=== PATIENT | male | born 1945 | race Caucasian/White ===

== ENCOUNTER 2016-08-16 09:36 | Emergency (ER) | payer MEDICARE ==
--- NOTE | 2016-08-16 10:44 | ER Document Report ---
ED General - General Chief Complaint: Shortness Of Breath Stated Complaint: SHORTNESS OF BREATH Information source: Patient Notes: 71-year-old male with past medical history including 2 heart attacks in 2006 with 3 stents placed at that time who presents today from his primary care physician's for evaluation. Patient supposedly around a week ago developed a one he knows, congestion, and coughing. He was seen by his primary care physician and started on antibiotics and steroids with a breathing treatment for some wheezing. Patient states she followed up today just for a "recheck". He states the coughing and the congestion has improved. He denies any fevers, nausea, vomiting, calf pain or leg swelling. He denies any and all chest pain. The primary doctor performed an EKG today and had concern for some inverted T waves. He sent the patient here for evaluation. TRAVEL OUTSIDE OF THE [place] IN LAST 30 DAYS: No - HPI Onset: Other - See above Quality of pain: Other - See above Severity: Moderate Pain Level: Denies Associated symptoms: Other - See above Exacerbated by: Denies Relieved by: Denies Similar symptoms previously: No Recently seen / treated by doctor: Yes - Related Data Allergies/Adverse Reactions: No Known Allergies Allergy (Verified 08/16/16 09:52) Past Medical History - Social History Smoking Status: Former Smoker Chew tobacco use (# tins/day): No Frequency of alcohol use: None Drug Abuse: None Family History: Reviewed & Not Pertinent Patient has suicidal ideation: No Patient has homicidal ideation: No - Past Medical History Cardiac Medical History: Reports: Hx Coronary Artery Disease, Hx Heart Attack, Hx Hypercholesterolemia, Hx Hypertension Renal/ Medical History: Denies: Hx Peritoneal Dialysis Musculoskeltal Medical History: Reports Hx Musculoskeletal Deformity, Reports Hx Musculoskeletal Trauma Past Surgical History: Reports: Hx Cardiac Catheterization - stents, Hx Coronary Stent - Immunizations Immunizations up to date: Yes Hx Diphtheria, Pertussis, Tetanus Vaccination: Yes Review of Systems - Review of Systems Constitutional: denies: Fever EENT: Nose discharge, Sinus discharge. denies: Eye discharge Cardiovascular: denies: Chest pain Respiratory: Cough. denies: Short of breath Gastrointestinal: denies: Vomiting Genitourinary: denies: Dysuria Musculoskeletal: denies: Leg swelling Skin: Other - no hives. denies: Rash Neurological/Psychological: Other - no slurred speech -: Yes All other systems reviewed and negative Physical Exam - Vital signs Vitals: Temp Pulse Resp BP Pulse Ox 97.5 F 57 L 16 154/72 H 94 08/16/16 09:51 08/16/16 09:51 08/16/16 09:51 08/16/16 09:51 08/16/16 09:51 Notes: Reviewed vital signs and nursing note as charted by RN. CONSTITUTIONAL: Alert and oriented and responds appropriately to questions. Well -appearing; well-nourished HEAD: Normocephalic; atraumatic EYES: PERRL; Conjunctivae clear, sclerae non-icteric ENT: Normal nose; positive rhinorrhea; moist mucous membranes; pharynx without lesions noted CARD: Regular rate and rhythm; no murmurs, no clicks, no rubs, no gallops; symmetric distal pulses RESP: Normal chest excursion without splinting or tachypnea; breath sounds clear and equal bilaterally; no wheezes, no rhonchi, no rales BACK: The back appears normal and is non-tender to palpation, there is no CVA tenderness EXT: Normal ROM in all joints; non-tender to palpation; no cyanosis, no effusions, no edema SKIN: Normal color for age and race; warm; dry; good turgor; capillary refill < 2 seconds; no acute lesions noted NEURO: Moves all extremities equally; Motor and sensory function intact PSYCH: The patient's mood and manner are appropriate. Grooming and personal hygiene are appropriate. Course - Re-evaluation Re-evalutation: 08/16/16 10:40 I have reviewed the EKG at the primary care physician's office. It appears that the patient there has a heart rate of 55, normal sinus rhythm, minimal left axis deviation, poor R wave progression, no obvious ST elevation or depression, inverted T waves in leads 2, 3, aVF, V3 and V4. EKG and pivot shows a heart of 57, normal sinus rhythm, minimal right axis deviation, no obvious ST elevation or depression. Inverted T waves in leads V3 through V5. Flattened T waves in 1, 2, 3. Repeat EKG shows a heart of 62, normal sinus rhythm, left anterior fascicular block, poor wave progression, no obvious ST elevation or depression, inverted T waves in V3 through V5. Poor R wave progression. Given the history and physical examination with no complaints of chest pain, calf pain, leg swelling, with a recent examination with signs and symptoms of an upper respiratory tract infection, I believe the risk of ACS, PE, and aortic dissection to be unlikely. We will obtain one set of cardiac enzymes and an x- ray of the chest with a BNP given the patient's past medical history. 08/16/16 11:59 Labs as recorded. Still no chest pain. Normal troponin. BNP is 399. X-ray of the chest. Pt has completed antibiotics. I called and spoke to the primary care physician agrees with discharge and that he will follow-up with the patient. Patient and family are very pleased with this disposition. Patient will be discharged home. - Vital Signs Vital signs: Temp Pulse Resp BP Pulse Ox 97.5 F 57 L 18 154/72 H 94 08/16/16 09:51 08/16/16 09:51 08/16/16 09:55 08/16/16 09:51 08/16/16 09:51 - Laboratory Result Diagrams: 08/16/16 10:45 08/16/16 10:45 Laboratory results interpreted by me: 08/16/16 10:45 RDW 14.7 H Lymphocytes % 12.6 L Discharge - Discharge Clinical Impression: Nasal congestion, Cough, Abnormal EKG Condition: Good Disposition: HOME, SELF-CARE Additional Instructions: Come back immediately with any chest pain, shortness of breath, calf pain, leg swelling, fevers or vomiting, or any other acute problems. Please follow-up with your primary doctor as we have discussed.
[2016-08-16 11:10] LABS: ABSOLUTE BASOPHILS # (AUTO) 0.1 10^3/uL (0.0-0.2); ABSOLUTE LYMPHOCYTES (AUTO) 1.2 10^3/uL (0.5-4.7); ABSOLUTE MONOCYTES (AUTO) 0.9 10^3/uL (0.1-1.4); ABSOLUTE NEUT (AUTO) 7.1 10^3/uL (1.7-8.2); BASOPHILS % (AUTO) 1.1 % (0-2); EOSINOPHILS % (AUTO) 0.1 % (0-6); HEMATOCRIT 43.5 % (37.9-51.0); HEMOGLOBIN 14.9 g/dL (13.5-17.0); HGB HCT DIFFERENCE 1.2; LYMPHOCYTES % (AUTO) 12.6 % (13-45); MEAN CORPUSCULAR HGB CONC 34.2 g/dL (32.0-36.0); MEAN CORPUSCULAR VOLUME 91 fl (80-97); MONOCYTES % (AUTO) 9.5 % (3-13); RED BLOOD COUNT 4.79 10^6/uL (4.35-5.55); RED CELL DISTRIBUTION WIDTH 14.7 % (11.5-14.0); SEGMENTED NEUTROPHILS % (AUTO) 76.7 % (42-78); WHITE BLOOD COUNT 9.2 10^3/uL (4.0-10.5)
[2016-08-16 11:33] LABS: ANION GAP 10 (5-19); BLOOD UREA NITROGEN 13 mg/dL (7-20); CALCIUM 9.4 mg/dL (8.4-10.2); CARBON DIOXIDE 26 mmol/L (22-30); CHLORIDE 102 mmol/L (98-107); CREATININE RESULT 0.64 mg/dL (0.52-1.25); GLUCOSE 99 mg/dL (75-110)
[2016-08-16 11:41] LABS: TROPONIN I 0.014 ng/mL
[2016-08-16 12:45] VITALS: BP 148/78
--- NOTE | 2016-08-16 13:07 | EKG REPORT ---
SEVERITY:- ABNORMAL ECG - SINUS RHYTHM LEFT ANTERIOR FASCICULAR BLOCK LOW VOLTAGE IN FRONTAL LEADS NONSPECIFIC T ABNORMALITIES, ANT-LAT LEADS : Confirmed by: Reinier Elizabeth MD 16-Aug-2016 13:05:40
--- NOTE | 2016-08-16 13:08 | EKG REPORT ---
SEVERITY:- DEFECTIVE ECG - SINUS RHYTHM RIGHT AXIS DEVIATION LOW VOLTAGE IN FRONTAL LEADS ANTERIOR INFARCT , OLD BORDERLINE T ABNORMALITIES, DIFFUSE LEADS : Confirmed by: Reinier Elizabeth MD 16-Aug-2016 13:07:39
== END 2016-08-16 12:51 | disposition home or self-care (01) ==
LOC: ER 09:36
DX: R09.81 Nasal congestion (principal); R05 Cough; R94.31 Abnormal electrocardiogram [ECG] [EKG]; R06.02 Shortness of breath; I25.10 Atherosclerotic heart disease of native coronary artery without angina pectoris; E78.00 Pure hypercholesterolemia, unspecified; I10 Essential (primary) hypertension; Z87.891 Personal history of nicotine dependence; I25.2 Old myocardial infarction
CPT/HCPCS: 36415; 71020; 80048; 83880; 84484; 85025; 93005; 93010; 99285

== ENCOUNTER → 2016-10-25 | Outpatient (CLI) | payer MEDICARE ==
[2016-10-25 08:40] LABS: HEMATOCRIT 39.1 % (37.9-51.0); HEMOGLOBIN 13.1 g/dL (13.5-17.0); HGB HCT DIFFERENCE 0.2; MEAN CORPUSCULAR HEMOGLOBIN 31.1 pg (27.0-33.4); MEAN CORPUSCULAR HGB CONC 33.5 g/dL (32.0-36.0); MEAN CORPUSCULAR VOLUME 93 fl (80-97); RED BLOOD COUNT 4.22 10^6/uL (4.35-5.55); RED CELL DISTRIBUTION WIDTH 14.3 % (11.5-14.0); WHITE BLOOD COUNT 5.8 10^3/uL (4.0-10.5)
[2016-10-25 09:04] LABS: ALANINE AMINOTRANSFERASE 37 U/L (21-72); ALBUMIN 3.7 g/dL (3.5-5.0); ALKALINE PHOSPHATASE 72 U/L (38-126); ASPARTATE AMINO TRANSFERASE 25 U/L (17-59); BILIRUBIN,DIRECT 0.2 mg/dL (0.0-0.4); BILIRUBIN,TOTAL 0.6 mg/dL (0.2-1.3); TOTAL PROTEIN 6.2 g/dL (6.3-8.2)
[2016-10-25 09:05] LABS: ANION GAP 9 (5-19); BLOOD UREA NITROGEN 15 mg/dL (7-20); CALCIUM 9.3 mg/dL (8.4-10.2); CARBON DIOXIDE 26 mmol/L (22-30); CHLORIDE 104 mmol/L (98-107); CREATININE RESULT 0.85 mg/dL (0.52-1.25); GLUCOSE 90 mg/dL (75-110); POTASSIUM 4.5 mmol/L (3.6-5.0); SODIUM 138.7 mmol/L (137-145)
[2016-10-25 18:36] LABS: CHOLESTEROL 95.75 mg/dL (0-200); Direct HDL 40 mg/dL (>40); TRIGLYCERIDES 62 mg/dL (<150)
[2016-10-25 18:46] LABS: DIRECT LDL 31 mg/dL (<100)
== END ==
LOC: OD 07:30
PROVIDERS: ATTEND Internal Medicine Cardiovascular Disease
DX: E78.5 Hyperlipidemia, unspecified (principal); R06.02 Shortness of breath; I50.22 Chronic systolic (congestive) heart failure; Z79.899 Other long term (current) drug therapy
CPT/HCPCS: 36415; 80048; 80061; 80076; 83036; 83880; 84443; 85027

== ENCOUNTER → 2016-10-27 | Outpatient (CLI) | payer MEDICARE ==
[2016-10-27 10:46] LABS: CHOLESTEROL 111.25 mg/dL (0-200); Direct HDL 47 mg/dL (>40); TRIGLYCERIDES 63 mg/dL (<150)
[2016-10-27 10:57] LABS: DIRECT LDL 40 mg/dL (<100)
== END ==
LOC: OD 09:19
PROVIDERS: ATTEND Internal Medicine Cardiovascular Disease
DX: E78.5 Hyperlipidemia, unspecified (principal); R00.2 Palpitations
CPT/HCPCS: 36415; 80061

== ENCOUNTER 2016-12-15 07:08 | Day surgery (SDC) | payer MEDICARE ==
[~2016-12-15 07:08] MED LIST: KETOROLAC TROMETHAMINE 0.45% 4 DROP/0.4 ML DROPERETTE OD PRN
[2016-12-15] MEDS ORDERED: EPINEPHRINE INJ/PF 1 MG/1 ML AMPULE ONE (07:13)
[2016-12-15] MEDS ORDERED: CHONDR SU A NA/HYALUR INTRAOC KIT (SURGICARE) ONE (07:13)
[2016-12-15] MEDS ORDERED: LIDOCAINE 1% INJ-PF (10 MG/ML) 30 ML SDV ONE (07:13)
[2016-12-15] MEDS: CYCLOPENTOLATE 0.2%/PHENYLEPHRINE 1% OPH SOLN 2 ML OD PRN ×3 (07:24→07:40)
[2016-12-15] MEDS: TROPICAMIDE 1% OPH SOLN 3 ML OD PRN ×3 (07:24→07:39)
[2016-12-15] MEDS: BESIFLOXACIN HCL 0.6% OPH SUSP 5 ML BOTTLE OD PRN ×4 (07:25→08:21)
[2016-12-15] MEDS: TETRACAINE HCL 0.5% OPH SOLN 2 ML OD PRN ×3 (07:26→07:56)
[2016-12-15] MEDS ORDERED: MIDAZOLAM 2 MG/2 ML INJ ONE (07:39)
[2016-12-15] MEDS ORDERED: FENTANYL CITRATE INJ/PF 100 MCG/2 ML AMPUL ONE (07:39)
--- NOTE | 2016-12-15 21:49 | [facility] DISCHARGE SUMMARY E ---
[facility] Discharge Summary NAME: CLIFF TALBOT AGE: 71Y ADMITTED: 12/15/2016 DISCHARGED: 12/15/2016 HISTORY OF PRESENT ILLNESS AND HOSPITAL COURSE: This is a 71-year-old male who underwent cataract extraction of the right eye. DIAGNOSIS: Cataract, right eye. HOSPITAL COURSE: He underwent surgery because he was having difficulty seeing road signs. DISCHARGE INSTRUCTIONS: 1. He should be on a regular diet. 2. No bending at the waist and no heavy lifting. 3. He should use Besivance, Ilevro, and Durezol at 3 p.m. and 8 p.m. and sleep with a rigid shield. 4. I will see him for his one-day postoperative tomorrow. DICTATING PHYSICIAN: TANGELA ACKERMAN M.D. [id number] PHY#: [id number] ID: [id number] JOB#: [id number] ACCT: [id number] cc:TANGELA ACKERMAN M.D. >
--- NOTE | 2016-12-15 21:50 | [facility] OPERATIVE REPORT E ---
[facility] Operative Report NAME: CLIFF TALBOT AGE: 71Y DATE OF SURGERY: 12/15/2016 ROOM: PREOPERATIVE DIAGNOSIS: Cataract, right eye. POSTOPERATIVE DIAGNOSIS: Cataract, right eye. OPERATION: Cataract extraction with intraocular lens implant of the right eye. SURGEON: TANGELA ACKERMAN M.D. ANESTHESIA: Topical. PROCEDURE: After obtaining appropriate consent, the patient's right eye was prepped and draped in sterile fashion as well as the surgeon in a sterile manner and cataract surgery was started. First a paracentesis blade was used to make a small side-port incision. Viscoelastic was used to inflate the anterior chamber. Next a 2.4 mm incision was made with the paracentesis blade. A continuous capsulorrhexis incision was made using a cystotome and Utrata forceps. Following this hydrodissection was carried out to make the lens fully loose and mobile and it was rotated 90 degrees. Following this, a gyqumg-tks-tbidiwa technique was used to phacoemulsify the lens with a CDE of 24.47. The remaining cortex was removed with irrigation/aspiration. Provisc was instilled into the capsular bag to inflate the bag. A SN60WF, 22.0 diopter lens was placed. The remaining viscoelastic material was removed with irrigation/aspiration. Following this, a 10-0 nylon suture was used to close the incision and it was found to be watertight. Vigamox was instilled in the eye and a protective shield was placed over the eye. The patient returned to the postoperative recovery in stable condition. DICTATING PHYSICIAN: TANGELA ACKERMAN M.D. [id number] PHY#: [id number] ID: [id number] JOB#: [id number] ACCT: [id number] cc:TANGELA ACKERMAN M.D. >
== END 2016-12-15 09:01 | disposition home or self-care (01) ==
LOC: SC 07:08
PROVIDERS: ATTEND Internal Medicine
PROC: 08RJ3JZ Replacement of Right Lens with Synthetic Substitute, Percutaneous Approach (ICD-10-PCS; principal; 2016-12-15 08:00)
DX: H25.813 Combined forms of age-related cataract, bilateral (principal); I10 Essential (primary) hypertension; I48.91 Unspecified atrial fibrillation; Z87.891 Personal history of nicotine dependence; Z79.82 Long term (current) use of aspirin; Z79.899 Other long term (current) drug therapy
CPT/HCPCS: 66984; V2632; J2250; J3490 ×2; A9270; J0171; J3010; 142

== ENCOUNTER → 2016-12-19 | Outpatient (CLI) | payer MEDICARE ==
[2016-12-19 10:04] LABS: ANION GAP 9 (5-19); BLOOD UREA NITROGEN 11 mg/dL (7-20); CARBON DIOXIDE 26 mmol/L (22-30); CHLORIDE 106 mmol/L (98-107); CREATININE RESULT 0.74 mg/dL (0.52-1.25); GLUCOSE 91 mg/dL (75-110); POTASSIUM 4.2 mmol/L (3.6-5.0); SODIUM 141.1 mmol/L (137-145)
== END ==
LOC: OD 08:18
PROVIDERS: ATTEND Internal Medicine Cardiovascular Disease
DX: I50.22 Chronic systolic (congestive) heart failure (principal); R06.02 Shortness of breath
CPT/HCPCS: 36415; 80048; 83880

== ENCOUNTER 2017-01-05 08:46 | Day surgery (SDC) | payer MEDICARE ==
[~2017-01-05 08:46] MED LIST changes: +CHONDR SU A NA/HYALUR INTRAOC KIT (SURGICARE) ONE; +EPINEPHRINE INJ/PF 1 MG/1 ML AMPULE ONE; -KETOROLAC TROMETHAMINE 0.45% 4 DROP/0.4 ML DROPERETTE OD PRN; +KETOROLAC TROMETHAMINE 0.45% 4 DROP/0.4 ML DROPERETTE OS PRN; +LIDOCAINE 1% INJ-PF (10 MG/ML) 30 ML SDV ONE
[2017-01-05] MEDS: TETRACAINE HCL 0.5% OPH SOLN 2 ML OS PRN ×3 (08:58→09:41)
[2017-01-05] MEDS: CYCLOPENTOLATE 0.2%/PHENYLEPHRINE 1% OPH SOLN 2 ML OS PRN ×3 (08:59→09:22)
[2017-01-05] MEDS: TROPICAMIDE 1% OPH SOLN 3 ML OS PRN ×3 (08:59→09:22)
[2017-01-05] MEDS: BESIFLOXACIN HCL 0.6% OPH SUSP 5 ML BOTTLE OS PRN ×3 (08:59→10:00)
[2017-01-05] MEDS ORDERED: MIDAZOLAM 2 MG/2 ML INJ ONE ×2 (09:17)
--- NOTE | 2017-01-06 07:27 | [facility] OPERATIVE REPORT E ---
[facility] Operative Report NAME: CLIFF TALBOT AGE: 71Y DATE OF SURGERY: 01/05/2017 ROOM: PREOPERATIVE DIAGNOSIS: CATARACT, LEFT EYE. POSTOPERATIVE DIAGNOSIS: CATARACT, LEFT EYE. OPERATION: Cataract extraction with intraocular lens implant of the left eye. SURGEON: TANGELA ACKERMAN M.D. ANESTHESIA: Topical. PROCEDURE: After obtaining appropriate consent, the patient's left eye was prepped and draped in sterile fashion as well as the surgeon in a sterile manner and cataract surgery was started. First a paracentesis blade was used to make a small side-port incision. Viscoelastic was used to inflate the anterior chamber. Next a 2.4 mm incision was made with the paracentesis blade. A continuous capsulorrhexis incision was made using a cystotome and Utrata forceps. Following this hydrodissection was carried out to make the lens fully loose and mobile and it was rotated 90 degrees. Following this, a bylqst-ytt-nfhaqmm technique was used to phacoemulsify the lens with a CDE of 14.06. The remaining cortex was removed with irrigation/aspiration. Provisc was instilled into the capsular bag to inflate the bag. A SN60WF, 23.0 diopter lens was placed. The remaining viscoelastic material was removed with irrigation/aspiration. Following this, a 10-0 nylon suture was used to close the incision and it was found to be watertight. Vigamox was instilled in the eye and a protective shield was placed over the eye. The patient returned to the postoperative recovery in stable condition. DICTATING PHYSICIAN: TANGELA ACKERMAN M.D. [id number] PHY#: [id number] ID: [id number] JOB#: [id number] ACCT: [id number] cc:TANGELA ACKERMAN M.D. >
--- NOTE | 2017-01-06 07:28 | [facility] DISCHARGE SUMMARY E ---
[facility] Discharge Summary NAME: CLIFF TALBOT AGE: 71Y ADMITTED: 01/05/2017 DISCHARGED: 01/05/2017 HOSPITAL COURSE: This is a 71-year-old male who underwent cataract extraction of the left eye, diagnosed as cataract left eye. He underwent surgery because he was having difficulty with glare from headlights at night. He should be on a regular diet. No bending at his waist. No heavy lifting. He should use his Besivance, Ilevro, and Durezol at 3 p.m. and 8 p.m. and sleep with a rigid shield, and I will see him for his one day postoperative tomorrow. DICTATING PHYSICIAN: TANGELA ACKERMAN M.D. [id number] PHY#: [id number] ID: [id number] JOB#: [id number] ACCT: [id number] cc:TANGELA ACKERMAN M.D. >
== END 2017-01-05 10:39 | disposition home or self-care (01) ==
LOC: SC 08:46
PROVIDERS: ATTEND Internal Medicine
PROC: 08RK3JZ Replacement of Left Lens with Synthetic Substitute, Percutaneous Approach (ICD-10-PCS; principal; 2017-01-05 10:00)
DX: H25.12 Age-related nuclear cataract, left eye (principal); Z96.1 Presence of intraocular lens
CPT/HCPCS: 66984; V2632; J2250; J3490 ×2; A9270; J0171; 142

== ENCOUNTER → 2017-01-19 | Outpatient (CLI) | payer MEDICARE ==
[2017-01-19 09:01] LABS: ANION GAP 9 (5-19); BLOOD UREA NITROGEN 15 mg/dL (7-20); CALCIUM 9.8 mg/dL (8.4-10.2); CARBON DIOXIDE 27 mmol/L (22-30); CHLORIDE 105 mmol/L (98-107); CREATININE RESULT 0.85 mg/dL (0.52-1.25); GLUCOSE 104 mg/dL (75-110); POTASSIUM 4.3 mmol/L (3.6-5.0); SODIUM 140.8 mmol/L (137-145)
== END ==
LOC: OD 07:53
PROVIDERS: ATTEND Internal Medicine Cardiovascular Disease
DX: I50.22 Chronic systolic (congestive) heart failure (principal); R06.02 Shortness of breath
CPT/HCPCS: 36415; 80048; 83880

== ENCOUNTER → 2017-07-04 | Outpatient (CLI) | payer MEDICARE ==
[2017-07-04 09:38] LABS: ANION GAP 8 (5-19); BLOOD UREA NITROGEN 14 mg/dL (7-20); CALCIUM 9.4 mg/dL (8.4-10.2); CARBON DIOXIDE 28 mmol/L (22-30); CHLORIDE 106 mmol/L (98-107); GLUCOSE 100 mg/dL (75-110); POTASSIUM 4.4 mmol/L (3.6-5.0); SODIUM 142.2 mmol/L (137-145)
== END ==
LOC: OD 08:03
PROVIDERS: ATTEND Internal Medicine Cardiovascular Disease
DX: I50.22 Chronic systolic (congestive) heart failure (principal); R06.02 Shortness of breath; R00.2 Palpitations
CPT/HCPCS: 36415; 80048; 83880

== ENCOUNTER 2017-09-03 16:33 | Inpatient (IN) | payer MEDICARE ==
--- NOTE | 2017-09-03 18:07 | ER Document Report ---
ED Medical Screen (RME) - General Mode of Arrival: Ambulatory Information source: Patient TRAVEL OUTSIDE OF THE [place] IN LAST 30 DAYS: No <GINA BUCHANAN - Last Filed: 09/03/17 18:06> <JOANIE GARDNER - Last Filed: 09/03/17 18:42> - General Chief Complaint: Abdominal Pain Stated Complaint: STOMACH PAIN Time Seen by Provider: 09/03/17 18:33 Notes: 72 y.o male with a PMHx of [place], stents (last in 2006), HLD and HTN for which he takes Entresto. Pt presents to the ED with ABD pain of sudden onset today around 1330, more prominently on his right side. Pt reports dry heaving today and passing gas. He denies any diarrhea. Pt denies any Hx of abd issues, clots or DM. He denies taking any blood thinners. Pt PCP is Sr. Tabor. Cuffing Machine Operator is Dr. Conley. (JOANIE GARDNER) - Related Data Allergies/Adverse Reactions: No Known Allergies Allergy (Verified 09/03/17 16:35) Past Medical History - Past Medical History Cardiac Medical History: Reports: Hx Coronary Artery Disease, Hx Heart Attack - 2006 AND STENTS PLACED, Hx Hypercholesterolemia, Hx Hypertension Pulmonary Medical History: Denies: Hx Asthma Neurological Medical History: Denies: Hx Cerebrovascular Accident, Hx Seizures Renal/ Medical History: Denies: Hx Peritoneal Dialysis GI Medical History: Denies: Hx Hepatitis, Hx Hiatal Hernia, Hx Ulcer - OVER 40 YEARS AGO WHEN DRINKING Musculoskeltal Medical History: Reports Hx Musculoskeletal Deformity, Reports Hx Musculoskeletal Trauma Infectious Medical History: Denies: Hx Hepatitis Past Surgical History: Reports: Hx Cardiac Catheterization - stents, Hx Coronary Stent. Denies: Hx Open Heart Surgery, Hx Pacemaker - Immunizations Immunizations up to date: Yes Hx Diphtheria, Pertussis, Tetanus Vaccination: Yes <GINA BUCHANAN - Last Filed: 09/03/17 18:06> - General Information source: Patient - Social History Cigarette use (# per day): No Chew tobacco use (# tins/day): No Frequency of alcohol use: None Drug Abuse: None <JOANIE GARDNER - Last Filed: 09/03/17 18:42> Review of Systems - Review of Systems Gastrointestinal: See HPI, Abdominal pain, Other - dry heaving, passing gas. denies: Diarrhea <JOANIE GARDNER - Last Filed: 09/03/17 18:42> Physical Exam <GINA BUCHANAN - Last Filed: 09/03/17 18:06> <JOANIE GARDNER - Last Filed: 09/03/17 18:42> - Vital signs Vitals: Temp Pulse Resp BP Pulse Ox 97.4 F 69 16 135/73 H 98 09/03/17 16:42 09/03/17 16:42 09/03/17 16:42 09/03/17 16:42 09/03/17 16:42 - Notes Notes: PHYSICAL EXAM GENERAL: Alert, interacts well. No acute distress. HEAD: Normocephalic, atraumatic. EYES: Pupils equal, round, and reactive to light. Extraocular movements intact. ENT: Oral mucosa moist, tongue midline. Cyanotic tongue. NECK: Full range of motion. Supple. Trachea midline. LUNGS: Tachypnic. Clear to auscultation bilaterally, no wheezes, rales, or rhonchi. HEART: Regular rate and rhythm. No murmurs, gallops, or rubs. ABDOMEN: Firm, distended abd. Non-tender to palpation. Mottled skin. Bowel sounds present in all 4 quadrants. No guarding, rebound, or rigidity. EXTREMITIES: Moves all 4 extremities spontaneously. No edema. RT dorsalis pedis pulse 2+. Lt dorsalis pedis pulse 1+. NEUROLOGICAL: Alert and oriented x3. Normal speech. Biceps and patellar DTRs 2+ bilaterally. PSYCH: Normal affect, normal mood. SKIN: Warm, dry, normal turgor. No rashes or lesions noted. Mottled skin on abd. (JOANIE GARDNER) Course - Laboratory Result Diagrams: 09/03/17 18:18 09/03/17 18:18 <JOANIE GARDNER - Last Filed: 09/03/17 18:42> - Vital Signs Vital signs: Temp Pulse Resp BP Pulse Ox 98.1 F 72 20 118/76 96 09/03/17 17:56 09/03/17 17:56 09/03/17 17:56 09/03/17 17:56 09/03/17 17:56 Doctor's Discharge <GINA BUCHANAN - Last Filed: 09/03/17 18:06> <JOANIE GARDNER - Last Filed: 09/03/17 18:42> - Discharge Referrals: BALWINDER TABOR [Primary Care Provider] - Follow up as needed Scribe Documentation - Scribe Written by Scribe:: Jc Connelly 09/03/2017 1838 acting as scribe for :: Maria Del Carmen <JOANIE GARDNER - Last Filed: 09/03/17 18:42>
[2017-09-03 18:42] LABS: ABSOLUTE LYMPHOCYTES (AUTO) 1.4 10^3/uL (0.5-4.7); ABSOLUTE MONOCYTES (AUTO) 0.4 10^3/uL (0.1-1.4); ABSOLUTE NEUT (AUTO) 10.7 10^3/uL (1.7-8.2); BASOPHILS % (AUTO) 0.4 % (0-2); EOSINOPHILS % (AUTO) 0.3 % (0-6); HEMATOCRIT 45.2 % (37.9-51.0); HEMOGLOBIN 15.1 g/dL (13.5-17.0); LYMPHOCYTES % (AUTO) 11.2 % (13-45); MEAN CORPUSCULAR HEMOGLOBIN 31.2 pg (27.0-33.4); MEAN CORPUSCULAR HGB CONC 33.4 g/dL (32.0-36.0); MEAN CORPUSCULAR VOLUME 94 fl (80-97); MONOCYTES % (AUTO) 3.5 % (3-13); PLATELET COUNT 259 10^3/uL (150-450); RED BLOOD COUNT 4.83 10^6/uL (4.35-5.55); RED CELL DISTRIBUTION WIDTH 13.7 % (11.5-14.0); SEGMENTED NEUTROPHILS % (AUTO) 84.6 % (42-78); TOTAL CELLS COUNTED % (AUTO) 100 %; VENOUS BLOOD BASE EXCESS -0.7 mmol/L; VENOUS BLOOD HCO3 26.7 mmol/L (20-32); VENOUS BLOOD PCO2 54.4 mmHg (35-63); VENOUS BLOOD PH 7.31 (7.30-7.42); WHITE BLOOD COUNT 12.6 10^3/uL (4.0-10.5)
[2017-09-03] MEDS ORDERED: FENTANYL CITRATE INJ/PF 100 MCG/2 ML AMPUL IV ONE ×2 (18:43→18:46)
[2017-09-03] MEDS ORDERED: ONDANSETRON HCL INJ/PF 4 MG/2 ML SDV IV ONE (18:43)
[2017-09-03] MEDS ORDERED: NORMAL SALINE 1000 ML 1,000 ML IV ONE ×2 (18:44→19:25)
[2017-09-03 18:47] LABS: INTERNATIONAL RATION (INR) 0.96; PROTHROMBIN TIME 13.3 SEC (11.4-15.4)
[2017-09-03 18:48] LABS: PARTIAL THROMBOPLASTIN TIME 26.5 SEC (23.5-35.8)
--- NOTE | 2017-09-03 18:59 | RADIOLOGY REPORT (SQ) ---
EXAM DESCRIPTION: CTA CHEST COMPLETED DATE/TIME: 09/03/2017 6:41 pm REASON FOR STUDY: pain, eval for dissection /discussed risks, getting scan without labs COMPARISON: None. TECHNIQUE: CT scan of the chest performed using helical scanning technique with dynamic intravenous contrast injection. Images reviewed with lung, soft tissue and bone windows. Reconstructed coronal and sagittal MPR images reviewed. Additional 3 dimensional post-processing performed to develop Maximal Intensity Projection images (MS P). All images stored on PACS. All CT scanners at this facility use dose modulation, iterative reconstruction, and/or weight based d osing when appropriate to reduce radiation dose to as low as reasonably achievable (ALARA). [facility]: Dose Right [facility]: CareDose [facility]: Dose Right [facility]: Teradose 4D [facility]: KlickThru CONTRAST TYPE AND DOSE: contrast/concentration: Isovue 370.00 mg/ml; Total Contrast Delivered: 80.0 ml; Total Saline Delivered: 65.0 ml Contrast bolus adequate for pulmonary arteries and aorta. RENAL FUNCTION: Not available. RADIATION DOSE: . LIMITATIONS: None. FINDINGS: LUNGS AND PLEURA: No masses, infiltrates, pneumothorax. No pleural effusions, calcificati ons. AORTA AND GREAT VESSELS: No aneurysm. No dissection. HEART: No pericardial effusion. No significant coronary artery calcifications. PULMONARY ARTERIES: No emboli visualized in the main pulmonary arteries or the segmental branches. HILAR AND MEDIASTINAL STRUCTURES: No identified masses or abnormal nodes. HARDWARE: None in the chest. UPPER ABDOMEN: No significant findings. Limited exam. THYROID AND OTHER SOFT TISSUES: No masses. No adenopathy. BONES: No acute or significant finding. 3D MIPS: Confirm above findings. OTHER: No other significant finding. IMPRESSION: NORMAL CTA OF THE CHEST. NO AORTIC ANEURYSM OR DISSECTION. NO PULMONARY EMBOLI. COMMENT: Quality ID # [id number]: Final reports with documentation of one or more dose reduction techniques (e.g., Automated exposure control, adjustment of the mA and/or kV according to patient size, use of iterative reconstruction technique) TECHNICAL DOCUMENTATION: JOB ID: [id number] [employer]- All Rights Reserved Reading location - IP/workstation name: [email or web address]
[2017-09-03 19:01] LABS: ALANINE AMINOTRANSFERASE 41 U/L (21-72); ALBUMIN 4.5 g/dL (3.5-5.0); ALKALINE PHOSPHATASE 61 U/L (38-126); ANION GAP 12 (5-19); ASPARTATE AMINO TRANSFERASE 26 U/L (17-59); BILIRUBIN,DIRECT 0.2 mg/dL (0.0-0.4); BILIRUBIN,TOTAL 0.9 mg/dL (0.2-1.3); BLOOD UREA NITROGEN 12 mg/dL (7-20); CALCIUM 9.8 mg/dL (8.4-10.2); CARBON DIOXIDE 27 mmol/L (22-30); CHLORIDE 97 mmol/L (98-107); GLUCOSE 153 mg/dL (75-110); POTASSIUM 4.1 mmol/L (3.6-5.0); SODIUM 135.5 mmol/L (137-145)
[2017-09-03] MEDS ORDERED: PIPERACILLIN/TAZOBACTAM 4.5 GM VIAL IV ONE (19:07)
--- NOTE | 2017-09-03 19:08 | RADIOLOGY REPORT (SQ) ---
EXAM DESCRIPTION: CTA ABDOMEN/PELVIS W WO COMPLETED DATE/TIME: 09/03/2017 6:41 pm REASON FOR STUDY: Abd pain,discussed risks, getting scan without labs COMPARISON: None. TECHNIQUE: CT scan of the abdomen and pelvis performed with and without intravenous contrast using h elical scanning technique with dynamic intravenous contrast injection. Images reviewed with lung, sof t tissue, and bone windows. Reconstructed coronal and sagittal MPR images reviewed. All images stored on PACS. Advanced 3D imaging as volume rendering, MIPS, SSD performed? yes All CT scanners at this facility use dose modulation, iterative reconstruction, and/or weight based d osing when appropriate to reduce radiation dose to as low as reasonably achievable (ALARA). [facility]: Dose Right [facility]: CareDose [facility]: Dose Right [facility]: Teradose 4D [facility]: Sutus CONTRAST TYPE AND DOSE: 80 mL Isovue 370- low osmolar. RENAL FUNCTION: Not available. LIMITATIONS: None. FINDINGS: NON-CONTRASTED IMAGING: No significant renal or bladder calcifications. No other significa nt organ calcifications. POST-CONTRAST IMAGING: AORTA AND VESSELS: Extensive atherosclerosis with calcifications. No aneurysm. No dissection. The celiac axis, superior mesenteric artery, renal arteries, and inferior mesenteric artery are all paten t with no high-grade stenosis. The right common iliac, internal iliac, and external iliac arteries a re patent. The left common iliac and external iliac artery are occluded. There is filling of the di stal left common external iliac artery and common femoral artery via collaterals. The left internal iliac artery appears patent. LUNG BASES: No significant findings. No nodules or infiltrates. LIVER: Normal size. No masses or dilated ducts. SPLEEN: Normal size. No focal lesions. PANCREAS: No masses. No significant calcifications. No adjacent inflammation or peripancreatic fluid collections. Pancreatic duct not dilated. GALLBLADDER: No identified stones by CT criteria. No inflammatory changes to suggest cholecystitis. ADRENAL GLANDS: No significant masses or asymmetry. RIGHT KIDNEY AND URETER: Cortical cysts. No solid mass, calculi or urinary tract obstruction. LEFT KIDNEY AND URETER: No mass, calculi or urinary tract obstruction. RETROPERITONEUM: No retroperitoneal adenopathy, hemorrhage or masses. BOWEL AND PERITONEAL CAVITY: Scattered diverticuli primarily in the descending and sigmoid colon. No masses or inflammatory changes. Trace free fluid in the right upper quadrant between the liver and diaphragm No peritoneal masses. APPENDIX: The appendix is mildly dilated, measuring 10 mm in diameter (series 2, image 130). There i s stranding in the periappendiceal soft tissues. ABDOMINAL WALL: No masses. No hernias. BONY STRUCTURES: No significant or acute findings. 3-D IMAGING: Confirms the above findings. OTHER: No other significant finding. IMPRESSION: 1. FINDINGS IN THE APPENDIX SUSPICIOUS FOR EARLY ACUTE APPENDICITIS. NO EVIDENCE OF ABSCESS OR PERFO RATION. THERE IS A SMALL AMOUNT OF FREE FLUID IN THE RIGHT UPPER QUADRANT WHICH MAY BE RELATED TO AP PENDICITIS. 2. NO EVIDENCE OF AORTIC ANEURYSM OR DISSECTION. THE MAJOR MESENTERIC VESSELS ARE PATENT. THE LEFT COMMON ILIAC AND LEFT EXTERNAL ILIAC ARTERIES ARE OCCLUDED WITH FILLING DISTALLY VIA COLLATERALS, SUG GESTING THAT THIS IS PROBABLY A CHRONIC FINDING. 3. COLONIC DIVERTICULOSIS. NO CT FINDINGS OF ACUTE DIVERTICULITIS. 4. CORTICAL CYSTS IN THE RIGHT KIDNEY. 5. NO OTHER SIGNIFICANT FINDINGS. TECHNICAL DOCUMENTATION: JOB ID: [id number] Quality ID # [id number]: Final reports with documentation of one or more dose reduction techniques (e.g., Au tomated exposure control, adjustment of the mA and/or kV according to patient size, use of iterative reconstruction technique) 2010 [employer] All Rights Reserved Reading location - IP/workstation name: [email or web address]
[2017-09-03] MEDS ORDERED: AMPICILLIN SOD/SULBACTAM 3 GM VIAL IV ONE ×2 (19:14→19:23)
--- NOTE | 2017-09-03 19:40 | ER Document Report ---
ED General - General Mode of Arrival: Ambulatory Information source: Patient <JOANIE GARDNER - Last Filed: 09/03/17 23:46> - General TRAVEL OUTSIDE OF THE [place] IN LAST 30 DAYS: No <LGEARLADAM - Last Filed: 09/03/17 23:52> - General Chief Complaint: Abdominal Pain Stated Complaint: STOMACH PAIN Time Seen by Provider: 09/03/17 18:33 Notes: 72 y.o male with a PMHx of CO, stents (last being in 2006), HLD and HTN presents to the ED with sudden onset of ABD pain around 1330 today. Pt reports dry heaving but denies any vomiting. Pt also denies any diarrhea but admits passing gas. Pt denies taking any blood thinners. He denies any hx of aortic aneurism. PCP is Dr. Keita. [place] is Dr. Elizabeth. (JOANIE GARDNER) - Related Data Allergies/Adverse Reactions: No Known Allergies Allergy (Verified 09/03/17 16:35) Past Medical History - General Information source: Patient <JOANIE GARDNER - Last Filed: 09/03/17 23:46> - Social History Smoking Status: Former Smoker Chew tobacco use (# tins/day): No Frequency of alcohol use: None Drug Abuse: None Family History: Reviewed & Not Pertinent Patient has suicidal ideation: No Patient has homicidal ideation: No - Past Medical History Cardiac Medical History: Reports: Hx Coronary Artery Disease, Hx Heart Attack - 2006 AND STENTS PLACED, Hx Hypercholesterolemia, Hx Hypertension Pulmonary Medical History: Denies: Hx Asthma Neurological Medical History: Denies: Hx Cerebrovascular Accident, Hx Seizures Renal/ Medical History: Denies: Hx Peritoneal Dialysis GI Medical History: Denies: Hx Hepatitis, Hx Hiatal Hernia, Hx Ulcer - OVER 40 YEARS AGO WHEN DRINKING Musculoskeltal Medical History: Reports Hx Musculoskeletal Deformity, Reports Hx Musculoskeletal Trauma Infectious Medical History: Denies: Hx Hepatitis Past Surgical History: Reports: Hx Cardiac Catheterization - stents, Hx Coronary Stent. Denies: Hx Open Heart Surgery, Hx Pacemaker - Immunizations Immunizations up to date: Yes Hx Diphtheria, Pertussis, Tetanus Vaccination: Yes <ADAM DIEZ - Last Filed: 09/03/17 23:52> Review of Systems - Review of Systems Constitutional: No symptoms reported EENT: No symptoms reported Cardiovascular: No symptoms reported Respiratory: No symptoms reported Gastrointestinal: See HPI, Abdominal pain, Other - Dry heaving. denies: Diarrhea, Vomiting Genitourinary: No symptoms reported Male Genitourinary: No symptoms reported Musculoskeletal: No symptoms reported Skin: No symptoms reported Hematologic/Lymphatic: No symptoms reported Neurological/Psychological: No symptoms reported -: Yes All other systems reviewed and negative <JOANIE GARDNER - Last Filed: 09/03/17 23:46> Physical Exam <JOANIE GARDNER - Last Filed: 09/03/17 23:46> <ADAM DIEZ - Last Filed: 09/03/17 23:52> - Vital signs Vitals: Temp Pulse Resp BP Pulse Ox 97.4 F 69 16 135/73 H 98 09/03/17 16:42 09/03/17 16:42 09/03/17 16:42 09/03/17 16:42 09/03/17 16:42 - Notes Notes: PHYSICAL EXAM GENERAL: Alert, answers questions well. Appears very uncomfortable. HEAD: Normocephalic, atraumatic. EYES: Pupils equal, round, and reactive to light. Extraocular movements intact. ENT: Oral mucosa moist, tongue midline. NECK: Full range of motion. Supple. Trachea midline. LUNGS: Tachypneic. Clear to auscultation bilaterally, no wheezes, rales, or rhonchi. HEART: Regular rate and rhythm. No murmurs, gallops, or rubs. ABDOMEN: Firm, distended. Nontender to palpation, pain out of proportion to exam. Skin Mottled over abdomen. Bowel sounds present in all 4 quadrants. No guarding, rebound, or rigidity. EXTREMITIES: Moves all 4 extremities spontaneously. No edema. Right dorsalis pedis pulse 2+. Left dorsalis pedis pulse 1+. NEUROLOGICAL: Alert and oriented x3. Normal speech. Biceps and patellar DTRs 2+ bilaterally. PSYCH: Normal affect, normal mood. SKIN: Warm, dry, normal turgor. Mottled skin. No rashes or lesions noted. RECTAL: Soft brown stool, no blood, no melena no hemorrhoids. (JOANIE GARDNER) Course - Laboratory Result Diagrams: 09/03/17 18:18 09/03/17 18:18 <JOANIE GARDNER - Last Filed: 09/03/17 23:46> - Laboratory Result Diagrams: 09/03/17 18:18 09/03/17 18:18 <ADAM DIEZ - Last Filed: 09/03/17 23:52> - Re-evaluation Re-evalutation: 09/03/17 19:49 CTA of the chest abdomen and pelvis was ordered to rule out dissection, aneurysmal rupture and mesenteric ischemia. It did not show any signs of mesenteric ischemia or dissection, no evidence of aneurysm. There was early acute appendicitis. Patient was then immediately referred to the surgeon for consult, Dr. Enriquez accepted the patient to his service, we will treat the patient with Unasyn, resuscitate with fluids, fentanyl did not relieve his pain so he will be given Dilaudid at this point. Patient has been made n.p.o. Initial CT scan was performed without awaiting renal function due to the life- threatening nature of the suspected etiology. Risks of renal failure were discussed with patient and family members, they were agreeable to CT scan with IV contrast without awaiting renal function. 09/03/17 23:50 09/03/17 23:51 Shortly after seeing the patient bedside ultrasound was performed by me to look for possible aortic dissection or ruptured aortic aneurysm. Patient had a large amount of gas in the abdomen and I was unable to visualize the aorta. Patient was immediately sent for CAT scan as described above. (ADAM DIEZ) - Vital Signs Vital signs: Temp Pulse Resp BP Pulse Ox 98.1 F 72 29 H 125/83 93 09/03/17 18:51 09/03/17 17:56 09/03/17 19:16 09/03/17 19:16 09/03/17 19:16 - Laboratory Laboratory results interpreted by me: 09/03/17 09/03/17 09/03/17 18:18 18:18 18:18 WBC 12.6 H Seg Neutrophils % 84.6 H Lymphocytes % 11.2 L Absolute Neutrophils 10.7 H Sodium 135.5 L Chloride 97 L Glucose 153 H Lactic Acid 2.7 H Critical Care Note - Critical Care Note Total time excluding time spent on procedures (mins): 35 <ADAM DIEZ - Last Filed: 09/03/17 23:52> Discharge <JOANIE GARDNER - Last Filed: 09/03/17 23:46> - Discharge Admitting Provider: Surgicalist - [facility] Admitted: OR <ADAM DIEZ - Last Filed: 09/03/17 23:52> - Discharge Clinical Impression: Acute appendicitis Qualifiers: Acute appendicitis type: with localized peritonitis Qualified Code(s): K35.3 - Acute appendicitis with localized peritonitis Condition: Fair Disposition: ADMITTED INPATIENT Scribe Attestation: 09/03/17 23:50 I personally performed the services described in the documentation, reviewed and edited the documentation which was dictated to the scribe in my presence, and it accurately records my words and actions. (ADAM DIEZ) Scribe Documentation - Scribe Written by Jc:: Jc Connelly 09/03/171999 acting as scribe for :: Maria Del Carmen <JOANIE GARDNER - Last Filed: 09/03/17 23:46>
[2017-09-03] MEDS ORDERED: HYDROMORPHONE HCL INJ/PF 2 MG/ML AMPULE IV ONE (19:44)
[2017-09-03] MEDS ORDERED: FENTANYL CITRATE INJ/PF 250 MCG/5 ML AMPULE ONE (20:31)
[2017-09-03] MEDS ORDERED: PROPOFOL INJ 200 MG/20 ML VIAL IV ONE (20:32)
[2017-09-03] MEDS ORDERED: MIDAZOLAM 2 MG/2 ML INJ ONE (20:32)
[2017-09-03] MEDS ORDERED: BUPIVACAINE HCL 0.25 % INJ/PF (2.5 MG/1 ML) 30 ML VIAL ONE (20:38)
[2017-09-03] MEDS ORDERED: DIPHENHYDRAMINE HCL 50 MG/ML VIAL IV PRN (21:50)
[2017-09-03] MEDS ORDERED: FENTANYL CITRATE INJ/PF 100 MCG/2 ML AMPUL IV PRN ×3 (21:50)
[2017-09-03] MEDS ORDERED: PROMETHAZINE HCL INJ 25 MG/1 ML VIAL IV PRN (21:50)
[2017-09-03] MEDS ORDERED: MEPERIDINE HCL/PF INJ 25 MG/1 ML DISP.SYRIN IV PRN (21:50)
--- NOTE | 2017-09-03 22:54 | EKG REPORT ---
SEVERITY:- ABNORMAL ECG - SINUS TACHYCARDIA LEFT ANTERIOR FASCICULAR BLOCK LOW VOLTAGE IN FRONTAL LEADS BORDERLINE T ABNORMALITIES, LATERAL LEADS : Confirmed by: Marysol Cooley 03-Sep-2017 22:53:32
[2017-09-03] MEDS ORDERED: PHARMACY COMMUNICATION ORDER MC NR (23:45)
[2017-09-03] MEDS ORDERED: PROPOFOL 100 ML IV ONE (23:45)
[2017-09-03] MEDS ORDERED: DEXTROSE 40% GEL 15 GM TUBE PO PRN ×2 (23:59)
[2017-09-03] MEDS ORDERED: DEXTROSE 50%-WATER 25 GM/50 ML DISP.SYRIN IV PRN ×2 (23:59)
[2017-09-03] MEDS ORDERED: GLUCAGON,HUMAN RECOMB 1 MG INJ SUBCUT PRN (23:59)
--- NOTE | 2017-09-04 00:19 | PDOC H&P ---
History of Present Illness Admission Date/PCP: 09/03/17 19:44 BALWINDER TABOR Patient complains of: Right sided abdominal pains with nausea History of Present Illness: CLIFF TALBOT is a 72 year old male who has been c/o off and on right flank pains for a few weeks. This morning pains really got worse and went to ED. He had a CT scan of Abd/Pelvis which showed acute appendicitis. Pt was tachycardic given IV fluids and IV zosyn Past Medical History Cardiac Medical History: Reports: Coronary Artery Disease, Myocardial Infarction - 2007 AND STENTS PLACED, Hyperlipidema, Hypertension Pulmonary Medical History: Denies: Asthma Neurological Medical History: Denies: Seizures GI Medical History: Denies: Hepatitis, Hiatal Hernia Hematology: Denies: Anemia, Sickle Cell Disease Past Surgical History Past Surgical History: Reports: Cardiac Catheterization - stents, Coronary Stent Denies: Pacemaker Social History Smoking Status: Former Smoker - Advance Directive Resuscitation Status: Full Code Family History Family History: Reviewed & Not Pertinent Parental Family History Reviewed: Yes Children Family History Reviewed: No Sibling(s) Family History Reviewed.: No Medication/Allergy Home Medications: Aspirin [Aspirin EC] 81 mg PO DAILY 12/09/16 Atorvastatin Calcium 40 mg PO DAILY 12/09/16 Carvedilol [Coreg] 1 tab PO Q12 12/09/16 Cyanocobalamin (Vitamin B-12) [Vitamin B-12 1000 Mcg Tablet] 1 tab PO DAILY Multivit-Min/Folic/Vit K/Lycop [One-A-Day Men's 50+ Tablet] 1 each PO DAILY Sacubitril/Valsartan [Entresto 24 mg/26 mg Tablet] 1 tab PO DAILY 12/09/16 Spironolactone 25 mg PO .QOD 12/09/16 Besifloxacin HCl [Besivance 0.6% Oph Susp 5 ml] 1 drop OP ASDIR PRN 12/15/16 Difluprednate [Durezol] 5 ml OP DAILY 12/15/16 Nepafenac [Ilevro] 1.7 ml OP ASDIR PRN 12/15/16 Allergies/Adverse Reactions: No Known Allergies Allergy (Verified 09/03/17 16:35) Review of Systems Constitutional: PRESENT: other - denies fever/chills Eyes: PRESENT: other - had cataract surgery Cardiovascular: PRESENT: other - no chest pains Respiratory: PRESENT: other - no cough Gastrointestinal: PRESENT: abdominal pain, nausea Genitourinary: PRESENT: other - no dysuria Musculoskeletal: PRESENT: back pain Integumentary: PRESENT: other - no rash Neurological: PRESENT: other - no seizures Endocrine: PRESENT: other - no polyuria Hematologic/Lymphatic: PRESENT: other - no easy bruising Physical Exam Vital Signs: Temp Pulse Resp BP Pulse Ox 98.1 F 72 29 H 125/83 93 09/03/17 18:51 09/03/17 17:56 09/03/17 19:16 09/03/17 19:16 09/03/17 19:16 General appearance: PRESENT: mild distress Eye exam: PRESENT: conjunctiva pink Mouth exam: PRESENT: dry mucosa Neck exam: PRESENT: full ROM Respiratory exam: PRESENT: clear to auscultation matthew Cardiovascular exam: PRESENT: tachycardia Pulses: PRESENT: normal radial pulses Vascular exam: PRESENT: normal capillary refill GI/Abdominal exam: PRESENT: tenderness - right lateral side just above umbilicus Rectal exam: PRESENT: deferred Extremities exam: PRESENT: full ROM Musculoskeletal exam: PRESENT: ambulatory Neurological exam: PRESENT: alert, oriented to person, oriented to place, oriented to time, oriented to situation Psychiatric exam: PRESENT: appropriate affect Skin exam: PRESENT: normal color, warm Results Impressions: Abdomen/Pelvis CTA 09/03/17 18:19 IMPRESSION: 1. FINDINGS IN THE APPENDIX SUSPICIOUS FOR EARLY ACUTE APPENDICITIS. NO EVIDENCE OF ABSCESS OR PERFORATION. THERE IS A SMALL AMOUNT OF FREE FLUID IN THE RIGHT UPPER QUADRANT WHICH MAY BE RELATED TO APPENDICITIS. 2. NO EVIDENCE OF AORTIC ANEURYSM OR DISSECTION. THE MAJOR MESENTERIC VESSELS ARE PATENT. THE LEFT COMMON ILIAC AND LEFT EXTERNAL ILIAC ARTERIES ARE OCCLUDED WITH FILLING DISTALLY VIA COLLATERALS, SUGGESTING THAT THIS IS PROBABLY A CHRONIC FINDING. 3. COLONIC DIVERTICULOSIS. NO CT FINDINGS OF ACUTE DIVERTICULITIS. 4. CORTICAL CYSTS IN THE RIGHT KIDNEY. 5. NO OTHER SIGNIFICANT FINDINGS. Chest/Abdomen CTA 09/03/17 18:19 IMPRESSION: NORMAL CTA OF THE CHEST. NO AORTIC ANEURYSM OR DISSECTION. NO PULMONARY EMBOLI. Assessment & Plan - Diagnosis (1) Ruptured acute appendicitis with periton Is this a current diagnosis for this admission?: Yes - Time Time Spent: 30 to 50 Minutes - Inpatient Certification Medical Necessity: Need Close Monitoring Due to Risk of Patient Decompensation, Need For IV Fluids, Need For Continuous Telemetry Monitoring, Need for Pain Control, Need for IV Antibiotics, Need for Surgery, Risk of Complication if Not Cared For in Hospital - Plan Summary Plan Summary: Hydrate IV antibiotics For laparoscopic appendectomy possible open
[2017-09-04] MEDS ORDERED: DEXTROSE 40% GEL 15 GM TUBE NG PRN ×2 (00:30)
[2017-09-04] MEDS ORDERED: NORMAL SALINE 1000 ML 1,000 ML IV ONE (00:30)
[2017-09-04] MEDS ORDERED: PIPERACILLIN/TAZOBACTAM 3.375 GM VIAL IV PRN (00:32)
[2017-09-04] MEDS ORDERED: PIPERACILLIN SODIUM/TAZOBACTAM 3.375 GM in NORMAL SALINE 100 ML IV ONE (00:45)
--- NOTE | 2017-09-04 00:46 | RADIOLOGY REPORT (SQ) ---
EXAM DESCRIPTION: CHEST SINGLE VIEW CLINICAL HISTORY: line placement COMPARISON: 08/16/2016 FINDINGS: Single frontal view of the chest. Endotracheal tube with tip 3 cm above the landen. Left IJ central venous catheter. NG tube with tip below the diaphragm. Leads overlie the chest. Atherosclerotic calcification aortic arch. Low lung volumes. Left midlung linear opacities relatively stable. No lobar consolidation, pneumothorax, or pleural effusion. No displaced rib fractures identified. Upper abdominal soft tissues are unremarkable. IMPRESSION: 1. Visualized tubes and lines in appropriate radiographic position. No acute pneumonic process.
[2017-09-04 03:27] LABS: APPEARANCE,URINE CLEAR; BILIRUBIN,URINE NEGATIVE (NEGATIVE); COLOR,URINE YELLOW; GLUCOSE, URINE 50 mg/dL (NEGATIVE); KETONES,URINE 20 mg/dL (NEGATIVE); LEUKOCYTE ESTERASE,URINE NEGATIVE (NEGATIVE); NITRITE,URINE NEGATIVE (NEGATIVE); PROTEIN,URINE NEGATIVE (NEGATIVE); URINE SPECIFIC GRAVITY 1.034; UROBILINOGEN,URINE NEGATIVE mg/dL (<2.0)
[2017-09-04] MEDS ORDERED: PROPOFOL 100 ML IV PRN (04:26)
[2017-09-04] MEDS ORDERED: PIPERACILLIN/TAZOBACTAM 3.375 GM VIAL IV ONE (04:35)
[2017-09-04] MEDS: METRONIDAZOLE 500 MG/NS RTU 100 ML IV SCH ×3 (05:18→21:21)
[2017-09-04] MEDS ORDERED: PIPERACILLIN SODIUM/TAZOBACTAM 3.375 GM in NORMAL SALINE 100 ML IV SCH (06:00)
--- NOTE | 2017-09-04 06:11 | PDOC CONSULTATION ---
Consultation Consult Date: 09/04/17 Attending physician:: Consult reason:: Medical management History of Present Illness Admission Date/PCP: 09/03/17 19:44 BALWINDER TABOR History of Present Illness: Mr. Fraire is a 72 years old male patient admitted for abdominal pain. Since patient is intubated and on mechanical ventilator is not social history so brief history is obtained from chart review. Patient presented with sudden onset of abdominal pain around [address] scan of the abdomen reported as suspicious for early acute appendicitis. It was taken to or for laparoscopic appendectomy but the patient found to have peritonitis so the procedure upgraded to laparotomy. The hospitalist service is consulted for medical management. Detailed history and review of systems is unobtainable. Past Medical History Cardiac Medical History: Reports: Coronary Artery Disease, Myocardial Infarction - 2007 AND STENTS PLACED, Hyperlipidema, Hypertension Pulmonary Medical History: Denies: Asthma Neurological Medical History: Denies: Seizures GI Medical History: Denies: Hepatitis, Hiatal Hernia Hematology: Denies: Anemia, Sickle Cell Disease Past Surgical History Past Surgical History: Reports: Cardiac Catheterization - stents, Coronary Stent Denies: Pacemaker Social History Smoking Status: Former Smoker Frequency of Alcohol Use: None Hx Recreational Drug Use: No Drugs: None Hx Prescription Drug Abuse: No - Advance Directive Resuscitation Status: Full Code Family History Family History: Reviewed & Not Pertinent Parental Family History Reviewed: No Children Family History Reviewed: No Sibling(s) Family History Reviewed.: No - Patient intubated Medication/Allergy Home Medications: Aspirin [Aspirin EC] 81 mg PO DAILY 12/09/16 Atorvastatin Calcium 40 mg PO DAILY 12/09/16 Carvedilol [Coreg] 1 tab PO Q12 12/09/16 Cyanocobalamin (Vitamin B-12) [Vitamin B-12 1000 Mcg Tablet] 1 tab PO DAILY Multivit-Min/Folic/Vit K/Lycop [One-A-Day Men's 50+ Tablet] 1 each PO DAILY Sacubitril/Valsartan [Entresto 24 mg/26 mg Tablet] 1 tab PO DAILY 12/09/16 Spironolactone 25 mg PO .QOD 12/09/16 Besifloxacin HCl [Besivance 0.6% Oph Susp 5 ml] 1 drop OP ASDIR PRN 12/15/16 Difluprednate [Durezol] 5 ml OP DAILY 12/15/16 Nepafenac [Ilevro] 1.7 ml OP ASDIR PRN 12/15/16 Allergies/Adverse Reactions: No Known Allergies Allergy (Verified 09/03/17 16:35) Review of Systems ROS unobtainable: Due to endotracheal tube Physical Exam Vital Signs: Temp Pulse Resp BP Pulse Ox 98.6 F 129 H 16 109/59 L 96 09/04/17 05:53 09/04/17 00:15 09/04/17 03:15 09/04/17 03:11 09/04/17 04:20 Intake & Output 09/02/17 09/03/17 09/04/17 06:59 06:59 06:59 Output Total 325 Balance -325 Weight 75.4 kg General appearance: PRESENT: no acute distress Respiratory exam: PRESENT: clear to auscultation matthew. ABSENT: rales, rhonchi, wheezes Cardiovascular exam: PRESENT: RRR. ABSENT: diastolic murmur, rubs, systolic murmur Results Laboratory Results: 09/04/17 09/04/17 01:07 02:45 Lactic Acid 0.9 Urine Color YELLOW Urine Appearance CLEAR Urine pH 6.0 Ur Specific Lenore 1.034 Urine Protein NEGATIVE Urine Glucose (UA) 50 H Urine Ketones 20 H Urine Blood NEGATIVE Urine Nitrite NEGATIVE Ur Leukocyte Esterase NEGATIVE Urine WBC (Auto) 2 Urine RBC (Auto) 2 Impressions: Abdomen/Pelvis CTA 09/03/17 18:19 IMPRESSION: 1. FINDINGS IN THE APPENDIX SUSPICIOUS FOR EARLY ACUTE APPENDICITIS. NO EVIDENCE OF ABSCESS OR PERFORATION. THERE IS A SMALL AMOUNT OF FREE FLUID IN THE RIGHT UPPER QUADRANT WHICH MAY BE RELATED TO APPENDICITIS. 2. NO EVIDENCE OF AORTIC ANEURYSM OR DISSECTION. THE MAJOR MESENTERIC VESSELS ARE PATENT. THE LEFT COMMON ILIAC AND LEFT EXTERNAL ILIAC ARTERIES ARE OCCLUDED WITH FILLING DISTALLY VIA COLLATERALS, SUGGESTING THAT THIS IS PROBABLY A CHRONIC FINDING. 3. COLONIC DIVERTICULOSIS. NO CT FINDINGS OF ACUTE DIVERTICULITIS. 4. CORTICAL CYSTS IN THE RIGHT KIDNEY. 5. NO OTHER SIGNIFICANT FINDINGS. Chest/Abdomen CTA 09/03/17 18:19 IMPRESSION: NORMAL CTA OF THE CHEST. NO AORTIC ANEURYSM OR DISSECTION. NO PULMONARY EMBOLI. Chest X-Ray 09/04/17 00:17 IMPRESSION: 1. Visualized tubes and lines in appropriate radiographic position. No acute pneumonic process. Assessment & Plan - Diagnosis (1) Hypertension Qualifiers: Hypertension type: essential hypertension Qualified Code(s): I10 - Essential (primary) hypertension Is this a current diagnosis for this admission?: Yes Plan: Blood pressure well controlled. We will continue his p.o. medication as well as patient extubated tolerates p.o. (2) Hyperlipidemia Qualifiers: Hyperlipidemia type: unspecified Qualified Code(s): E78.5 - Hyperlipidemia , unspecified Is this a current diagnosis for this admission?: Yes Plan: Continue his home medication soreness patient extubated. (3) Ruptured acute appendicitis with periton Is this a current diagnosis for this admission?: Yes Plan: Continue current regimen. - Time Time Spent: 30 to 50 Minutes - Inpatient Certification Medical Necessity: Need Close Monitoring Due to Risk of Patient Decompensation
[2017-09-04 06:23] LABS: ARTERIAL BLOOD BASE EXCESS -3.7 mmol/L; ARTERIAL BLOOD FIO2 40%; ARTERIAL BLOOD H2CO3 1.22 mmol/L (1.05-1.35); ARTERIAL BLOOD HCO3 21.7 mmol/L (20-26); ARTERIAL BLOOD O2 SATURATION 95.9 % (94-98); ARTERIAL BLOOD PCO2 40.4 mmHg (35-45); ARTERIAL BLOOD PH 7.35 (7.35-7.45); ARTERIAL BLOOD PO2 84.8 mmHg (80-100); ARTERIAL BLOOD TOTAL CO2 22.9 mmol/L (23-27)
[2017-09-04 06:28] LABS: HEMATOCRIT 37.5 % (37.9-51.0); MEAN CORPUSCULAR HEMOGLOBIN 31.5 pg (27.0-33.4); MEAN CORPUSCULAR HGB CONC 33.7 g/dL (32.0-36.0); MEAN CORPUSCULAR VOLUME 94 fl (80-97); PLATELET COUNT 171 10^3/uL (150-450); RED BLOOD COUNT 4.01 10^6/uL (4.35-5.55); RED CELL DISTRIBUTION WIDTH 13.9 % (11.5-14.0); WHITE BLOOD COUNT 12.1 10^3/uL (4.0-10.5)
[2017-09-04 06:41] LABS: HEMOGLOBIN 12.6 g/dL (13.5-17.0)
[2017-09-04 06:49] LABS: ALANINE AMINOTRANSFERASE 41 U/L (21-72); ALBUMIN 2.7 g/dL (3.5-5.0); ALKALINE PHOSPHATASE 33 U/L (38-126); ANION GAP 5 (5-19); ASPARTATE AMINO TRANSFERASE 23 U/L (17-59); BILIRUBIN,DIRECT 0.1 mg/dL (0.0-0.4); BILIRUBIN,TOTAL 0.5 mg/dL (0.2-1.3); BLOOD UREA NITROGEN 9 mg/dL (7-20); CALCIUM 7.8 mg/dL (8.4-10.2); CARBON DIOXIDE 25 mmol/L (22-30); CHLORIDE 106 mmol/L (98-107); GLUCOSE 149 mg/dL (75-110); SODIUM 135.6 mmol/L (137-145); TOTAL PROTEIN 4.7 g/dL (6.3-8.2)
[2017-09-04 06:58] LABS: ABSOLUTE LYMPHOCYTES# (MANUAL) 0.5 10^3/uL (0.5-4.7); ABSOLUTE MONOCYTES # (MANUAL) 0.1 10^3/uL (0.1-1.4); ABSOLUTE NEUTROPHILS# (MANUAL) 11.5 10^3/uL (1.7-8.2); BAND NEUTROPHILS % (MANUAL) 10 % (3-5); BASOPHILS % (MANUAL) 0 % (0-2); EOSINOPHILS % (MANUAL) 0 % (0-6); LYMPHOCYTES % (MANUAL) 4 % (13-45); METAMYELOCYTES % (MANUAL) 2 % (0); MONOCYTES % (MANUAL) 1 % (3-13); SEGMENTED NEUTROPHILS % (MAN) 83 % (42-78); TOTAL CELLS COUNTED 100
[2017-09-04 06:59] LABS: PLATELET COMMENT ADEQUATE; RBC MORPHOLOGY COMMENT NORMO-CYTIC/CHROMIC
--- NOTE | 2017-09-04 07:14 | OPERATIVE REPORT E ---
Operative Report NAME: CLIFF TALBOT : 1945 AGE: 72Y DATE OF SURGERY: 09/03/2017 ROOM: 609 PREOPERATIVE DIAGNOSIS: ACUTE APPENDICITIS POSTOPERATIVE DIAGNOSIS: PERFORATED ACUTE APPENDICITIS WITH PERITONITIS. OPERATION: 1. Exploratory laparotomy. 2. Appendectomy. 3. Centrl line placement left IJ Vein SURGEON: ADRIANNE WALSH M.D. ANESTHESIA: General. INDICATION FOR PROCEDURE: This is a 72-year-old male who has been complaining of some back pains for the past few days. Today, complained of severe pains along the right lower quadrant with nausea. He was seen in the Emergency Room where a CT scan of the abdomen was done which showed acute appendicitis. Patient started on IV antibiotics and hydration. DESCRIPTION OF PROCEDURE: After adequate general anesthesia, patient was placed in supine position and the abdomen prepped and draped in the usual sterile fashion. Appropriate timeout was called. Next, an infraumbilical incision was made and a Ephraim trocar inserted through the fascia into the abdominal cavity and CO2 insufflated to 15 mmHg pressure. Next, 2 other trocars were placed, a 5 mm in suprapubic and a 10 mm in the left lower quadrant under direct vision. Next, the area of the appendix was then identified and it appears that the cecum was right at just below the liver. On looking at the area of the liver, there was some area of purulent fluid with some necrotic tissue on the abdominal wall, likely opposite the appendix. The appendix was not visualized. Because of this, the procedure was then converted to an open exploratory laparotomy. A midline incision is made just below the area of the epigastrium going below the umbilicus. The midline fascia was opened and the abdominal cavity entered. Still we had quite some difficulty identifying the gallbladder. The fluid was initially aspirated for C and S. With the use of the Bookwalter retractor, the appendix was then visualized which is noted to be plastered towards the retrocecal area. The base of the appendix appears to be normal. A window was developed between the neck of the appendix and this was then stapled with the JUAN FRANCISCO. The rest of the appendix was then dissected bluntly and with the use of harmonic yovany. It appears that the appendix may have ruptured right at the distal third. The tip of the appendix was then identified and dissected and appears to be disconnected from the area where it was ruptured. The rest of the appendix was then dissected and removed. Dissection was done with a right angle clamp and with the harmonic yovany. It appears the appendix ruptured with a lot of purulent material noted on initial exploration. The appendix appeared to be quite close to the gallbladder which appeared to be normal. The abdominal cavity was then copiously irrigated with at least 6 L of saline solution. The small bowel was run from the terminal ileum to the ligament of Treitz and noted to be normal. The liver noted to be quite smooth. The stomach and the rest of the abdominal cavity appears to be unremarkable though the stomach is somewhat distended. An NG tube was placed to decompress and to keep the NG tube while patient is intubated in the intensive care unit. Following this, a drain was placed in the right lateral mid abdomen and brought up to the area of the liver and at the site where appendix perforated. Following this, the midline fascia was then reapproximated with double strand 0 PDS and about 4 retentions sutures using #2 nylon were used. The subcu was then irrigated prior to closing the skin and mart were used to close the skin incision. The retention sutures were then tied. The drain was anchored to the skin with 3-0 silk. Patient tolerated procedure well. Needle, instrument, sponge count were all correct and estimated blood loss was about 150 mL. After placement of the sterile dressing, patient was placed in slight Trendelenburg position and the left Neck prepped and draped in the usual sterile fashion. The left internal jugular vein was then punctured with the help of the ultrasound. Guidewire passed through the needle towards the area of the superior vena cava and the needle pulled out. The insertion site was then dilated and a triple lumen catheter inserted through the guidewire to a distance of 17 cm. The guidewire was then anchored to the skin with 3-0 silk and all the 3 ports aspirated blood easily and instilled saline easily. Biopatch placed at the insertion site and a transparent sterile dressing was placed over the operative site. Patient tolerated procedure well. Patient then brought to the recovery room in guarded condition. DICTATING PHYSICIAN: ADRIANNE WALSH M.D. [id number] PHY#: [id number] ID: [id number] JOB#: [id number] ACCT: [id number] cc:ADRIANNE WALSH M.D. > RENE
--- NOTE | 2017-09-04 09:23 | RADIOLOGY REPORT (SQ) ---
EXAM DESCRIPTION: CHEST SINGLE VIEW COMPLETED DATE/TIME: 09/04/2017 8:09 am REASON FOR STUDY: mechanical vent COMPARISON: AP chest 09/04/2017, 08/16/2016 CT chest 09/03/2017 EXAM PARAMETERS: NUMBER OF VIEWS: One view. TECHNIQUE: Single frontal radiographic view of the chest acquired. RADIATION DOSE: NA LIMITATIONS: None. FINDINGS: LUNGS AND PLEURA: Stable bandlike scarring or atelectasis at the left lung base. No fluffy alveolar infiltrates worrisome for edema or pneumonia. No pleural effusion. No pneumothorax. MEDIASTINUM AND HILAR STRUCTURES: No masses. Contour normal. HEART AND VASCULAR STRUCTURES: No cardiomegaly BONES: No acute findings. HARDWARE: Endotracheal tube tip 3 cm above the landen. Left jugular central line tip superior vena c ti. Nasogastric tube tip and side port in the stomach. OTHER: No other significant finding. IMPRESSION: Tubes and lines in good positioning. No acute infiltrates. Stable bandlike scarring left lung base TECHNICAL DOCUMENTATION: JOB ID: [id number] [employer]- All Rights Reserved Reading location - IP/workstation name: [facility], [facility]
[2017-09-04] MEDS ORDERED: LEVALBUTEROL HCL NEB 0.63 MG/3 ML AMPUL NEB ONE (09:30)
--- NOTE | 2017-09-04 09:53 | PDOC PROGRESS REPORT ---
Subjective Progress Note for:: 09/04/17 Reason For Visit: RUPTURED ACUTE APPENDICITIS WITH PERITONITIS Patient is 12 hours out from operation, exploratory laparotomy, open appendectomy with drain placement; came to the unit intubated and remains hemodynamically stable on mild amount of ventilatory support, no hemodynamic events thus far. Physical Exam Vital Signs: Temp Pulse Resp BP Pulse Ox 98.6 F 69 18 115/68 97 09/04/17 08:00 09/04/17 09:19 09/04/17 08:00 09/04/17 08:00 09/04/17 08:00 Intake & Output 09/03/17 09/04/17 09/05/17 06:59 06:59 06:59 Output Total 325 150 Balance -325 -150 Weight 75.4 kg General appearance: PRESENT: other - On ventilator, sedated on propofol GI/Abdominal exam: PRESENT: other - Abdomen , Mildly distended. Dressing dry and intact Results Laboratory Results: 09/04/17 06:00 09/04/17 06:00 09/04/17 09/04/17 09/04/17 01:07 02:45 06:00 WBC 12.1 H RBC 4.01 L Hgb 12.6 L D Hct 37.5 L MCV 94 MCH 31.5 MCHC 33.7 RDW 13.9 Plt Count 171 Seg Neutrophils % Not Reportable Lymphocytes % Not Reportable Monocytes % Not Reportable Eosinophils % Not Reportable Basophils % Not Reportable Absolute Neutrophils Not Reportable Absolute Lymphocytes Not Reportable Absolute Monocytes Not Reportable Absolute Eosinophils Not Reportable Absolute Basophils Not Reportable Carbonic Acid HCO3/H2CO3 Ratio ABG pH ABG pCO2 ABG pO2 ABG HCO3 ABG O2 Saturation ABG Base Excess FiO2 Sodium Potassium Chloride Carbon Dioxide Anion Gap BUN Creatinine Est GFR ( Amer) Est GFR (Non-Af Amer) Glucose Lactic Acid 0.9 Calcium Total Bilirubin AST ALT Alkaline Phosphatase Total Protein Albumin Urine Color YELLOW Urine Appearance CLEAR Urine pH 6.0 Ur Specific [place] 1.034 Urine Protein NEGATIVE Urine Glucose (UA) 50 H Urine Ketones 20 H Urine Blood NEGATIVE Urine Nitrite NEGATIVE Ur Leukocyte Esterase NEGATIVE Urine WBC (Auto) 2 Urine RBC (Auto) 2 09/04/17 09/04/17 06:00 06:00 WBC RBC Hgb Hct MCV MCH MCHC RDW Plt Count Seg Neutrophils % Lymphocytes % Monocytes % Eosinophils % Basophils % Absolute Neutrophils Absolute Lymphocytes Absolute Monocytes Absolute Eosinophils Absolute Basophils Carbonic Acid 1.22 HCO3/H2CO3 Ratio 17:1 ABG pH 7.35 ABG pCO2 40.4 ABG pO2 84.8 ABG HCO3 21.7 ABG O2 Saturation 95.9 ABG Base Excess -3.7 FiO2 40% Sodium 135.6 L Potassium 4.0 Chloride 106 Carbon Dioxide 25 Anion Gap 5 BUN 9 Creatinine 0.69 Est GFR ( Amer) > 60 Est GFR (Non-Af Amer) > 60 Glucose 149 H Lactic Acid Calcium 7.8 L Total Bilirubin 0.5 AST 23 ALT 41 Alkaline Phosphatase 33 L Total Protein 4.7 L Albumin 2.7 L Urine Color Urine Appearance Urine pH Ur Specific [place] Urine Protein Urine Glucose (UA) Urine Ketones Urine Blood Urine Nitrite Ur Leukocyte Esterase Urine WBC (Auto) Urine RBC (Auto) 09/04/17 08:55 Troponin I 0.049 Impressions: Abdomen/Pelvis CTA 09/03/17 18:19 IMPRESSION: 1. FINDINGS IN THE APPENDIX SUSPICIOUS FOR EARLY ACUTE APPENDICITIS. NO EVIDENCE OF ABSCESS OR PERFORATION. THERE IS A SMALL AMOUNT OF FREE FLUID IN THE RIGHT UPPER QUADRANT WHICH MAY BE RELATED TO APPENDICITIS. 2. NO EVIDENCE OF AORTIC ANEURYSM OR DISSECTION. THE MAJOR MESENTERIC VESSELS ARE PATENT. THE LEFT COMMON ILIAC AND LEFT EXTERNAL ILIAC ARTERIES ARE OCCLUDED WITH FILLING DISTALLY VIA COLLATERALS, SUGGESTING THAT THIS IS PROBABLY A CHRONIC FINDING. 3. COLONIC DIVERTICULOSIS. NO CT FINDINGS OF ACUTE DIVERTICULITIS. 4. CORTICAL CYSTS IN THE RIGHT KIDNEY. 5. NO OTHER SIGNIFICANT FINDINGS. Chest/Abdomen CTA 09/03/17 18:19 IMPRESSION: NORMAL CTA OF THE CHEST. NO AORTIC ANEURYSM OR DISSECTION. NO PULMONARY EMBOLI. Chest X-Ray 09/04/17 07:00 IMPRESSION: Tubes and lines in good positioning. No acute infiltrates. Stable bandlike scarring left lung base Assessment & Plan - Diagnosis (1) Acute appendicitis Qualifiers: Acute appendicitis type: with localized peritonitis Qualified Code(s): K35.3 - Acute appendicitis with localized peritonitis Is this a current diagnosis for this admission?: Yes Plan: he is one half day status post left conversion to open exploratory laparotomy, appendectomy, drain placement, Dr. Enriquez, doing appropriately well postoperatively in the ICU on ventilator; Recommendations and plan: 1. I reviewed patient's status with the hospitalist; we noted some ST segment changes in lead II and V 1; therefore we will obtain EKG and cardiac enzymes with iso-enzymes. 2. Patient's chest x-ray this morning shows no obvious infiltrates; due to patient's age, date of surgery, and uncertain cardiac status, we will keep patient on ventilator this morning. 3. If patient becomes ventilatory dependent, may use nasogastric tube for enteral feeds.
[2017-09-04] MEDS: PIPERACILLIN SODIUM/TAZOBACTAM 3.375 GM in NORMAL SALINE 100 ML IV SCH ×3 (11:35→23:56)
[2017-09-04 12:56] LABS: ARTERIAL BLOOD BASE EXCESS -0.8 mmol/L; ARTERIAL BLOOD H2CO3 1.21 mmol/L (1.05-1.35); ARTERIAL BLOOD PCO2 40.2 mmHg (35-45); ARTERIAL BLOOD PH 7.39 (7.35-7.45); ARTERIAL BLOOD PO2 60.1 mmHg (80-100); ARTERIAL BLOOD TOTAL CO2 25.2 mmol/L (23-27)
[2017-09-04 12:59] LABS: ARTERIAL BLOOD FIO2 40%
--- NOTE | 2017-09-04 13:28 | EKG REPORT ---
SEVERITY:- ABNORMAL ECG - SINUS RHYTHM LOW VOLTAGE IN FRONTAL LEADS ABNORMAL T, CONSIDER ISCHEMIA, ANT-LAT LEADS : Confirmed by: Reinier Elizabeth MD 04-Sep-2017 13:28:02
[2017-09-04] MEDS: LEVALBUTEROL HCL NEB 0.63 MG/3 ML AMPUL NEB SCH ×2 (13:48→20:23)
--- NOTE | 2017-09-04 14:08 | PDOC CONSULTATION ---
Consultation Consult Date: 09/04/17 Attending physician:: LYLE MICHELLE Consult reason:: resp failure History of Present Illness Admission Date/PCP: 09/03/17 19:44 [facility] TABOR History of Present Illness: Mr. Fraire is a 72 years old male patient admitted for abdominal pain. She was given an exploratory laparotomy which found a ruptured viscus with diffuse peritonitis her abdomen was subsequently opened and cleaned thoroughly per surgery. Since patient is intubated and on mechanical ventilator. review of systems is unobtainable. Past Medical History Cardiac Medical History: Reports: Coronary Artery Disease, Myocardial Infarction - 2006 AND STENTS PLACED, Hyperlipidema, Hypertension Pulmonary Medical History: Denies: Asthma Neurological Medical History: Denies: Seizures GI Medical History: Denies: Hepatitis, Hiatal Hernia Hematology: Denies: Anemia, Sickle Cell Disease Past Surgical History Past Surgical History: Reports: Cardiac Catheterization - stents, Coronary Stent Denies: Pacemaker Social History Smoking Status: Former Smoker Frequency of Alcohol Use: None Hx Recreational Drug Use: No Drugs: None Hx Prescription Drug Abuse: No - Advance Directive Resuscitation Status: Full Code Family History Parental Family History Reviewed: No Children Family History Reviewed: No Sibling(s) Family History Reviewed.: No Medication/Allergy Home Medications: Atorvastatin Calcium [Lipitor 40 mg Tablet] 40 mg PO DAILY 09/04/17 Carvedilol [Coreg 12.5 mg Tablet] 18.75 mg PO Q12 09/04/17 Sacubitril/Valsartan [Entresto 97 mg-103 mg Tablet] 1 tab PO BID 09/04/17 Spironolactone [Aldactone 25 mg Tablet] 25 mg PO DAILY 09/04/17 Allergies/Adverse Reactions: No Known Allergies Allergy (Verified 09/03/17 16:35) Review of Systems ROS unobtainable: Due to endotracheal tube Physical Exam Vital Signs: Temp Pulse Resp BP Pulse Ox 98.6 F 76 18 115/68 97 09/04/17 08:00 09/04/17 08:00 09/04/17 08:00 09/04/17 08:00 09/04/17 08:00 Intake & Output 09/03/17 09/04/17 09/05/17 06:59 06:59 06:59 Output Total 325 150 Balance -325 -150 Weight 75.4 kg General appearance: PRESENT: no acute distress, disheveled, well-developed, well -nourished. ABSENT: cooperative Head exam: PRESENT: atraumatic, normocephalic Eye exam: PRESENT: conjunctiva pale, EOMI. ABSENT: nystagmus, periorbital swelling, scleral icterus Mouth exam: PRESENT: dry mucosa, neck supple, tongue midline, other - ET tube in place Neck exam: ABSENT: carotid bruit, JVD, lymphadenopathy, thyromegaly, tracheal deviation, tracheostomy Respiratory exam: PRESENT: decreased breath sounds, prolonged expiratory phas, rhonchi, symmetrical, unlabored. ABSENT: rales, retraction, stridor, tachypnea Cardiovascular exam: PRESENT: RRR, +S1, +S2, systolic murmur Pulses: PRESENT: normal radial pulses GI/Abdominal exam: PRESENT: other - Status post surgery ingesting extends from xiphoid process to the symphysis pubis Extremities exam: ABSENT: clubbing, joint swelling Musculoskeletal exam: ABSENT: ambulatory, deformity, dislocation Neurological exam: ABSENT: awake, oriented to person Skin exam: PRESENT: dry, warm Results Laboratory Results: 09/04/17 06:00 09/04/17 06:00 09/04/17 09/04/17 09/04/17 01:07 02:45 06:00 WBC 12.1 H RBC 4.01 L Hgb 12.6 L D Hct 37.5 L MCV 94 MCH 31.5 MCHC 33.7 RDW 13.9 Plt Count 171 Seg Neutrophils % Not Reportable Lymphocytes % Not Reportable Monocytes % Not Reportable Eosinophils % Not Reportable Basophils % Not Reportable Absolute Neutrophils Not Reportable Absolute Lymphocytes Not Reportable Absolute Monocytes Not Reportable Absolute Eosinophils Not Reportable Absolute Basophils Not Reportable Carbonic Acid HCO3/H2CO3 Ratio ABG pH ABG pCO2 ABG pO2 ABG HCO3 ABG O2 Saturation ABG Base Excess FiO2 Sodium Potassium Chloride Carbon Dioxide Anion Gap BUN Creatinine Est GFR ( Amer) Est GFR (Non-Af Amer) Glucose Lactic Acid 0.9 Calcium Total Bilirubin AST ALT Alkaline Phosphatase Total Protein Albumin Urine Color YELLOW Urine Appearance CLEAR Urine pH 6.0 Ur Specific [place] 1.034 Urine Protein NEGATIVE Urine Glucose (UA) 50 H Urine Ketones 20 H Urine Blood NEGATIVE Urine Nitrite NEGATIVE Ur Leukocyte Esterase NEGATIVE Urine WBC (Auto) 2 Urine RBC (Auto) 2 09/04/17 09/04/17 06:00 06:00 WBC RBC Hgb Hct MCV MCH MCHC RDW Plt Count Seg Neutrophils % Lymphocytes % Monocytes % Eosinophils % Basophils % Absolute Neutrophils Absolute Lymphocytes Absolute Monocytes Absolute Eosinophils Absolute Basophils Carbonic Acid 1.22 HCO3/H2CO3 Ratio 17:1 ABG pH 7.35 ABG pCO2 40.4 ABG pO2 84.8 ABG HCO3 21.7 ABG O2 Saturation 95.9 ABG Base Excess -3.7 FiO2 40% Sodium 135.6 L Potassium 4.0 Chloride 106 Carbon Dioxide 25 Anion Gap 5 BUN 9 Creatinine 0.69 Est GFR ( Amer) > 60 Est GFR (Non-Af Amer) > 60 Glucose 149 H Lactic Acid Calcium 7.8 L Total Bilirubin 0.5 AST 23 ALT 41 Alkaline Phosphatase 33 L Total Protein 4.7 L Albumin 2.7 L Urine Color Urine Appearance Urine pH Ur Specific [place] Urine Protein Urine Glucose (UA) Urine Ketones Urine Blood Urine Nitrite Ur Leukocyte Esterase Urine WBC (Auto) Urine RBC (Auto) Impressions: Abdomen/Pelvis CTA 09/03/17 18:19 IMPRESSION: 1. FINDINGS IN THE APPENDIX SUSPICIOUS FOR EARLY ACUTE APPENDICITIS. NO EVIDENCE OF ABSCESS OR PERFORATION. THERE IS A SMALL AMOUNT OF FREE FLUID IN THE RIGHT UPPER QUADRANT WHICH MAY BE RELATED TO APPENDICITIS. 2. NO EVIDENCE OF AORTIC ANEURYSM OR DISSECTION. THE MAJOR MESENTERIC VESSELS ARE PATENT. THE LEFT COMMON ILIAC AND LEFT EXTERNAL ILIAC ARTERIES ARE OCCLUDED WITH FILLING DISTALLY VIA COLLATERALS, SUGGESTING THAT THIS IS PROBABLY A CHRONIC FINDING. 3. COLONIC DIVERTICULOSIS. NO CT FINDINGS OF ACUTE DIVERTICULITIS. 4. CORTICAL CYSTS IN THE RIGHT KIDNEY. 5. NO OTHER SIGNIFICANT FINDINGS. Chest/Abdomen CTA 09/03/17 18:19 IMPRESSION: NORMAL CTA OF THE CHEST. NO AORTIC ANEURYSM OR DISSECTION. NO PULMONARY EMBOLI. Assessment & Plan - Diagnosis (1) Respiratory failure Qualifiers: Respiratory failure complication: hypoxia Is this a current diagnosis for this admission?: Yes Plan: Minimal FiO2 to maintain saturation between 90% minimal ventilation to keep pH between 7.35 and 7.45 (2) Hypertension Qualifiers: Hypertension type: essential hypertension Qualified Code(s): I10 - Essential (primary) hypertension Is this a current diagnosis for this admission?: Yes (3) Ruptured acute appendicitis with periton Is this a current diagnosis for this admission?: Yes Plan: As per surgery - Time Total Critical Time (Minutes): 50
[2017-09-04] MEDS: MORPHINE SULFATE 10 MG/ML INJ INJ PRN ×2 (16:00→18:37)
[2017-09-04] MEDS: PANTOPRAZOLE SODIUM 40 MG VIAL IV SCH (18:33)
--- NOTE | 2017-09-04 18:34 | PDOC PROGRESS REPORT ---
Subjective Progress Note for:: 09/04/17 Subjective:: Patient underwent surgery without complications He is still intubated in the ICU He remains hemodynamically stable Reason For Visit: RUPTURED ACUTE APPENDICITIS WITH PERITONITIS Physical Exam Vital Signs: Temp Pulse Resp BP Pulse Ox 99.7 F 80 31 H 160/75 H 99 09/04/17 16:00 09/04/17 16:00 09/04/17 16:00 09/04/17 16:00 09/04/17 16:00 Intake & Output 09/03/17 09/04/17 09/05/17 00:59 00:59 00:59 Output Total 1625 Balance -1625 Weight 75.4 kg 75.4 kg General appearance: PRESENT: no acute distress, other - Intubated and sedated in no acute distress Head exam: PRESENT: atraumatic, normocephalic Eye exam: PRESENT: conjunctiva pink, EOMI, PERRLA. ABSENT: scleral icterus Respiratory exam: PRESENT: clear to auscultation matthew. ABSENT: rales, rhonchi, wheezes Pulses: PRESENT: normal dorsalis pedis pul GI/Abdominal exam: PRESENT: normal bowel sounds, soft. ABSENT: distended, guarding, mass, organolmegaly, rebound, tenderness Extremities exam: PRESENT: full ROM. ABSENT: calf tenderness, clubbing, pedal edema Results Laboratory Results: 09/04/17 06:00 09/04/17 06:00 09/04/17 09/04/17 09/04/17 01:07 02:45 06:00 WBC 12.1 H RBC 4.01 L Hgb 12.6 L D Hct 37.5 L MCV 94 MCH 31.5 MCHC 33.7 RDW 13.9 Plt Count 171 Seg Neutrophils % Not Reportable Lymphocytes % Not Reportable Monocytes % Not Reportable Eosinophils % Not Reportable Basophils % Not Reportable Absolute Neutrophils Not Reportable Absolute Lymphocytes Not Reportable Absolute Monocytes Not Reportable Absolute Eosinophils Not Reportable Absolute Basophils Not Reportable Carbonic Acid HCO3/H2CO3 Ratio ABG pH ABG pCO2 ABG pO2 ABG HCO3 ABG O2 Saturation ABG Base Excess FiO2 Sodium Potassium Chloride Carbon Dioxide Anion Gap BUN Creatinine Est GFR ( Amer) Est GFR (Non-Af Amer) Glucose Lactic Acid 0.9 Calcium Total Bilirubin AST ALT Alkaline Phosphatase Total Protein Albumin Urine Color YELLOW Urine Appearance CLEAR Urine pH 6.0 Ur Specific [place] 1.034 Urine Protein NEGATIVE Urine Glucose (UA) 50 H Urine Ketones 20 H Urine Blood NEGATIVE Urine Nitrite NEGATIVE Ur Leukocyte Esterase NEGATIVE Urine WBC (Auto) 2 Urine RBC (Auto) 2 09/04/17 09/04/17 09/04/17 06:00 06:00 12:09 WBC RBC Hgb Hct MCV MCH MCHC RDW Plt Count Seg Neutrophils % Lymphocytes % Monocytes % Eosinophils % Basophils % Absolute Neutrophils Absolute Lymphocytes Absolute Monocytes Absolute Eosinophils Absolute Basophils Carbonic Acid 1.22 Cancelled HCO3/H2CO3 Ratio 17:1 Cancelled ABG pH 7.35 Cancelled ABG pCO2 40.4 Cancelled ABG pO2 84.8 Cancelled ABG HCO3 21.7 Cancelled ABG O2 Saturation 95.9 Cancelled ABG Base Excess -3.7 Cancelled FiO2 40% Cancelled Sodium 135.6 L Potassium 4.0 Chloride 106 Carbon Dioxide 25 Anion Gap 5 BUN 9 Creatinine 0.69 Est GFR ( Amer) > 60 Est GFR (Non-Af Amer) > 60 Glucose 149 H Lactic Acid Calcium 7.8 L Total Bilirubin 0.5 AST 23 ALT 41 Alkaline Phosphatase 33 L Total Protein 4.7 L Albumin 2.7 L Urine Color Urine Appearance Urine pH Ur Specific [place] Urine Protein Urine Glucose (UA) Urine Ketones Urine Blood Urine Nitrite Ur Leukocyte Esterase Urine WBC (Auto) Urine RBC (Auto) 09/04/17 12:47 WBC RBC Hgb Hct MCV MCH MCHC RDW Plt Count Seg Neutrophils % Lymphocytes % Monocytes % Eosinophils % Basophils % Absolute Neutrophils Absolute Lymphocytes Absolute Monocytes Absolute Eosinophils Absolute Basophils Carbonic Acid 1.21 HCO3/H2CO3 Ratio 19:1 ABG pH 7.39 ABG pCO2 40.2 ABG pO2 60.1 L ABG HCO3 24.0 ABG O2 Saturation 91.0 L ABG Base Excess -0.8 FiO2 40% Sodium Potassium Chloride Carbon Dioxide Anion Gap BUN Creatinine Est GFR ( Amer) Est GFR (Non-Af Amer) Glucose Lactic Acid Calcium Total Bilirubin AST ALT Alkaline Phosphatase Total Protein Albumin Urine Color Urine Appearance Urine pH Ur Specific [place] Urine Protein Urine Glucose (UA) Urine Ketones Urine Blood Urine Nitrite Ur Leukocyte Esterase Urine WBC (Auto) Urine RBC (Auto) 09/04/17 09/04/17 08:55 16:40 Troponin I 0.049 0.029 Impressions: Abdomen/Pelvis CTA 09/03/17 18:19 IMPRESSION: 1. FINDINGS IN THE APPENDIX SUSPICIOUS FOR EARLY ACUTE APPENDICITIS. NO EVIDENCE OF ABSCESS OR PERFORATION. THERE IS A SMALL AMOUNT OF FREE FLUID IN THE RIGHT UPPER QUADRANT WHICH MAY BE RELATED TO APPENDICITIS. 2. NO EVIDENCE OF AORTIC ANEURYSM OR DISSECTION. THE MAJOR MESENTERIC VESSELS ARE PATENT. THE LEFT COMMON ILIAC AND LEFT EXTERNAL ILIAC ARTERIES ARE OCCLUDED WITH FILLING DISTALLY VIA COLLATERALS, SUGGESTING THAT THIS IS PROBABLY A CHRONIC FINDING. 3. COLONIC DIVERTICULOSIS. NO CT FINDINGS OF ACUTE DIVERTICULITIS. 4. CORTICAL CYSTS IN THE RIGHT KIDNEY. 5. NO OTHER SIGNIFICANT FINDINGS. Chest/Abdomen CTA 09/03/17 18:19 IMPRESSION: NORMAL CTA OF THE CHEST. NO AORTIC ANEURYSM OR DISSECTION. NO PULMONARY EMBOLI. Chest X-Ray 09/04/17 07:00 IMPRESSION: Tubes and lines in good positioning. No acute infiltrates. Stable bandlike scarring left lung base Assessment & Plan - Diagnosis (1) Hypertension Qualifiers: Hypertension type: essential hypertension Qualified Code(s): I10 - Essential (primary) hypertension Is this a current diagnosis for this admission?: Yes (2) Respiratory failure Qualifiers: Respiratory failure complication: hypoxia Is this a current diagnosis for this admission?: Yes (3) Ruptured acute appendicitis with periton Is this a current diagnosis for this admission?: Yes - Time Time Spent with patient: Dr. Lundberg will manage ventilator Patient may be extubated as per pulmonary Obtained cardiac enzymes as there was slight ST depression in precordial leads on the monitor The troponins are in intermediate range and in a downward trend There is no evidence of an acute coronary syndrome Continue the present management Time Spent with patient: 25-34 minutes
[2017-09-04] MEDS: NORMAL SALINE 1000 ML 1,000 ML IV PRN (18:36)
[2017-09-05] MEDS: LEVALBUTEROL HCL NEB 0.63 MG/3 ML AMPUL NEB SCH ×4 (01:36→20:35)
[2017-09-05] MEDS: NORMAL SALINE 1000 ML 1,000 ML IV PRN ×2 (03:12→19:53)
[2017-09-05] MEDS: PIPERACILLIN SODIUM/TAZOBACTAM 3.375 GM in NORMAL SALINE 100 ML IV SCH ×4 (05:27→23:11)
[2017-09-05] MEDS: METRONIDAZOLE 500 MG/NS RTU 100 ML IV SCH ×3 (05:28→21:03)
[2017-09-05 05:50] LABS: ABSOLUTE BASOPHILS # (AUTO) 0.1 10^3/uL (0.0-0.2); ABSOLUTE LYMPHOCYTES (AUTO) 0.8 10^3/uL (0.5-4.7); ABSOLUTE NEUT (AUTO) 11.1 10^3/uL (1.7-8.2); BASOPHILS % (AUTO) 0.4 % (0-2); HEMATOCRIT 36.3 % (37.9-51.0); HEMOGLOBIN 12.2 g/dL (13.5-17.0); LYMPHOCYTES % (AUTO) 5.9 % (13-45); MEAN CORPUSCULAR HEMOGLOBIN 31.1 pg (27.0-33.4); MEAN CORPUSCULAR HGB CONC 33.6 g/dL (32.0-36.0); MEAN CORPUSCULAR VOLUME 93 fl (80-97); MONOCYTES % (AUTO) 7.8 % (3-13); PLATELET COUNT 165 10^3/uL (150-450); RED BLOOD COUNT 3.92 10^6/uL (4.35-5.55); RED CELL DISTRIBUTION WIDTH 14.3 % (11.5-14.0); SEGMENTED NEUTROPHILS % (AUTO) 85.9 % (42-78); TOTAL CELLS COUNTED % (AUTO) 100 %; WHITE BLOOD COUNT 12.9 10^3/uL (4.0-10.5)
[2017-09-05 06:13] LABS: ARTERIAL BLOOD BASE EXCESS -0.4 mmol/L; ARTERIAL BLOOD H2CO3 1.23 mmol/L (1.05-1.35); ARTERIAL BLOOD HCO3 24.4 mmol/L (20-26); ARTERIAL BLOOD O2 SATURATION 97.5 % (94-98); ARTERIAL BLOOD PCO2 40.8 mmHg (35-45); ARTERIAL BLOOD PO2 99.8 mmHg (80-100); ARTERIAL BLOOD TOTAL CO2 25.7 mmol/L (23-27)
[2017-09-05 06:15] LABS: ARTERIAL BLOOD FIO2 5L
[2017-09-05] MEDS: MORPHINE SULFATE 10 MG/ML INJ INJ PRN ×5 (06:15→18:19)
[2017-09-05 06:17] LABS: ALANINE AMINOTRANSFERASE 39 U/L (21-72); ALBUMIN 2.6 g/dL (3.5-5.0); ALKALINE PHOSPHATASE 35 U/L (38-126); ASPARTATE AMINO TRANSFERASE 27 U/L (17-59); BILIRUBIN,DIRECT 0.1 mg/dL (0.0-0.4); BILIRUBIN,TOTAL 0.3 mg/dL (0.2-1.3); BLOOD UREA NITROGEN 14 mg/dL (7-20); CALCIUM 7.6 mg/dL (8.4-10.2); GLUCOSE 109 mg/dL (75-110); POTASSIUM 3.9 mmol/L (3.6-5.0); TOTAL PROTEIN 4.6 g/dL (6.3-8.2)
[2017-09-05 06:22] LABS: CARBON DIOXIDE 28 mmol/L (22-30); CHLORIDE 108 mmol/L (98-107); SODIUM 138.7 mmol/L (137-145)
[2017-09-05 06:23] LABS: ANION GAP 3 (5-19)
--- NOTE | 2017-09-05 06:23 | RADIOLOGY REPORT (SQ) ---
EXAM DESCRIPTION: CHEST SINGLE VIEW CLINICAL HISTORY: 72 years Male, s/p surg resp fail COMPARISON: 4.9.18 NUMBER OF VIEWS/TECHNIQUE: 1/AP LIMITATIONS: None. FINDINGS: Small patchiness of the left lower lobe, prominent interstitium, normal cardiac silhouette, left jugular central line tip at the cavoatrial junction, and likely adequate enteric tube obscured at its tip. Interval extubation. No pneumothorax. No acute bone defect. IMPRESSION: Interval extubation. Else, no significant change.
--- NOTE | 2017-09-05 09:29 | PDOC CONSULTATION ---
Consultation Consult Date: 09/04/17 Attending physician:: SILVANA CAMEJO Consult reason:: Coronary artery disease. Patient with known CAD and history of stent placement. History of Present Illness Admission Date/PCP: 09/03/17 19:44 BALWINDER TABOR Patient complains of: Shortness of breath History of Present Illness: Mr. Fraire is a 72 years old male patient admitted for abdominal pain. Patient was given an exploratory laparotomy which found a ruptured viscus with diffuse peritonitis, abdomen was subsequently opened and cleaned thoroughly per surgery. Since patient is intubated and on mechanical ventilator. review of systems is unobtainable. This history obtained by the surgeon was reviewed. When I saw the patient, he was already extubated. He was needing high flow oxygen. He had a NG tube in. On questioning he denied any chest pain. She was noted to be just mildly short of breath. I was asked to see patient because of his known history of coronary artery disease. Past Medical History Cardiac Medical History: Reports: Coronary Artery Disease, Myocardial Infarction - 2006 AND STENTS PLACED, Hyperlipidema, Hypertension Pulmonary Medical History: Denies: Asthma Neurological Medical History: Denies: Seizures GI Medical History: Denies: Hepatitis, Hiatal Hernia Hematology: Denies: Anemia, Sickle Cell Disease Past Surgical History Past Surgical History: Reports: Cardiac Catheterization - stents, Coronary Stent Denies: Pacemaker Social History Information Source: Patient Smoking Status: Former Smoker Frequency of Alcohol Use: None Hx Recreational Drug Use: No Drugs: None Hx Prescription Drug Abuse: No - Advance Directive Resuscitation Status: Full Code Surrogate healthcare decision maker:: Patient spouse is the surrogate decision-maker Family History Family History: CAD, Hypertension Parental Family History Reviewed: Yes Children Family History Reviewed: Yes Sibling(s) Family History Reviewed.: Yes Medication/Allergy Home Medications: Atorvastatin Calcium [Lipitor 40 mg Tablet] 40 mg PO DAILY 09/04/17 Carvedilol [Coreg 12.5 mg Tablet] 18.75 mg PO Q12 09/04/17 Sacubitril/Valsartan [Entresto 97 mg-103 mg Tablet] 1 tab PO BID 09/04/17 Spironolactone [Aldactone 25 mg Tablet] 25 mg PO DAILY 09/04/17 Allergies/Adverse Reactions: No Known Allergies Allergy (Verified 09/03/17 16:35) Review of Systems Review of Systems: Please see history of present illness and past medical history as wall. Constitutional: No fever or chills reported. Head : No recent chronic headaches, recent head injury. Eyes: No recent eye pain, diplopia, redness, discharge, acute visual changes. Ears: No recent chronic ear pain, acute hearing loss, ear discharge. Oral cavity: No recent ulcerations, bleeding, oral cavity discomfort. Neck: No recent acute neck pain reported. Hematologic: No recent easy bruising or bleeding or hematologic malignancy reported. Lymphatic: No recent lymphatic malignancy, chronic lymphadenopathy reported yet Cardiovascular system review: See history of present illness. No recent chest pains. No sustained palpitations, syncope, near syncope. Respiratory system review: No recent chronic cough, hemoptysis, blood clots in the lungs reported. Mild Shortness of breath on exertion Gastrointestinal system review: Abdominal pain along with some nausea and vomiting but denies hematemesis, melena, recent change in bowel habits. Genitourinary system review: No recent acute or chronic hematuria, flank pain, UTI etc. reported. Skin system review: Negative for any recent abnormal bruising, no rash, no pruritus reported. Neurologic: No prior history of strokes, mini strokes, seizure disorder. Psychologic: No history of major psychosis or major depression reported. Musculoskeletal: Minor aches and pains reported. No acute joint swelling reported. Endocrine: No recent polyuria, polydipsia, recent heat or cold intolerance. Physical Exam Vital Signs: Temp Pulse Resp BP Pulse Ox 98.6 F 82 15 122/68 99 09/05/17 08:00 09/05/17 08:10 09/05/17 08:10 09/05/17 08:00 09/05/17 08:10 Intake & Output 09/04/17 09/05/17 09/06/17 06:59 06:59 06:59 Intake Total 3121 Output Total 325 2230 200 Balance -325 891 -200 Weight 75.4 kg 78.1 kg Exam: GENERAL: well-nourished and in no acute distress. Alert and oriented x3 HEAD: Atraumatic, normocephalic. EYES: Pupils equal round and reactive to light, extraocular movements intact, sclera anicteric, conjunctiva are normal. ENT: TMs normal, nares patent, oropharynx clear without exudates. Moist mucous membranes. No oral ulcerations or bleeding gums noted NECK: supple without lymphadenopathy. Trachea is central. No cervical or axillary lymphadenopathy noted. Carotids are 2+, JVD WNL LUNGS: Respiration seems nonlabored, no significant accessory muscle action noted. Bibasilar fine crackles are noted. No wheezes rales or rhonchi noted. No significant dullness noted on percussion. CHEST: Palpation of the chest wall shows no significant chest wall tenderness. No other significant abnormalities noted. 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 ABDOMEN: Mild postsurgical tenderness appreciated, normoactive bowel sounds. No guarding, no rebound. No rigidity noted . No masses appreciated. EXTREMITIES: Pedal pulses are 1-2+, no calf tenderness noted. No clubbing or cyanosis. 1+ pedal edema noted NEUROLOGICAL: Focused neurological exam showed no significant neurologic deficit. Normal speech, no focal weakness appreciated. PSYCH: Normal mood, normal affect. Judgment and insight within normal limits. SKIN: No significant ecchymosis, skin is noted to be warm. MUSCULOSKELETAL EXAM: No significant acute joint swelling noted. Results Laboratory Results: 09/05/17 05:40 09/05/17 05:40 09/04/17 09/04/17 09/05/17 12:09 12:47 05:40 WBC 12.9 H RBC 3.92 L Hgb 12.2 L Hct 36.3 L MCV 93 MCH 31.1 MCHC 33.6 RDW 14.3 H Plt Count 165 Seg Neutrophils % 85.9 H Lymphocytes % 5.9 L Monocytes % 7.8 Eosinophils % 0.0 Basophils % 0.4 Absolute Neutrophils 11.1 H Absolute Lymphocytes 0.8 Absolute Monocytes 1.0 Absolute Eosinophils 0.0 Absolute Basophils 0.1 Carbonic Acid Cancelled 1.21 HCO3/H2CO3 Ratio Cancelled 19:1 ABG pH Cancelled 7.39 ABG pCO2 Cancelled 40.2 ABG pO2 Cancelled 60.1 L ABG HCO3 Cancelled 24.0 ABG O2 Saturation Cancelled 91.0 L ABG Base Excess Cancelled -0.8 FiO2 Cancelled 40% Sodium Potassium Chloride Carbon Dioxide Anion Gap BUN Creatinine Est GFR ( Amer) Est GFR (Non-Af Amer) Glucose Calcium Magnesium Total Bilirubin AST ALT Alkaline Phosphatase Total Protein Albumin 09/05/17 09/05/17 05:40 05:50 WBC RBC Hgb Hct MCV MCH MCHC RDW Plt Count Seg Neutrophils % Lymphocytes % Monocytes % Eosinophils % Basophils % Absolute Neutrophils Absolute Lymphocytes Absolute Monocytes Absolute Eosinophils Absolute Basophils Carbonic Acid 1.23 HCO3/H2CO3 Ratio 19:1 ABG pH 7.40 ABG pCO2 40.8 ABG pO2 99.8 ABG HCO3 24.4 ABG O2 Saturation 97.5 ABG Base Excess -0.4 FiO2 5L Sodium 138.7 Potassium 3.9 Chloride 108 H Carbon Dioxide 28 Anion Gap 3 L BUN 14 Creatinine 0.66 Est GFR ( Amer) > 60 Est GFR (Non-Af Amer) > 60 Glucose 109 Calcium 7.6 L Magnesium 1.9 Total Bilirubin 0.3 AST 27 ALT 39 Alkaline Phosphatase 35 L Total Protein 4.6 L Albumin 2.6 L 09/04/17 09/04/17 09/04/17 08:55 16:40 21:00 Troponin I 0.049 0.029 0.028 EKG Comments: Sinus rhythm, symmetrical T-wave inversion noted anterior chest leads Impressions: Abdomen/Pelvis CTA 09/03/17 18:19 IMPRESSION: 1. FINDINGS IN THE APPENDIX SUSPICIOUS FOR EARLY ACUTE APPENDICITIS. NO EVIDENCE OF ABSCESS OR PERFORATION. THERE IS A SMALL AMOUNT OF FREE FLUID IN THE RIGHT UPPER QUADRANT WHICH MAY BE RELATED TO APPENDICITIS. 2. NO EVIDENCE OF AORTIC ANEURYSM OR DISSECTION. THE MAJOR MESENTERIC VESSELS ARE PATENT. THE LEFT COMMON ILIAC AND LEFT EXTERNAL ILIAC ARTERIES ARE OCCLUDED WITH FILLING DISTALLY VIA COLLATERALS, SUGGESTING THAT THIS IS PROBABLY A CHRONIC FINDING. 3. COLONIC DIVERTICULOSIS. NO CT FINDINGS OF ACUTE DIVERTICULITIS. 4. CORTICAL CYSTS IN THE RIGHT KIDNEY. 5. NO OTHER SIGNIFICANT FINDINGS. Chest/Abdomen CTA 09/03/17 18:19 IMPRESSION: NORMAL CTA OF THE CHEST. NO AORTIC ANEURYSM OR DISSECTION. NO PULMONARY EMBOLI. Chest X-Ray 09/05/17 06:00 IMPRESSION: Interval extubation. Else, no significant change. Assessment & Plan - Diagnosis (1) Coronary artery disease Qualifiers: Coronary Disease-Associated Artery/Lesion type: [place] artery [place] vs. transplanted heart: [place] heart Associated angina: angina presence unspecified Qualified Code(s): I25.10 - Atherosclerotic heart disease of [place] coronary artery without angina pectoris Is this a current diagnosis for this admission?: Yes (2) Acute appendicitis Qualifiers: Acute appendicitis type: with localized peritonitis Qualified Code(s): K35.3 - Acute appendicitis with localized peritonitis Is this a current diagnosis for this admission?: Yes (3) Hyperlipidemia Qualifiers: Hyperlipidemia type: unspecified Qualified Code(s): E78.5 - Hyperlipidemia , unspecified Is this a current diagnosis for this admission?: Yes (4) Hypertension Qualifiers: Hypertension type: essential hypertension Qualified Code(s): I10 - Essential (primary) hypertension Is this a current diagnosis for this admission?: Yes (5) Respiratory failure Qualifiers: Respiratory failure complication: hypoxia Is this a current diagnosis for this admission?: Yes - Notes Notes: Coronary artery disease: Currently symptomatically stable. Patient does have some T-wave inversion. Will order a 2D echo. At this point recommend to resume antiplatelet therapy, statin therapy, beta-dolly therapy, entresto/GOLDY inhibitor/ARB therapy etc. Currently however patient still on NG drainage. We may need to wait until patient is allowed p.o. Acute appendicitis with peritonitis: Patient is status post surgery and seems significantly improved. Continue antibiotic and surgery department recommendations. Dyslipidemia: Restart statin therapy. Respiratory failure: Patient just got extubated. Currently on oxygen supplementation. Follow pulmonary recommendations. - Time Time Spent: 30 to 50 Minutes - CODE STATUS was discussed, patient remains full code. Surrogate decision-maker unchanged. Multiple medical problems were addressed. More than 50% of the time spent coordinating care, discussing management plans with involved caregivers. Management plans discussed with involved personnels. Medical decision making was of moderate to high complexity , patient's has multiple comorbidities. Medications reviewed and adjusted accordingly: Yes
--- NOTE | 2017-09-05 09:33 | PDOC PROGRESS REPORT ---
Subjective Progress Note for:: 09/04/17 Subjective:: Patient was actually seen in consultation however a progress note was started. A full consultation note will be dictated later. Patient currently extubated just now. Having to need high flow oxygen. Patient has known history of CAD with prior stent placement. Patient also has a prior history of myocardial infarction. Reason For Visit: RUPTURED ACUTE APPENDICITIS WITH PERITONITIS Physical Exam Vital Signs: Temp Pulse Resp BP Pulse Ox 99.1 F 79 29 H 131/68 H 98 09/04/17 19:51 09/04/17 18:00 09/04/17 18:45 09/04/17 18:40 09/04/17 18:45 Intake & Output 09/03/17 09/04/17 09/05/17 06:59 06:59 06:59 Intake Total 1226 Output Total 325 1525 Balance -325 -299 Weight 75.4 kg Exam: GENERAL: well-nourished and in no acute distress. Alert and oriented x3 HEAD: Atraumatic, normocephalic. EYES: Pupils equal round and reactive to light, extraocular movements intact, sclera anicteric, conjunctiva are normal. ENT: TMs normal, nares patent, oropharynx clear without exudates. Moist mucous membranes. No oral ulcerations or bleeding gums noted NECK: supple without lymphadenopathy. Trachea is central. No cervical or axillary lymphadenopathy noted. Carotids are 2+, JVD WNL LUNGS: Respiration seems nonlabored, no significant accessory muscle action noted. Few bibasilar crackles are noted. No wheezes rales or rhonchi noted. No significant dullness noted on percussion. CHEST: Palpation of the chest wall shows no significant chest wall tenderness. No other significant abnormalities noted. 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 ABDOMEN: Postsurgical changes noted with mild tenderness, normoactive bowel sounds. No guarding, no rebound. No rigidity noted . No masses appreciated. EXTREMITIES: Pedal pulses are 1-2+, no calf tenderness noted. No clubbing or cyanosis. 1+ pedal edema noted NEUROLOGICAL: Focused neurological exam showed no significant neurologic deficit. Normal speech, no focal weakness appreciated. PSYCH: Normal mood, normal affect. Judgment and insight within normal limits. SKIN: No significant ecchymosis, skin is noted to be warm. MUSCULOSKELETAL EXAM: No significant acute joint swelling noted. Results Laboratory Results: 09/04/17 06:00 09/04/17 06:00 09/04/17 09/04/17 09/04/17 01:07 02:45 06:00 WBC 12.1 H RBC 4.01 L Hgb 12.6 L D Hct 37.5 L MCV 94 MCH 31.5 MCHC 33.7 RDW 13.9 Plt Count 171 Seg Neutrophils % Not Reportable Lymphocytes % Not Reportable Monocytes % Not Reportable Eosinophils % Not Reportable Basophils % Not Reportable Absolute Neutrophils Not Reportable Absolute Lymphocytes Not Reportable Absolute Monocytes Not Reportable Absolute Eosinophils Not Reportable Absolute Basophils Not Reportable Carbonic Acid HCO3/H2CO3 Ratio ABG pH ABG pCO2 ABG pO2 ABG HCO3 ABG O2 Saturation ABG Base Excess FiO2 Sodium Potassium Chloride Carbon Dioxide Anion Gap BUN Creatinine Est GFR ( Amer) Est GFR (Non-Af Amer) Glucose Lactic Acid 0.9 Calcium Total Bilirubin AST ALT Alkaline Phosphatase Total Protein Albumin Urine Color YELLOW Urine Appearance CLEAR Urine pH 6.0 Ur Specific [place] 1.034 Urine Protein NEGATIVE Urine Glucose (UA) 50 H Urine Ketones 20 H Urine Blood NEGATIVE Urine Nitrite NEGATIVE Ur Leukocyte Esterase NEGATIVE Urine WBC (Auto) 2 Urine RBC (Auto) 2 09/04/17 09/04/17 09/04/17 06:00 06:00 12:09 WBC RBC Hgb Hct MCV MCH MCHC RDW Plt Count Seg Neutrophils % Lymphocytes % Monocytes % Eosinophils % Basophils % Absolute Neutrophils Absolute Lymphocytes Absolute Monocytes Absolute Eosinophils Absolute Basophils Carbonic Acid 1.22 Cancelled HCO3/H2CO3 Ratio 17:1 Cancelled ABG pH 7.35 Cancelled ABG pCO2 40.4 Cancelled ABG pO2 84.8 Cancelled ABG HCO3 21.7 Cancelled ABG O2 Saturation 95.9 Cancelled ABG Base Excess -3.7 Cancelled FiO2 40% Cancelled Sodium 135.6 L Potassium 4.0 Chloride 106 Carbon Dioxide 25 Anion Gap 5 BUN 9 Creatinine 0.69 Est GFR ( Amer) > 60 Est GFR (Non-Af Amer) > 60 Glucose 149 H Lactic Acid Calcium 7.8 L Total Bilirubin 0.5 AST 23 ALT 41 Alkaline Phosphatase 33 L Total Protein 4.7 L Albumin 2.7 L Urine Color Urine Appearance Urine pH Ur Specific Chancellor Urine Protein Urine Glucose (UA) Urine Ketones Urine Blood Urine Nitrite Ur Leukocyte Esterase Urine WBC (Auto) Urine RBC (Auto) 09/04/17 12:47 WBC RBC Hgb Hct MCV MCH MCHC RDW Plt Count Seg Neutrophils % Lymphocytes % Monocytes % Eosinophils % Basophils % Absolute Neutrophils Absolute Lymphocytes Absolute Monocytes Absolute Eosinophils Absolute Basophils Carbonic Acid 1.21 HCO3/H2CO3 Ratio 19:1 ABG pH 7.39 ABG pCO2 40.2 ABG pO2 60.1 L ABG HCO3 24.0 ABG O2 Saturation 91.0 L ABG Base Excess -0.8 FiO2 40% Sodium Potassium Chloride Carbon Dioxide Anion Gap BUN Creatinine Est GFR ( Amer) Est GFR (Non-Af Amer) Glucose Lactic Acid Calcium Total Bilirubin AST ALT Alkaline Phosphatase Total Protein Albumin Urine Color Urine Appearance Urine pH Ur Specific Chancellor Urine Protein Urine Glucose (UA) Urine Ketones Urine Blood Urine Nitrite Ur Leukocyte Esterase Urine WBC (Auto) Urine RBC (Auto) 09/04/17 09/04/17 08:55 16:40 Troponin I 0.049 0.029 EKG Comments: Telemetry shows sinus rhythm with occasional APCs and VPCs. Impressions: Abdomen/Pelvis CTA 09/03/17 18:19 IMPRESSION: 1. FINDINGS IN THE APPENDIX SUSPICIOUS FOR EARLY ACUTE APPENDICITIS. NO EVIDENCE OF ABSCESS OR PERFORATION. THERE IS A SMALL AMOUNT OF FREE FLUID IN THE RIGHT UPPER QUADRANT WHICH MAY BE RELATED TO APPENDICITIS. 2. NO EVIDENCE OF AORTIC ANEURYSM OR DISSECTION. THE MAJOR MESENTERIC VESSELS ARE PATENT. THE LEFT COMMON ILIAC AND LEFT EXTERNAL ILIAC ARTERIES ARE OCCLUDED WITH FILLING DISTALLY VIA COLLATERALS, SUGGESTING THAT THIS IS PROBABLY A CHRONIC FINDING. 3. COLONIC DIVERTICULOSIS. NO CT FINDINGS OF ACUTE DIVERTICULITIS. 4. CORTICAL CYSTS IN THE RIGHT KIDNEY. 5. NO OTHER SIGNIFICANT FINDINGS. Chest/Abdomen CTA 09/03/17 18:19 IMPRESSION: NORMAL CTA OF THE CHEST. NO AORTIC ANEURYSM OR DISSECTION. NO PULMONARY EMBOLI. Chest X-Ray 09/04/17 07:00 IMPRESSION: Tubes and lines in good positioning. No acute infiltrates. Stable bandlike scarring left lung base Assessment & Plan - Diagnosis (1) Coronary artery disease Qualifiers: Coronary Disease-Associated Artery/Lesion type: [place] artery [place] vs. transplanted heart: [place] heart Associated angina: angina presence unspecified Qualified Code(s): I25.10 - Atherosclerotic heart disease of [place] coronary artery without angina pectoris Is this a current diagnosis for this admission?: Yes (2) Hyperlipidemia Qualifiers: Hyperlipidemia type: unspecified Qualified Code(s): E78.5 - Hyperlipidemia , unspecified Is this a current diagnosis for this admission?: Yes (3) Hypertension Qualifiers: Hypertension type: essential hypertension Qualified Code(s): I10 - Essential (primary) hypertension Is this a current diagnosis for this admission?: Yes (4) Respiratory failure Qualifiers: Respiratory failure complication: hypoxia Is this a current diagnosis for this admission?: Yes (5) Acute appendicitis Qualifiers: Acute appendicitis type: with localized peritonitis Qualified Code(s): K35.3 - Acute appendicitis with localized peritonitis Is this a current diagnosis for this admission?: Yes - Notes Notes: Patient noted to have on EKG T-wave inversion anterior precordial leads. Will consider a 2D echocardiogram. Patient otherwise without any chest pain. Chest x-ray reviewed shows normal heart size with mild pulmonary venous congestion. No acute CHF noted. We will continue to follow patient. A full consult report will be dictated. - Time Time with patient: Greater than 35 minutes - CODE STATUS was discussed, patient remains full code. Multiple medical problems were addressed. More than 50% of the time spent coordinating care, discussing management plans with involved caregivers. Management plans discussed with involved personnels. Medical decision making was of moderate to high complexity, patient's has multiple comorbidities. Medications reviewed and adjusted accordingly: Yes
--- NOTE | 2017-09-05 09:36 | PDOC PROGRESS REPORT ---
Subjective Progress Note for:: 09/05/17 Subjective:: Patient doing better without any specific complaints. Patient still has the NG tube and. He is now on nasal cannula. Patient has known history of CAD with prior stent placement. Patient also has a prior history of myocardial infarction. Patient is denying any shortness of breath. Patient also being followed by [facility] and surgeon. Reason For Visit: RUPTURED ACUTE APPENDICITIS WITH PERITONITIS Physical Exam Vital Signs: Temp Pulse Resp BP Pulse Ox 98.6 F 82 15 122/68 99 09/05/17 08:00 09/05/17 08:10 09/05/17 08:10 09/05/17 08:00 09/05/17 08:10 Intake & Output 09/04/17 09/05/17 09/06/17 06:59 06:59 06:59 Intake Total 3121 Output Total 325 2230 200 Balance -325 891 -200 Weight 75.4 kg 78.1 kg Exam: GENERAL: well-nourished and in no acute distress. Alert and oriented x3 HEAD: Atraumatic, normocephalic. EYES: Pupils equal round and reactive to light, extraocular movements intact, sclera anicteric, conjunctiva are normal. ENT: TMs normal, nares patent, oropharynx clear without exudates. Moist mucous membranes. No oral ulcerations or bleeding gums noted NECK: supple without lymphadenopathy. Trachea is central. No cervical or axillary lymphadenopathy noted. Carotids are 2+, JVD WNL LUNGS: Respiration seems nonlabored, no significant accessory muscle action noted. Bibasilar fine crackles are noted. No wheezes rales or rhonchi noted. No significant dullness noted on percussion. CHEST: Palpation of the chest wall shows no significant chest wall tenderness. No other significant abnormalities noted. HEART: [place] METALSMITH, No PSH, 1/6 TANIA aortic area, 1/6 dominguez systolic murmur mitral area, no rubs, no gallops. ABDOMEN: Postsurgical tenderness appreciated, normoactive bowel sounds. No guarding, no rebound. No rigidity noted . No masses appreciated. EXTREMITIES: Pedal pulses are 1-2+, no calf tenderness noted. No clubbing or cyanosis. 1+ pedal edema noted NEUROLOGICAL: Focused neurological exam showed no significant neurologic deficit. Normal speech, no focal weakness appreciated. PSYCH: Normal mood, normal affect. Judgment and insight within normal limits. SKIN: No significant ecchymosis, skin is noted to be warm. MUSCULOSKELETAL EXAM: No significant acute joint swelling noted. Results Laboratory Results: 09/05/17 05:40 09/05/17 05:40 09/04/17 09/04/17 09/05/17 12:09 12:47 05:40 WBC 12.9 H RBC 3.92 L Hgb 12.2 L Hct 36.3 L MCV 93 MCH 31.1 MCHC 33.6 RDW 14.3 H Plt Count 165 Seg Neutrophils % 85.9 H Lymphocytes % 5.9 L Monocytes % 7.8 Eosinophils % 0.0 Basophils % 0.4 Absolute Neutrophils 11.1 H Absolute Lymphocytes 0.8 Absolute Monocytes 1.0 Absolute Eosinophils 0.0 Absolute Basophils 0.1 Carbonic Acid Cancelled 1.21 HCO3/H2CO3 Ratio Cancelled 19:1 ABG pH Cancelled 7.39 ABG pCO2 Cancelled 40.2 ABG pO2 Cancelled 60.1 L ABG HCO3 Cancelled 24.0 ABG O2 Saturation Cancelled 91.0 L ABG Base Excess Cancelled -0.8 FiO2 Cancelled 40% Sodium Potassium Chloride Carbon Dioxide Anion Gap BUN Creatinine Est GFR ( Amer) Est GFR (Non-Af Amer) Glucose Calcium Magnesium Total Bilirubin AST ALT Alkaline Phosphatase Total Protein Albumin 09/05/17 09/05/17 05:40 05:50 WBC RBC Hgb Hct MCV MCH MCHC RDW Plt Count Seg Neutrophils % Lymphocytes % Monocytes % Eosinophils % Basophils % Absolute Neutrophils Absolute Lymphocytes Absolute Monocytes Absolute Eosinophils Absolute Basophils Carbonic Acid 1.23 HCO3/H2CO3 Ratio 19:1 ABG pH 7.40 ABG pCO2 40.8 ABG pO2 99.8 ABG HCO3 24.4 ABG O2 Saturation 97.5 ABG Base Excess -0.4 FiO2 5L Sodium 138.7 Potassium 3.9 Chloride 108 H Carbon Dioxide 28 Anion Gap 3 L BUN 14 Creatinine 0.66 Est GFR ( Amer) > 60 Est GFR (Non-Af Amer) > 60 Glucose 109 Calcium 7.6 L Magnesium 1.9 Total Bilirubin 0.3 AST 27 ALT 39 Alkaline Phosphatase 35 L Total Protein 4.6 L Albumin 2.6 L 09/04/17 09/04/17 09/04/17 08:55 16:40 21:00 Troponin I 0.049 0.029 0.028 EKG Comments: Telemetry shows sinus rhythm without any sustained tachycardia or bradycardia. Impressions: Abdomen/Pelvis CTA 09/03/17 18:19 IMPRESSION: 1. FINDINGS IN THE APPENDIX SUSPICIOUS FOR EARLY ACUTE APPENDICITIS. NO EVIDENCE OF ABSCESS OR PERFORATION. THERE IS A SMALL AMOUNT OF FREE FLUID IN THE RIGHT UPPER QUADRANT WHICH MAY BE RELATED TO APPENDICITIS. 2. NO EVIDENCE OF AORTIC ANEURYSM OR DISSECTION. THE MAJOR MESENTERIC VESSELS ARE PATENT. THE LEFT COMMON ILIAC AND LEFT EXTERNAL ILIAC ARTERIES ARE OCCLUDED WITH FILLING DISTALLY VIA COLLATERALS, SUGGESTING THAT THIS IS PROBABLY A CHRONIC FINDING. 3. COLONIC DIVERTICULOSIS. NO CT FINDINGS OF ACUTE DIVERTICULITIS. 4. CORTICAL CYSTS IN THE RIGHT KIDNEY. 5. NO OTHER SIGNIFICANT FINDINGS. Chest/Abdomen CTA 09/03/17 18:19 IMPRESSION: NORMAL CTA OF THE CHEST. NO AORTIC ANEURYSM OR DISSECTION. NO PULMONARY EMBOLI. Chest X-Ray 09/05/17 06:00 IMPRESSION: Interval extubation. Else, no significant change. Assessment & Plan - Diagnosis (1) Coronary artery disease Qualifiers: Coronary Disease-Associated Artery/Lesion type: [place] artery [place] vs. transplanted heart: [place] heart Associated angina: angina presence unspecified Qualified Code(s): I25.10 - Atherosclerotic heart disease of [place] coronary artery without angina pectoris Is this a current diagnosis for this admission?: Yes (2) Hyperlipidemia Qualifiers: Hyperlipidemia type: unspecified Qualified Code(s): E78.5 - Hyperlipidemia , unspecified Is this a current diagnosis for this admission?: Yes (3) Hypertension Qualifiers: Hypertension type: essential hypertension Qualified Code(s): I10 - Essential (primary) hypertension Is this a current diagnosis for this admission?: Yes (4) Respiratory failure Qualifiers: Respiratory failure complication: hypoxia Is this a current diagnosis for this admission?: Yes (5) Acute appendicitis Qualifiers: Acute appendicitis type: with localized peritonitis Qualified Code(s): K35.3 - Acute appendicitis with localized peritonitis Is this a current diagnosis for this admission?: Yes - Notes Notes: Patient is status post appendectomy, laparotomy with lavage of the peritoneum. Currently getting antibiotic therapy. Patient is progressing well. At this point will order a 2D echo. Patient would need to be restarted on his chronic home medication once allowed p.o. Recommend DVT prophylaxis, pulmonary toilet etc. Also recommend good pain control. Coronary artery disease: Currently symptomatically stable. Patient does have some T-wave inversion. Will order a 2D echo. At this point recommend to resume antiplatelet therapy, statin therapy, beta-dolly therapy, entresto/GOLDY inhibitor/ARB therapy etc. Currently however patient still on NG drainage. We may need to wait until patient is allowed p.o. Acute appendicitis with peritonitis: Patient is status post surgery and seems significantly improved. Continue antibiotic and surgery department recommendations. Dyslipidemia: Restart statin therapy. Respiratory failure: Patient just got extubated. Currently on oxygen supplementation. Follow pulmonary recommendations. - Time Time with patient: Greater than 35 minutes - More than 50% of the time spent coordinating care, discussing management plans with involved caregivers. Management plans discussed with involved personnels. Medical decision making was of moderate to high complexity, patient's has multiple comorbidities. Medications reviewed and adjusted accordingly: Yes
[2017-09-05] MEDS ORDERED: TOBRAMYCIN SULFATE INJ 80 MG/2 ML VIAL NEB SCH (10:15)
[2017-09-05] MEDS ORDERED: TOBRAMYCIN SULFATE NEB 40 MG/ML 30 ML NEB ONE (11:00)
--- NOTE | 2017-09-05 17:04 | PDOC PROGRESS REPORT ---
Subjective Progress Note for:: 09/05/17 Subjective:: mild incisional pains Reason For Visit: RUPTURED ACUTE APPENDICITIS WITH PERITONITIS Physical Exam Vital Signs: Temp Pulse Resp BP Pulse Ox 98.8 F 90 27 H 127/75 H 97 09/05/17 14:00 09/05/17 14:00 09/05/17 14:45 09/05/17 14:42 09/05/17 14:45 Intake & Output 09/04/17 09/05/17 09/06/17 06:59 06:59 06:59 Intake Total 3121 960 Output Total 325 2230 690 Balance -325 891 270 Weight 75.4 kg 78.1 kg Exam: NGT 300 ccs from last night.Extubated Claims had flatus last night and this am Abdomen is soft ,slightly distended Results Laboratory Results: 09/05/17 05:40 09/05/17 05:40 09/05/17 09/05/17 09/05/17 05:40 05:40 05:50 WBC 12.9 H RBC 3.92 L Hgb 12.2 L Hct 36.3 L MCV 93 MCH 31.1 MCHC 33.6 RDW 14.3 H Plt Count 165 Seg Neutrophils % 85.9 H Lymphocytes % 5.9 L Monocytes % 7.8 Eosinophils % 0.0 Basophils % 0.4 Absolute Neutrophils 11.1 H Absolute Lymphocytes 0.8 Absolute Monocytes 1.0 Absolute Eosinophils 0.0 Absolute Basophils 0.1 Carbonic Acid 1.23 HCO3/H2CO3 Ratio 19:1 ABG pH 7.40 ABG pCO2 40.8 ABG pO2 99.8 ABG HCO3 24.4 ABG O2 Saturation 97.5 ABG Base Excess -0.4 FiO2 5L Sodium 138.7 Potassium 3.9 Chloride 108 H Carbon Dioxide 28 Anion Gap 3 L BUN 14 Creatinine 0.66 Est GFR ( Amer) > 60 Est GFR (Non-Af Amer) > 60 Glucose 109 Calcium 7.6 L Magnesium 1.9 Total Bilirubin 0.3 AST 27 ALT 39 Alkaline Phosphatase 35 L Total Protein 4.6 L Albumin 2.6 L 09/04/17 09/04/17 09/04/17 08:55 16:40 21:00 Troponin I 0.049 0.029 0.028 Impressions: Abdomen/Pelvis CTA 09/03/17 18:19 IMPRESSION: 1. FINDINGS IN THE APPENDIX SUSPICIOUS FOR EARLY ACUTE APPENDICITIS. NO EVIDENCE OF ABSCESS OR PERFORATION. THERE IS A SMALL AMOUNT OF FREE FLUID IN THE RIGHT UPPER QUADRANT WHICH MAY BE RELATED TO APPENDICITIS. 2. NO EVIDENCE OF AORTIC ANEURYSM OR DISSECTION. THE MAJOR MESENTERIC VESSELS ARE PATENT. THE LEFT COMMON ILIAC AND LEFT EXTERNAL ILIAC ARTERIES ARE OCCLUDED WITH FILLING DISTALLY VIA COLLATERALS, SUGGESTING THAT THIS IS PROBABLY A CHRONIC FINDING. 3. COLONIC DIVERTICULOSIS. NO CT FINDINGS OF ACUTE DIVERTICULITIS. 4. CORTICAL CYSTS IN THE RIGHT KIDNEY. 5. NO OTHER SIGNIFICANT FINDINGS. Chest/Abdomen CTA 09/03/17 18:19 IMPRESSION: NORMAL CTA OF THE CHEST. NO AORTIC ANEURYSM OR DISSECTION. NO PULMONARY EMBOLI. Chest X-Ray 09/05/17 06:00 IMPRESSION: Interval extubation. Else, no significant change. Assessment & Plan - Diagnosis (1) Ruptured acute appendicitis with periton Is this a current diagnosis for this admission?: Yes - Time Time Spent with patient: 15-24 minutes - Inpatient Certification Medical Necessity: Need Close Monitoring Due to Risk of Patient Decompensation, Need For IV Fluids, Need for IV Antibiotics, Risk of Complication if Not Cared For in Hospital - Plan Summary Plan Summary: D/C NGT Start clears slowly Continue IV antibiotics Called by lab that he has + anaerobe on one bottle of blood culture
[2017-09-05] MEDS: PANTOPRAZOLE SODIUM 40 MG VIAL IV SCH (18:18)
[2017-09-05] MEDS: SACUBITRIL/VALSARTAN 97 MG/103 MG TABLET PO SCH (18:20)
--- NOTE | 2017-09-05 19:55 | XCELERA REPORT ---
[address] [address] Transthoracic Echocardiogram Report Name: CLIFF TALBOT Age: 72 yrs Gender: Male : 1945 Patient Status: Inpatient Patient Location: ICU^609^A Study Date: 09/05/2017 01:23 PM Height: 67 in Weight: 172 lb BSA: 1.9 m2 Procedure: A complete two-dimensional transthoracic echocardiogram was performed (2D, M-mode, spectral and color flow Doppler). The study was technically difficult with many images being suboptimal in quality. Reason For Study: Abnormal EKG Ordering Physician: MARYSOL CAMACHO Performed By: Nadine Claros Interpretation Summary The study was technically difficult with many images being suboptimal in quality. clinical correllation requested. The Ejection Fraction estimate is 35-40% Left ventricular systolic function is moderately reduced. Consider additional methods to assess LVEF such as MUGA scan, CTA heart, cardiac MRI, NINA, etc. if clinically indicated. Doppler measurements suggest reversible restrictive left ventricular relaxation, which is associated with grade III/IV or moderate diastolic dysfunction There is mild to moderate global hypokinesis of the left ventricle. There is apical wall akinesis There is basal inferior wall severe hypokinesis Borderline right ventricular enlargement. The right ventricular systolic function is normal. The right atrium is normal in size The left atrium is mildly dilated. There is a trace amount of mitral regurgitation There is no mitral valve stenosis. No aortic regurgitation is present. There is no aortic valve stenosis There is a trace amount of tricuspid regurgitation Tricuspid regurgitation jet envelope not well defined to measure RV systolic pressure accurately. The aortic root is not well visualized. The inferior vena cava appeared normal and decreased > 50% with respiration (RAP 5-10 mmHg) There is no pericardial effusion. MMode/2D Measurements & Calculations RVDd: 2.5 cm LVIDd: 5.7 cm FS: 14.0 % Ao root diam: 2.8 cm IVSd: 0.87 cm LVIDs: 4.9 cm EDV(Teich): 159.4 ml LVPWd: 0.87 cm ESV(Teich): 112.5 ml Ao root area: 6.1 cm2 EF(Teich): 29.5 % Doppler Measurements & Calculations MV E max elvia: MV dec slope: Ao V2 max: LV V1 max P.6 cm/sec 139.1 cm/sec 3.8 mmHg MV A max elvia: 676.2 cm/sec2 Ao max PG: LV V1 max: 105.3 cm/sec MV dec time: 7.7 mmHg 97.4 cm/sec MV E/A: 0.93 0.14 sec PA V2 max: 74.3 cm/sec PA max P.2 mmHg Left Ventricle The left ventricle is mildly dilated. There is borderline concentric left ventricular hypertrophy. Left ventricular systolic function is moderately reduced. The Ejection Fraction estimate is 35-40%. Consider additional methods to assess LVEF such as MUGA scan, CTA heart, cardiac MRI, NINA, etc. if clinically indicated. Doppler measurements suggest reversible restrictive left ventricular relaxation, which is associated with grade III/IV or moderate diastolic dysfunction. There is mild to moderate global hypokinesis of the left ventricle. There is apical wall akinesis. There is basal inferior wall severe hypokinesis. Right Ventricle Borderline right ventricular enlargement. There is normal right ventricular wall thickness. The right ventricular systolic function is normal. Atria The right atrium is normal in size. The left atrium is mildly dilated. Interarterial septum not well visualized and not well dopplered. Cannot comment on ASD/PFO presence. Mitral Valve The mitral valve is grossly normal. There is no mitral valve stenosis. There is a trace amount of mitral regurgitation. Aortic Valve The aortic valve opens well. The aortic valve is trileaflet. There is no aortic valve stenosis. No aortic regurgitation is present. Tricuspid Valve The tricuspid valve is not well visualized secondary to technical limitations. There is no tricuspid stenosis. There is a trace amount of tricuspid regurgitation. Tricuspid regurgitation jet envelope not well defined to measure RV systolic pressure accurately. Pulmonic Valve The pulmonic valve is not well visualized. Great Vessels The aortic root is not well visualized. The inferior vena cava appeared normal and decreased > 50% with respiration (RAP 5-10 mmHg). Effusions There is no pericardial effusion. : MARYSOL CAMACHO > Marysol Camacho
[2017-09-05] MEDS: TOBRAMYCIN SULFATE NEB 40 MG/ML 30 ML NEB SCH (20:30)
[2017-09-05] MEDS: CARVEDILOL 12.5 MG TABLET PO SCH (21:02)
[2017-09-06] MEDS: LEVALBUTEROL HCL NEB 0.63 MG/3 ML AMPUL NEB SCH ×4 (01:25→19:53)
[2017-09-06] MEDS: MORPHINE SULFATE 10 MG/ML INJ INJ PRN ×4 (01:34→19:16)
[2017-09-06] MEDS: NORMAL SALINE 1000 ML 1,000 ML IV PRN ×2 (02:51→12:01)
[2017-09-06] MEDS: PIPERACILLIN SODIUM/TAZOBACTAM 3.375 GM in NORMAL SALINE 100 ML IV SCH ×4 (05:05→23:16)
[2017-09-06] MEDS: METRONIDAZOLE 500 MG/NS RTU 100 ML IV SCH ×2 (05:44→14:15)
[2017-09-06 05:48] LABS: ABSOLUTE BASOPHILS # (AUTO) 0.1 10^3/uL (0.0-0.2); ABSOLUTE EOSINOPHILS # (AUTO) 0.1 10^3/uL (0.0-0.6); ABSOLUTE LYMPHOCYTES (AUTO) 0.9 10^3/uL (0.5-4.7); ABSOLUTE MONOCYTES (AUTO) 0.7 10^3/uL (0.1-1.4); ABSOLUTE NEUT (AUTO) 9.2 10^3/uL (1.7-8.2); BASOPHILS % (AUTO) 0.6 % (0-2); EOSINOPHILS % (AUTO) 0.9 % (0-6); HEMATOCRIT 33.5 % (37.9-51.0); HEMOGLOBIN 11.2 g/dL (13.5-17.0); LYMPHOCYTES % (AUTO) 8.1 % (13-45); MEAN CORPUSCULAR HEMOGLOBIN 31.4 pg (27.0-33.4); MEAN CORPUSCULAR HGB CONC 33.4 g/dL (32.0-36.0); MEAN CORPUSCULAR VOLUME 94 fl (80-97); MONOCYTES % (AUTO) 6.2 % (3-13); PLATELET COUNT 155 10^3/uL (150-450); RED BLOOD COUNT 3.58 10^6/uL (4.35-5.55); RED CELL DISTRIBUTION WIDTH 14.5 % (11.5-14.0); SEGMENTED NEUTROPHILS % (AUTO) 84.2 % (42-78); TOTAL CELLS COUNTED % (AUTO) 100 %; WHITE BLOOD COUNT 10.9 10^3/uL (4.0-10.5)
[2017-09-06 06:23] LABS: ANION GAP 6 (5-19); BLOOD UREA NITROGEN 10 mg/dL (7-20); CALCIUM 7.4 mg/dL (8.4-10.2); CARBON DIOXIDE 26 mmol/L (22-30); CHLORIDE 109 mmol/L (98-107); GLUCOSE 100 mg/dL (75-110); POTASSIUM 3.3 mmol/L (3.6-5.0); SODIUM 140.6 mmol/L (137-145)
[2017-09-06] MEDS: TOBRAMYCIN SULFATE NEB 40 MG/ML 30 ML NEB SCH ×2 (08:02→19:53)
[2017-09-06] MEDS: CARVEDILOL 12.5 MG TABLET PO SCH ×2 (09:48→23:15)
[2017-09-06] MEDS: ATORVASTATIN CALCIUM 40 MG TABLET PO SCH (09:49)
[2017-09-06] MEDS: SACUBITRIL/VALSARTAN 97 MG/103 MG TABLET PO SCH ×2 (09:49→17:20)
[2017-09-06] MEDS: SPIRONOLACTONE 25 MG TABLET PO SCH (09:49)
--- NOTE | 2017-09-06 13:55 | PDOC PROGRESS REPORT ---
Subjective Progress Note for:: 09/06/17 Subjective:: Hospitalist service was consulted for elevated blood pressure. Patient doing well at this time, blood pressure has been controlled. He is tolerating p.o. intake. Denies fever or chills, no chest pain or shortness of breath or palpitations. Reason For Visit: RUPTURED ACUTE APPENDICITIS WITH PERITONITIS Physical Exam Vital Signs: Temp Pulse Resp BP Pulse Ox 99.7 F 79 23 H 107/55 L 94 09/06/17 12:00 09/06/17 12:00 09/06/17 12:00 09/06/17 12:00 09/06/17 12:00 Intake & Output 09/05/17 09/06/17 09/07/17 06:59 06:59 06:59 Intake Total 3121 5611 300 Output Total 2230 1630 1050 Balance 891 3981 -750 Weight 78.1 kg 80.5 kg GEN: NAD, well-developed, well-nourished CV: RRR, NL S1S2 LUNGS: CTA bilaterally ABDOMEN Soft, surgical dressing clean dry and intact EXTERMITIES: No e/c/c NEURO: Alert, oriented 3, nonfocal Results Laboratory Results: 09/06/17 05:31 09/06/17 05:31 09/06/17 09/06/17 05:31 05:31 WBC 10.9 H RBC 3.58 L Hgb 11.2 L Hct 33.5 L MCV 94 MCH 31.4 MCHC 33.4 RDW 14.5 H Plt Count 155 Seg Neutrophils % 84.2 H Lymphocytes % 8.1 L Monocytes % 6.2 Eosinophils % 0.9 Basophils % 0.6 Absolute Neutrophils 9.2 H Absolute Lymphocytes 0.9 Absolute Monocytes 0.7 Absolute Eosinophils 0.1 Absolute Basophils 0.1 Sodium 140.6 Potassium 3.3 L Chloride 109 H Carbon Dioxide 26 Anion Gap 6 BUN 10 Creatinine 0.64 Est GFR ( Amer) > 60 Est GFR (Non-Af Amer) > 60 Glucose 100 Calcium 7.4 L Magnesium 2.2 09/04/17 09/04/17 09/04/17 08:55 16:40 21:00 Troponin I 0.049 0.029 0.028 Impressions: Abdomen/Pelvis CTA 09/03/17 18:19 IMPRESSION: 1. FINDINGS IN THE APPENDIX SUSPICIOUS FOR EARLY ACUTE APPENDICITIS. NO EVIDENCE OF ABSCESS OR PERFORATION. THERE IS A SMALL AMOUNT OF FREE FLUID IN THE RIGHT UPPER QUADRANT WHICH MAY BE RELATED TO APPENDICITIS. 2. NO EVIDENCE OF AORTIC ANEURYSM OR DISSECTION. THE MAJOR MESENTERIC VESSELS ARE PATENT. THE LEFT COMMON ILIAC AND LEFT EXTERNAL ILIAC ARTERIES ARE OCCLUDED WITH FILLING DISTALLY VIA COLLATERALS, SUGGESTING THAT THIS IS PROBABLY A CHRONIC FINDING. 3. COLONIC DIVERTICULOSIS. NO CT FINDINGS OF ACUTE DIVERTICULITIS. 4. CORTICAL CYSTS IN THE RIGHT KIDNEY. 5. NO OTHER SIGNIFICANT FINDINGS. Chest/Abdomen CTA 09/03/17 18:19 IMPRESSION: NORMAL CTA OF THE CHEST. NO AORTIC ANEURYSM OR DISSECTION. NO PULMONARY EMBOLI. Chest X-Ray 09/05/17 06:00 IMPRESSION: Interval extubation. Else, no significant change. Assessment & Plan - Plan Summary Plan Summary: (1) Hypertension Qualifiers: Hypertension type: essential hypertension Qualified Code(s): I10 - Essential (primary) hypertension Is this a current diagnosis for this admission?: Yes Blood pressures control. Patient hemodynamically stable. Hospitalist will sign off. Reconsult please if needed. (2) Respiratory failure -resolved, extubated Qualifiers: Respiratory failure complication: hypoxia Is this a current diagnosis for this admission?: Yes (3) Ruptured acute appendicitis with periton Is this a current diagnosis for this admission?: Yes -Management per surgery. (4) hypokalemia Is this a current diagnosis for this admission?: Yes -KCl 40 M EQ p.o. 1; -Follow-up Chem-7 in a.m. and please follow-up result and replete as needed Hospitalist will sign off at this time. Blood pressures control. Patient hemodynamically stable. Please reconsult if needed.
[2017-09-06] MEDS ORDERED: POTASSIUM CHLORIDE 10 MEQ TABLET.SA PO ONE (14:30)
[2017-09-06] MEDS: PANTOPRAZOLE SODIUM 40 MG VIAL IV SCH (17:21)
--- NOTE | 2017-09-06 20:36 | PDOC PROGRESS REPORT ---
Subjective Progress Note for:: 09/06/17 Subjective:: Feels comfortable Reason For Visit: RUPTURED ACUTE APPENDICITIS WITH PERITONITIS Physical Exam Vital Signs: Temp Pulse Resp BP Pulse Ox 99.7 F 86 10 L 95/56 L 100 09/06/17 19:55 09/06/17 19:55 09/06/17 19:55 09/06/17 16:00 09/06/17 19:55 Intake & Output 09/05/17 09/06/17 09/07/17 06:59 06:59 06:59 Intake Total 3121 5611 1739 Output Total 2230 1630 1650 Balance 891 3981 89 Weight 78.1 kg 80.5 kg Exam: Abd minimal distention. Incision site small serosanguinous stain on the dressing at umbilical site. Results Laboratory Results: 09/06/17 05:31 09/06/17 05:31 09/06/17 09/06/17 05:31 05:31 WBC 10.9 H RBC 3.58 L Hgb 11.2 L Hct 33.5 L MCV 94 MCH 31.4 MCHC 33.4 RDW 14.5 H Plt Count 155 Seg Neutrophils % 84.2 H Lymphocytes % 8.1 L Monocytes % 6.2 Eosinophils % 0.9 Basophils % 0.6 Absolute Neutrophils 9.2 H Absolute Lymphocytes 0.9 Absolute Monocytes 0.7 Absolute Eosinophils 0.1 Absolute Basophils 0.1 Sodium 140.6 Potassium 3.3 L Chloride 109 H Carbon Dioxide 26 Anion Gap 6 BUN 10 Creatinine 0.64 Est GFR ( Amer) > 60 Est GFR (Non-Af Amer) > 60 Glucose 100 Calcium 7.4 L Magnesium 2.2 09/04/17 09/04/17 09/04/17 08:55 16:40 21:00 Troponin I 0.049 0.029 0.028 Impressions: Abdomen/Pelvis CTA 09/03/17 18:19 IMPRESSION: 1. FINDINGS IN THE APPENDIX SUSPICIOUS FOR EARLY ACUTE APPENDICITIS. NO EVIDENCE OF ABSCESS OR PERFORATION. THERE IS A SMALL AMOUNT OF FREE FLUID IN THE RIGHT UPPER QUADRANT WHICH MAY BE RELATED TO APPENDICITIS. 2. NO EVIDENCE OF AORTIC ANEURYSM OR DISSECTION. THE MAJOR MESENTERIC VESSELS ARE PATENT. THE LEFT COMMON ILIAC AND LEFT EXTERNAL ILIAC ARTERIES ARE OCCLUDED WITH FILLING DISTALLY VIA COLLATERALS, SUGGESTING THAT THIS IS PROBABLY A CHRONIC FINDING. 3. COLONIC DIVERTICULOSIS. NO CT FINDINGS OF ACUTE DIVERTICULITIS. 4. CORTICAL CYSTS IN THE RIGHT KIDNEY. 5. NO OTHER SIGNIFICANT FINDINGS. Chest/Abdomen CTA 09/03/17 18:19 IMPRESSION: NORMAL CTA OF THE CHEST. NO AORTIC ANEURYSM OR DISSECTION. NO PULMONARY EMBOLI. Chest X-Ray 09/05/17 06:00 IMPRESSION: Interval extubation. Else, no significant change. Assessment & Plan - Diagnosis (1) Ruptured acute appendicitis with periton Is this a current diagnosis for this admission?: Yes - Time Time Spent with patient: 15-24 minutes - Plan Summary Plan Summary: Continue IV antibiotics Will change dressings again tomorrow to check for further drainage. May need to open part of skin incision if there is infection Continue to gradually increase diet. D/C flood tomorrow.
[2017-09-06] MEDS: METRONIDAZOLE 500 MG TABLET PO SCH (23:16)
[2017-09-07] MEDS: LEVALBUTEROL HCL NEB 0.63 MG/3 ML AMPUL NEB SCH ×4 (01:28→20:27)
[2017-09-07] MEDS: MORPHINE SULFATE 10 MG/ML INJ INJ PRN (04:15)
[2017-09-07] MEDS ORDERED: LORAZEPAM INJ 2 MG/1 ML VIAL IV ONE ×2 (05:00→06:15)
[2017-09-07] MEDS: PIPERACILLIN SODIUM/TAZOBACTAM 3.375 GM in NORMAL SALINE 100 ML IV SCH ×3 (05:12→18:39)
[2017-09-07] MEDS: METRONIDAZOLE 500 MG TABLET PO SCH ×3 (05:13→23:07)
[2017-09-07] MEDS ORDERED: LORAZEPAM INJ 2 MG/1 ML VIAL ONE (06:07)
[2017-09-07 06:46] LABS: ABSOLUTE BASOPHILS # (AUTO) 0.1 10^3/uL (0.0-0.2); ABSOLUTE EOSINOPHILS # (AUTO) 0.2 10^3/uL (0.0-0.6); ABSOLUTE LYMPHOCYTES (AUTO) 0.8 10^3/uL (0.5-4.7); ABSOLUTE MONOCYTES (AUTO) 0.8 10^3/uL (0.1-1.4); ABSOLUTE NEUT (AUTO) 11.7 10^3/uL (1.7-8.2); BASOPHILS % (AUTO) 0.4 % (0-2); EOSINOPHILS % (AUTO) 1.2 % (0-6); HEMATOCRIT 37.5 % (37.9-51.0); HEMOGLOBIN 12.5 g/dL (13.5-17.0); MEAN CORPUSCULAR HEMOGLOBIN 31.2 pg (27.0-33.4); MEAN CORPUSCULAR HGB CONC 33.3 g/dL (32.0-36.0); MEAN CORPUSCULAR VOLUME 94 fl (80-97); MONOCYTES % (AUTO) 6.2 % (3-13); PLATELET COUNT 214 10^3/uL (150-450); RED CELL DISTRIBUTION WIDTH 14.1 % (11.5-14.0); SEGMENTED NEUTROPHILS % (AUTO) 86.2 % (42-78); TOTAL CELLS COUNTED % (AUTO) 100 %; WHITE BLOOD COUNT 13.6 10^3/uL (4.0-10.5)
[2017-09-07 07:09] LABS: ANION GAP 10 (5-19); BLOOD UREA NITROGEN 14 mg/dL (7-20); CALCIUM 8.1 mg/dL (8.4-10.2); CARBON DIOXIDE 27 mmol/L (22-30); CHLORIDE 106 mmol/L (98-107); GLUCOSE 127 mg/dL (75-110); POTASSIUM 3.8 mmol/L (3.6-5.0); SODIUM 142.7 mmol/L (137-145)
[2017-09-07] MEDS: TOBRAMYCIN SULFATE NEB 40 MG/ML 30 ML NEB SCH ×2 (08:31→20:27)
[2017-09-07 09:31] LABS: ARTERIAL BLOOD BASE EXCESS -1.9 mmol/L; ARTERIAL BLOOD FIO2 3.5L; ARTERIAL BLOOD H2CO3 1.51 mmol/L (1.05-1.35); ARTERIAL BLOOD HCO3 24.7 mmol/L (20-26); ARTERIAL BLOOD O2 SATURATION 93.7 % (94-98); ARTERIAL BLOOD PH 7.31 (7.35-7.45); ARTERIAL BLOOD PO2 74.8 mmHg (80-100); ARTERIAL BLOOD TOTAL CO2 26.3 mmol/L (23-27)
--- NOTE | 2017-09-07 10:04 | RADIOLOGY REPORT (SQ) ---
EXAM DESCRIPTION: CHEST SINGLE VIEW COMPLETED DATE/TIME: 09/07/2017 9:46 am REASON FOR STUDY: difficulty breathing COMPARISON: CT chest 09/03/2017 Chest films 09/04/2017, 09/05/2017 EXAM PARAMETERS: NUMBER OF VIEWS: One view. TECHNIQUE: Single frontal radiographic view of the chest acquired. RADIATION DOSE: NA LIMITATIONS: None. FINDINGS: LUNGS AND PLEURA: New airspace disease is present just above the right hemidiaphragm, asym metric edema versus pneumonia. Lingular atelectasis seen on previous studies has improved. No pleural effusion or pneumothorax. MEDIASTINUM AND HILAR STRUCTURES: No masses. Contour normal. HEART AND VASCULAR STRUCTURES: Heart normal in size. Normal vasculature. BONES: No acute findings. HARDWARE: Left jugular central line tip superior vena cava OTHER: No other significant finding. IMPRESSION: New right basilar airspace disease asymmetric edema versus pneumonia. Bandlike density in the left lung base has resolved TECHNICAL DOCUMENTATION: JOB ID: [id number] [employer]- All Rights Reserved Reading location - IP/workstation name: [facility]
[2017-09-07] MEDS: CARVEDILOL 12.5 MG TABLET PO SCH ×2 (11:15→23:07)
[2017-09-07] MEDS: ATORVASTATIN CALCIUM 40 MG TABLET PO SCH (11:15)
[2017-09-07] MEDS: SPIRONOLACTONE 25 MG TABLET PO SCH (11:16)
--- NOTE | 2017-09-07 11:54 | PDOC PROGRESS REPORT ---
Subjective Progress Note for:: 09/07/17 Subjective:: Called by the nurse that patient had worsening confusion today. Patient is lethargic and restless, but able to continue his name and knows his by prompting. Denies chest pain, breathing through pursed lips. Has past history of smoking, but has never been diagnosed with COPD. ABG reveals increased PCO2 at 50 and PO2 70 home 3-1/2 L of O2, and patient will be treated with BiPAP. He is able to follow commands and no focal neuro deficits otherwise. Repeat chest x-ray has been ordered and concerning for developing pneumonia. Also noted is that patient's white blood cells count is up today. Reason For Visit: RUPTURED ACUTE APPENDICITIS WITH PERITONITIS Physical Exam Vital Signs: Temp Pulse Resp BP Pulse Ox 98.8 F 110 H 20 93/46 L 95 09/07/17 07:24 09/07/17 08:32 09/07/17 08:32 09/07/17 07:24 09/07/17 08:32 Intake & Output 09/06/17 09/07/17 09/08/17 06:59 06:59 06:59 Intake Total 5611 3459 Output Total 1680 2300 Balance 3931 1159 Weight 80.5 kg 82.1 kg GEN: well-developed, well-nourished CV: Tachycardic, NL S1S2 LUNGS: Few basilar crackles bilaterally ABDOMEN Soft, surgical dressing clean dry and intact EXTERMITIES: No e/c/c NEURO: Lethergic and restless, oriented 3, no focal weakness Results Laboratory Results: 09/07/17 05:40 09/07/17 05:40 09/07/17 09/07/17 09/07/17 05:40 05:40 09:20 WBC 13.6 H RBC 4.00 L Hgb 12.5 L Hct 37.5 L MCV 94 MCH 31.2 MCHC 33.3 RDW 14.1 H Plt Count 214 Seg Neutrophils % 86.2 H Lymphocytes % 6.0 L Monocytes % 6.2 Eosinophils % 1.2 Basophils % 0.4 Absolute Neutrophils 11.7 H Absolute Lymphocytes 0.8 Absolute Monocytes 0.8 Absolute Eosinophils 0.2 Absolute Basophils 0.1 Carbonic Acid 1.51 H HCO3/H2CO3 Ratio 16:1 ABG pH 7.31 L ABG pCO2 50.0 H ABG pO2 74.8 L ABG HCO3 24.7 ABG O2 Saturation 93.7 L ABG Base Excess -1.9 FiO2 3.5L Sodium 142.7 Potassium 3.8 Chloride 106 Carbon Dioxide 27 Anion Gap 10 BUN 14 Creatinine 0.70 Est GFR ( Amer) > 60 Est GFR (Non-Af Amer) > 60 Glucose 127 H Calcium 8.1 L 09/04/17 09/04/17 09/04/17 08:55 16:40 21:00 Troponin I 0.049 0.029 0.028 Impressions: Abdomen/Pelvis CTA 09/03/17 18:19 IMPRESSION: 1. FINDINGS IN THE APPENDIX SUSPICIOUS FOR EARLY ACUTE APPENDICITIS. NO EVIDENCE OF ABSCESS OR PERFORATION. THERE IS A SMALL AMOUNT OF FREE FLUID IN THE RIGHT UPPER QUADRANT WHICH MAY BE RELATED TO APPENDICITIS. 2. NO EVIDENCE OF AORTIC ANEURYSM OR DISSECTION. THE MAJOR MESENTERIC VESSELS ARE PATENT. THE LEFT COMMON ILIAC AND LEFT EXTERNAL ILIAC ARTERIES ARE OCCLUDED WITH FILLING DISTALLY VIA COLLATERALS, SUGGESTING THAT THIS IS PROBABLY A CHRONIC FINDING. 3. COLONIC DIVERTICULOSIS. NO CT FINDINGS OF ACUTE DIVERTICULITIS. 4. CORTICAL CYSTS IN THE RIGHT KIDNEY. 5. NO OTHER SIGNIFICANT FINDINGS. Chest/Abdomen CTA 09/03/17 18:19 IMPRESSION: NORMAL CTA OF THE CHEST. NO AORTIC ANEURYSM OR DISSECTION. NO PULMONARY EMBOLI. Chest X-Ray 09/07/17 00:00 IMPRESSION: New right basilar airspace disease asymmetric edema versus pneumonia. Bandlike density in the left lung base has resolved Assessment & Plan - Diagnosis (1) Altered mental status Qualifiers: Altered mental status type: unspecified Qualified Code(s): R41.82 - Altered mental status, unspecified Is this a current diagnosis for this admission?: Yes Plan: Patient may have underlying undiagnosed COPD. Suspect altered mental status secondary to hypercapnia. Also suspect pneumonia, possible hospital-acquired. Will manage possible underlying causes. (2) Pneumonia Is this a current diagnosis for this admission?: Yes Plan: Suspected. Possible hospital-acquired versus aspiration. Will treat with Zosyn. Will repeat blood cultures prior to starting antibiotics. We will be gentle with fluid, given history of cardiomyopathy and possible CHF. -We will treat with BiPAP. (3) Cardiomyopathy Is this a current diagnosis for this admission?: Yes Plan: Possible acute on chronic systolic CHF. Echo from reveals EF 35-40%. -We will hold Entresto, Coreg, and spironolactone for now due to relative hypotension. Consider Lasix if concern for fluid overload. (4) Coronary artery disease Qualifiers: Coronary Disease-Associated Artery/Lesion type: [place] artery [place] vs. transplanted heart: [place] heart Associated angina: angina presence unspecified Qualified Code(s): I25.10 - Atherosclerotic heart disease of [place] coronary artery without angina pectoris Is this a current diagnosis for this admission?: Yes Plan: Will rule out NH with serial troponin. (5) Hypertension Qualifiers: Hypertension type: essential hypertension Qualified Code(s): I10 - Essential (primary) hypertension Is this a current diagnosis for this admission?: Yes Plan: This had improved. Patient currently slightly hypotensive. We will continue to monitor. (6) Respiratory failure Qualifiers: Respiratory failure complication: hypoxia Is this a current diagnosis for this admission?: Yes Plan: Suspect secondary to possible pneumonia and/or undiagnosed COPD in the setting of history of cigarette smoking. We will treat underlying causes as a pneumonia. (7) Ruptured acute appendicitis with periton Is this a current diagnosis for this admission?: Yes Plan: Management per surgery. - Time Time Spent with patient: 35 or more minutes
[2017-09-07] MEDS ORDERED: VANCOMYCIN HCL 0 MG in DEXTROSE 5%-WATER 250 ML IV NR (12:15)
[2017-09-07] MEDS ORDERED: VANCOMYCIN HCL 1,250 MG in DEXTROSE 5%-WATER 250 ML IV ONE (13:00)
[2017-09-07] MEDS: SACUBITRIL/VALSARTAN 97 MG/103 MG TABLET PO SCH (13:41)
[2017-09-07] MEDS ORDERED: DEXTROSE 40% GEL 15 GM TUBE PO PRN ×2 (14:29)
[2017-09-07] MEDS ORDERED: MORPHINE SULFATE 10 MG/ML INJ IV PRN (15:33)
--- NOTE | 2017-09-07 20:01 | PDOC PROGRESS REPORT ---
Subjective Progress Note for:: 09/06/17 Subjective:: Patient doing better without any specific complaints. Patient's cardiac medications were restarted. He seems to be tolerating it well. He is now on nasal cannula. Patient has known history of CAD with prior stent placement. Patient also has a prior history of myocardial infarction. Patient is denying any shortness of breath. 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 Reason For Visit: RUPTURED ACUTE APPENDICITIS WITH PERITONITIS Physical Exam Vital Signs: Temp Pulse Resp BP Pulse Ox 99.7 F 86 10 L 95/56 L 100 09/06/17 19:55 09/06/17 19:55 09/06/17 19:55 09/06/17 16:00 09/06/17 19:55 Intake & Output 09/05/17 09/06/17 09/07/17 06:59 06:59 06:59 Intake Total 3121 5611 1739 Output Total 2230 1630 1650 Balance 891 3981 89 Weight 78.1 kg 80.5 kg Exam: GENERAL: well-nourished and in no acute distress. Alert and oriented x3 HEAD: Atraumatic, normocephalic. EYES: Pupils equal round and reactive to light, extraocular movements intact, sclera anicteric, conjunctiva are normal. ENT: TMs normal, nares patent, oropharynx clear without exudates. Moist mucous membranes. No oral ulcerations or bleeding gums noted NECK: supple without lymphadenopathy. Trachea is central. No cervical or axillary lymphadenopathy noted. Carotids are 2+, JVD WNL LUNGS: Respiration seems nonlabored, no significant accessory muscle action noted. Breath sounds clear to auscultation bilaterally and equal noted. No wheezes rales or rhonchi noted. No significant dullness noted on percussion. CHEST: Palpation of the chest wall shows no significant chest wall tenderness. No other significant abnormalities noted. 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 ABDOMEN: Postsurgical changes with mild postsurgical tenderness appreciated, normoactive bowel sounds. No guarding, no rebound. No rigidity noted . No masses appreciated. EXTREMITIES: Pedal pulses are 1-2+, no calf tenderness noted. No clubbing or cyanosis. 1+ pedal edema noted NEUROLOGICAL: Focused neurological exam showed no significant neurologic deficit. Normal speech, no focal weakness appreciated. PSYCH: Normal mood, normal affect. Judgment and insight within normal limits. SKIN: No significant ecchymosis, skin is noted to be warm. MUSCULOSKELETAL EXAM: No significant acute joint swelling noted. Results Laboratory Results: 09/06/17 05:31 09/06/17 05:31 09/06/17 09/06/17 05:31 05:31 WBC 10.9 H RBC 3.58 L Hgb 11.2 L Hct 33.5 L MCV 94 MCH 31.4 MCHC 33.4 RDW 14.5 H Plt Count 155 Seg Neutrophils % 84.2 H Lymphocytes % 8.1 L Monocytes % 6.2 Eosinophils % 0.9 Basophils % 0.6 Absolute Neutrophils 9.2 H Absolute Lymphocytes 0.9 Absolute Monocytes 0.7 Absolute Eosinophils 0.1 Absolute Basophils 0.1 Sodium 140.6 Potassium 3.3 L Chloride 109 H Carbon Dioxide 26 Anion Gap 6 BUN 10 Creatinine 0.64 Est GFR ( Amer) > 60 Est GFR (Non-Af Amer) > 60 Glucose 100 Calcium 7.4 L Magnesium 2.2 09/04/17 09/04/17 09/04/17 08:55 16:40 21:00 Troponin I 0.049 0.029 0.028 Impressions: Abdomen/Pelvis CTA 09/03/17 18:19 IMPRESSION: 1. FINDINGS IN THE APPENDIX SUSPICIOUS FOR EARLY ACUTE APPENDICITIS. NO EVIDENCE OF ABSCESS OR PERFORATION. THERE IS A SMALL AMOUNT OF FREE FLUID IN THE RIGHT UPPER QUADRANT WHICH MAY BE RELATED TO APPENDICITIS. 2. NO EVIDENCE OF AORTIC ANEURYSM OR DISSECTION. THE MAJOR MESENTERIC VESSELS ARE PATENT. THE LEFT COMMON ILIAC AND LEFT EXTERNAL ILIAC ARTERIES ARE OCCLUDED WITH FILLING DISTALLY VIA COLLATERALS, SUGGESTING THAT THIS IS PROBABLY A CHRONIC FINDING. 3. COLONIC DIVERTICULOSIS. NO CT FINDINGS OF ACUTE DIVERTICULITIS. 4. CORTICAL CYSTS IN THE RIGHT KIDNEY. 5. NO OTHER SIGNIFICANT FINDINGS. Chest/Abdomen CTA 09/03/17 18:19 IMPRESSION: NORMAL CTA OF THE CHEST. NO AORTIC ANEURYSM OR DISSECTION. NO PULMONARY EMBOLI. Chest X-Ray 09/05/17 06:00 IMPRESSION: Interval extubation. Else, no significant change. Assessment & Plan - Diagnosis (1) Coronary artery disease Qualifiers: Coronary Disease-Associated Artery/Lesion type: [place] artery [place] vs. transplanted heart: [place] heart Associated angina: angina presence unspecified Qualified Code(s): I25.10 - Atherosclerotic heart disease of [place] coronary artery without angina pectoris Is this a current diagnosis for this admission?: Yes (2) Hyperlipidemia Qualifiers: Hyperlipidemia type: unspecified Qualified Code(s): E78.5 - Hyperlipidemia , unspecified Is this a current diagnosis for this admission?: Yes (3) Hypertension Qualifiers: Hypertension type: essential hypertension Qualified Code(s): I10 - Essential (primary) hypertension Is this a current diagnosis for this admission?: Yes (4) Respiratory failure Qualifiers: Respiratory failure complication: hypoxia Is this a current diagnosis for this admission?: Yes (5) Acute appendicitis Qualifiers: Acute appendicitis type: with localized peritonitis Qualified Code(s): K35.3 - Acute appendicitis with localized peritonitis Is this a current diagnosis for this admission?: Yes (6) Cardiomyopathy Qualifiers: Cardiomyopathy type: unspecified Qualified Code(s): I42.9 - Cardiomyopathy , unspecified Is this a current diagnosis for this admission?: Yes - Notes Notes: Patient is status post appendectomy, laparotomy with lavage of the peritoneum. Currently getting antibiotic therapy. Patient is progressing well. At this point 2D echo results reviewed. It shows moderately depressed LVEF. Patient medical regimen reviewed and home medication restarted. Medical regimen was noted to be very satisfactory. Recommend DVT prophylaxis, pulmonary toilet etc. Also recommend good pain control. Coronary artery disease: Currently symptomatically stable. Home medications already is started. Nurses advised to stagger this medication. Acute appendicitis with peritonitis: Patient is status post surgery and seems significantly improved. Continue antibiotic and surgery department recommendations. Dyslipidemia: Restart statin therapy. Respiratory failure: Significantly improved. Currently on oxygen supplementation. Follow pulmonary recommendations. - Time Time with patient: Greater than 35 minutes - CODE STATUS was discussed, patient remains full code. Surrogate decision-maker patient's . Multiple medical problems were addressed. More than 50% of the time spent coordinating care, discussing management plans with involved caregivers. Management plans discussed with involved personnels. Medical decision making was of moderate to high complexity, patient's has multiple comorbidities. Medications reviewed and adjusted accordingly: Yes
--- NOTE | 2017-09-07 22:42 | PDOC PROGRESS REPORT ---
Subjective Progress Note for:: 09/07/17 Subjective:: Denies abdominal pains. Was confused last night with decreased in Pulse oxygenation. Reason For Visit: RUPTURED ACUTE APPENDICITIS WITH PERITONITIS Physical Exam Vital Signs: Temp Pulse Resp BP Pulse Ox 97.9 F 94 18 138/70 H 100 09/07/17 19:58 09/07/17 20:27 09/07/17 20:27 09/07/17 19:58 09/07/17 20:27 Pulse Oximeter Continuous Start: 09/07/17 11: 27 Freq: RTQ4 Status: Active Document 09/07/17 20:27 [facility] (Rec: 09/07/17 21:41 [facility] [email or web address]) Pulse Oximetry Assessment Oxygen Saturation (92-100) 100 Oxygen Flow Rate (L/min) 2 Oxygen Delivery Method Nasal Cannula Fraction of Inspired Oxygen (FIO2) 28 Equipment Usage Equipment in Use Continuous SpO2 Machine # [id number] Intake & Output 09/06/17 09/07/17 09/08/17 06:59 06:59 06:59 Intake Total 5611 3459 1150 Output Total 1680 2300 280 Balance 3931 1159 870 Weight 80.5 kg 82.1 kg Exam: SHAREE about 40 ccs of serosanguinous fluid Abdomen is distended but patient denies pains or any discomfort. Incision Dressing stained with bloody drainage at umbilical site. Mild erythema along incision site Results Laboratory Results: 09/07/17 05:40 09/07/17 05:40 09/07/17 09/07/17 09/07/17 05:40 05:40 09:20 WBC 13.6 H RBC 4.00 L Hgb 12.5 L Hct 37.5 L MCV 94 MCH 31.2 MCHC 33.3 RDW 14.1 H Plt Count 214 Seg Neutrophils % 86.2 H Lymphocytes % 6.0 L Monocytes % 6.2 Eosinophils % 1.2 Basophils % 0.4 Absolute Neutrophils 11.7 H Absolute Lymphocytes 0.8 Absolute Monocytes 0.8 Absolute Eosinophils 0.2 Absolute Basophils 0.1 Carbonic Acid 1.51 H HCO3/H2CO3 Ratio 16:1 ABG pH 7.31 L ABG pCO2 50.0 H ABG pO2 74.8 L ABG HCO3 24.7 ABG O2 Saturation 93.7 L ABG Base Excess -1.9 FiO2 3.5L Sodium 142.7 Potassium 3.8 Chloride 106 Carbon Dioxide 27 Anion Gap 10 BUN 14 Creatinine 0.70 Est GFR ( Amer) > 60 Est GFR (Non-Af Amer) > 60 Glucose 127 H Calcium 8.1 L 09/04/17 09/04/17 09/04/17 08:55 16:40 21:00 Troponin I 0.049 0.029 0.028 09/07/17 09/07/17 09/07/17 13:28 16:55 21:25 Troponin I 0.128 0.095 0.079 Impressions: Abdomen/Pelvis CTA 09/03/17 18:19 IMPRESSION: 1. FINDINGS IN THE APPENDIX SUSPICIOUS FOR EARLY ACUTE APPENDICITIS. NO EVIDENCE OF ABSCESS OR PERFORATION. THERE IS A SMALL AMOUNT OF FREE FLUID IN THE RIGHT UPPER QUADRANT WHICH MAY BE RELATED TO APPENDICITIS. 2. NO EVIDENCE OF AORTIC ANEURYSM OR DISSECTION. THE MAJOR MESENTERIC VESSELS ARE PATENT. THE LEFT COMMON ILIAC AND LEFT EXTERNAL ILIAC ARTERIES ARE OCCLUDED WITH FILLING DISTALLY VIA COLLATERALS, SUGGESTING THAT THIS IS PROBABLY A CHRONIC FINDING. 3. COLONIC DIVERTICULOSIS. NO CT FINDINGS OF ACUTE DIVERTICULITIS. 4. CORTICAL CYSTS IN THE RIGHT KIDNEY. 5. NO OTHER SIGNIFICANT FINDINGS. Chest/Abdomen CTA 09/03/17 18:19 IMPRESSION: NORMAL CTA OF THE CHEST. NO AORTIC ANEURYSM OR DISSECTION. NO PULMONARY EMBOLI. Chest X-Ray 09/07/17 00:00 IMPRESSION: New right basilar airspace disease asymmetric edema versus pneumonia. Bandlike density in the left lung base has resolved Assessment & Plan - Diagnosis (1) Ruptured acute appendicitis with periton Is this a current diagnosis for this admission?: Yes - Time Time Spent with patient: 15-24 minutes - Plan Summary Plan Summary: Appreciate hospitalist consult. Concerned about elevated wbc. On IV antibiotics Drain left in place and told nurse to culture drainage
[2017-09-07] MEDS ORDERED: VANCOMYCIN HCL INJ 500 MG VIAL ONE (23:11)
[2017-09-07] MEDS ORDERED: VANCOMYCIN HCL INJ 1000 MG VIAL ONE (23:11)
[2017-09-07] MEDS: VANCOMYCIN HCL 1,250 MG in DEXTROSE 5%-WATER 250 ML IV SCH (23:42)
[2017-09-08] MEDS ORDERED: PIPERACILLIN/TAZOBACTAM 3.375 GM VIAL IV ONE ×2 (00:07→05:43)
[2017-09-08] MEDS ORDERED: VANCOMYCIN HCL INJ 500 MG VIAL ONE (00:09)
[2017-09-08] MEDS ORDERED: VANCOMYCIN HCL INJ 1000 MG VIAL ONE (00:09)
[2017-09-08] MEDS: PIPERACILLIN SODIUM/TAZOBACTAM 3.375 GM in NORMAL SALINE 100 ML IV SCH ×5 (00:54→23:33)
[2017-09-08] MEDS: LEVALBUTEROL HCL NEB 0.63 MG/3 ML AMPUL NEB SCH ×4 (02:19→20:15)
[2017-09-08] MEDS: METRONIDAZOLE 500 MG TABLET PO SCH ×3 (05:40→21:17)
[2017-09-08 06:14] LABS: ARTERIAL BLOOD BASE EXCESS 0 mmol/L; ARTERIAL BLOOD H2CO3 1.27 mmol/L (1.05-1.35); ARTERIAL BLOOD O2 SATURATION 97.9 % (94-98); ARTERIAL BLOOD PCO2 42.2 mmHg (35-45); ARTERIAL BLOOD PH 7.39 (7.35-7.45); ARTERIAL BLOOD TOTAL CO2 26.3 mmol/L (23-27)
[2017-09-08 06:15] LABS: ARTERIAL BLOOD FIO2 30%
[2017-09-08 06:20] LABS: ABSOLUTE BASOPHILS # (AUTO) 0.1 10^3/uL (0.0-0.2); ABSOLUTE EOSINOPHILS # (AUTO) 0.3 10^3/uL (0.0-0.6); ABSOLUTE LYMPHOCYTES (AUTO) 0.9 10^3/uL (0.5-4.7); ABSOLUTE MONOCYTES (AUTO) 1.1 10^3/uL (0.1-1.4); ABSOLUTE NEUT (AUTO) 8.8 10^3/uL (1.7-8.2); BASOPHILS % (AUTO) 0.7 % (0-2); EOSINOPHILS % (AUTO) 3.1 % (0-6); HEMATOCRIT 34.9 % (37.9-51.0); HEMOGLOBIN 11.8 g/dL (13.5-17.0); LYMPHOCYTES % (AUTO) 7.9 % (13-45); MEAN CORPUSCULAR HEMOGLOBIN 31.5 pg (27.0-33.4); MEAN CORPUSCULAR HGB CONC 33.8 g/dL (32.0-36.0); MEAN CORPUSCULAR VOLUME 93 fl (80-97); MONOCYTES % (AUTO) 9.8 % (3-13); PLATELET COUNT 188 10^3/uL (150-450); RED BLOOD COUNT 3.74 10^6/uL (4.35-5.55); RED CELL DISTRIBUTION WIDTH 14.1 % (11.5-14.0); SEGMENTED NEUTROPHILS % (AUTO) 78.5 % (42-78); TOTAL CELLS COUNTED % (AUTO) 100 %; WHITE BLOOD COUNT 11.2 10^3/uL (4.0-10.5)
[2017-09-08 06:35] LABS: ANION GAP 8 (5-19); BLOOD UREA NITROGEN 17 mg/dL (7-20); CALCIUM 8.1 mg/dL (8.4-10.2); CARBON DIOXIDE 28 mmol/L (22-30); CHLORIDE 105 mmol/L (98-107); GLUCOSE 122 mg/dL (75-110); POTASSIUM 3.3 mmol/L (3.6-5.0); SODIUM 141.3 mmol/L (137-145)
[2017-09-08] MEDS: TOBRAMYCIN SULFATE NEB 40 MG/ML 30 ML NEB SCH ×2 (08:25→20:13)
--- NOTE | 2017-09-08 09:13 | RADIOLOGY REPORT (SQ) ---
EXAM DESCRIPTION: CHEST 2 VIEWS COMPLETED DATE/TIME: 09/08/2017 7:54 am REASON FOR STUDY: CHF, possible pneumonia COMPARISON: CT chest 09/03/2017 Chest films 08/16/2016, 09/05/2017, 09/07/2017 EXAM PARAMETERS: NUMBER OF VIEWS: two views TECHNIQUE: Digital Frontal and Lateral radiographic views of the chest acquired. RADIATION DOSE: NA LIMITATIONS: none FINDINGS: LUNGS AND PLEURA: Blunting in the bilateral posterior costophrenic sulci from trace pleura l fluid. There is minimal right basilar airspace disease atelectasis versus pneumonia. Upper lobes are free of focal infiltrates. No fluffy alveolar infiltrates worrisome for acute pulmon enzo edema. No pneumothorax MEDIASTINUM AND HILAR STRUCTURES: No masses or contour abnormalities. HEART AND VASCULAR STRUCTURES: No cardiomegaly in BONES: No acute findings. HARDWARE: Left jugular central line tip superior vena cava OTHER: No other significant finding. IMPRESSION: Trace bilateral pleural fluid. Right basilar airspace disease likely atelectasis TECHNICAL DOCUMENTATION: JOB ID: [id number] [email or web address] All Rights Reserved Reading location - IP/workstation name: [facility], [facility]
--- NOTE | 2017-09-08 10:46 | PDOC PROGRESS REPORT ---
Subjective Progress Note for:: 09/08/17 Subjective:: comfortable, hungry, has had 2 bowel movements today, flatus present Reason For Visit: RUPTURED ACUTE APPENDICITIS WITH PERITONITIS Physical Exam Vital Signs: Temp Pulse Resp BP Pulse Ox 98.6 F 100 22 H 173/78 H 93 09/08/17 07:06 09/08/17 07:06 09/08/17 07:06 09/08/17 07:06 09/08/17 07:06 Pulse Oximeter Continuous Start: 09/07/17 11: 27 Freq: RTQ4 Status: Active Document 09/08/17 04:00 [facility] (Rec: 09/08/17 04:22 [facility] [email or web address]) Pulse Oximetry Assessment Oxygen Saturation (92-100) 97 Oxygen Delivery Method Bi-pap Fraction of Inspired Oxygen (FIO2) 50 Equipment Usage Equipment in Use Continuous SpO2 Machine # 6 Intake & Output 09/07/17 09/08/17 09/09/17 06:59 06:59 06:59 Intake Total 3459 2800 Output Total 2300 665 Balance 1159 2135 Weight 82.1 kg 81.6 kg General appearance: PRESENT: no acute distress Respiratory exam: PRESENT: clear to auscultation matthew Cardiovascular exam: PRESENT: RRR GI/Abdominal exam: PRESENT: distended, hypoactive bowel sounds, soft, other - incision midline C/D/I Results Laboratory Results: 09/08/17 05:30 09/08/17 05:30 09/08/17 09/08/17 09/08/17 05:30 05:30 06:00 WBC 11.2 H RBC 3.74 L Hgb 11.8 L Hct 34.9 L MCV 93 MCH 31.5 MCHC 33.8 RDW 14.1 H Plt Count 188 Seg Neutrophils % 78.5 H Lymphocytes % 7.9 L Monocytes % 9.8 Eosinophils % 3.1 Basophils % 0.7 Absolute Neutrophils 8.8 H Absolute Lymphocytes 0.9 Absolute Monocytes 1.1 Absolute Eosinophils 0.3 Absolute Basophils 0.1 Carbonic Acid 1.27 HCO3/H2CO3 Ratio 19:1 ABG pH 7.39 ABG pCO2 42.2 ABG pO2 107.0 H ABG HCO3 25.0 ABG O2 Saturation 97.9 ABG Base Excess 0 FiO2 30% Sodium 141.3 Potassium 3.3 L Chloride 105 Carbon Dioxide 28 Anion Gap 8 BUN 17 Creatinine 0.99 Est GFR ( Amer) > 60 Est GFR (Non-Af Amer) > 60 Glucose 122 H Calcium 8.1 L 09/04/17 09/04/17 09/04/17 08:55 16:40 21:00 Troponin I 0.049 0.029 0.028 09/07/17 09/07/17 09/07/17 13:28 16:55 21:25 Troponin I 0.128 0.095 0.079 Impressions: Abdomen/Pelvis CTA 09/03/17 18:19 IMPRESSION: 1. FINDINGS IN THE APPENDIX SUSPICIOUS FOR EARLY ACUTE APPENDICITIS. NO EVIDENCE OF ABSCESS OR PERFORATION. THERE IS A SMALL AMOUNT OF FREE FLUID IN THE RIGHT UPPER QUADRANT WHICH MAY BE RELATED TO APPENDICITIS. 2. NO EVIDENCE OF AORTIC ANEURYSM OR DISSECTION. THE MAJOR MESENTERIC VESSELS ARE PATENT. THE LEFT COMMON ILIAC AND LEFT EXTERNAL ILIAC ARTERIES ARE OCCLUDED WITH FILLING DISTALLY VIA COLLATERALS, SUGGESTING THAT THIS IS PROBABLY A CHRONIC FINDING. 3. COLONIC DIVERTICULOSIS. NO CT FINDINGS OF ACUTE DIVERTICULITIS. 4. CORTICAL CYSTS IN THE RIGHT KIDNEY. 5. NO OTHER SIGNIFICANT FINDINGS. Chest/Abdomen CTA 09/03/17 18:19 IMPRESSION: NORMAL CTA OF THE CHEST. NO AORTIC ANEURYSM OR DISSECTION. NO PULMONARY EMBOLI. Chest X-Ray 09/08/17 06:45 IMPRESSION: Trace bilateral pleural fluid. Right basilar airspace disease likely atelectasis Assessment & Plan - Diagnosis (1) Ruptured acute appendicitis with periton Is this a current diagnosis for this admission?: Yes Plan: A/ POD #5 after expl. lap. for ruptured appendicitis VSS, AF patient comfortable Abdomen soft Incsion C/D/I Low K (3.3) Plan: regular diet Replace K with 40 mEq IVPB stop morphine Start Tylenol po for pain Remove [place] tonight at midnight Physical Therapy for ambulation Continue IVF for now
[2017-09-08] MEDS: SPIRONOLACTONE 25 MG TABLET PO SCH (11:50)
[2017-09-08] MEDS: ATORVASTATIN CALCIUM 40 MG TABLET PO SCH (11:50)
[2017-09-08] MEDS: CARVEDILOL 12.5 MG TABLET PO SCH ×2 (11:51→21:18)
[2017-09-08] MEDS: VANCOMYCIN HCL 1,250 MG in DEXTROSE 5%-WATER 250 ML IV SCH ×2 (11:51→21:17)
[2017-09-08] MEDS ORDERED: ENOXAPARIN SODIUM INJ 30 MG/0.3 ML DISP.SYRIN SUBCUT ONE ×2 (12:00→13:30)
[2017-09-08] MEDS ORDERED: POTASSIUM CHLORIDE 20 MEQ/50 ML RTU IV ONE ×3 (12:00→20:00)
--- NOTE | 2017-09-08 12:07 | PDOC PROGRESS REPORT ---
Subjective Progress Note for:: 09/08/17 Subjective:: Improving Reason For Visit: RUPTURED ACUTE APPENDICITIS WITH PERITONITIS Physical Exam Vital Signs: Temp Pulse Resp BP Pulse Ox 98.6 F 100 22 H 173/78 H 93 09/08/17 07:06 09/08/17 07:06 09/08/17 07:06 09/08/17 07:06 09/08/17 07:06 Pulse Oximeter Continuous Start: 09/07/17 11: 27 Freq: RTQ4 Status: Active Document 09/08/17 04:00 EAL (Rec: 09/08/17 04:22 EAL [email or web address]) Pulse Oximetry Assessment Oxygen Saturation (92-100) 97 Oxygen Delivery Method Bi-pap Fraction of Inspired Oxygen (FIO2) 50 Equipment Usage Equipment in Use Continuous SpO2 Machine # 6 Intake & Output 09/07/17 09/08/17 09/09/17 06:59 06:59 06:59 Intake Total 3459 2800 Output Total 2300 665 Balance 1159 2135 Weight 82.1 kg 81.6 kg General appearance: PRESENT: no acute distress, cooperative, disheveled Head exam: PRESENT: atraumatic, normocephalic Eye exam: PRESENT: conjunctiva pale, EOMI. ABSENT: nystagmus, periorbital swelling, scleral icterus Mouth exam: PRESENT: moist, neck supple, tongue midline Neck exam: ABSENT: carotid bruit, JVD, lymphadenopathy, thyromegaly, tracheal deviation, tracheostomy Respiratory exam: PRESENT: decreased breath sounds, prolonged expiratory phas, rhonchi, symmetrical, unlabored. ABSENT: rales, retraction, stridor, tachypnea , wheezes Cardiovascular exam: PRESENT: RRR, +S1, +S2 Pulses: PRESENT: normal radial pulses Extremities exam: ABSENT: clubbing, joint swelling Neurological exam: PRESENT: awake Skin exam: PRESENT: dry, warm Results Laboratory Results: 09/08/17 05:30 09/08/17 05:30 09/08/17 09/08/17 09/08/17 05:30 05:30 06:00 WBC 11.2 H RBC 3.74 L Hgb 11.8 L Hct 34.9 L MCV 93 MCH 31.5 MCHC 33.8 RDW 14.1 H Plt Count 188 Seg Neutrophils % 78.5 H Lymphocytes % 7.9 L Monocytes % 9.8 Eosinophils % 3.1 Basophils % 0.7 Absolute Neutrophils 8.8 H Absolute Lymphocytes 0.9 Absolute Monocytes 1.1 Absolute Eosinophils 0.3 Absolute Basophils 0.1 Carbonic Acid 1.27 HCO3/H2CO3 Ratio 19:1 ABG pH 7.39 ABG pCO2 42.2 ABG pO2 107.0 H ABG HCO3 25.0 ABG O2 Saturation 97.9 ABG Base Excess 0 FiO2 30% Sodium 141.3 Potassium 3.3 L Chloride 105 Carbon Dioxide 28 Anion Gap 8 BUN 17 Creatinine 0.99 Est GFR ( Amer) > 60 Est GFR (Non-Af Amer) > 60 Glucose 122 H Calcium 8.1 L 09/03/17 21:40 Abdominal Fluid Gram Stain - Final 09/03/17 21:40 Abdominal Fluid Body Fluid Culture - Final Escherichia Coli Klebsiella Pneumoniae Enterococcus Gallinarum Bacteroides Fragilis Group Fusobacterium Species 09/04/17 09/04/17 09/04/17 08:55 16:40 21:00 Troponin I 0.049 0.029 0.028 09/07/17 09/07/17 09/07/17 13:28 16:55 21:25 Troponin I 0.128 0.095 0.079 Impressions: Abdomen/Pelvis CTA 09/03/17 18:19 IMPRESSION: 1. FINDINGS IN THE APPENDIX SUSPICIOUS FOR EARLY ACUTE APPENDICITIS. NO EVIDENCE OF ABSCESS OR PERFORATION. THERE IS A SMALL AMOUNT OF FREE FLUID IN THE RIGHT UPPER QUADRANT WHICH MAY BE RELATED TO APPENDICITIS. 2. NO EVIDENCE OF AORTIC ANEURYSM OR DISSECTION. THE MAJOR MESENTERIC VESSELS ARE PATENT. THE LEFT COMMON ILIAC AND LEFT EXTERNAL ILIAC ARTERIES ARE OCCLUDED WITH FILLING DISTALLY VIA COLLATERALS, SUGGESTING THAT THIS IS PROBABLY A CHRONIC FINDING. 3. COLONIC DIVERTICULOSIS. NO CT FINDINGS OF ACUTE DIVERTICULITIS. 4. CORTICAL CYSTS IN THE RIGHT KIDNEY. 5. NO OTHER SIGNIFICANT FINDINGS. Chest/Abdomen CTA 09/03/17 18:19 IMPRESSION: NORMAL CTA OF THE CHEST. NO AORTIC ANEURYSM OR DISSECTION. NO PULMONARY EMBOLI. Chest X-Ray 09/08/17 06:45 IMPRESSION: Trace bilateral pleural fluid. Right basilar airspace disease likely atelectasis Assessment & Plan - Diagnosis (1) Respiratory failure Qualifiers: Respiratory failure complication: hypoxia Is this a current diagnosis for this admission?: Yes Plan: Continues to improve (2) Hypertension Qualifiers: Hypertension type: essential hypertension Qualified Code(s): I10 - Essential (primary) hypertension Is this a current diagnosis for this admission?: Yes (3) Ruptured acute appendicitis with periton Is this a current diagnosis for this admission?: Yes Plan: As per surgery
--- NOTE | 2017-09-08 12:09 | PDOC PROGRESS REPORT ---
Subjective Progress Note for:: 09/05/17 Subjective:: Improving; little soreness otherwise okay Reason For Visit: RUPTURED ACUTE APPENDICITIS WITH PERITONITIS Physical Exam Vital Signs: Temp Pulse Resp BP Pulse Ox 98.6 F 82 15 122/68 99 09/05/17 08:00 09/05/17 08:10 09/05/17 08:10 09/05/17 08:00 09/05/17 08:10 Intake & Output 09/04/17 09/05/17 09/06/17 06:59 06:59 06:59 Intake Total 3121 Output Total 325 2230 200 Balance -325 891 -200 Weight 75.4 kg 78.1 kg General appearance: PRESENT: no acute distress, cooperative, disheveled, well- developed Head exam: PRESENT: atraumatic, normocephalic Eye exam: PRESENT: conjunctiva pale, EOMI. ABSENT: nystagmus, periorbital swelling, scleral icterus Mouth exam: PRESENT: dry mucosa, neck supple, tongue midline Neck exam: ABSENT: carotid bruit, JVD, lymphadenopathy, thyromegaly, tracheal deviation, tracheostomy Respiratory exam: PRESENT: decreased breath sounds, prolonged expiratory phas, rhonchi, symmetrical, unlabored. ABSENT: rales, retraction, stridor, tachypnea Cardiovascular exam: PRESENT: RRR, +S1, +S2 Pulses: PRESENT: normal radial pulses GI/Abdominal exam: PRESENT: tenderness Extremities exam: ABSENT: calf tenderness, clubbing, joint swelling Musculoskeletal exam: ABSENT: deformity, dislocation Neurological exam: PRESENT: alert, awake Psychiatric exam: PRESENT: flat affect Skin exam: PRESENT: dry, warm Results Laboratory Results: 09/05/17 05:40 09/05/17 05:40 09/04/17 09/04/17 09/05/17 12:09 12:47 05:40 WBC 12.9 H RBC 3.92 L Hgb 12.2 L Hct 36.3 L MCV 93 MCH 31.1 MCHC 33.6 RDW 14.3 H Plt Count 165 Seg Neutrophils % 85.9 H Lymphocytes % 5.9 L Monocytes % 7.8 Eosinophils % 0.0 Basophils % 0.4 Absolute Neutrophils 11.1 H Absolute Lymphocytes 0.8 Absolute Monocytes 1.0 Absolute Eosinophils 0.0 Absolute Basophils 0.1 Carbonic Acid Cancelled 1.21 HCO3/H2CO3 Ratio Cancelled 19:1 ABG pH Cancelled 7.39 ABG pCO2 Cancelled 40.2 ABG pO2 Cancelled 60.1 L ABG HCO3 Cancelled 24.0 ABG O2 Saturation Cancelled 91.0 L ABG Base Excess Cancelled -0.8 FiO2 Cancelled 40% Sodium Potassium Chloride Carbon Dioxide Anion Gap BUN Creatinine Est GFR ( Amer) Est GFR (Non-Af Amer) Glucose Calcium Magnesium Total Bilirubin AST ALT Alkaline Phosphatase Total Protein Albumin 09/05/17 09/05/17 05:40 05:50 WBC RBC Hgb Hct MCV MCH MCHC RDW Plt Count Seg Neutrophils % Lymphocytes % Monocytes % Eosinophils % Basophils % Absolute Neutrophils Absolute Lymphocytes Absolute Monocytes Absolute Eosinophils Absolute Basophils Carbonic Acid 1.23 HCO3/H2CO3 Ratio 19:1 ABG pH 7.40 ABG pCO2 40.8 ABG pO2 99.8 ABG HCO3 24.4 ABG O2 Saturation 97.5 ABG Base Excess -0.4 FiO2 5L Sodium 138.7 Potassium 3.9 Chloride 108 H Carbon Dioxide 28 Anion Gap 3 L BUN 14 Creatinine 0.66 Est GFR ( Amer) > 60 Est GFR (Non-Af Amer) > 60 Glucose 109 Calcium 7.6 L Magnesium 1.9 Total Bilirubin 0.3 AST 27 ALT 39 Alkaline Phosphatase 35 L Total Protein 4.6 L Albumin 2.6 L 09/04/17 09/04/17 09/04/17 08:55 16:40 21:00 Troponin I 0.049 0.029 0.028 Impressions: Abdomen/Pelvis CTA 09/03/17 18:19 IMPRESSION: 1. FINDINGS IN THE APPENDIX SUSPICIOUS FOR EARLY ACUTE APPENDICITIS. NO EVIDENCE OF ABSCESS OR PERFORATION. THERE IS A SMALL AMOUNT OF FREE FLUID IN THE RIGHT UPPER QUADRANT WHICH MAY BE RELATED TO APPENDICITIS. 2. NO EVIDENCE OF AORTIC ANEURYSM OR DISSECTION. THE MAJOR MESENTERIC VESSELS ARE PATENT. THE LEFT COMMON ILIAC AND LEFT EXTERNAL ILIAC ARTERIES ARE OCCLUDED WITH FILLING DISTALLY VIA COLLATERALS, SUGGESTING THAT THIS IS PROBABLY A CHRONIC FINDING. 3. COLONIC DIVERTICULOSIS. NO CT FINDINGS OF ACUTE DIVERTICULITIS. 4. CORTICAL CYSTS IN THE RIGHT KIDNEY. 5. NO OTHER SIGNIFICANT FINDINGS. Chest/Abdomen CTA 09/03/17 18:19 IMPRESSION: NORMAL CTA OF THE CHEST. NO AORTIC ANEURYSM OR DISSECTION. NO PULMONARY EMBOLI. Chest X-Ray 09/05/17 06:00 IMPRESSION: Interval extubation. Else, no significant change. Assessment & Plan - Diagnosis (1) Respiratory failure Qualifiers: Respiratory failure complication: hypoxia Is this a current diagnosis for this admission?: Yes Plan: Continues to improve (2) Hypertension Qualifiers: Hypertension type: essential hypertension Qualified Code(s): I10 - Essential (primary) hypertension Is this a current diagnosis for this admission?: Yes (3) Ruptured acute appendicitis with periton Is this a current diagnosis for this admission?: Yes Plan: As per surgery
--- NOTE | 2017-09-08 12:11 | PDOC PROGRESS REPORT ---
Subjective Progress Note for:: 09/06/17 Subjective:: Improving; little soreness otherwise okay Reason For Visit: RUPTURED ACUTE APPENDICITIS WITH PERITONITIS Physical Exam Vital Signs: Temp Pulse Resp BP Pulse Ox 99.5 F 77 25 H 103/61 97 09/06/17 08:00 09/06/17 08:00 09/06/17 08:00 09/06/17 08:00 09/06/17 08:00 Intake & Output 09/05/17 09/06/17 09/07/17 06:59 06:59 06:59 Intake Total 3121 5611 Output Total 2230 1630 75 Balance 891 3981 -75 Weight 78.1 kg 80.5 kg General appearance: PRESENT: no acute distress, cooperative, disheveled Head exam: PRESENT: atraumatic, normocephalic Eye exam: PRESENT: conjunctiva pale, EOMI. ABSENT: nystagmus, periorbital swelling, scleral icterus Mouth exam: PRESENT: dry mucosa, neck supple, tongue midline Neck exam: ABSENT: carotid bruit, JVD, lymphadenopathy, thyromegaly, tracheal deviation, tracheostomy Respiratory exam: PRESENT: decreased breath sounds, prolonged expiratory phas, rhonchi, symmetrical, unlabored. ABSENT: rales, retraction, stridor, tachypnea Cardiovascular exam: PRESENT: RRR, +S1, +S2 Pulses: PRESENT: normal radial pulses GI/Abdominal exam: PRESENT: tenderness Extremities exam: ABSENT: calf tenderness, clubbing, joint swelling Musculoskeletal exam: ABSENT: deformity, dislocation Neurological exam: PRESENT: alert, awake Psychiatric exam: PRESENT: flat affect Skin exam: PRESENT: dry, warm Results Laboratory Results: 09/06/17 05:31 09/06/17 05:31 09/06/17 09/06/17 05:31 05:31 WBC 10.9 H RBC 3.58 L Hgb 11.2 L Hct 33.5 L MCV 94 MCH 31.4 MCHC 33.4 RDW 14.5 H Plt Count 155 Seg Neutrophils % 84.2 H Lymphocytes % 8.1 L Monocytes % 6.2 Eosinophils % 0.9 Basophils % 0.6 Absolute Neutrophils 9.2 H Absolute Lymphocytes 0.9 Absolute Monocytes 0.7 Absolute Eosinophils 0.1 Absolute Basophils 0.1 Sodium 140.6 Potassium 3.3 L Chloride 109 H Carbon Dioxide 26 Anion Gap 6 BUN 10 Creatinine 0.64 Est GFR ( Amer) > 60 Est GFR (Non-Af Amer) > 60 Glucose 100 Calcium 7.4 L Magnesium 2.2 09/04/17 09/04/17 09/04/17 08:55 16:40 21:00 Troponin I 0.049 0.029 0.028 Impressions: Abdomen/Pelvis CTA 09/03/17 18:19 IMPRESSION: 1. FINDINGS IN THE APPENDIX SUSPICIOUS FOR EARLY ACUTE APPENDICITIS. NO EVIDENCE OF ABSCESS OR PERFORATION. THERE IS A SMALL AMOUNT OF FREE FLUID IN THE RIGHT UPPER QUADRANT WHICH MAY BE RELATED TO APPENDICITIS. 2. NO EVIDENCE OF AORTIC ANEURYSM OR DISSECTION. THE MAJOR MESENTERIC VESSELS ARE PATENT. THE LEFT COMMON ILIAC AND LEFT EXTERNAL ILIAC ARTERIES ARE OCCLUDED WITH FILLING DISTALLY VIA COLLATERALS, SUGGESTING THAT THIS IS PROBABLY A CHRONIC FINDING. 3. COLONIC DIVERTICULOSIS. NO CT FINDINGS OF ACUTE DIVERTICULITIS. 4. CORTICAL CYSTS IN THE RIGHT KIDNEY. 5. NO OTHER SIGNIFICANT FINDINGS. Chest/Abdomen CTA 09/03/17 18:19 IMPRESSION: NORMAL CTA OF THE CHEST. NO AORTIC ANEURYSM OR DISSECTION. NO PULMONARY EMBOLI. Chest X-Ray 09/05/17 06:00 IMPRESSION: Interval extubation. Else, no significant change. Assessment & Plan - Diagnosis (1) Respiratory failure Qualifiers: Respiratory failure complication: hypoxia Is this a current diagnosis for this admission?: Yes Plan: No change in the last 24 hours (2) Hypertension Qualifiers: Hypertension type: essential hypertension Qualified Code(s): I10 - Essential (primary) hypertension Is this a current diagnosis for this admission?: Yes (3) Ruptured acute appendicitis with periton Is this a current diagnosis for this admission?: Yes Plan: As per surgery
--- NOTE | 2017-09-08 12:12 | PDOC PROGRESS REPORT ---
Subjective Progress Note for:: 09/07/17 Subjective:: Improving Reason For Visit: RUPTURED ACUTE APPENDICITIS WITH PERITONITIS Physical Exam Vital Signs: Temp Pulse Resp BP Pulse Ox 99.4 F 97 19 125/75 100 09/07/17 11:52 09/07/17 11:52 09/07/17 12:10 09/07/17 11:52 09/07/17 12:10 Pulse Oximeter Continuous Start: 09/07/17 11: 27 Freq: RTQ4 Status: Active Document 09/07/17 12:10 HCR (Rec: 09/07/17 12:26 HCR [email or web address]) Pulse Oximetry Assessment Oxygen Saturation (92-100) 100 Oxygen Delivery Method Bi-pap Fraction of Inspired Oxygen (FIO2) 40 Equipment Usage Initial Set Up Continuous Pulse Oximeter 24 Hour Charge Charge Now Continuous SpO2 Machine # 6 Intake & Output 09/06/17 09/07/17 09/08/17 06:59 06:59 06:59 Intake Total 5611 3459 0 Output Total 1680 2300 150 Balance 3931 1159 -150 Weight 80.5 kg 82.1 kg General appearance: PRESENT: no acute distress, cooperative, disheveled Head exam: PRESENT: atraumatic, normocephalic Eye exam: PRESENT: conjunctiva pale, EOMI. ABSENT: nystagmus, periorbital swelling, scleral icterus Mouth exam: PRESENT: dry mucosa, neck supple, tongue midline Neck exam: ABSENT: carotid bruit, JVD, lymphadenopathy, thyromegaly, tracheal deviation, tracheostomy Respiratory exam: PRESENT: decreased breath sounds, prolonged expiratory phas, rhonchi, symmetrical, unlabored. ABSENT: rales, retraction, stridor, tachypnea Cardiovascular exam: PRESENT: RRR, +S1, +S2 Pulses: PRESENT: normal radial pulses GI/Abdominal exam: PRESENT: soft, tenderness Extremities exam: ABSENT: calf tenderness, clubbing, joint swelling Musculoskeletal exam: ABSENT: deformity, dislocation Neurological exam: PRESENT: alert, awake Psychiatric exam: PRESENT: normal mood Skin exam: PRESENT: dry, warm Results Laboratory Results: 09/07/17 05:40 09/07/17 05:40 09/07/17 09/07/17 09/07/17 05:40 05:40 09:20 WBC 13.6 H RBC 4.00 L Hgb 12.5 L Hct 37.5 L MCV 94 MCH 31.2 MCHC 33.3 RDW 14.1 H Plt Count 214 Seg Neutrophils % 86.2 H Lymphocytes % 6.0 L Monocytes % 6.2 Eosinophils % 1.2 Basophils % 0.4 Absolute Neutrophils 11.7 H Absolute Lymphocytes 0.8 Absolute Monocytes 0.8 Absolute Eosinophils 0.2 Absolute Basophils 0.1 Carbonic Acid 1.51 H HCO3/H2CO3 Ratio 16:1 ABG pH 7.31 L ABG pCO2 50.0 H ABG pO2 74.8 L ABG HCO3 24.7 ABG O2 Saturation 93.7 L ABG Base Excess -1.9 FiO2 3.5L Sodium 142.7 Potassium 3.8 Chloride 106 Carbon Dioxide 27 Anion Gap 10 BUN 14 Creatinine 0.70 Est GFR ( Amer) > 60 Est GFR (Non-Af Amer) > 60 Glucose 127 H Calcium 8.1 L 09/04/17 09/04/17 09/04/17 08:55 16:40 21:00 Troponin I 0.049 0.029 0.028 Impressions: Abdomen/Pelvis CTA 09/03/17 18:19 IMPRESSION: 1. FINDINGS IN THE APPENDIX SUSPICIOUS FOR EARLY ACUTE APPENDICITIS. NO EVIDENCE OF ABSCESS OR PERFORATION. THERE IS A SMALL AMOUNT OF FREE FLUID IN THE RIGHT UPPER QUADRANT WHICH MAY BE RELATED TO APPENDICITIS. 2. NO EVIDENCE OF AORTIC ANEURYSM OR DISSECTION. THE MAJOR MESENTERIC VESSELS ARE PATENT. THE LEFT COMMON ILIAC AND LEFT EXTERNAL ILIAC ARTERIES ARE OCCLUDED WITH FILLING DISTALLY VIA COLLATERALS, SUGGESTING THAT THIS IS PROBABLY A CHRONIC FINDING. 3. COLONIC DIVERTICULOSIS. NO CT FINDINGS OF ACUTE DIVERTICULITIS. 4. CORTICAL CYSTS IN THE RIGHT KIDNEY. 5. NO OTHER SIGNIFICANT FINDINGS. Chest/Abdomen CTA 09/03/17 18:19 IMPRESSION: NORMAL CTA OF THE CHEST. NO AORTIC ANEURYSM OR DISSECTION. NO PULMONARY EMBOLI. Chest X-Ray 09/07/17 00:00 IMPRESSION: New right basilar airspace disease asymmetric edema versus pneumonia. Bandlike density in the left lung base has resolved Assessment & Plan - Diagnosis (1) Respiratory failure Qualifiers: Respiratory failure complication: hypoxia Is this a current diagnosis for this admission?: Yes Plan: No change in the last 24 hours (2) Hypertension Qualifiers: Hypertension type: essential hypertension Qualified Code(s): I10 - Essential (primary) hypertension Is this a current diagnosis for this admission?: Yes (3) Ruptured acute appendicitis with periton Is this a current diagnosis for this admission?: Yes Plan: As per surgery
[2017-09-08] MEDS: ACETAMINOPHEN 325 MG TABLET PO PRN (12:29)
--- NOTE | 2017-09-08 17:30 | PDOC PROGRESS REPORT ---
Subjective Progress Note for:: 09/08/17 Subjective:: Doing better today, breathing better. Mental status markedly improved. at bedside. Denies chest pain or palpitations. No fever or chills. No abdominal pain continues to improve status post surgery. Dressing was changed today by surgeon. Reason For Visit: RUPTURED ACUTE APPENDICITIS WITH PERITONITIS Physical Exam Vital Signs: Temp Pulse Resp BP Pulse Ox 97.4 F 79 18 139/95 H 96 09/08/17 12:39 09/08/17 14:09 09/08/17 14:09 09/08/17 12:39 09/08/17 14:09 Pulse Oximeter Continuous Start: 09/07/17 11: 27 Freq: RTQ4 Status: Active Document 09/08/17 12:22 HCR (Rec: 09/08/17 13:15 HCR [email or web address]) Pulse Oximetry Assessment Oxygen Saturation (92-100) 96 Oxygen Flow Rate (L/min) 1 Oxygen Delivery Method Nasal Cannula Equipment Usage Equipment in Use Continuous SpO2 Machine # 6 Intake & Output 09/07/17 09/08/17 09/09/17 06:59 06:59 06:59 Intake Total 3459 2800 0 Output Total 2300 665 100 Balance 1159 2135 -100 Weight 82.1 kg 81.6 kg GEN: well-developed, well-nourished CV: RRR, NL S1S2 LUNGS: Decreased breath sounds bases ABDOMEN Soft, surgical dressing clean dry and intact EXTERMITIES: No e/c/c NEURO: Alert, oriented 3, no focal weakness Results Laboratory Results: 09/08/17 05:30 09/08/17 05:30 09/08/17 09/08/17 09/08/17 05:30 05:30 06:00 WBC 11.2 H RBC 3.74 L Hgb 11.8 L Hct 34.9 L MCV 93 MCH 31.5 MCHC 33.8 RDW 14.1 H Plt Count 188 Seg Neutrophils % 78.5 H Lymphocytes % 7.9 L Monocytes % 9.8 Eosinophils % 3.1 Basophils % 0.7 Absolute Neutrophils 8.8 H Absolute Lymphocytes 0.9 Absolute Monocytes 1.1 Absolute Eosinophils 0.3 Absolute Basophils 0.1 Carbonic Acid 1.27 HCO3/H2CO3 Ratio 19:1 ABG pH 7.39 ABG pCO2 42.2 ABG pO2 107.0 H ABG HCO3 25.0 ABG O2 Saturation 97.9 ABG Base Excess 0 FiO2 30% Sodium 141.3 Potassium 3.3 L Chloride 105 Carbon Dioxide 28 Anion Gap 8 BUN 17 Creatinine 0.99 Est GFR ( Amer) > 60 Est GFR (Non-Af Amer) > 60 Glucose 122 H Calcium 8.1 L 09/03/17 21:40 Abdominal Fluid Gram Stain - Final 09/03/17 21:40 Abdominal Fluid Body Fluid Culture - Final Escherichia Coli Klebsiella Pneumoniae Enterococcus Gallinarum Bacteroides Fragilis Group Fusobacterium Species 09/04/17 09/04/17 09/04/17 08:55 16:40 21:00 Troponin I 0.049 0.029 0.028 09/07/17 09/07/17 09/07/17 13:28 16:55 21:25 Troponin I 0.128 0.095 0.079 Impressions: Abdomen/Pelvis CTA 09/03/17 18:19 IMPRESSION: 1. FINDINGS IN THE APPENDIX SUSPICIOUS FOR EARLY ACUTE APPENDICITIS. NO EVIDENCE OF ABSCESS OR PERFORATION. THERE IS A SMALL AMOUNT OF FREE FLUID IN THE RIGHT UPPER QUADRANT WHICH MAY BE RELATED TO APPENDICITIS. 2. NO EVIDENCE OF AORTIC ANEURYSM OR DISSECTION. THE MAJOR MESENTERIC VESSELS ARE PATENT. THE LEFT COMMON ILIAC AND LEFT EXTERNAL ILIAC ARTERIES ARE OCCLUDED WITH FILLING DISTALLY VIA COLLATERALS, SUGGESTING THAT THIS IS PROBABLY A CHRONIC FINDING. 3. COLONIC DIVERTICULOSIS. NO CT FINDINGS OF ACUTE DIVERTICULITIS. 4. CORTICAL CYSTS IN THE RIGHT KIDNEY. 5. NO OTHER SIGNIFICANT FINDINGS. Chest/Abdomen CTA 09/03/17 18:19 IMPRESSION: NORMAL CTA OF THE CHEST. NO AORTIC ANEURYSM OR DISSECTION. NO PULMONARY EMBOLI. Chest X-Ray 09/08/17 06:45 IMPRESSION: Trace bilateral pleural fluid. Right basilar airspace disease likely atelectasis Assessment & Plan - Diagnosis (1) Altered mental status Qualifiers: Altered mental status type: unspecified Qualified Code(s): R41.82 - Altered mental status, unspecified Is this a current diagnosis for this admission?: Yes Plan: Improve with BiPAP treatment -- patient may have underlying undiagnosed COPD. Suspect altered mental status secondary to hypercapnia. Also suspect pneumonia , possible hospital-acquired, although chest x-ray from today much better. (2) Pneumonia Is this a current diagnosis for this admission?: Yes Plan: Suspected, but probability much less at this time with improvement in chest x- ray today. If pneumonia, possible hospital-acquired versus aspiration. Will complete Zosyn course which patient was on status post surgery for his ruptured appendicitis. We will also continue Vanco for now pending blood culture result. Repeat blood cultures negative to 24 hours, will continue to follow. -Will d/c IV fluid, given history of cardiomyopathy and possible CHF. -We will continue with BiPAP as needed. (3) Cardiomyopathy Qualifiers: Cardiomyopathy type: unspecified Qualified Code(s): I42.9 - Cardiomyopathy , unspecified Is this a current diagnosis for this admission?: Yes Plan: Possible acute on chronic systolic CHF. Echo from reveals EF 35-40%. -We will resume Entresto, Coreg, and spironolactone as patient blood pressure now elevated. Consider Lasix if concern for fluid overload. (4) Coronary artery disease Qualifiers: Coronary Disease-Associated Artery/Lesion type: [place] artery [place] vs. transplanted heart: [place] heart Associated angina: angina presence unspecified Qualified Code(s): I25.10 - Atherosclerotic heart disease of [place] coronary artery without angina pectoris Is this a current diagnosis for this admission?: Yes Plan: [place] ruled out with serial troponin. (5) Hypertension Qualifiers: Hypertension type: essential hypertension Qualified Code(s): I10 - Essential (primary) hypertension Is this a current diagnosis for this admission?: Yes Plan: Restart meds. (6) Respiratory failure Qualifiers: Respiratory failure complication: hypoxia Is this a current diagnosis for this admission?: Yes Plan: Improved. (7) Ruptured acute appendicitis with periton Is this a current diagnosis for this admission?: Yes Plan: Management per surgery.
[2017-09-08] MEDS: SACUBITRIL/VALSARTAN 97 MG/103 MG TABLET PO SCH (17:45)
[2017-09-08 18:40] LABS: ANION GAP 7 (5-19); BLOOD UREA NITROGEN 25 mg/dL (7-20); CALCIUM 8.1 mg/dL (8.4-10.2); CARBON DIOXIDE 27 mmol/L (22-30); CHLORIDE 102 mmol/L (98-107); GLUCOSE 163 mg/dL (75-110); POTASSIUM 3.2 mmol/L (3.6-5.0)
[2017-09-09] MEDS: LEVALBUTEROL HCL NEB 0.63 MG/3 ML AMPUL NEB SCH ×5 (01:46→19:50)
[2017-09-09] MEDS ORDERED: LEVALBUTEROL HCL NEB 0.63 MG/3 ML AMPUL NEB ONE (04:07)
[2017-09-09 04:20] LABS: HEMOGLOBIN 12.1 g/dL (13.5-17.0); MEAN CORPUSCULAR HEMOGLOBIN 30.8 pg (27.0-33.4); MEAN CORPUSCULAR HGB CONC 33.5 g/dL (32.0-36.0); MEAN CORPUSCULAR VOLUME 92 fl (80-97); PLATELET COUNT 215 10^3/uL (150-450); RED BLOOD COUNT 3.92 10^6/uL (4.35-5.55); RED CELL DISTRIBUTION WIDTH 13.9 % (11.5-14.0); WHITE BLOOD COUNT 15.1 10^3/uL (4.0-10.5)
[2017-09-09 04:35] LABS: ANION GAP 9 (5-19); BLOOD UREA NITROGEN 28 mg/dL (7-20); CARBON DIOXIDE 25 mmol/L (22-30); CHLORIDE 102 mmol/L (98-107); GLUCOSE 149 mg/dL (75-110); POTASSIUM 3.8 mmol/L (3.6-5.0); SODIUM 135.8 mmol/L (137-145)
[2017-09-09 04:39] LABS: ABSOLUTE LYMPHOCYTES# (MANUAL) 0.3 10^3/uL (0.5-4.7); ABSOLUTE MONOCYTES # (MANUAL) 0.5 10^3/uL (0.1-1.4); ABSOLUTE NEUTROPHILS# (MANUAL) 14.3 10^3/uL (1.7-8.2); BAND NEUTROPHILS % (MANUAL) 1 % (3-5); BASOPHILS % (MANUAL) 0 % (0-2); EOSINOPHILS % (MANUAL) 0 % (0-6); LYMPHOCYTES % (MANUAL) 2 % (13-45); MONOCYTES % (MANUAL) 3 % (3-13); SEGMENTED NEUTROPHILS % (MAN) 94 % (42-78); TOTAL CELLS COUNTED 100
[2017-09-09 04:40] LABS: BURR CELLS SLIGHT; OVALOCYTES 1+; PLATELET COMMENT ADEQUATE; POIKILOCYTOSIS 1+; TEAR DROP CELLS SLIGHT
[2017-09-09] MEDS: PIPERACILLIN SODIUM/TAZOBACTAM 3.375 GM in NORMAL SALINE 100 ML IV SCH ×3 (05:09→17:46)
[2017-09-09] MEDS: ACETAMINOPHEN 325 MG TABLET PO PRN (05:10)
[2017-09-09] MEDS: METRONIDAZOLE 500 MG TABLET PO SCH ×3 (05:10→22:33)
[2017-09-09 06:37] LABS: ARTERIAL BLOOD BASE EXCESS -5.2 mmol/L; ARTERIAL BLOOD H2CO3 1.21 mmol/L (1.05-1.35); ARTERIAL BLOOD HCO3 20.4 mmol/L (20-26); ARTERIAL BLOOD O2 SATURATION 97.8 % (94-98); ARTERIAL BLOOD PCO2 40.1 mmHg (35-45); ARTERIAL BLOOD PH 7.32 (7.35-7.45); ARTERIAL BLOOD PO2 112.8 mmHg (80-100); ARTERIAL BLOOD TOTAL CO2 21.6 mmol/L (23-27)
[2017-09-09 06:38] LABS: ARTERIAL BLOOD FIO2 28%
[2017-09-09] MEDS ORDERED: ENOXAPARIN SODIUM INJ 30 MG/0.3 ML DISP.SYRIN SUBCUT SCH (08:00)
[2017-09-09] MEDS: TOBRAMYCIN SULFATE NEB 40 MG/ML 30 ML NEB SCH (09:22)
[2017-09-09] MEDS: ATORVASTATIN CALCIUM 40 MG TABLET PO SCH (09:55)
[2017-09-09] MEDS: CARVEDILOL 12.5 MG TABLET PO SCH ×2 (09:56→22:33)
[2017-09-09] MEDS: SACUBITRIL/VALSARTAN 97 MG/103 MG TABLET PO SCH ×2 (09:57→17:46)
[2017-09-09] MEDS: ENOXAPARIN SODIUM INJ 30 MG/0.3 ML DISP.SYRIN SUBCUT SCH (09:57)
[2017-09-09] MEDS: SPIRONOLACTONE 25 MG TABLET PO SCH (09:57)
[2017-09-09 10:42] LABS: VANCOMYCIN,TROUGH 30.4 ug/mL (5.0-20.0)
[2017-09-09] MEDS ORDERED: 1/2 NORMAL SALINE 500 ML IV PRN ×2 (11:35→12:41)
--- NOTE | 2017-09-09 11:49 | PDOC PROGRESS REPORT ---
Subjective Progress Note for:: 09/07/17 Subjective:: Patient was noted to be confused. He had elevated white cell count. Hospitalist aware of it. A chest x-ray ordered showed right basilar pneumonia. Cardiac parekh patient vital signs are noted to be stable. Heart rhythm noted to be stable. Reason For Visit: RUPTURED ACUTE APPENDICITIS WITH PERITONITIS Physical Exam Vital Signs: Temp Pulse Resp BP Pulse Ox 99.1 F 86 22 H 132/69 H 100 09/07/17 15:56 09/07/17 15:56 09/07/17 16:16 09/07/17 15:56 09/07/17 16:16 Pulse Oximeter Continuous Start: 09/07/17 11: 27 Freq: RTQ4 Status: Active Document 09/07/17 16:16 [facility] (Rec: 09/07/17 17:30 [facility] [email or web address]) Pulse Oximetry Assessment Oxygen Saturation (92-100) 100 Oxygen Delivery Method Bi-pap Fraction of Inspired Oxygen (FIO2) 30 Equipment Usage Equipment in Use Continuous SpO2 Machine # [id number] Intake & Output 09/06/17 09/07/17 09/08/17 06:59 06:59 06:59 Intake Total 5611 3459 100 Output Total 1680 2300 250 Balance 3931 1159 -150 Weight 80.5 kg 82.1 kg Results Laboratory Results: 09/07/17 05:40 09/07/17 05:40 09/07/17 09/07/17 09/07/17 05:40 05:40 09:20 WBC 13.6 H RBC 4.00 L Hgb 12.5 L Hct 37.5 L MCV 94 MCH 31.2 MCHC 33.3 RDW 14.1 H Plt Count 214 Seg Neutrophils % 86.2 H Lymphocytes % 6.0 L Monocytes % 6.2 Eosinophils % 1.2 Basophils % 0.4 Absolute Neutrophils 11.7 H Absolute Lymphocytes 0.8 Absolute Monocytes 0.8 Absolute Eosinophils 0.2 Absolute Basophils 0.1 Carbonic Acid 1.51 H HCO3/H2CO3 Ratio 16:1 ABG pH 7.31 L ABG pCO2 50.0 H ABG pO2 74.8 L ABG HCO3 24.7 ABG O2 Saturation 93.7 L ABG Base Excess -1.9 FiO2 3.5L Sodium 142.7 Potassium 3.8 Chloride 106 Carbon Dioxide 27 Anion Gap 10 BUN 14 Creatinine 0.70 Est GFR ( Amer) > 60 Est GFR (Non-Af Amer) > 60 Glucose 127 H Calcium 8.1 L 09/04/17 09/04/17 09/04/17 08:55 16:40 21:00 Troponin I 0.049 0.029 0.028 09/07/17 09/07/17 13:28 16:55 Troponin I 0.128 0.095 Impressions: Abdomen/Pelvis CTA 09/03/17 18:19 IMPRESSION: 1. FINDINGS IN THE APPENDIX SUSPICIOUS FOR EARLY ACUTE APPENDICITIS. NO EVIDENCE OF ABSCESS OR PERFORATION. THERE IS A SMALL AMOUNT OF FREE FLUID IN THE RIGHT UPPER QUADRANT WHICH MAY BE RELATED TO APPENDICITIS. 2. NO EVIDENCE OF AORTIC ANEURYSM OR DISSECTION. THE MAJOR MESENTERIC VESSELS ARE PATENT. THE LEFT COMMON ILIAC AND LEFT EXTERNAL ILIAC ARTERIES ARE OCCLUDED WITH FILLING DISTALLY VIA COLLATERALS, SUGGESTING THAT THIS IS PROBABLY A CHRONIC FINDING. 3. COLONIC DIVERTICULOSIS. NO CT FINDINGS OF ACUTE DIVERTICULITIS. 4. CORTICAL CYSTS IN THE RIGHT KIDNEY. 5. NO OTHER SIGNIFICANT FINDINGS. Chest/Abdomen CTA 09/03/17 18:19 IMPRESSION: NORMAL CTA OF THE CHEST. NO AORTIC ANEURYSM OR DISSECTION. NO PULMONARY EMBOLI. Chest X-Ray 09/07/17 00:00 IMPRESSION: New right basilar airspace disease asymmetric edema versus pneumonia. Bandlike density in the left lung base has resolved Assessment & Plan - Diagnosis (1) Coronary artery disease Qualifiers: Coronary Disease-Associated Artery/Lesion type: [place] artery [place] vs. transplanted heart: [place] heart Associated angina: angina presence unspecified Qualified Code(s): I25.10 - Atherosclerotic heart disease of [place] coronary artery without angina pectoris Is this a current diagnosis for this admission?: Yes (2) Hyperlipidemia Qualifiers: Hyperlipidemia type: unspecified Qualified Code(s): E78.5 - Hyperlipidemia , unspecified Is this a current diagnosis for this admission?: Yes (3) Hypertension Qualifiers: Hypertension type: essential hypertension Qualified Code(s): I10 - Essential (primary) hypertension Is this a current diagnosis for this admission?: Yes (4) Respiratory failure Qualifiers: Respiratory failure complication: hypoxia Is this a current diagnosis for this admission?: Yes (5) Acute appendicitis Qualifiers: Acute appendicitis type: with localized peritonitis Qualified Code(s): K35.3 - Acute appendicitis with localized peritonitis Is this a current diagnosis for this admission?: Yes (6) Cardiomyopathy Qualifiers: Cardiomyopathy type: unspecified Qualified Code(s): I42.9 - Cardiomyopathy , unspecified Is this a current diagnosis for this admission?: Yes - Notes Notes: Patient is status post appendectomy, laparotomy with lavage of the peritoneum. Currently getting antibiotic therapy. Patient however noted to be confused. Exact etiology not clear. Patient at bedside. At this point 2D echo results reviewed with patient's . It shows moderately depressed LVEF. Patient medical regimen reviewed and home medication restarted. Medical regimen was noted to be very satisfactory. Recommend DVT prophylaxis, pulmonary toilet etc. Also recommend good pain control. Coronary artery disease: Currently symptomatically stable. Home medications already is started. Nurses advised to stagger this medication. Acute appendicitis with peritonitis: Patient is status post surgery and seems significantly improved. Continue antibiotic and surgery department recommendations. Dyslipidemia: Restarted statin therapy. Respiratory failure: Significantly improved. Currently on oxygen supplementation. Follow pulmonary recommendations. Agree with obtaining arterial blood gases to rule out CO2 narcosis. Patient at risk for CO2 narcosis and repeat respiratory failure. - Time Time with patient: 15-25 minutes - CODE STATUS was discussed, patient remains full code. Surrogate decision-maker patient's . Multiple medical problems were addressed. More than 50% of the time spent coordinating care, discussing management plans with involved caregivers. Management plans discussed with involved personnels. Medical decision making was of moderate to high complexity , patient's has multiple comorbidities. Medications reviewed and adjusted accordingly: Yes
--- NOTE | 2017-09-09 12:13 | PDOC PROGRESS REPORT ---
Subjective Progress Note for:: 09/08/17 Subjective:: Patient seems to be doing better. This morning noted to be alert and oriented. Pt is denying any chest arm or neck discomfort. Patient denying any PND, orthopnea. Patient denied any sustained palpitations, dizziness, syncope, near syncope. Patient denying any fever chills. Patient denying any other significant discomfort. Patient is maintaining sinus rhythm. Review of systems: Rest review of systems negative. Medications: Medications have been reviewed. Reason For Visit: RUPTURED ACUTE APPENDICITIS WITH PERITONITIS Physical Exam Vital Signs: Temp Pulse Resp BP Pulse Ox 97.5 F 88 16 163/84 H 98 09/08/17 19:42 09/08/17 19:42 09/08/17 19:42 09/08/17 19:42 09/08/17 19:42 Pulse Oximeter Continuous Start: 09/07/17 11: 27 Freq: RTQ4 Status: Active Document 09/08/17 16:53 [facility] (Rec: 09/08/17 18:13 H[facility] [email or web address]) Pulse Oximetry Assessment Oxygen Saturation (92-100) 93 Oxygen Flow Rate (L/min) 1 Oxygen Delivery Method Nasal Cannula Equipment Usage Equipment in Use Continuous SpO2 Machine # 6 Intake & Output 09/07/17 09/08/17 09/09/17 06:59 06:59 06:59 Intake Total 3459 2800 874 Output Total 2300 665 180 Balance 1159 2135 694 Weight 82.1 kg 81.6 kg Exam: GENERAL: well-nourished and in no acute distress. Alert and oriented x3 HEAD: Atraumatic, normocephalic. EYES: Pupils equal round and reactive to light, extraocular movements intact, sclera anicteric, conjunctiva are normal. ENT: TMs normal, nares patent, oropharynx clear without exudates. Moist mucous membranes. No oral ulcerations or bleeding gums noted NECK: supple without lymphadenopathy. Trachea is central. No cervical or axillary lymphadenopathy noted. Carotids are 2+, JVD WNL LUNGS: Respiration seems nonlabored, no significant accessory muscle action noted. Bibasilar fine crackles noted right more than left. No wheezes rales or rhonchi noted. No significant dullness noted on percussion. CHEST: Palpation of the chest wall shows no significant chest wall tenderness. No other significant abnormalities noted. HEART: [place] [employer], No PSH, 1/6 TANIA aortic area, 1/6 dom[place] systolic murmur mitral area, no rubs, no gallops. ABDOMEN: Soft, mild postsurgical tenderness appreciated, normoactive bowel sounds. No guarding, no rebound. No rigidity noted . No masses appreciated. EXTREMITIES: Pedal pulses are 1-2+, no calf tenderness noted. No clubbing or cyanosis. 1+ pedal edema noted NEUROLOGICAL: Focused neurological exam showed no significant neurologic deficit. Normal speech, no focal weakness appreciated. PSYCH: Normal mood, normal affect. Judgment and insight within normal limits. SKIN: No significant ecchymosis, skin is noted to be warm. MUSCULOSKELETAL EXAM: No significant acute joint swelling noted. Results Laboratory Results: 09/08/17 05:30 09/08/17 17:50 09/08/17 09/08/17 09/08/17 05:30 05:30 06:00 WBC 11.2 H RBC 3.74 L Hgb 11.8 L Hct 34.9 L MCV 93 MCH 31.5 MCHC 33.8 RDW 14.1 H Plt Count 188 Seg Neutrophils % 78.5 H Lymphocytes % 7.9 L Monocytes % 9.8 Eosinophils % 3.1 Basophils % 0.7 Absolute Neutrophils 8.8 H Absolute Lymphocytes 0.9 Absolute Monocytes 1.1 Absolute Eosinophils 0.3 Absolute Basophils 0.1 Carbonic Acid 1.27 HCO3/H2CO3 Ratio 19:1 ABG pH 7.39 ABG pCO2 42.2 ABG pO2 107.0 H ABG HCO3 25.0 ABG O2 Saturation 97.9 ABG Base Excess 0 FiO2 30% Sodium 141.3 Potassium 3.3 L Chloride 105 Carbon Dioxide 28 Anion Gap 8 BUN 17 Creatinine 0.99 Est GFR ( Amer) > 60 Est GFR (Non-Af Amer) > 60 Glucose 122 H Calcium 8.1 L 09/08/17 17:50 WBC RBC Hgb Hct MCV MCH MCHC RDW Plt Count Seg Neutrophils % Lymphocytes % Monocytes % Eosinophils % Basophils % Absolute Neutrophils Absolute Lymphocytes Absolute Monocytes Absolute Eosinophils Absolute Basophils Carbonic Acid HCO3/H2CO3 Ratio ABG pH ABG pCO2 ABG pO2 ABG HCO3 ABG O2 Saturation ABG Base Excess FiO2 Sodium 136.0 L Potassium 3.2 L Chloride 102 Carbon Dioxide 27 Anion Gap 7 BUN 25 H Creatinine 2.19 H Est GFR ( Amer) 36 L Est GFR (Non-Af Amer) 30 L Glucose 163 H Calcium 8.1 L 09/03/17 21:40 Abdominal Fluid Gram Stain - Final 09/03/17 21:40 Abdominal Fluid Body Fluid Culture - Final Escherichia Coli Klebsiella Pneumoniae Enterococcus Gallinarum Bacteroides Fragilis Group Fusobacterium Species 09/04/17 09/04/17 09/04/17 08:55 16:40 21:00 Troponin I 0.049 0.029 0.028 09/07/17 09/07/17 09/07/17 13:28 16:55 21:25 Troponin I 0.128 0.095 0.079 EKG Comments: Telemetry shows sinus rhythm without any sustained tachycardia or bradycardia. Impressions: Abdomen/Pelvis CTA 09/03/17 18:19 IMPRESSION: 1. FINDINGS IN THE APPENDIX SUSPICIOUS FOR EARLY ACUTE APPENDICITIS. NO EVIDENCE OF ABSCESS OR PERFORATION. THERE IS A SMALL AMOUNT OF FREE FLUID IN THE RIGHT UPPER QUADRANT WHICH MAY BE RELATED TO APPENDICITIS. 2. NO EVIDENCE OF AORTIC ANEURYSM OR DISSECTION. THE MAJOR MESENTERIC VESSELS ARE PATENT. THE LEFT COMMON ILIAC AND LEFT EXTERNAL ILIAC ARTERIES ARE OCCLUDED WITH FILLING DISTALLY VIA COLLATERALS, SUGGESTING THAT THIS IS PROBABLY A CHRONIC FINDING. 3. COLONIC DIVERTICULOSIS. NO CT FINDINGS OF ACUTE DIVERTICULITIS. 4. CORTICAL CYSTS IN THE RIGHT KIDNEY. 5. NO OTHER SIGNIFICANT FINDINGS. Chest/Abdomen CTA 09/03/17 18:19 IMPRESSION: NORMAL CTA OF THE CHEST. NO AORTIC ANEURYSM OR DISSECTION. NO PULMONARY EMBOLI. Chest X-Ray 09/08/17 06:45 IMPRESSION: Trace bilateral pleural fluid. Right basilar airspace disease likely atelectasis Assessment & Plan - Diagnosis (1) Coronary artery disease Qualifiers: Coronary Disease-Associated Artery/Lesion type: [place] artery [place] vs. transplanted heart: [place] heart Associated angina: angina presence unspecified Qualified Code(s): I25.10 - Atherosclerotic heart disease of [place] coronary artery without angina pectoris Is this a current diagnosis for this admission?: Yes (2) Hyperlipidemia Qualifiers: Hyperlipidemia type: unspecified Qualified Code(s): E78.5 - Hyperlipidemia , unspecified Is this a current diagnosis for this admission?: Yes (3) Hypertension Qualifiers: Hypertension type: essential hypertension Qualified Code(s): I10 - Essential (primary) hypertension Is this a current diagnosis for this admission?: Yes (4) Respiratory failure Qualifiers: Respiratory failure complication: hypoxia Is this a current diagnosis for this admission?: Yes (5) Acute appendicitis Qualifiers: Acute appendicitis type: with localized peritonitis Qualified Code(s): K35.3 - Acute appendicitis with localized peritonitis Is this a current diagnosis for this admission?: Yes (6) Cardiomyopathy Qualifiers: Cardiomyopathy type: unspecified Qualified Code(s): I42.9 - Cardiomyopathy , unspecified Is this a current diagnosis for this admission?: Yes - Notes Notes: Coronary artery disease: Symptomatically stable. Patient did have some T-wave inversion but currently asymptomatic. Dyslipidemia: LDL goal is less than 70. Patient currently on statin therapy. Hypertension: Blood pressure is reasonably well controlled. Will try optimize medical management. Respiratory failure: Currently needing some oxygen supplementation but overall significantly improved. History of acute appendicitis: Patient is status post appendectomy and also laparotomy with lavage. Patient had peritonitis and is on antibiotics. Cardiomyopathy: Patient home medications were reviewed. These were noted to be satisfactory. These were all restarted. Right basilar airspace disease versus atelectasis. This was reported on chest x -ray and was reviewed. Currently patient being well managed by hospitalist. At this point will follow patient on a as needed basis. Please inform me if patient would need to be seen from cardiac standpoint. - Time Time with patient: 15-25 minutes - CODE STATUS was discussed, patient remains full code. Surrogate decision-maker unchanged. Multiple medical problems were addressed. More than 50% of the time spent coordinating care, discussing management plans with involved caregivers. Management plans discussed with involved personnels. Medical decision making was of moderate to high complexity , patient's has multiple comorbidities. Medications reviewed and adjusted accordingly: Yes
--- NOTE | 2017-09-09 12:30 | PDOC PROGRESS REPORT ---
Subjective Progress Note for:: 09/09/17 Subjective:: Doing better today, breathing remains better. Mental status remains improved. at bedside. Denies chest pain or palpitations. No fever or chills. No abdominal pain continues to improve status post surgery. Dressing was changed yesterday by surgeon. Reason For Visit: RUPTURED ACUTE APPENDICITIS WITH PERITONITIS Physical Exam Vital Signs: Temp Pulse Resp BP Pulse Ox 97.6 F 84 18 138/72 H 97 09/09/17 07:29 09/09/17 09:22 09/09/17 09:22 09/09/17 07:29 09/09/17 09:22 Pulse Oximeter Continuous Start: 09/07/17 11: 27 Freq: RTQ4 Status: Active Document 09/09/17 09:01 [facility] (Rec: 09/09/17 09:01 [facility] [email or web address]) Pulse Oximetry Assessment Oxygen Saturation (92-100) 97 Oxygen Flow Rate (L/min) 2 Oxygen Delivery Method Nasal Cannula Equipment Usage Equipment in Use Continuous SpO2 Machine # 6 Intake & Output 09/08/17 09/09/17 09/10/17 06:59 06:59 06:59 Intake Total 2800 2786 Output Total 665 372 Balance 2135 2414 Weight 81.6 kg 86.6 kg GEN: well-developed, well-nourished CV: RRR, NL S1S2 LUNGS: Decreased breath sounds bases, no crackles or rales ABDOMEN Soft, surgical dressing clean dry and intact EXTERMITIES: 1-2+ edema, no c/c NEURO: Alert, oriented 3, no focal weakness Results Laboratory Results: 09/09/17 04:00 09/08/17 09/09/17 09/09/17 17:50 04:00 04:00 WBC 15.1 H RBC 3.92 L Hgb 12.1 L Hct 36.0 L MCV 92 MCH 30.8 MCHC 33.5 RDW 13.9 Plt Count 215 Seg Neutrophils % Not Reportable Lymphocytes % Not Reportable Monocytes % Not Reportable Eosinophils % Not Reportable Basophils % Not Reportable Absolute Neutrophils Not Reportable Absolute Lymphocytes Not Reportable Absolute Monocytes Not Reportable Absolute Eosinophils Not Reportable Absolute Basophils Not Reportable Carbonic Acid HCO3/H2CO3 Ratio ABG pH ABG pCO2 ABG pO2 ABG HCO3 ABG O2 Saturation ABG Base Excess FiO2 Sodium 136.0 L 135.8 L Potassium 3.2 L 3.8 Chloride 102 102 Carbon Dioxide 27 25 Anion Gap 7 9 BUN 25 H 28 H Creatinine 2.19 H 3.12 H Est GFR ( Amer) 36 L 24 L Est GFR (Non-Af Amer) 30 L 20 L Glucose 163 H 149 H Calcium 8.1 L 8.0 L 09/09/17 05:54 WBC RBC Hgb Hct MCV MCH MCHC RDW Plt Count Seg Neutrophils % Lymphocytes % Monocytes % Eosinophils % Basophils % Absolute Neutrophils Absolute Lymphocytes Absolute Monocytes Absolute Eosinophils Absolute Basophils Carbonic Acid 1.21 HCO3/H2CO3 Ratio 16:1 ABG pH 7.32 L ABG pCO2 40.1 ABG pO2 112.8 H ABG HCO3 20.4 ABG O2 Saturation 97.8 ABG Base Excess -5.2 FiO2 28% Sodium Potassium Chloride Carbon Dioxide Anion Gap BUN Creatinine Est GFR ( Amer) Est GFR (Non-Af Amer) Glucose Calcium 09/03/17 21:40 Abdominal Fluid Gram Stain - Final 09/03/17 21:40 Abdominal Fluid Body Fluid Culture - Final Escherichia Coli Klebsiella Pneumoniae Enterococcus Gallinarum Bacteroides Fragilis Group Fusobacterium Species 09/04/17 09/04/17 09/04/17 08:55 16:40 21:00 Troponin I 0.049 0.029 0.028 09/07/17 09/07/17 09/07/17 13:28 16:55 21:25 Troponin I 0.128 0.095 0.079 Impressions: Abdomen/Pelvis CTA 09/03/17 18:19 IMPRESSION: 1. FINDINGS IN THE APPENDIX SUSPICIOUS FOR EARLY ACUTE APPENDICITIS. NO EVIDENCE OF ABSCESS OR PERFORATION. THERE IS A SMALL AMOUNT OF FREE FLUID IN THE RIGHT UPPER QUADRANT WHICH MAY BE RELATED TO APPENDICITIS. 2. NO EVIDENCE OF AORTIC ANEURYSM OR DISSECTION. THE MAJOR MESENTERIC VESSELS ARE PATENT. THE LEFT COMMON ILIAC AND LEFT EXTERNAL ILIAC ARTERIES ARE OCCLUDED WITH FILLING DISTALLY VIA COLLATERALS, SUGGESTING THAT THIS IS PROBABLY A CHRONIC FINDING. 3. COLONIC DIVERTICULOSIS. NO CT FINDINGS OF ACUTE DIVERTICULITIS. 4. CORTICAL CYSTS IN THE RIGHT KIDNEY. 5. NO OTHER SIGNIFICANT FINDINGS. Chest/Abdomen CTA 09/03/17 18:19 IMPRESSION: NORMAL CTA OF THE CHEST. NO AORTIC ANEURYSM OR DISSECTION. NO PULMONARY EMBOLI. Chest X-Ray 09/08/17 06:45 IMPRESSION: Trace bilateral pleural fluid. Right basilar airspace disease likely atelectasis Assessment & Plan - Plan Summary Plan Summary: (1) Altered mental status Qualifiers: Altered mental status type: unspecified Qualified Code(s): R41.82 - Altered mental status, unspecified Is this a current diagnosis for this admission?: Yes Plan: Improved with BiPAP treatment -- patient may have underlying undiagnosed COPD. Suspect altered mental status was secondary to hypercapnia. Also possible pneumonia, possible hospital-acquired, although chest x-ray from today much better. (2) Pneumonia Is this a current diagnosis for this admission?: Yes Plan: Suspected, but probability much less so at this time with quick improvement in chest x-ray -- atelectasis possibly. If pneumonia, possible hospital-acquired versus aspiration. Will complete Zosyn course which patient was on status post surgery for his ruptured appendicitis. Will d/c Vanco due to worsening renal function and repeat blood cultures negative so far. -We will continue with BiPAP as needed. (3) Cardiomyopathy Qualifiers: Cardiomyopathy type: unspecified Qualified Code(s): I42.9 - Cardiomyopathy , unspecified Is this a current diagnosis for this admission?: Yes Plan: Possible acute on chronic systolic CHF. Echo from reveals EF 35-40%. -We will continue Entresto, Coreg, and spironolactone. Consider Lasix if concern for fluid overload. -Renal function appears worsening today. Possibly secondary to Vanco, possibly prerenal given elevated BUN as well. Will give 500 mL fluid challenge and follow-up Chem-7. Conversely, may need diuresis if fluid overload. Consider nephrology consult if worsening kidney function. (4) CLARISSA Qualifiers: Is this a current diagnosis for this admission?: Yes Plan: -Renal function appears worsening today. Possibly secondary to Vanco, possibly prerenal given elevated BUN as well. Will give 500 mL fluid challenge and follow-up Chem-7. On the other hand, may need diuresis if fluid overload. Consider nephrology consult if worsening kidney function. (5) Coronary artery disease Qualifiers: Coronary Disease-Associated Artery/Lesion type: [place] artery [place] vs. transplanted heart: [place] heart Associated angina: angina presence unspecified Qualified Code(s): I25.10 - Atherosclerotic heart disease of [place] coronary artery without angina pectoris Is this a current diagnosis for this admission?: Yes Plan: [place] was ruled out with serial troponin. (6) Hypertension Qualifiers: Hypertension type: essential hypertension Qualified Code(s): I10 - Essential (primary) hypertension Is this a current diagnosis for this admission?: Yes Plan: Stable. (7) Respiratory failure Qualifiers: Respiratory failure complication: hypoxia Is this a current diagnosis for this admission?: Yes Plan: Improved. (8) Ruptured acute appendicitis with periton Is this a current diagnosis for this admission?: Yes Plan: Management per surgery.
--- NOTE | 2017-09-09 14:30 | PDOC PROGRESS REPORT ---
Subjective Progress Note for:: 09/09/17 Subjective:: comfortable, n c/o, tolerating po well Reason For Visit: RUPTURED ACUTE APPENDICITIS WITH PERITONITIS Physical Exam Vital Signs: Temp Pulse Resp BP Pulse Ox 97.9 F 84 18 114/60 96 09/09/17 12:00 09/09/17 13:21 09/09/17 13:21 09/09/17 12:00 09/09/17 13:21 Pulse Oximeter Continuous Start: 09/07/17 11: 27 Freq: RTQ4 Status: Active Document 09/09/17 11:02 [facility] (Rec: 09/09/17 11:02 [facility] [email or web address]) Pulse Oximetry Assessment Oxygen Saturation (92-100) 97 Oxygen Flow Rate (L/min) 3 Oxygen Delivery Method Nasal Cannula Equipment Usage Equipment in Use Continuous SpO2 Machine # 6 Intake & Output 09/08/17 09/09/17 09/10/17 06:59 06:59 06:59 Intake Total 2800 2786 Output Total 665 372 150 Balance 2135 2414 -150 Weight 81.6 kg 86.6 kg General appearance: PRESENT: no acute distress Respiratory exam: PRESENT: clear to auscultation matthew Cardiovascular exam: PRESENT: RRR GI/Abdominal exam: PRESENT: normal bowel sounds, soft - obese, other - midline incision C/D/I Results Laboratory Results: 09/09/17 04:00 09/09/17 10:02 09/08/17 09/09/17 09/09/17 17:50 04:00 04:00 WBC 15.1 H RBC 3.92 L Hgb 12.1 L Hct 36.0 L MCV 92 MCH 30.8 MCHC 33.5 RDW 13.9 Plt Count 215 Seg Neutrophils % Not Reportable Lymphocytes % Not Reportable Monocytes % Not Reportable Eosinophils % Not Reportable Basophils % Not Reportable Absolute Neutrophils Not Reportable Absolute Lymphocytes Not Reportable Absolute Monocytes Not Reportable Absolute Eosinophils Not Reportable Absolute Basophils Not Reportable Carbonic Acid HCO3/H2CO3 Ratio ABG pH ABG pCO2 ABG pO2 ABG HCO3 ABG O2 Saturation ABG Base Excess FiO2 Sodium 136.0 L 135.8 L Potassium 3.2 L 3.8 Chloride 102 102 Carbon Dioxide 27 25 Anion Gap 7 9 BUN 25 H 28 H Creatinine 2.19 H 3.12 H Est GFR ( Amer) 36 L 24 L Est GFR (Non-Af Amer) 30 L 20 L Glucose 163 H 149 H Calcium 8.1 L 8.0 L 09/09/17 09/09/17 05:54 10:02 WBC RBC Hgb Hct MCV MCH MCHC RDW Plt Count Seg Neutrophils % Lymphocytes % Monocytes % Eosinophils % Basophils % Absolute Neutrophils Absolute Lymphocytes Absolute Monocytes Absolute Eosinophils Absolute Basophils Carbonic Acid 1.21 HCO3/H2CO3 Ratio 16:1 ABG pH 7.32 L ABG pCO2 40.1 ABG pO2 112.8 H ABG HCO3 20.4 ABG O2 Saturation 97.8 ABG Base Excess -5.2 FiO2 28% Sodium Potassium Chloride Carbon Dioxide Anion Gap BUN Creatinine 3.34 H Est GFR ( Amer) 22 L Est GFR (Non-Af Amer) 18 L Glucose Calcium 09/07/17 17:05 Abdominal Fluid Gram Stain - Final 09/03/17 21:40 Abdominal Fluid Gram Stain - Final 09/03/17 21:40 Abdominal Fluid Body Fluid Culture - Final Escherichia Coli Klebsiella Pneumoniae Enterococcus Gallinarum Bacteroides Fragilis Group Fusobacterium Species 09/04/17 09/04/17 09/04/17 08:55 16:40 21:00 Troponin I 0.049 0.029 0.028 09/07/17 09/07/17 09/07/17 13:28 16:55 21:25 Troponin I 0.128 0.095 0.079 Impressions: Abdomen/Pelvis CTA 09/03/17 18:19 IMPRESSION: 1. FINDINGS IN THE APPENDIX SUSPICIOUS FOR EARLY ACUTE APPENDICITIS. NO EVIDENCE OF ABSCESS OR PERFORATION. THERE IS A SMALL AMOUNT OF FREE FLUID IN THE RIGHT UPPER QUADRANT WHICH MAY BE RELATED TO APPENDICITIS. 2. NO EVIDENCE OF AORTIC ANEURYSM OR DISSECTION. THE MAJOR MESENTERIC VESSELS ARE PATENT. THE LEFT COMMON ILIAC AND LEFT EXTERNAL ILIAC ARTERIES ARE OCCLUDED WITH FILLING DISTALLY VIA COLLATERALS, SUGGESTING THAT THIS IS PROBABLY A CHRONIC FINDING. 3. COLONIC DIVERTICULOSIS. NO CT FINDINGS OF ACUTE DIVERTICULITIS. 4. CORTICAL CYSTS IN THE RIGHT KIDNEY. 5. NO OTHER SIGNIFICANT FINDINGS. Chest/Abdomen CTA 09/03/17 18:19 IMPRESSION: NORMAL CTA OF THE CHEST. NO AORTIC ANEURYSM OR DISSECTION. NO PULMONARY EMBOLI. Chest X-Ray 09/08/17 06:45 IMPRESSION: Trace bilateral pleural fluid. Right basilar airspace disease likely atelectasis Assessment & Plan - Diagnosis (1) Ruptured acute appendicitis with periton Is this a current diagnosis for this admission?: Yes - Plan Summary Plan Summary: A/P POD #6 after open appendectomy VSS, AF WBC increased to 15.1K ]creatinine increased to 3.3 Bowel function returned with flatus and stools On regular diet, well tolerated P/ No acute General Surgery issues identified Will watch WBC and creatinine trend
[2017-09-09] MEDS ORDERED: LORAZEPAM INJ 2 MG/1 ML VIAL IV ONE (20:30)
[2017-09-09] MEDS ORDERED: LORAZEPAM INJ 2 MG/1 ML VIAL ONE (20:35)
[2017-09-09 23:40] LABS: ARTERIAL BLOOD BASE EXCESS -5.8 mmol/L; ARTERIAL BLOOD H2CO3 1.33 mmol/L (1.05-1.35); ARTERIAL BLOOD HCO3 20.6 mmol/L (20-26); ARTERIAL BLOOD O2 SATURATION 96.9 % (94-98); ARTERIAL BLOOD PCO2 44.2 mmHg (35-45); ARTERIAL BLOOD PH 7.29 (7.35-7.45)
[2017-09-09 23:42] LABS: ARTERIAL BLOOD FIO2 30%
[2017-09-10] MEDS ORDERED: HYDRALAZINE HCL INJ/PF 20 MG/1 ML SDV IV PRN (01:51)
[2017-09-10] MEDS ORDERED: LORAZEPAM INJ 2 MG/1 ML VIAL ONE (01:56)
[2017-09-10] MEDS ORDERED: PIPERACILLIN SODIUM/TAZOBACTAM 2.25 GM in NORMAL SALINE 100 ML IV SCH (02:00)
[2017-09-10] MEDS ORDERED: PIPERACILLIN/TAZOBACTAM 2.25 GM VIAL IV ONE (02:26)
[2017-09-10] MEDS: LEVALBUTEROL HCL NEB 0.63 MG/3 ML AMPUL NEB SCH ×2 (02:44→08:40)
[2017-09-10] MEDS: NORMAL SALINE 1000 ML 1,000 ML IV SCH ×2 (02:44→05:23)
[2017-09-10 03:27] LABS: APPEARANCE,URINE CLEAR; BILIRUBIN,URINE NEGATIVE (NEGATIVE); COLOR,URINE YELLOW; GLUCOSE, URINE NEGATIVE (NEGATIVE); KETONES,URINE TRACE mg/dL (NEGATIVE); LEUKOCYTE ESTERASE,URINE SMALL (NEGATIVE); NITRITE,URINE NEGATIVE (NEGATIVE); PROTEIN,URINE 30 mg/dL (NEGATIVE); URINE SPECIFIC GRAVITY 1.012; UROBILINOGEN,URINE NEGATIVE mg/dL (<2.0)
[2017-09-10] MEDS: METRONIDAZOLE 500 MG TABLET PO SCH ×3 (05:23→21:20)
[2017-09-10 05:42] LABS: ABSOLUTE BASOPHILS # (AUTO) 0.1 10^3/uL (0.0-0.2); ABSOLUTE EOSINOPHILS # (AUTO) 0.1 10^3/uL (0.0-0.6); ABSOLUTE LYMPHOCYTES (AUTO) 0.7 10^3/uL (0.5-4.7); ABSOLUTE MONOCYTES (AUTO) 0.9 10^3/uL (0.1-1.4); ABSOLUTE NEUT (AUTO) 7.4 10^3/uL (1.7-8.2); BASOPHILS % (AUTO) 1.3 % (0-2); HEMATOCRIT 29.5 % (37.9-51.0); HEMOGLOBIN 10.1 g/dL (13.5-17.0); LYMPHOCYTES % (AUTO) 7.7 % (13-45); MEAN CORPUSCULAR HEMOGLOBIN 31.8 pg (27.0-33.4); MEAN CORPUSCULAR HGB CONC 34.3 g/dL (32.0-36.0); MEAN CORPUSCULAR VOLUME 93 fl (80-97); MONOCYTES % (AUTO) 9.6 % (3-13); PLATELET COUNT 188 10^3/uL (150-450); RED BLOOD COUNT 3.18 10^6/uL (4.35-5.55); RED CELL DISTRIBUTION WIDTH 13.8 % (11.5-14.0); SEGMENTED NEUTROPHILS % (AUTO) 80.4 % (42-78); TOTAL CELLS COUNTED % (AUTO) 100 %; WHITE BLOOD COUNT 9.2 10^3/uL (4.0-10.5)
[2017-09-10 06:33] LABS: ANION GAP 12 (5-19); BLOOD UREA NITROGEN 40 mg/dL (7-20); CALCIUM 7.2 mg/dL (8.4-10.2); CARBON DIOXIDE 19 mmol/L (22-30); CHLORIDE 102 mmol/L (98-107); GLUCOSE 103 mg/dL (75-110); POTASSIUM 3.3 mmol/L (3.6-5.0); SODIUM 133.2 mmol/L (137-145)
--- NOTE | 2017-09-10 08:08 | EKG REPORT ---
SEVERITY:- ABNORMAL ECG - SINUS TACHYCARDIA BORDERLINE PROLONGED QT INTERVAL TECHNICAL ERROR, ARM LEADS REVERSAL SUSPECTED. AGE UNDETERMINED ANTERIOR [place] : Confirmed by: Reinier Elizabeth MD 10-Sep-2017 08:08:28
[2017-09-10] MEDS ORDERED: AMLODIPINE BESYLATE 5 MG TABLET PO SCH (10:00)
[2017-09-10] MEDS ORDERED: NORMAL SALINE 250 ML with FUROSEMIDE 250 MG IV PRN ×2 (10:05)
[2017-09-10] MEDS: CARVEDILOL 12.5 MG TABLET PO SCH ×2 (10:13→21:20)
[2017-09-10] MEDS: ATORVASTATIN CALCIUM 40 MG TABLET PO SCH (10:13)
[2017-09-10] MEDS: ENOXAPARIN SODIUM INJ 30 MG/0.3 ML DISP.SYRIN SUBCUT SCH (10:13)
[2017-09-10] MEDS ORDERED: FUROSEMIDE INJ/PF 40 MG/4 ML SDV IV ONE (10:30)
--- NOTE | 2017-09-10 10:38 | PDOC PROGRESS REPORT ---
Subjective Progress Note for:: 09/10/17 Subjective:: Patient is in mild respiratory distress this morning no chest pain no fever no chills No abdominal pain Renal function seems to have worsened with now a creatinine over 4 Patient did receive more IV fluids during the night ; patient was extremely confused last night Reason For Visit: RUPTURED ACUTE APPENDICITIS WITH PERITONITIS Physical Exam Vital Signs: Temp Pulse Resp BP Pulse Ox 99.1 F 106 H 22 H 117/64 93 09/10/17 07:05 09/10/17 08:40 09/10/17 08:40 09/10/17 07:05 09/10/17 08:40 Pulse Oximeter Continuous Start: 09/07/17 11: 27 Freq: RTQ4 Status: Active Document 09/10/17 08:40 [facility] (Rec: 09/10/17 08:45 [facility] [email or web address]) Pulse Oximetry Assessment Oxygen Saturation (92-100) 93 Oxygen Flow Rate (L/min) 3 Oxygen Delivery Method Nasal Cannula Equipment Usage Equipment in Use Continuous SpO2 Machine # 6 Intake & Output 09/09/17 09/10/17 09/11/17 00:59 00:59 00:59 Intake Total 2516 2688 869 Output Total 432 350 25 Balance 2084 2338 844 Weight 81.6 kg 86.6 kg 92.6 kg General appearance: PRESENT: mild distress, obese Head exam: PRESENT: atraumatic, normocephalic Eye exam: PRESENT: conjunctiva pink, EOMI, PERRLA. ABSENT: scleral icterus Neck exam: ABSENT: carotid bruit, JVD, lymphadenopathy, thyromegaly Respiratory exam: PRESENT: decreased breath sounds, wheezes - Bilaterally. ABSENT: accessory muscle use, rhonchi Cardiovascular exam: PRESENT: RRR. ABSENT: diastolic murmur, rubs, systolic murmur GI/Abdominal exam: PRESENT: normal bowel sounds, soft. ABSENT: distended, guarding, mass, organolmegaly, rebound, tenderness Extremities exam: PRESENT: +2 edema - Bilaterally Neurological exam: PRESENT: alert, awake, CN II-XII grossly intact. ABSENT: motor sensory deficit Results Laboratory Results: 09/10/17 05:35 09/10/17 05:35 09/09/17 09/09/17 09/10/17 10:02 23:30 03:02 WBC RBC Hgb Hct MCV MCH MCHC RDW Plt Count Seg Neutrophils % Lymphocytes % Monocytes % Eosinophils % Basophils % Absolute Neutrophils Absolute Lymphocytes Absolute Monocytes Absolute Eosinophils Absolute Basophils Carbonic Acid 1.33 HCO3/H2CO3 Ratio 15:1 ABG pH 7.29 L ABG pCO2 44.2 ABG pO2 101.0 H ABG HCO3 20.6 ABG O2 Saturation 96.9 ABG Base Excess -5.8 FiO2 30% Sodium Potassium Chloride Carbon Dioxide Anion Gap BUN Creatinine 3.34 H Est GFR ( Amer) 22 L Est GFR (Non-Af Amer) 18 L Glucose Calcium Urine Color YELLOW Urine Appearance CLEAR Urine pH 5.0 Ur Specific [place] 1.012 Urine Protein 30 H Urine Glucose (UA) NEGATIVE Urine Ketones TRACE H Urine Blood MODERATE H Urine Nitrite NEGATIVE Ur Leukocyte Esterase SMALL H Urine WBC (Auto) 3 Urine RBC (Auto) 9 09/10/17 09/10/17 05:35 05:35 WBC 9.2 RBC 3.18 L Hgb 10.1 L Hct 29.5 L MCV 93 MCH 31.8 MCHC 34.3 RDW 13.8 Plt Count 188 Seg Neutrophils % 80.4 H Lymphocytes % 7.7 L Monocytes % 9.6 Eosinophils % 1.0 Basophils % 1.3 Absolute Neutrophils 7.4 Absolute Lymphocytes 0.7 Absolute Monocytes 0.9 Absolute Eosinophils 0.1 Absolute Basophils 0.1 Carbonic Acid HCO3/H2CO3 Ratio ABG pH ABG pCO2 ABG pO2 ABG HCO3 ABG O2 Saturation ABG Base Excess FiO2 Sodium 133.2 L Potassium 3.3 L Chloride 102 Carbon Dioxide 19 L Anion Gap 12 BUN 40 H Creatinine 4.28 H Est GFR ( Amer) 17 L Est GFR (Non-Af Amer) 14 L Glucose 103 Calcium 7.2 L Urine Color Urine Appearance Urine pH Ur Specific [place] Urine Protein Urine Glucose (UA) Urine Ketones Urine Blood Urine Nitrite Ur Leukocyte Esterase Urine WBC (Auto) Urine RBC (Auto) 09/07/17 17:05 Abdominal Fluid Gram Stain - Final 09/04/17 09/04/17 09/04/17 08:55 16:40 21:00 Troponin I 0.049 0.029 0.028 09/07/17 09/07/17 09/07/17 13:28 16:55 21:25 Troponin I 0.128 0.095 0.079 Impressions: Abdomen/Pelvis CTA 09/03/17 18:19 IMPRESSION: 1. FINDINGS IN THE APPENDIX SUSPICIOUS FOR EARLY ACUTE APPENDICITIS. NO EVIDENCE OF ABSCESS OR PERFORATION. THERE IS A SMALL AMOUNT OF FREE FLUID IN THE RIGHT UPPER QUADRANT WHICH MAY BE RELATED TO APPENDICITIS. 2. NO EVIDENCE OF AORTIC ANEURYSM OR DISSECTION. THE MAJOR MESENTERIC VESSELS ARE PATENT. THE LEFT COMMON ILIAC AND LEFT EXTERNAL ILIAC ARTERIES ARE OCCLUDED WITH FILLING DISTALLY VIA COLLATERALS, SUGGESTING THAT THIS IS PROBABLY A CHRONIC FINDING. 3. COLONIC DIVERTICULOSIS. NO CT FINDINGS OF ACUTE DIVERTICULITIS. 4. CORTICAL CYSTS IN THE RIGHT KIDNEY. 5. NO OTHER SIGNIFICANT FINDINGS. Chest/Abdomen CTA 09/03/17 18:19 IMPRESSION: NORMAL CTA OF THE CHEST. NO AORTIC ANEURYSM OR DISSECTION. NO PULMONARY EMBOLI. Chest X-Ray 09/08/17 06:45 IMPRESSION: Trace bilateral pleural fluid. Right basilar airspace disease likely atelectasis Assessment & Plan - Diagnosis (1) Hypertension Qualifiers: Hypertension type: essential hypertension Qualified Code(s): I10 - Essential (primary) hypertension Is this a current diagnosis for this admission?: Yes (2) Respiratory failure Qualifiers: Respiratory failure complication: hypoxia Is this a current diagnosis for this admission?: Yes (3) Ruptured acute appendicitis with periton Is this a current diagnosis for this admission?: Yes (4) Acute renal failure Qualifiers: Acute renal failure type: unspecified Qualified Code(s): N17.9 - Acute kidney failure, unspecified Is this a current diagnosis for this admission?: Yes Plan: Renal function is worsening and patient is clinically fluid overloaded We will initiate albumin infusion twice a day and Lasix drip Continue nebs Reevaluate the patient this afternoon If patient's condition continues to deteriorate he may need to be transferred to [facility] as no per diem clerk is available this weekend (5) Fluid overload Is this a current diagnosis for this admission?: Yes (6) Metabolic encephalopathy Is this a current diagnosis for this admission?: Yes Plan: Likely secondary to renal failure sepsis Sepsis secondary to peritonitis and pneumonia is resolving - Time Time Spent with patient: Repeat labs at 4 PM Reevaluate patient's condition
--- NOTE | 2017-09-10 10:53 | RADIOLOGY REPORT (SQ) ---
EXAM DESCRIPTION: CHEST SINGLE VIEW COMPLETED DATE/TIME: 09/10/2017 10:43 am REASON FOR STUDY: SOB COMPARISON: 09/08/2017 EXAM PARAMETERS: NUMBER OF VIEWS: One view. TECHNIQUE: Single frontal radiographic view of the chest acquired. RADIATION DOSE: NA LIMITATIONS: None. FINDINGS: LUNGS AND PLEURA: Stable chronic lung change with small bilateral pleural effusions, right greater than left. MEDIASTINUM AND HILAR STRUCTURES: No masses. Contour normal. HEART AND VASCULAR STRUCTURES: Heart normal in size. Normal vasculature. BONES: No acute findings. HARDWARE: Stable left IJ venous catheter. OTHER: No other significant finding. IMPRESSION: STABLE APPEARANCE OF THE CHEST WITH SMALL BILATERAL PLEURAL EFFUSIONS, RIGHT GREATER TAMEKA N LEFT. TECHNICAL DOCUMENTATION: JOB ID: [id number] [email or web address] All Rights Reserved Reading location - IP/workstation name: [email or web address]
[2017-09-10] MEDS ORDERED: LEVALBUTEROL HCL NEB 0.63 MG/3 ML AMPUL NEB SCH (11:00)
--- NOTE | 2017-09-10 11:07 | PDOC PROGRESS REPORT ---
Subjective Progress Note for:: 09/10/17 Subjective:: patient appears uncomfortable and short of breath, reports flatus, and able to eat some of his meal Reason For Visit: RUPTURED ACUTE APPENDICITIS WITH PERITONITIS Physical Exam Vital Signs: Temp Pulse Resp BP Pulse Ox 99.1 F 106 H 22 H 117/64 93 09/10/17 07:05 09/10/17 08:40 09/10/17 08:40 09/10/17 07:05 09/10/17 08:40 Pulse Oximeter Continuous Start: 09/07/17 11: 27 Freq: RTQ4 Status: Active Document 09/10/17 08:40 [facility] (Rec: 09/10/17 08:45 [facility] [email or web address]) Pulse Oximetry Assessment Oxygen Saturation (92-100) 93 Oxygen Flow Rate (L/min) 3 Oxygen Delivery Method Nasal Cannula Equipment Usage Equipment in Use Continuous SpO2 Machine # 6 Intake & Output 09/09/17 09/10/17 09/11/17 06:59 06:59 06:59 Intake Total 2786 2237 Output Total 372 375 Balance 2414 1862 Weight 86.6 kg 92.6 kg General appearance: PRESENT: mild distress Respiratory exam: PRESENT: accessory muscle use, crackles, rhonchi, tachypnea Cardiovascular exam: PRESENT: RRR GI/Abdominal exam: PRESENT: distended, firm, normal bowel sounds, other - midline wound: edges edematous with miniaml serous drainage, some erythema, no odor, retention sutures are causing impression on skin Results Laboratory Results: 09/10/17 05:35 09/10/17 05:35 09/09/17 09/10/17 09/10/17 23:30 03:02 05:35 WBC 9.2 RBC 3.18 L Hgb 10.1 L Hct 29.5 L MCV 93 MCH 31.8 MCHC 34.3 RDW 13.8 Plt Count 188 Seg Neutrophils % 80.4 H Lymphocytes % 7.7 L Monocytes % 9.6 Eosinophils % 1.0 Basophils % 1.3 Absolute Neutrophils 7.4 Absolute Lymphocytes 0.7 Absolute Monocytes 0.9 Absolute Eosinophils 0.1 Absolute Basophils 0.1 Carbonic Acid 1.33 HCO3/H2CO3 Ratio 15:1 ABG pH 7.29 L ABG pCO2 44.2 ABG pO2 101.0 H ABG HCO3 20.6 ABG O2 Saturation 96.9 ABG Base Excess -5.8 FiO2 30% Sodium Potassium Chloride Carbon Dioxide Anion Gap BUN Creatinine Est GFR ( Amer) Est GFR (Non-Af Amer) Glucose Calcium Urine Color YELLOW Urine Appearance CLEAR Urine pH 5.0 Ur Specific [place] 1.012 Urine Protein 30 H Urine Glucose (UA) NEGATIVE Urine Ketones TRACE H Urine Blood MODERATE H Urine Nitrite NEGATIVE Ur Leukocyte Esterase SMALL H Urine WBC (Auto) 3 Urine RBC (Auto) 9 09/10/17 05:35 WBC RBC Hgb Hct MCV MCH MCHC RDW Plt Count Seg Neutrophils % Lymphocytes % Monocytes % Eosinophils % Basophils % Absolute Neutrophils Absolute Lymphocytes Absolute Monocytes Absolute Eosinophils Absolute Basophils Carbonic Acid HCO3/H2CO3 Ratio ABG pH ABG pCO2 ABG pO2 ABG HCO3 ABG O2 Saturation ABG Base Excess FiO2 Sodium 133.2 L Potassium 3.3 L Chloride 102 Carbon Dioxide 19 L Anion Gap 12 BUN 40 H Creatinine 4.28 H Est GFR ( Amer) 17 L Est GFR (Non-Af Amer) 14 L Glucose 103 Calcium 7.2 L Urine Color Urine Appearance Urine pH Ur Specific [place] Urine Protein Urine Glucose (UA) Urine Ketones Urine Blood Urine Nitrite Ur Leukocyte Esterase Urine WBC (Auto) Urine RBC (Auto) 09/07/17 17:05 Abdominal Fluid Gram Stain - Final 09/04/17 09/04/17 09/04/17 08:55 16:40 21:00 Troponin I 0.049 0.029 0.028 09/07/17 09/07/17 09/07/17 13:28 16:55 21:25 Troponin I 0.128 0.095 0.079 Impressions: Abdomen/Pelvis CTA 09/03/17 18:19 IMPRESSION: 1. FINDINGS IN THE APPENDIX SUSPICIOUS FOR EARLY ACUTE APPENDICITIS. NO EVIDENCE OF ABSCESS OR PERFORATION. THERE IS A SMALL AMOUNT OF FREE FLUID IN THE RIGHT UPPER QUADRANT WHICH MAY BE RELATED TO APPENDICITIS. 2. NO EVIDENCE OF AORTIC ANEURYSM OR DISSECTION. THE MAJOR MESENTERIC VESSELS ARE PATENT. THE LEFT COMMON ILIAC AND LEFT EXTERNAL ILIAC ARTERIES ARE OCCLUDED WITH FILLING DISTALLY VIA COLLATERALS, SUGGESTING THAT THIS IS PROBABLY A CHRONIC FINDING. 3. COLONIC DIVERTICULOSIS. NO CT FINDINGS OF ACUTE DIVERTICULITIS. 4. CORTICAL CYSTS IN THE RIGHT KIDNEY. 5. NO OTHER SIGNIFICANT FINDINGS. Chest/Abdomen CTA 09/03/17 18:19 IMPRESSION: NORMAL CTA OF THE CHEST. NO AORTIC ANEURYSM OR DISSECTION. NO PULMONARY EMBOLI. Chest X-Ray 09/10/17 10:04 IMPRESSION: STABLE APPEARANCE OF THE CHEST WITH SMALL BILATERAL PLEURAL EFFUSIONS, RIGHT GREATER THAN LEFT. Assessment & Plan - Diagnosis (1) Ruptured acute appendicitis with periton Is this a current diagnosis for this admission?: Yes - Plan Summary Plan Summary: A/ POD#7 after open appendectomy for ruptured appendicitis with peritonitis VSS, moderately severe shortness of breath secondary to fluid retention Worsening of kidney function: creatinine increased to > 4 today compared to 3.3 yesterday Decreased urine output Patient on a Lasix drip in the attempt to unload the fluid retention, with suboptimal results at this point Bowel function present, even though the patient has poor appetite due to his respiratory status Pneumonia P/ No acute General Surgery issues identified Patient should be continued on an antibiotic regimen which covers gram negatives and anaerobics (Levaquin or Cipro and Flagyl) I will transfer patient to Hospitalist service (Dr. Alcantara) Further disposition (transfer to other institution vs. in-house dialysis) to be determined by Hospitalist Service
[2017-09-10] MEDS: LEVALBUTEROL HCL NEB 1.25 MG/3 ML AMPUL NEB SCH ×4 (11:19→22:55)
[2017-09-10] MEDS: PIPERACILLIN SODIUM/TAZOBACTAM 2.25 GM in NORMAL SALINE 50 ML IV SCH ×2 (11:38→17:42)
[2017-09-10] MEDS: ALBUMIN HUMAN 50 ML IV SCH ×2 (12:19→23:06)
--- NOTE | 2017-09-10 14:12 | RADIOLOGY REPORT (SQ) ---
EXAM DESCRIPTION: U/S RETROPERITON (RENAL/AORTA) COMPLETED DATE/TIME: 09/10/2017 2:04 pm REASON FOR STUDY: renal ARF COMPARISON: CT from 09/03/2017 TECHNIQUE: Dynamic and static grayscale images acquired of the kidneys and bladder and recorded on P ACS. Additional selected color Doppler and spectral images recorded. LIMITATIONS: None. FINDINGS: RIGHT KIDNEY: Normal size. Normal echogenicity. No solid or suspicious masses. No hydronep hrosis. No calcifications. LEFT KIDNEY: Normal size. Normal echogenicity. No solid or suspicious masses. No hydronephrosis. No calcifications. BLADDER: Decompressed with [place] catheter. OTHER FINDINGS: No other significant finding. IMPRESSION: UNREMARKABLE RENAL AND BLADDER ULTRASOUND. TECHNICAL DOCUMENTATION: JOB ID: [id number] [employer]- All Rights Reserved Reading location - IP/workstation name: [email or web address]
--- NOTE | 2017-09-10 16:24 | Progress Note ---
Provider Note Provider Note: 4.20 pm central line site left IJ red swollen will d/c line and culture tip patient clinically improved with less dyspnea
[2017-09-10 16:29] LABS: ANION GAP 11 (5-19); BLOOD UREA NITROGEN 47 mg/dL (7-20); CALCIUM 7.7 mg/dL (8.4-10.2); CARBON DIOXIDE 21 mmol/L (22-30); CHLORIDE 102 mmol/L (98-107); GLUCOSE 114 mg/dL (75-110); POTASSIUM 3.4 mmol/L (3.6-5.0); SODIUM 133.7 mmol/L (137-145)
[2017-09-10] MEDS: HEPARIN SOD (PORCINE) 5,000 UNIT/ML 1 ML SYRINGE SUBCUT SCH (21:20)
[2017-09-10] MEDS: ACETAMINOPHEN 325 MG TABLET PO PRN (21:20)
[2017-09-11] MEDS: PIPERACILLIN SODIUM/TAZOBACTAM 2.25 GM in NORMAL SALINE 50 ML IV SCH ×2 (02:21→10:05)
[2017-09-11] MEDS: LEVALBUTEROL HCL NEB 1.25 MG/3 ML AMPUL NEB SCH ×5 (03:07→20:30)
[2017-09-11] MEDS: GUAIFENESIN SYRP 200 MG/10 ML UDC PO PRN (06:25)
[2017-09-11 08:03] LABS: ANION GAP 14 (5-19); BLOOD UREA NITROGEN 51 mg/dL (7-20); CALCIUM 7.9 mg/dL (8.4-10.2); CARBON DIOXIDE 19 mmol/L (22-30); CHLORIDE 102 mmol/L (98-107); GLUCOSE 94 mg/dL (75-110); POTASSIUM 3.3 mmol/L (3.6-5.0); SODIUM 135.4 mmol/L (137-145)
[2017-09-11] MEDS: CARVEDILOL 12.5 MG TABLET PO SCH ×2 (10:05→22:44)
[2017-09-11] MEDS: ATORVASTATIN CALCIUM 40 MG TABLET PO SCH (10:05)
[2017-09-11] MEDS: HEPARIN SOD (PORCINE) 5,000 UNIT/ML 1 ML SYRINGE SUBCUT SCH ×2 (10:06→22:44)
--- NOTE | 2017-09-11 10:27 | PDOC PROGRESS REPORT ---
Subjective Progress Note for:: 09/11/17 Subjective:: Patient has no chest pain and no significant shortness of breath this morning no fever no chills He has increasing peripheral edema The creatinine is worse over 6 Reason For Visit: RUPTURED ACUTE APPENDICITIS WITH PERITONITIS Physical Exam Vital Signs: Temp Pulse Resp BP Pulse Ox 97.7 F 83 22 H 135/66 H 99 09/11/17 07:40 09/11/17 07:40 09/11/17 07:40 09/11/17 07:40 09/11/17 07:40 Pulse Oximeter Continuous Start: 09/07/17 11: 27 Freq: RTQ4 Status: Active Document 09/11/17 03:28 [facility] (Rec: 09/11/17 03:29 STI [email or web address]) Pulse Oximetry Assessment Oxygen Saturation (92-100) 98 Oxygen Flow Rate (L/min) 2.5 Oxygen Delivery Method Nasal Cannula Fraction of Inspired Oxygen (FIO2) 30 Equipment Usage Equipment in Use Continuous SpO2 Machine # 6 Intake & Output 09/10/17 09/11/17 09/12/17 00:59 00:59 00:59 Intake Total 2688 1553 350 Output Total 350 575 350 Balance 2338 978 0 Weight 86.6 kg 92.6 kg 94.1 kg General appearance: PRESENT: no acute distress, obese Head exam: PRESENT: atraumatic, normocephalic Eye exam: PRESENT: conjunctiva pink, EOMI, PERRLA. ABSENT: scleral icterus Neck exam: ABSENT: carotid bruit, JVD, lymphadenopathy, thyromegaly Respiratory exam: PRESENT: decreased breath sounds. ABSENT: accessory muscle use, rhonchi, wheezes Cardiovascular exam: PRESENT: RRR. ABSENT: diastolic murmur, rubs, systolic murmur Pulses: PRESENT: normal dorsalis pedis pul GI/Abdominal exam: PRESENT: distended, firm. ABSENT: guarding, rebound, tenderness Extremities exam: PRESENT: +2 edema Neurological exam: PRESENT: alert, awake, CN II-XII grossly intact Results Laboratory Results: 09/10/17 05:35 09/11/17 06:51 09/10/17 09/11/17 16:00 06:51 Sodium 133.7 L 135.4 L Potassium 3.4 L 3.3 L Chloride 102 102 Carbon Dioxide 21 L 19 L Anion Gap 11 14 BUN 47 H 51 H Creatinine 5.29 H 6.40 H Est GFR ( Amer) 13 L 10 L Est GFR (Non-Af Amer) 11 L 9 L Glucose 114 H 94 Calcium 7.7 L 7.9 L 09/07/17 17:05 Abdominal Fluid Gram Stain - Final 09/07/17 17:05 Abdominal Fluid Body Fluid Culture - Final NO AEROBIC OR ANAEROBIC ORGANISMS RECOVERED 09/04/17 09/04/17 09/04/17 08:55 16:40 21:00 Troponin I 0.049 0.029 0.028 09/07/17 09/07/17 09/07/17 13:28 16:55 21:25 Troponin I 0.128 0.095 0.079 Impressions: Abdomen/Pelvis CTA 09/03/17 18:19 IMPRESSION: 1. FINDINGS IN THE APPENDIX SUSPICIOUS FOR EARLY ACUTE APPENDICITIS. NO EVIDENCE OF ABSCESS OR PERFORATION. THERE IS A SMALL AMOUNT OF FREE FLUID IN THE RIGHT UPPER QUADRANT WHICH MAY BE RELATED TO APPENDICITIS. 2. NO EVIDENCE OF AORTIC ANEURYSM OR DISSECTION. THE MAJOR MESENTERIC VESSELS ARE PATENT. THE LEFT COMMON ILIAC AND LEFT EXTERNAL ILIAC ARTERIES ARE OCCLUDED WITH FILLING DISTALLY VIA COLLATERALS, SUGGESTING THAT THIS IS PROBABLY A CHRONIC FINDING. 3. COLONIC DIVERTICULOSIS. NO CT FINDINGS OF ACUTE DIVERTICULITIS. 4. CORTICAL CYSTS IN THE RIGHT KIDNEY. 5. NO OTHER SIGNIFICANT FINDINGS. Chest/Abdomen CTA 09/03/17 18:19 IMPRESSION: NORMAL CTA OF THE CHEST. NO AORTIC ANEURYSM OR DISSECTION. NO PULMONARY EMBOLI. Renal Ultrasound 09/10/17 09:34 IMPRESSION: UNREMARKABLE RENAL AND BLADDER ULTRASOUND. Chest X-Ray 09/10/17 10:04 IMPRESSION: STABLE APPEARANCE OF THE CHEST WITH SMALL BILATERAL PLEURAL EFFUSIONS, RIGHT GREATER THAN LEFT. Assessment & Plan - Diagnosis (1) Hypertension Qualifiers: Hypertension type: essential hypertension Qualified Code(s): I10 - Essential (primary) hypertension Is this a current diagnosis for this admission?: Yes Plan: Controlled continue present meds (2) Respiratory failure Qualifiers: Respiratory failure complication: hypoxia Is this a current diagnosis for this admission?: Yes (3) Ruptured acute appendicitis with periton Is this a current diagnosis for this admission?: Yes Plan: Patient's leukocytosis has resolved Discussed antibiotic management We will switch the patient to Levaquin and Flagyl (4) Acute renal failure Qualifiers: Acute renal failure type: unspecified Qualified Code(s): N17.9 - Acute kidney failure, unspecified Is this a current diagnosis for this admission?: Yes Plan: Worsening of the renal function Fluid overload Patient was evaluated by Dr. Lemus He is a candidate for hemodialysis (5) Fluid overload Is this a current diagnosis for this admission?: Yes (6) Metabolic encephalopathy Is this a current diagnosis for this admission?: Yes Plan: Secondary to acute renal failure Patient's mentation was adequate last night - Time Time Spent with patient: 25-34 minutes
[2017-09-11] MEDS ORDERED: LIDOCAINE 1% INJ-PF (10 MG/ML) 30 ML SDV ONE (10:51)
[2017-09-11] MEDS ORDERED: LEVOFLOXACIN 250 MG/D5W RTU 250 MG/50 ML RTUPB IV SCH ×2 (11:00→20:00)
--- NOTE | 2017-09-11 11:30 | Operative Report ---
Nonrecallable Operative Report DATE OF SURGERY: 09/11/17 PREOPERATIVE DIAGNOSIS: 1. Acute kidney failure. 2. Status post exploratory laparotomy, appendectomy POSTOPERATIVE DIAGNOSIS: Same OPERATION: 1. Focused ultrasound of the right neck. 2. Ultrasound directed insertion of triple lumen dialysis catheter SURGEON: SILVANA CAMEJO ANESTHESIA: Local TISSUE REMOVED OR ALTERED: None COMPLICATIONS: None ESTIMATED BLOOD LOSS: Scant INTRAOPERATIVE FINDINGS: See below PROCEDURE: Informed consent was obtained. The patient was placed in Trendelenburg the right neck and chest wall were exposed, and prepped and draped in a sterile fashion. Surgical plan and surgical timeout discussed. The right neck was anesthetized with 1% lidocaine without epinephrine. Using the variable frequency linear transducer, real time, a micro needle and wire were threaded into the right internal jugular vein under real-time ultrasound guidance. The micro catheter was threaded over the wire and then a conventional guidewire threaded through the micro introducer. Successive dilators small and large threaded over the guidewire and then the trials his catheter threaded over the guidewire to the hub. There was excellent aspiration and flush through all 3 lm. Catheter was flushed with saline, and then loaded with dilute heparin, 50 U/cc. The catheter was affixed to the skin with a Biopatch and 2-0 silk suture; sterile dressing applied. The patient tolerated the procedure well. There were no complications. Portable upright chest x-ray pending at time of dictation.
--- NOTE | 2017-09-11 11:35 | PDOC PROGRESS REPORT ---
Subjective Progress Note for:: 09/11/17 Reason For Visit: RUPTURED ACUTE APPENDICITIS WITH PERITONITIS Patient is postoperative day 8 status post exploratory laparotomy, appendectomy for retrocecal appendicitis with perforation. Signs of sepsis have resolved. Patient now in acute renal failure in need of dialysis. Dialysis access provided by Dr. Goss this morning via right IJ paralysis catheter. 1 week old 3 lumen central venous access catheter left IJ position removed from patient's neck last evening. he reports he does not have much appetite but did take his food down without nausea or vomiting. He has lost sense of taste. Physical Exam Vital Signs: Temp Pulse Resp BP Pulse Ox 97.7 F 85 18 135/66 H 98 09/11/17 07:40 09/11/17 07:59 09/11/17 07:59 09/11/17 07:40 09/11/17 07:59 Pulse Oximeter Continuous Start: 09/07/17 11: 27 Freq: RTQ4 Status: Active Document 09/11/17 07:59 HCR (Rec: 09/11/17 11:00 HCR [email or web address]) Pulse Oximetry Assessment Oxygen Saturation (92-100) 98 Oxygen Flow Rate (L/min) 2 Oxygen Delivery Method Nasal Cannula Equipment Usage Equipment in Use Continuous SpO2 Machine # 6 Intake & Output 09/10/17 09/11/17 09/12/17 06:59 06:59 06:59 Intake Total 2237 1034 Output Total 375 900 Balance 1862 134 Weight 92.6 kg 94.1 kg General appearance: PRESENT: mild distress GI/Abdominal exam: PRESENT: other - Moderately edematous secondary to anasarca; retention stitches and mart in place. Drain out No pus or seroma expressed. Results Laboratory Results: 09/10/17 05:35 09/11/17 06:51 09/10/17 09/11/17 16:00 06:51 Sodium 133.7 L 135.4 L Potassium 3.4 L 3.3 L Chloride 102 102 Carbon Dioxide 21 L 19 L Anion Gap 11 14 BUN 47 H 51 H Creatinine 5.29 H 6.40 H Est GFR ( Amer) 13 L 10 L Est GFR (Non-Af Amer) 11 L 9 L Glucose 114 H 94 Calcium 7.7 L 7.9 L 09/07/17 17:05 Abdominal Fluid Gram Stain - Final 09/07/17 17:05 Abdominal Fluid Body Fluid Culture - Final NO AEROBIC OR ANAEROBIC ORGANISMS RECOVERED 09/04/17 09/04/17 09/04/17 08:55 16:40 21:00 Troponin I 0.049 0.029 0.028 09/07/17 09/07/17 09/07/17 13:28 16:55 21:25 Troponin I 0.128 0.095 0.079 Impressions: Abdomen/Pelvis CTA 09/03/17 18:19 IMPRESSION: 1. FINDINGS IN THE APPENDIX SUSPICIOUS FOR EARLY ACUTE APPENDICITIS. NO EVIDENCE OF ABSCESS OR PERFORATION. THERE IS A SMALL AMOUNT OF FREE FLUID IN THE RIGHT UPPER QUADRANT WHICH MAY BE RELATED TO APPENDICITIS. 2. NO EVIDENCE OF AORTIC ANEURYSM OR DISSECTION. THE MAJOR MESENTERIC VESSELS ARE PATENT. THE LEFT COMMON ILIAC AND LEFT EXTERNAL ILIAC ARTERIES ARE OCCLUDED WITH FILLING DISTALLY VIA COLLATERALS, SUGGESTING THAT THIS IS PROBABLY A CHRONIC FINDING. 3. COLONIC DIVERTICULOSIS. NO CT FINDINGS OF ACUTE DIVERTICULITIS. 4. CORTICAL CYSTS IN THE RIGHT KIDNEY. 5. NO OTHER SIGNIFICANT FINDINGS. Chest/Abdomen CTA 09/03/17 18:19 IMPRESSION: NORMAL CTA OF THE CHEST. NO AORTIC ANEURYSM OR DISSECTION. NO PULMONARY EMBOLI. Renal Ultrasound 09/10/17 09:34 IMPRESSION: UNREMARKABLE RENAL AND BLADDER ULTRASOUND. Chest X-Ray 09/10/17 10:04 IMPRESSION: STABLE APPEARANCE OF THE CHEST WITH SMALL BILATERAL PLEURAL EFFUSIONS, RIGHT GREATER THAN LEFT. Assessment & Plan - Diagnosis (1) Acute appendicitis Qualifiers: Acute appendicitis type: with localized peritonitis Qualified Code(s): K35.3 - Acute appendicitis with localized peritonitis Is this a current diagnosis for this admission?: Yes Plan: Patient is now postoperative day 8 laparotomy, open appendectomy for perforated acute appendicitis. Path report showed acute appendicitis with periappendicitis and separation. Patient's intra- abdominal septic focus appears to be resolving. No indication for wound opening at this time. Recommendations: 1. Continue diet as tolerated 2. Proceed with hemodialysis per Dr. Miguel Lemus's recommendation 3. I believe intra-abdominal septic focus has resolved intravenous antibiotics can be tapered accordingly.
--- NOTE | 2017-09-11 11:57 | RADIOLOGY REPORT (SQ) ---
EXAM DESCRIPTION: CHEST SINGLE VIEW COMPLETED DATE/TIME: 09/11/2017 11:35 am REASON FOR STUDY: Confirm Trialysis catheter placement COMPARISON: [id number]. EXAM PARAMETERS: NUMBER OF VIEWS: One view. TECHNIQUE: Single frontal radiographic view of the chest acquired. RADIATION DOSE: NA LIMITATIONS: None. FINDINGS: LUNGS AND PLEURA: Right basilar density unchanged. No pneumothorax. MEDIASTINUM AND HILAR STRUCTURES: No masses. Contour normal. HEART AND VASCULAR STRUCTURES: Heart normal in size. Normal vasculature. BONES: No acute findings. HARDWARE: The left-sided central line has been removed. Multi lumen catheter on the right side with the tip at the level of the superior vena cava. OTHER: No other significant finding. IMPRESSION: NO PNEUMOTHORAX FOLLOWING CATHETER PLACEMENT. NO CHANGE IN APPEARANCE OF THE CHEST. TECHNICAL DOCUMENTATION: JOB ID: [id number] [employer]- All Rights Reserved Reading location - IP/workstation name: [email or web address]
[2017-09-11] MEDS ORDERED: METRONIDAZOLE 500 MG/NS RTU 100 ML IV SCH (12:00)
--- NOTE | 2017-09-11 12:00 | PDOC PROGRESS REPORT ---
Subjective Progress Note for:: 09/11/17 Subjective:: Nausea,w/o vomiting Reason For Visit: RUPTURED ACUTE APPENDICITIS WITH PERITONITIS Physical Exam Vital Signs: Temp Pulse Resp BP Pulse Ox 97.7 F 85 18 135/66 H 98 09/11/17 07:40 09/11/17 07:59 09/11/17 07:59 09/11/17 07:40 09/11/17 07:59 Pulse Oximeter Continuous Start: 09/07/17 11: 27 Freq: RTQ4 Status: Active Document 09/11/17 07:59 HCR (Rec: 09/11/17 11:00 HCR [email or web address]) Pulse Oximetry Assessment Oxygen Saturation (92-100) 98 Oxygen Flow Rate (L/min) 2 Oxygen Delivery Method Nasal Cannula Equipment Usage Equipment in Use Continuous SpO2 Machine # 6 Intake & Output 09/10/17 09/11/17 09/12/17 06:59 06:59 06:59 Intake Total 2237 1034 Output Total 375 900 Balance 1862 134 Weight 92.6 kg 94.1 kg General appearance: PRESENT: no acute distress, cooperative, disheveled, obese Head exam: PRESENT: atraumatic, normocephalic Eye exam: PRESENT: conjunctiva pale, EOMI. ABSENT: nystagmus, periorbital swelling, scleral icterus Mouth exam: PRESENT: moist, neck supple, tongue midline Neck exam: ABSENT: carotid bruit, JVD, lymphadenopathy, thyromegaly, tracheal deviation, tracheostomy Respiratory exam: PRESENT: decreased breath sounds, prolonged expiratory phas, rhonchi, symmetrical, unlabored. ABSENT: stridor, tachypnea Cardiovascular exam: PRESENT: RRR, +S1, +S2 Pulses: PRESENT: normal radial pulses GI/Abdominal exam: PRESENT: diminished bowel sounds, soft Extremities exam: ABSENT: calf tenderness, clubbing, joint swelling Musculoskeletal exam: ABSENT: deformity, dislocation Neurological exam: PRESENT: alert, awake Psychiatric exam: PRESENT: normal mood Skin exam: PRESENT: dry, warm Results Laboratory Results: 09/10/17 05:35 09/11/17 06:51 09/10/17 09/11/17 16:00 06:51 Sodium 133.7 L 135.4 L Potassium 3.4 L 3.3 L Chloride 102 102 Carbon Dioxide 21 L 19 L Anion Gap 11 14 BUN 47 H 51 H Creatinine 5.29 H 6.40 H Est GFR ( Amer) 13 L 10 L Est GFR (Non-Af Amer) 11 L 9 L Glucose 114 H 94 Calcium 7.7 L 7.9 L 09/07/17 17:05 Abdominal Fluid Gram Stain - Final 09/07/17 17:05 Abdominal Fluid Body Fluid Culture - Final NO AEROBIC OR ANAEROBIC ORGANISMS RECOVERED 09/04/17 09/04/17 09/04/17 08:55 16:40 21:00 Troponin I 0.049 0.029 0.028 09/07/17 09/07/17 09/07/17 13:28 16:55 21:25 Troponin I 0.128 0.095 0.079 Impressions: Abdomen/Pelvis CTA 09/03/17 18:19 IMPRESSION: 1. FINDINGS IN THE APPENDIX SUSPICIOUS FOR EARLY ACUTE APPENDICITIS. NO EVIDENCE OF ABSCESS OR PERFORATION. THERE IS A SMALL AMOUNT OF FREE FLUID IN THE RIGHT UPPER QUADRANT WHICH MAY BE RELATED TO APPENDICITIS. 2. NO EVIDENCE OF AORTIC ANEURYSM OR DISSECTION. THE MAJOR MESENTERIC VESSELS ARE PATENT. THE LEFT COMMON ILIAC AND LEFT EXTERNAL ILIAC ARTERIES ARE OCCLUDED WITH FILLING DISTALLY VIA COLLATERALS, SUGGESTING THAT THIS IS PROBABLY A CHRONIC FINDING. 3. COLONIC DIVERTICULOSIS. NO CT FINDINGS OF ACUTE DIVERTICULITIS. 4. CORTICAL CYSTS IN THE RIGHT KIDNEY. 5. NO OTHER SIGNIFICANT FINDINGS. Chest/Abdomen CTA 09/03/17 18:19 IMPRESSION: NORMAL CTA OF THE CHEST. NO AORTIC ANEURYSM OR DISSECTION. NO PULMONARY EMBOLI. Renal Ultrasound 09/10/17 09:34 IMPRESSION: UNREMARKABLE RENAL AND BLADDER ULTRASOUND. Chest X-Ray 09/11/17 00:00 IMPRESSION: NO PNEUMOTHORAX FOLLOWING CATHETER PLACEMENT. NO CHANGE IN APPEARANCE OF THE CHEST. Assessment & Plan - Diagnosis (1) Respiratory failure Qualifiers: Respiratory failure complication: hypoxia Is this a current diagnosis for this admission?: Yes Plan: Nearing baseline (2) Hypertension Qualifiers: Hypertension type: essential hypertension Qualified Code(s): I10 - Essential (primary) hypertension Is this a current diagnosis for this admission?: Yes (3) Ruptured acute appendicitis with periton Is this a current diagnosis for this admission?: Yes Plan: As per surgery 09/03/17 21:40 Gram Stain - Final Abdominal Fluid Body Fluid Culture - Final Escherichia Coli Klebsiella Pneumoniae Enterococcus Gallinarum Bacteroides Fragilis Group Fusobacterium Species 09/03/17 18:18 Blood Culture - Final Blood Prevotella Species
[2017-09-11] MEDS ORDERED: HEPARIN SOD (PORCINE) 1,000 UNIT/ML 10 ML VIAL IV PRN (14:19)
--- NOTE | 2017-09-11 17:48 | PDOC CONSULTATION ---
Consultation Consult Date: 09/11/17 Consult reason:: CLARISSA with oliguria and early CHF. History of Present Illness Admission Date/PCP: 09/03/17 19:44 [employer] [employer]OR History of Present Illness: CLIFF TALBOT is a 72 year old male with a background h/o Hypertension, CAD was admitted with acute abdomen on 09/03/17. He was found to have a ruptured appendicitis with peritonitis on Ex Lap on 09/03/17. Abdominal fluid grew polymicrobes - gram negative and anerobes. He was begun on Vancomycin, Pip - Tazo and nebulised tobramycin.I have been asked to see him for worsening renal nos along with dropping urine output and fluid overload. he had normal renal nos on admission. On the it began to rise to 2.1 and today was 6.4. His vanc levels done on the came back toxic at 30. He had his tobramycin stopped on the and vanc stopped on . He was also on Pip Tazo during the interim period and still continues to do so. Patient denies any chest pains, fever or chills.No diarrhea. Labs and meds were reviewed. Discussions done with Dr Alcantara. Past Medical History Cardiac Medical History: Reports: Coronary Artery Disease, Hyperlipidemia, Hypertension-primary, Myocardial Infarction - 2007 AND STENTS PLACED Pulmonary Medical History: Denies: Asthma Neurological Medical History: Denies: Seizures GI Medical History: Denies: Hepatitis, Hiatal Hernia Past Surgical History Past Surgical History: Reports: Cardiac Catheterization - stents, Coronary Stent Denies: Pacemaker Social History Smoking Status: Former Smoker Frequency of Alcohol Use: None Hx Recreational Drug Use: No Drugs: None Hx Prescription Drug Abuse: No - Advance Directive Resuscitation Status: Full Code Family History Parental Family History Reviewed: Yes - Negative for CKD. Children Family History Reviewed: No Sibling(s) Family History Reviewed.: No Medication/Allergy Home Medications: Atorvastatin Calcium [Lipitor 40 mg Tablet] 40 mg PO DAILY 09/04/17 Carvedilol [Coreg 12.5 mg Tablet] 18.75 mg PO Q12 09/04/17 Sacubitril/Valsartan [Entresto 97 mg-103 mg Tablet] 1 tab PO BID 09/04/17 Spironolactone [Aldactone 25 mg Tablet] 25 mg PO DAILY 09/04/17 Allergies/Adverse Reactions: No Known Allergies Allergy (Verified 09/03/17 16:35) Review of Systems Constitutional: PRESENT: fatigue, weakness. ABSENT: fever(s), headache(s) Nose, Mouth, and Throat: ABSENT: mouth pain, sore throat Cardiovascular: PRESENT: dyspnea on exertion. ABSENT: chest pain, edema, orthropnea Respiratory: ABSENT: dyspnea, hemoptysis Gastrointestinal: PRESENT: abdominal pain. ABSENT: diarrhea, hematemesis, nausea, vomiting Neurological: ABSENT: abnormal speech, confusion, convulsions, focal weakness Hematologic/Lymphatic: ABSENT: easy bruising, lymphadenopathy Physical Exam Vital Signs: Temp Pulse Resp BP Pulse Ox 97.7 F 81 18 135/66 H 97 09/11/17 07:40 09/11/17 14:00 09/11/17 13:07 09/11/17 07:40 09/11/17 13:07 Pulse Oximeter Continuous Start: 09/07/17 11: 27 Freq: RTQ4 Status: Active Document 09/11/17 13:07 HCR (Rec: 09/11/17 13:36 HCR [email or web address]) Pulse Oximetry Assessment Oxygen Saturation (92-100) 97 Oxygen Flow Rate (L/min) 2 Oxygen Delivery Method Nasal Cannula Equipment Usage Equipment in Use Continuous SpO2 Machine # 6 Intake & Output 09/10/17 09/11/17 09/12/17 06:59 06:59 06:59 Intake Total 2237 1034 Output Total 375 900 Balance 1862 134 Weight 92.6 kg 94.1 kg General appearance: PRESENT: no acute distress Eye exam: PRESENT: EOMI, PERRLA Ear exam: PRESENT: normal external ear exam Mouth exam: PRESENT: moist, neck supple Neck exam: ABSENT: lymphadenopathy, meningismus, tenderness, thyromegaly, tracheal deviation Respiratory exam: PRESENT: clear to auscultation matthew, crackles. ABSENT: rhonchi Cardiovascular exam: PRESENT: +S1, +S2, systolic murmur GI/Abdominal exam: PRESENT: distended, soft, tenderness. ABSENT: firm, guarding Extremities exam: ABSENT: pedal edema Neurological exam: PRESENT: awake, oriented to person, oriented to place, oriented to time Psychiatric exam: PRESENT: anxious Skin exam: ABSENT: cyanosis, erythema, mottled Results Laboratory Results: 09/10/17 05:35 04/16/18 06:51 09/11/17 06:51 Sodium 135.4 L Potassium 3.3 L Chloride 102 Carbon Dioxide 19 L Anion Gap 14 BUN 51 H Creatinine 6.40 H Est GFR ( Amer) 10 L Est GFR (Non-Af Amer) 9 L Glucose 94 Calcium 7.9 L 09/07/17 17:05 Abdominal Fluid Gram Stain - Final 09/07/17 17:05 Abdominal Fluid Body Fluid Culture - Final NO AEROBIC OR ANAEROBIC ORGANISMS RECOVERED 09/04/17 09/04/17 09/04/17 08:55 16:40 21:00 Troponin I 0.049 0.029 0.028 09/07/17 09/07/17 09/07/17 13:28 16:55 21:25 Troponin I 0.128 0.095 0.079 Impressions: Abdomen/Pelvis CTA 09/03/17 18:19 IMPRESSION: 1. FINDINGS IN THE APPENDIX SUSPICIOUS FOR EARLY ACUTE APPENDICITIS. NO EVIDENCE OF ABSCESS OR PERFORATION. THERE IS A SMALL AMOUNT OF FREE FLUID IN THE RIGHT UPPER QUADRANT WHICH MAY BE RELATED TO APPENDICITIS. 2. NO EVIDENCE OF AORTIC ANEURYSM OR DISSECTION. THE MAJOR MESENTERIC VESSELS ARE PATENT. THE LEFT COMMON ILIAC AND LEFT EXTERNAL ILIAC ARTERIES ARE OCCLUDED WITH FILLING DISTALLY VIA COLLATERALS, SUGGESTING THAT THIS IS PROBABLY A CHRONIC FINDING. 3. COLONIC DIVERTICULOSIS. NO CT FINDINGS OF ACUTE DIVERTICULITIS. 4. CORTICAL CYSTS IN THE RIGHT KIDNEY. 5. NO OTHER SIGNIFICANT FINDINGS. Chest/Abdomen CTA 09/03/17 18:19 IMPRESSION: NORMAL CTA OF THE CHEST. NO AORTIC ANEURYSM OR DISSECTION. NO PULMONARY EMBOLI. Renal Ultrasound 09/10/17 09:34 IMPRESSION: UNREMARKABLE RENAL AND BLADDER ULTRASOUND. Chest X-Ray 09/11/17 00:00 IMPRESSION: NO PNEUMOTHORAX FOLLOWING CATHETER PLACEMENT. NO CHANGE IN APPEARANCE OF THE CHEST. Assessment & Plan - Diagnosis (1) Acute renal failure Qualifiers: Acute renal failure type: unspecified Qualified Code(s): N17.9 - Acute kidney failure, unspecified Is this a current diagnosis for this admission?: Yes Plan: with dropping urine output and early CHF. Etiology is mutli fatorial and includes ATN/ Vanc toxicity/ potential Tobra toxicity in the setting of AIN from Pip Tazo. Note Vanc levels on 09-09 was 30. Tobra was stopped on 09-05 and and vanc was stopped on 09-08. 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 Recommend initiation of Acute HD .Discussed with patient and who is a [employer] and willing to proceed. Discussed the procedure of HD and its inherent complications of bleeding , hypotension and rare cases of cardiac arrest. Also discussed with Jessica Alcantara and Wolfgang. Patient was later seen on HD after he had a IJ catheter inserted by Dr Goss. He is undergoing HD without any issues. VS are stable.Plan to remove 2 l of fluid as tolerated.Orders were discussed with treating HD RN Rhea. (2) Cardiomyopathy Qualifiers: Cardiomyopathy type: unspecified Qualified Code(s): I42.9 - Cardiomyopathy , unspecified Is this a current diagnosis for this admission?: Yes Plan: Underlying Ischemic CMP with recent ECHO which I reviewed which shows LVEF of 35 - 40 % with diastolic dysfunction, and segmental dyskinesia. Given the above situation with progressive CLARISSA and decreasing renal OP , plan to proceed with Acute HD. (3) Coronary artery disease Qualifiers: Coronary Disease-Associated Artery/Lesion type: [place] artery [place] vs. transplanted heart: [place] heart Associated angina: angina presence unspecified Qualified Code(s): I25.10 - Atherosclerotic heart disease of [place] coronary artery without angina pectoris Is this a current diagnosis for this admission?: Yes Plan: Stable. (4) Fluid overload Is this a current diagnosis for this admission?: Yes Plan: Developing Oliguria..plan to initiate HD.Should respond to this modality of treatment (5) Ruptured acute appendicitis with periton Is this a current diagnosis for this admission?: Yes Plan: S/P Laparotomy and appropriate surgery in association with multiple antibiotics to cover poly microbes mainly - Gram negative and anaerobes.
[2017-09-11] MEDS: ACETAMINOPHEN 325 MG TABLET PO PRN (17:52)
[2017-09-11] MEDS: METRONIDAZOLE 500 MG/NS RTU 100 ML IV SCH (18:10)
[2017-09-11] MEDS: NORMAL SALINE INJ/PF 0.9% 10 ML SDV IV PRN (22:44)
[2017-09-12] MEDS: LEVALBUTEROL HCL NEB 1.25 MG/3 ML AMPUL NEB SCH ×7 (00:08→23:47)
[2017-09-12] MEDS: METRONIDAZOLE 500 MG/NS RTU 100 ML IV SCH ×3 (01:12→11:21)
[2017-09-12] MEDS: NORMAL SALINE INJ/PF 0.9% 10 ML SDV IV PRN (06:09)
[2017-09-12 07:15] LABS: HEPATITS B SURFACE ANTIGEN Negative (Negative)
--- NOTE | 2017-09-12 08:30 | PDOC PROGRESS REPORT ---
Subjective Progress Note for:: 09/12/17 Subjective:: much better breathing pattern, improved appetite, several liquid stools yesterday Reason For Visit: RUPTURED ACUTE APPENDICITIS WITH PERITONITIS Physical Exam Vital Signs: Temp Pulse Resp BP Pulse Ox 98.4 F 98 22 H 149/75 H 100 09/12/17 07:20 09/12/17 07:20 09/12/17 07:20 09/12/17 07:20 09/12/17 07:20 Pulse Oximeter Continuous Start: 09/07/17 11: 27 Freq: RTQ4 Status: Active Document 09/12/17 04:20 SFL (Rec: 09/12/17 05:08 SFL [email or web address]) Pulse Oximetry Assessment Oxygen Saturation (92-100) 95 Oxygen Flow Rate (L/min) 2 Oxygen Delivery Method Nasal Cannula Equipment Usage Equipment in Use Continuous SpO2 Machine # 6 Intake & Output 09/11/17 09/12/17 09/13/17 06:59 06:59 06:59 Intake Total 1034 2360 Output Total 900 2750 Balance 134 -390 Weight 94.1 kg 90.8 kg General appearance: PRESENT: no acute distress Respiratory exam: PRESENT: clear to auscultation matthew Cardiovascular exam: PRESENT: RRR GI/Abdominal exam: PRESENT: normal bowel sounds, soft, other - midline incision , dry, no drainage, retention sutures in place, mart in place Results Laboratory Results: 09/10/17 05:35 09/11/17 06:51 09/07/17 17:05 Abdominal Fluid Gram Stain - Final 09/07/17 17:05 Abdominal Fluid Body Fluid Culture - Final NO AEROBIC OR ANAEROBIC ORGANISMS RECOVERED 09/04/17 09/04/17 09/04/17 08:55 16:40 21:00 Troponin I 0.049 0.029 0.028 09/07/17 09/07/17 09/07/17 13:28 16:55 21:25 Troponin I 0.128 0.095 0.079 Impressions: Abdomen/Pelvis CTA 09/03/17 18:19 IMPRESSION: 1. FINDINGS IN THE APPENDIX SUSPICIOUS FOR EARLY ACUTE APPENDICITIS. NO EVIDENCE OF ABSCESS OR PERFORATION. THERE IS A SMALL AMOUNT OF FREE FLUID IN THE RIGHT UPPER QUADRANT WHICH MAY BE RELATED TO APPENDICITIS. 2. NO EVIDENCE OF AORTIC ANEURYSM OR DISSECTION. THE MAJOR MESENTERIC VESSELS ARE PATENT. THE LEFT COMMON ILIAC AND LEFT EXTERNAL ILIAC ARTERIES ARE OCCLUDED WITH FILLING DISTALLY VIA COLLATERALS, SUGGESTING THAT THIS IS PROBABLY A CHRONIC FINDING. 3. COLONIC DIVERTICULOSIS. NO CT FINDINGS OF ACUTE DIVERTICULITIS. 4. CORTICAL CYSTS IN THE RIGHT KIDNEY. 5. NO OTHER SIGNIFICANT FINDINGS. Chest/Abdomen CTA 09/03/17 18:19 IMPRESSION: NORMAL CTA OF THE CHEST. NO AORTIC ANEURYSM OR DISSECTION. NO PULMONARY EMBOLI. Renal Ultrasound 09/10/17 09:34 IMPRESSION: UNREMARKABLE RENAL AND BLADDER ULTRASOUND. Chest X-Ray 09/11/17 00:00 IMPRESSION: NO PNEUMOTHORAX FOLLOWING CATHETER PLACEMENT. NO CHANGE IN APPEARANCE OF THE CHEST. Assessment & Plan - Diagnosis (1) Ruptured acute appendicitis with periton Is this a current diagnosis for this admission?: Yes - Plan Summary Plan Summary: A/ POD# 9 after ope appendectomy for perforated appendicitis VSS, AF Moderate UO ON HD via R IJ catheter with 2,000 mL of fluids removed Improved breathing pattern Abdominal wound improved and dry after dialysis P/ Remove two of the 5 retention sutures No acute Genera; surgery issues identified Continue HD as per Nephrology
[2017-09-12 08:40] LABS: HEPATITIS A AB IGM Negative (Negative); HEPATITIS B CORE AB IGM Negative (Negative); HEPATITS B SURFACE ANTIGEN Negative (Negative)
[2017-09-12 09:34] LABS: HEPATITIS C VIRUS ANTIBODY <0.1 s/co ratio (0.0-0.9)
[2017-09-12] MEDS: CARVEDILOL 12.5 MG TABLET PO SCH ×2 (10:20→22:06)
[2017-09-12] MEDS: ATORVASTATIN CALCIUM 40 MG TABLET PO SCH (10:20)
[2017-09-12] MEDS: HEPARIN SOD (PORCINE) 5,000 UNIT/ML 1 ML SYRINGE SUBCUT SCH ×2 (10:20→22:06)
[2017-09-12 12:00] LABS: HEMATOCRIT 30.2 % (37.9-51.0); HEMOGLOBIN 10.2 g/dL (13.5-17.0); MEAN CORPUSCULAR HGB CONC 33.8 g/dL (32.0-36.0); MEAN CORPUSCULAR VOLUME 92 fl (80-97); PLATELET COUNT 219 10^3/uL (150-450); RED BLOOD COUNT 3.29 10^6/uL (4.35-5.55); RED CELL DISTRIBUTION WIDTH 13.7 % (11.5-14.0); WHITE BLOOD COUNT 9.6 10^3/uL (4.0-10.5)
[2017-09-12 12:18] LABS: ANION GAP 9 (5-19); BLOOD UREA NITROGEN 43 mg/dL (7-20); CALCIUM 7.7 mg/dL (8.4-10.2); CARBON DIOXIDE 25 mmol/L (22-30); CHLORIDE 100 mmol/L (98-107); GLUCOSE 98 mg/dL (75-110); POTASSIUM 3.2 mmol/L (3.6-5.0); SODIUM 134.1 mmol/L (137-145)
--- NOTE | 2017-09-12 14:58 | Progress Note ---
Provider Note Provider Note: ID Consult Note Asked to review the patient's chart by Pharmacy. Mr. Fraire is a 72 year old man who presented with RLQ pain with nausea on 09/03. He required exploratory laparotomy and appendectomy for ruptured acute appendicitis with peritonitis. Intraabdominal culture from 09/03 yielded growth of E. coli, Klebsiella (broth only), Enterococcus (ampicillin susceptible), Bacteroides fragilis, and Fusobacterium species. The patient's blood cultures are negative. He was initially on vancomycin and Zosyn for the ruptured appendicitis and possible pneumonia. He did not have a fever. His initial leukocytosis improved. Current WBC count is normal. He developed CLARISSA and required dialysis catheter placement. Most recently, his antibiotic therapy was changed on 09/11 to Levaquin and Flagyl. Impression/Recommendations Ruptured appendicitis s/p ex-lap, washout, and appendectomy - Pt had contaminated material cleared surgically from the intraabdominal cavity. Based on chart review, source control appears to have been achieved. - There is good evidence from the STOP-IT trial published in NEJM a few years ago to suggest that a short course (4-5 days) of treatment is adequate when the source of an intraabdominal infection has been controlled. The patient has received, at this point, around 9 days of Zosyn, which would have addressed the pathogens recovered from his abdomen, and signs of sepsis have resolved. WBC count is normal. - Recommend discontinuing antibiotic therapy. Kyaw Miles MD, [facility] pager [phone]
[2017-09-12] MEDS ORDERED: POTASSIUM CHLORIDE 10 MEQ TABLET.SA PO ONE ×2 (15:00→18:00)
--- NOTE | 2017-09-12 15:44 | PDOC PROGRESS REPORT ---
Subjective Progress Note for:: 09/12/17 Subjective:: Patient is doing well He has no chest pain no shortness of breath no abdominal pain nausea vomiting He underwent hemodialysis yesterday Reason For Visit: RUPTURED ACUTE APPENDICITIS WITH PERITONITIS Physical Exam Vital Signs: Temp Pulse Resp BP Pulse Ox 98.2 F 87 16 116/64 98 09/12/17 11:26 09/12/17 14:00 09/12/17 12:57 09/12/17 11:26 09/12/17 12:57 Pulse Oximeter Continuous Start: 09/07/17 11: 27 Freq: RTQ4 Status: Active Document 09/12/17 12:57 HCR (Rec: 09/12/17 13:05 HCR [email or web address]) Pulse Oximetry Assessment Oxygen Saturation (92-100) 98 Oxygen Flow Rate (L/min) 2 Oxygen Delivery Method Nasal Cannula Equipment Usage Equipment in Use Continuous SpO2 Machine # 6 Intake & Output 09/11/17 09/12/17 09/13/17 00:59 00:59 00:59 Intake Total 1553 1357 1827 Output Total 575 2950 450 Balance 978 -1593 1377 Weight 92.6 kg 94.1 kg 90.8 kg General appearance: PRESENT: no acute distress, cooperative Head exam: PRESENT: atraumatic, normocephalic Eye exam: PRESENT: conjunctiva pink, EOMI, PERRLA. ABSENT: scleral icterus Neck exam: ABSENT: carotid bruit, JVD, lymphadenopathy, thyromegaly Respiratory exam: PRESENT: clear to auscultation matthew. ABSENT: rales, rhonchi, wheezes Cardiovascular exam: PRESENT: RRR. ABSENT: diastolic murmur, rubs, systolic murmur Pulses: PRESENT: normal dorsalis pedis pul GI/Abdominal exam: PRESENT: normal bowel sounds, soft. ABSENT: distended, guarding, mass, organolmegaly, rebound, tenderness Extremities exam: PRESENT: full ROM. ABSENT: calf tenderness, clubbing, pedal edema Neurological exam: PRESENT: alert, awake, oriented to person, oriented to place , oriented to time, oriented to situation, CN II-XII grossly intact. ABSENT: motor sensory deficit Results Laboratory Results: 09/12/17 11:48 09/12/17 11:48 04/17/18 04/17/18 11:48 11:48 WBC 9.6 RBC 3.29 L Hgb 10.2 L Hct 30.2 L MCV 92 MCH 31.0 MCHC 33.8 RDW 13.7 Plt Count 219 Sodium 134.1 L Potassium 3.2 L Chloride 100 Carbon Dioxide 25 Anion Gap 9 BUN 43 H Creatinine 5.31 H Est GFR ( Amer) 13 L Est GFR (Non-Af Amer) 11 L Glucose 98 Calcium 7.7 L 09/07/17 13:34 Blood Blood Culture - Final NO GROWTH IN 5 DAYS 09/07/17 13:28 Blood Blood Culture - Final NO GROWTH IN 5 DAYS 09/04/17 09/04/17 09/04/17 08:55 16:40 21:00 Troponin I 0.049 0.029 0.028 09/07/17 09/07/17 09/07/17 13:28 16:55 21:25 Troponin I 0.128 0.095 0.079 Impressions: Abdomen/Pelvis CTA 09/03/17 18:19 IMPRESSION: 1. FINDINGS IN THE APPENDIX SUSPICIOUS FOR EARLY ACUTE APPENDICITIS. NO EVIDENCE OF ABSCESS OR PERFORATION. THERE IS A SMALL AMOUNT OF FREE FLUID IN THE RIGHT UPPER QUADRANT WHICH MAY BE RELATED TO APPENDICITIS. 2. NO EVIDENCE OF AORTIC ANEURYSM OR DISSECTION. THE MAJOR MESENTERIC VESSELS ARE PATENT. THE LEFT COMMON ILIAC AND LEFT EXTERNAL ILIAC ARTERIES ARE OCCLUDED WITH FILLING DISTALLY VIA COLLATERALS, SUGGESTING THAT THIS IS PROBABLY A CHRONIC FINDING. 3. COLONIC DIVERTICULOSIS. NO CT FINDINGS OF ACUTE DIVERTICULITIS. 4. CORTICAL CYSTS IN THE RIGHT KIDNEY. 5. NO OTHER SIGNIFICANT FINDINGS. Chest/Abdomen CTA 09/03/17 18:19 IMPRESSION: NORMAL CTA OF THE CHEST. NO AORTIC ANEURYSM OR DISSECTION. NO PULMONARY EMBOLI. Renal Ultrasound 09/10/17 09:34 IMPRESSION: UNREMARKABLE RENAL AND BLADDER ULTRASOUND. Chest X-Ray 09/11/17 00:00 IMPRESSION: NO PNEUMOTHORAX FOLLOWING CATHETER PLACEMENT. NO CHANGE IN APPEARANCE OF THE CHEST. Assessment & Plan - Diagnosis (1) Hypertension Qualifiers: Hypertension type: essential hypertension Qualified Code(s): I10 - Essential (primary) hypertension Is this a current diagnosis for this admission?: Yes (2) Respiratory failure Qualifiers: Respiratory failure complication: hypoxia Is this a current diagnosis for this admission?: Yes (3) Ruptured acute appendicitis with periton Is this a current diagnosis for this admission?: Yes Plan: Infectious disease recommended to discontinue all antibiotics DC Levaquin and Flagyl (4) Acute renal failure Qualifiers: Acute renal failure type: unspecified Qualified Code(s): N17.9 - Acute kidney failure, unspecified Is this a current diagnosis for this admission?: Yes Plan: Patient is now undergoing hemodialysis Continue hemodialysis as per Dr. Lemus (5) Fluid overload Is this a current diagnosis for this admission?: Yes Plan: Improving (6) Metabolic encephalopathy Is this a current diagnosis for this admission?: Yes Plan: Has improved since dialysis has been initiated - Time Time Spent with patient: Continue present management Hemodialysis tomorrow
[2017-09-12] MEDS ORDERED: METRONIDAZOLE 500 MG TABLET PO SCH (18:00)
--- NOTE | 2017-09-12 19:42 | PDOC PROGRESS REPORT ---
Subjective Progress Note for:: 09/12/17 Subjective:: Patient seen today sitting up in his bed with his at his side. At the time he said that he felt like he was having increased urine output. He also said that his breathing was better than yesterday. He denied chest pain, fevers, chills, n/v/d/c. Reason For Visit: RUPTURED ACUTE APPENDICITIS WITH PERITONITIS Physical Exam Vital Signs: Temp Pulse Resp BP Pulse Ox 98.2 F 83 16 116/64 93 09/12/17 11:26 09/12/17 16:22 09/12/17 16:22 09/12/17 11:26 09/12/17 16:22 Pulse Oximeter Continuous Start: 09/07/17 11: 27 Freq: RTQ4 Status: Active Document 09/12/17 16:22 [facility] (Rec: 09/12/17 17:54 [facility] [email or web address]) Pulse Oximetry Assessment Oxygen Saturation (92-100) 93 Oxygen Delivery Method Nasal Cannula Fraction of Inspired Oxygen (FIO2) 21 Equipment Usage Equipment in Use Continuous SpO2 Machine # N-[id number] Intake & Output 09/11/17 09/12/17 09/13/17 06:59 06:59 06:59 Intake Total 1034 2360 1478 Output Total 900 2750 500 Balance 134 -390 978 Weight 94.1 kg 90.8 kg General appearance: PRESENT: no acute distress, well-developed, well-nourished Mouth exam: PRESENT: moist, neck supple Neck exam: PRESENT: full ROM. ABSENT: JVD Respiratory exam: PRESENT: crackles, rales. ABSENT: accessory muscle use, clear to auscultation matthew, rhonchi, wheezes Cardiovascular exam: PRESENT: +S1, +S2, systolic murmur GI/Abdominal exam: PRESENT: distended, soft, tenderness. ABSENT: firm, guarding Extremities exam: PRESENT: +1 edema. ABSENT: pedal edema, tenderness Musculoskeletal exam: ABSENT: normal inspection, tenderness Neurological exam: PRESENT: alert, awake, oriented to person, oriented to place , oriented to time, oriented to situation Psychiatric exam: PRESENT: appropriate affect, normal mood Skin exam: PRESENT: dry, intact, warm. ABSENT: cyanosis Results Laboratory Results: 09/12/17 11:48 09/12/17 11:48 09/12/17 09/12/17 11:48 11:48 WBC 9.6 RBC 3.29 L Hgb 10.2 L Hct 30.2 L MCV 92 MCH 31.0 MCHC 33.8 RDW 13.7 Plt Count 219 Sodium 134.1 L Potassium 3.2 L Chloride 100 Carbon Dioxide 25 Anion Gap 9 BUN 43 H Creatinine 5.31 H Est GFR ( Amer) 13 L Est GFR (Non-Af Amer) 11 L Glucose 98 Calcium 7.7 L 09/07/17 13:34 Blood Blood Culture - Final NO GROWTH IN 5 DAYS 09/07/17 13:28 Blood Blood Culture - Final NO GROWTH IN 5 DAYS 09/04/17 09/04/17 09/04/17 08:55 16:40 21:00 Troponin I 0.049 0.029 0.028 09/07/17 09/07/17 09/07/17 13:28 16:55 21:25 Troponin I 0.128 0.095 0.079 Impressions: Abdomen/Pelvis CTA 09/03/17 18:19 IMPRESSION: 1. FINDINGS IN THE APPENDIX SUSPICIOUS FOR EARLY ACUTE APPENDICITIS. NO EVIDENCE OF ABSCESS OR PERFORATION. THERE IS A SMALL AMOUNT OF FREE FLUID IN THE RIGHT UPPER QUADRANT WHICH MAY BE RELATED TO APPENDICITIS. 2. NO EVIDENCE OF AORTIC ANEURYSM OR DISSECTION. THE MAJOR MESENTERIC VESSELS ARE PATENT. THE LEFT COMMON ILIAC AND LEFT EXTERNAL ILIAC ARTERIES ARE OCCLUDED WITH FILLING DISTALLY VIA COLLATERALS, SUGGESTING THAT THIS IS PROBABLY A CHRONIC FINDING. 3. COLONIC DIVERTICULOSIS. NO CT FINDINGS OF ACUTE DIVERTICULITIS. 4. CORTICAL CYSTS IN THE RIGHT KIDNEY. 5. NO OTHER SIGNIFICANT FINDINGS. Chest/Abdomen CTA 09/03/17 18:19 IMPRESSION: NORMAL CTA OF THE CHEST. NO AORTIC ANEURYSM OR DISSECTION. NO PULMONARY EMBOLI. Renal Ultrasound 09/10/17 09:34 IMPRESSION: UNREMARKABLE RENAL AND BLADDER ULTRASOUND. Chest X-Ray 09/11/17 00:00 IMPRESSION: NO PNEUMOTHORAX FOLLOWING CATHETER PLACEMENT. NO CHANGE IN APPEARANCE OF THE CHEST. Assessment & Plan - Diagnosis (1) Acute renal failure Qualifiers: Acute renal failure type: unspecified Qualified Code(s): N17.9 - Acute kidney failure, unspecified Is this a current diagnosis for this admission?: Yes Plan: will continue with dialysis tomorrow, looks to be showing some improvement in his creatinine and urine output. (2) Hypokalemia Plan: will look to give 60 total mEQ today of PO potassium due to nationwide shortage of IV potassium (3) Cardiomyopathy Qualifiers: Cardiomyopathy type: unspecified Qualified Code(s): I42.9 - Cardiomyopathy , unspecified Is this a current diagnosis for this admission?: Yes Plan: improving, will look to remove more fluid tomorrow (4) Coronary artery disease Qualifiers: Coronary Disease-Associated Artery/Lesion type: [place] artery [place] vs. transplanted heart: [place] heart Associated angina: angina presence unspecified Qualified Code(s): I25.10 - Atherosclerotic heart disease of [place] coronary artery without angina pectoris Is this a current diagnosis for this admission?: Yes Plan: stable (5) Fluid overload Is this a current diagnosis for this admission?: Yes Plan: will look to continue to remove more fluid during dialysis tomorrow (6) Ruptured acute appendicitis with periton Is this a current diagnosis for this admission?: Yes (7) Hypertension Qualifiers: Hypertension type: essential hypertension Qualified Code(s): I10 - Essential (primary) hypertension Is this a current diagnosis for this admission?: Yes Plan: varying
[2017-09-12] MEDS ORDERED: LEVOFLOXACIN 250 MG TABLET PO SCH (20:00)
[2017-09-12] MEDS: ACETAMINOPHEN 325 MG TABLET PO PRN (22:07)
[2017-09-13] MEDS: LEVALBUTEROL HCL NEB 1.25 MG/3 ML AMPUL NEB SCH ×4 (04:29→16:19)
[2017-09-13 05:11] LABS: ANION GAP 9 (5-19); BLOOD UREA NITROGEN 47 mg/dL (7-20); CARBON DIOXIDE 24 mmol/L (22-30); CHLORIDE 103 mmol/L (98-107); GLUCOSE 104 mg/dL (75-110); POTASSIUM 3.4 mmol/L (3.6-5.0); SODIUM 135.6 mmol/L (137-145)
--- NOTE | 2017-09-13 09:42 | EKG REPORT ---
SEVERITY:- ABNORMAL ECG - SINUS RHYTHM LOW VOLTAGE WITH RIGHT AXIS DEVIATION BORDERLINE R WAVE PROGRESSION, ANTERIOR LEADS NONSPECIFIC T ABNORMALITIES, ANT-LAT LEADS : Confirmed by: Marysol Cooley 13-Sep-2017 09:41:33
[2017-09-13] MEDS ORDERED: POTASSIUM CHLORIDE 10 MEQ TABLET.SA PO SCH (10:00)
[2017-09-13] MEDS ORDERED: HEPARIN SOD (PORCINE) 1,000 UNIT/ML 10 ML VIAL IV PRN (10:18)
[2017-09-13] MEDS: HEPARIN SOD (PORCINE) 5,000 UNIT/ML 1 ML SYRINGE SUBCUT SCH ×2 (11:37→21:43)
[2017-09-13] MEDS: ATORVASTATIN CALCIUM 40 MG TABLET PO SCH (11:38)
[2017-09-13] MEDS: CARVEDILOL 12.5 MG TABLET PO SCH ×2 (11:38→22:09)
--- NOTE | 2017-09-13 11:49 | PDOC PROGRESS REPORT ---
Subjective Progress Note for:: 09/13/17 Reason For Visit: Seen on dialysis today.Undergoing dialysis without any issues.Says he is feeling much better after started on dialysis. His dyspnea with exertion has improved.Appetite is better.Denies any chest pains, fever or chills.Labs and meds were reviewed. Dialysis orders were discussed with treating enamel shader. Physical Exam Vital Signs: Temp Pulse Resp BP Pulse Ox 98.5 F 86 16 147/78 H 95 09/13/17 03:25 09/13/17 08:53 09/13/17 08:53 09/13/17 03:25 09/13/17 08:53 Pulse Oximeter Continuous Start: 09/07/17 11: 27 Freq: RTQ4 Status: Active Document 09/13/17 08:53 HCR (Rec: 09/13/17 10:48 HCR [email or web address]) Pulse Oximetry Assessment Oxygen Saturation (92-100) 95 Oxygen Delivery Method Room Air Fraction of Inspired Oxygen (FIO2) 21 Equipment Usage Equipment in Use Continuous SpO2 Machine # 6 Intake & Output 09/12/17 09/13/17 09/14/17 06:59 06:59 06:59 Intake Total 2360 2158 Output Total 2750 1175 Balance -390 983 Weight 90.8 kg 91.3 kg General appearance: PRESENT: no acute distress Respiratory exam: PRESENT: clear to auscultation matthew. ABSENT: crackles Cardiovascular exam: PRESENT: +S1, +S2, systolic murmur GI/Abdominal exam: PRESENT: distended, soft, tenderness. ABSENT: firm, guarding Extremities exam: PRESENT: +2 edema Neurological exam: PRESENT: awake, oriented to person, oriented to place, oriented to time Results Laboratory Results: 09/12/17 11:48 09/13/17 04:35 09/12/17 09/12/17 09/13/17 11:48 11:48 04:35 WBC 9.6 RBC 3.29 L Hgb 10.2 L Hct 30.2 L MCV 92 MCH 31.0 MCHC 33.8 RDW 13.7 Plt Count 219 Sodium 134.1 L 135.6 L Potassium 3.2 L 3.4 L Chloride 100 103 Carbon Dioxide 25 24 Anion Gap 9 9 BUN 43 H 47 H Creatinine 5.31 H 5.64 H Est GFR ( Amer) 13 L 12 L Est GFR (Non-Af Amer) 11 L 10 L Glucose 98 104 Calcium 7.7 L 8.0 L 09/10/17 17:40 Catheter Tip Site Gram Stain - Final 09/10/17 17:40 Catheter Tip Site Wound Culture - Final NO GROWTH 3 DAYS 09/07/17 13:34 Blood Blood Culture - Final NO GROWTH IN 5 DAYS 09/07/17 13:28 Blood Blood Culture - Final NO GROWTH IN 5 DAYS 09/04/17 09/04/17 09/04/17 08:55 16:40 21:00 Troponin I 0.049 0.029 0.028 09/07/17 09/07/17 09/07/17 13:28 16:55 21:25 Troponin I 0.128 0.095 0.079 Impressions: Abdomen/Pelvis CTA 09/03/17 18:19 IMPRESSION: 1. FINDINGS IN THE APPENDIX SUSPICIOUS FOR EARLY ACUTE APPENDICITIS. NO EVIDENCE OF ABSCESS OR PERFORATION. THERE IS A SMALL AMOUNT OF FREE FLUID IN THE RIGHT UPPER QUADRANT WHICH MAY BE RELATED TO APPENDICITIS. 2. NO EVIDENCE OF AORTIC ANEURYSM OR DISSECTION. THE MAJOR MESENTERIC VESSELS ARE PATENT. THE LEFT COMMON ILIAC AND LEFT EXTERNAL ILIAC ARTERIES ARE OCCLUDED WITH FILLING DISTALLY VIA COLLATERALS, SUGGESTING THAT THIS IS PROBABLY A CHRONIC FINDING. 3. COLONIC DIVERTICULOSIS. NO CT FINDINGS OF ACUTE DIVERTICULITIS. 4. CORTICAL CYSTS IN THE RIGHT KIDNEY. 5. NO OTHER SIGNIFICANT FINDINGS. Chest/Abdomen CTA 09/03/17 18:19 IMPRESSION: NORMAL CTA OF THE CHEST. NO AORTIC ANEURYSM OR DISSECTION. NO PULMONARY EMBOLI. Renal Ultrasound 09/10/17 09:34 IMPRESSION: UNREMARKABLE RENAL AND BLADDER ULTRASOUND. Chest X-Ray 09/11/17 00:00 IMPRESSION: NO PNEUMOTHORAX FOLLOWING CATHETER PLACEMENT. NO CHANGE IN APPEARANCE OF THE CHEST. Assessment & Plan - Diagnosis (1) Acute renal failure Qualifiers: Acute renal failure type: unspecified Qualified Code(s): N17.9 - Acute kidney failure, unspecified Is this a current diagnosis for this admission?: Yes Plan: Stable. He is undergoing HD without any issues. VS are stable.Plan to remove 3 l of fluid as tolerated.Orders were discussed with treating HD RN Rhea. (2) Cardiomyopathy Qualifiers: Cardiomyopathy type: unspecified Qualified Code(s): I42.9 - Cardiomyopathy , unspecified Is this a current diagnosis for this admission?: Yes Plan: Underlying Ischemic CMP with recent ECHO which I reviewed which shows LVEF of 35 - 40 % with diastolic dysfunction, and segmental dyskinesia. Given the above situation with progressive CLARISSA and decreasing renal OP. Initiated on HD and feeling better. (3) Coronary artery disease Qualifiers: Coronary Disease-Associated Artery/Lesion type: [place] artery [place] vs. transplanted heart: [place] heart Associated angina: angina presence unspecified Qualified Code(s): I25.10 - Atherosclerotic heart disease of [place] coronary artery without angina pectoris Is this a current diagnosis for this admission?: Yes Plan: Stable. (4) Fluid overload Is this a current diagnosis for this admission?: Yes Plan: CHF is responding to the dialysis. (5) Ruptured acute appendicitis with periton Is this a current diagnosis for this admission?: Yes Plan: S/P Laparotomy and appropriate surgery in association with multiple antibiotics to cover poly microbes mainly - Gram negative and anaerobes.Currently off all antibiotics per recommendation of ID as per perusal of DR Alcantara's notes.
--- NOTE | 2017-09-13 15:11 | PDOC PROGRESS REPORT ---
Subjective Progress Note for:: 09/13/17 Subjective:: pateint feeling better, improved appetite and BM today Reason For Visit: RUPTURED ACUTE APPENDICITIS WITH PERITONITIS Physical Exam Vital Signs: Temp Pulse Resp BP Pulse Ox 97.9 F 90 20 98/50 L 96 09/13/17 12:40 09/13/17 14:00 09/13/17 12:40 09/13/17 12:40 09/13/17 12:40 Pulse Oximeter Continuous Start: 09/07/17 11: 27 Freq: RTQ4 Status: Complete Document 09/13/17 08:53 HCR (Rec: 09/13/17 10:48 HCR [email or web address]) Pulse Oximetry Assessment Oxygen Saturation (92-100) 95 Oxygen Delivery Method Room Air Fraction of Inspired Oxygen (FIO2) 21 Equipment Usage Equipment in Use Continuous SpO2 Machine # 6 Intake & Output 09/12/17 09/13/17 09/14/17 06:59 06:59 06:59 Intake Total 2360 2158 437 Output Total 2750 1175 250 Balance -390 983 187 Weight 90.8 kg 91.3 kg General appearance: PRESENT: no acute distress Respiratory exam: PRESENT: clear to auscultation matthew Cardiovascular exam: PRESENT: RRR GI/Abdominal exam: PRESENT: soft, other - incision c/d/i Results Laboratory Results: 09/12/17 11:48 09/13/17 04:35 09/13/17 04:35 Sodium 135.6 L Potassium 3.4 L Chloride 103 Carbon Dioxide 24 Anion Gap 9 BUN 47 H Creatinine 5.64 H Est GFR ( Amer) 12 L Est GFR (Non-Af Amer) 10 L Glucose 104 Calcium 8.0 L 09/10/17 17:40 Catheter Tip Site Gram Stain - Final 09/10/17 17:40 Catheter Tip Site Wound Culture - Final NO GROWTH 3 DAYS 09/07/17 13:34 Blood Blood Culture - Final NO GROWTH IN 5 DAYS 09/07/17 13:28 Blood Blood Culture - Final NO GROWTH IN 5 DAYS 09/04/17 09/04/17 09/04/17 08:55 16:40 21:00 Troponin I 0.049 0.029 0.028 09/07/17 09/07/17 09/07/17 13:28 16:55 21:25 Troponin I 0.128 0.095 0.079 Impressions: Abdomen/Pelvis CTA 09/03/17 18:19 IMPRESSION: 1. FINDINGS IN THE APPENDIX SUSPICIOUS FOR EARLY ACUTE APPENDICITIS. NO EVIDENCE OF ABSCESS OR PERFORATION. THERE IS A SMALL AMOUNT OF FREE FLUID IN THE RIGHT UPPER QUADRANT WHICH MAY BE RELATED TO APPENDICITIS. 2. NO EVIDENCE OF AORTIC ANEURYSM OR DISSECTION. THE MAJOR MESENTERIC VESSELS ARE PATENT. THE LEFT COMMON ILIAC AND LEFT EXTERNAL ILIAC ARTERIES ARE OCCLUDED WITH FILLING DISTALLY VIA COLLATERALS, SUGGESTING THAT THIS IS PROBABLY A CHRONIC FINDING. 3. COLONIC DIVERTICULOSIS. NO CT FINDINGS OF ACUTE DIVERTICULITIS. 4. CORTICAL CYSTS IN THE RIGHT KIDNEY. 5. NO OTHER SIGNIFICANT FINDINGS. Chest/Abdomen CTA 09/03/17 18:19 IMPRESSION: NORMAL CTA OF THE CHEST. NO AORTIC ANEURYSM OR DISSECTION. NO PULMONARY EMBOLI. Renal Ultrasound 09/10/17 09:34 IMPRESSION: UNREMARKABLE RENAL AND BLADDER ULTRASOUND. Chest X-Ray 09/11/17 00:00 IMPRESSION: NO PNEUMOTHORAX FOLLOWING CATHETER PLACEMENT. NO CHANGE IN APPEARANCE OF THE CHEST. Assessment & Plan - Diagnosis (1) Ruptured acute appendicitis with periton Is this a current diagnosis for this admission?: Yes - Plan Summary Plan Summary: A/ S/p open appendectomy for perforated appendicitis Much improved breathing pattern Abdominal wound well healing with retentions sutures Creatinine 5.3 today (decreased since yesterday) Slow increase in UO P/ Continue current management as per Hospitalist Remove remaining retention sutures No General Surgery issues identified
[2017-09-13] MEDS ORDERED: LEVALBUTEROL HCL NEB 1.25 MG/3 ML AMPUL NEB PRN (17:53)
--- NOTE | 2017-09-13 18:31 | PDOC PROGRESS REPORT ---
Subjective Progress Note for:: 09/13/17 Subjective:: Patient is undergoing dialysis; creatinine is around 5 He is quite stable No shortness of breath no chest pain Reason For Visit: RUPTURED ACUTE APPENDICITIS WITH PERITONITIS Physical Exam Vital Signs: Temp Pulse Resp BP Pulse Ox 97.9 F 80 17 98/50 L 93 09/13/17 12:40 09/13/17 16:19 09/13/17 16:19 09/13/17 12:40 09/13/17 16:19 Pulse Oximeter Continuous Start: 09/07/17 11: 27 Freq: RTQ4 Status: Complete Document 09/13/17 08:53 HCR (Rec: 09/13/17 10:48 HCR [email or web address]) Pulse Oximetry Assessment Oxygen Saturation (92-100) 95 Oxygen Delivery Method Room Air Fraction of Inspired Oxygen (FIO2) 21 Equipment Usage Equipment in Use Continuous SpO2 Machine # 6 Intake & Output 09/12/17 09/13/17 09/14/17 00:59 00:59 00:59 Intake Total 1357 3281 777 Output Total 2950 1025 3150 Balance -1593 2256 -2373 Weight 94.1 kg 90.8 kg 91.3 kg General appearance: PRESENT: no acute distress, cooperative Head exam: PRESENT: atraumatic, normocephalic Eye exam: PRESENT: conjunctiva pink, EOMI, PERRLA. ABSENT: scleral icterus Neck exam: ABSENT: carotid bruit, JVD, lymphadenopathy, thyromegaly Respiratory exam: PRESENT: clear to auscultation matthew. ABSENT: rales, rhonchi, wheezes Cardiovascular exam: PRESENT: RRR. ABSENT: diastolic murmur, rubs, systolic murmur Pulses: PRESENT: normal dorsalis pedis pul GI/Abdominal exam: PRESENT: normal bowel sounds, soft. ABSENT: distended, guarding, mass, organolmegaly, rebound, tenderness Extremities exam: PRESENT: full ROM. ABSENT: calf tenderness, clubbing, pedal edema Neurological exam: PRESENT: alert, awake, oriented to person, oriented to place , oriented to time, oriented to situation, CN II-XII grossly intact. ABSENT: motor sensory deficit Results Laboratory Results: 09/12/17 11:48 09/13/17 04:35 09/13/17 04:35 Sodium 135.6 L Potassium 3.4 L Chloride 103 Carbon Dioxide 24 Anion Gap 9 BUN 47 H Creatinine 5.64 H Est GFR ( Amer) 12 L Est GFR (Non-Af Amer) 10 L Glucose 104 Calcium 8.0 L 09/10/17 17:40 Catheter Tip Site Gram Stain - Final 09/10/17 17:40 Catheter Tip Site Wound Culture - Final NO GROWTH 3 DAYS 09/04/17 09/04/17 09/04/17 08:55 16:40 21:00 Troponin I 0.049 0.029 0.028 09/07/17 09/07/17 09/07/17 13:28 16:55 21:25 Troponin I 0.128 0.095 0.079 Impressions: Abdomen/Pelvis CTA 09/03/17 18:19 IMPRESSION: 1. FINDINGS IN THE APPENDIX SUSPICIOUS FOR EARLY ACUTE APPENDICITIS. NO EVIDENCE OF ABSCESS OR PERFORATION. THERE IS A SMALL AMOUNT OF FREE FLUID IN THE RIGHT UPPER QUADRANT WHICH MAY BE RELATED TO APPENDICITIS. 2. NO EVIDENCE OF AORTIC ANEURYSM OR DISSECTION. THE MAJOR MESENTERIC VESSELS ARE PATENT. THE LEFT COMMON ILIAC AND LEFT EXTERNAL ILIAC ARTERIES ARE OCCLUDED WITH FILLING DISTALLY VIA COLLATERALS, SUGGESTING THAT THIS IS PROBABLY A CHRONIC FINDING. 3. COLONIC DIVERTICULOSIS. NO CT FINDINGS OF ACUTE DIVERTICULITIS. 4. CORTICAL CYSTS IN THE RIGHT KIDNEY. 5. NO OTHER SIGNIFICANT FINDINGS. Chest/Abdomen CTA 09/03/17 18:19 IMPRESSION: NORMAL CTA OF THE CHEST. NO AORTIC ANEURYSM OR DISSECTION. NO PULMONARY EMBOLI. Renal Ultrasound 09/10/17 09:34 IMPRESSION: UNREMARKABLE RENAL AND BLADDER ULTRASOUND. Chest X-Ray 09/11/17 00:00 IMPRESSION: NO PNEUMOTHORAX FOLLOWING CATHETER PLACEMENT. NO CHANGE IN APPEARANCE OF THE CHEST. Assessment & Plan - Diagnosis (1) Hypertension Qualifiers: Hypertension type: essential hypertension Qualified Code(s): I10 - Essential (primary) hypertension Is this a current diagnosis for this admission?: Yes (2) Respiratory failure Qualifiers: Respiratory failure complication: hypoxia Is this a current diagnosis for this admission?: Yes (3) Ruptured acute appendicitis with periton Is this a current diagnosis for this admission?: Yes (4) Acute renal failure Qualifiers: Acute renal failure type: unspecified Qualified Code(s): N17.9 - Acute kidney failure, unspecified Is this a current diagnosis for this admission?: Yes (5) Fluid overload Is this a current diagnosis for this admission?: Yes (6) Metabolic encephalopathy Is this a current diagnosis for this admission?: Yes Plan: Resolved patient's mentation is excellent - Time Time Spent with patient: Continue hemodialysis as per nephrology Time Spent with patient: 25-34 minutes
[2017-09-13] MEDS: POTASSIUM CHLORIDE 10 MEQ TABLET.SA PO SCH (22:09)
[2017-09-14 07:01] LABS: ANION GAP 7 (5-19); BLOOD UREA NITROGEN 43 mg/dL (7-20); CARBON DIOXIDE 29 mmol/L (22-30); CHLORIDE 104 mmol/L (98-107); GLUCOSE 113 mg/dL (75-110); POTASSIUM 3.5 mmol/L (3.6-5.0); SODIUM 139.8 mmol/L (137-145)
[2017-09-14] MEDS: POTASSIUM CHLORIDE 10 MEQ TABLET.SA PO SCH ×2 (09:45→21:30)
[2017-09-14] MEDS: CARVEDILOL 12.5 MG TABLET PO SCH ×2 (09:45→21:30)
[2017-09-14] MEDS: ATORVASTATIN CALCIUM 40 MG TABLET PO SCH (09:45)
[2017-09-14] MEDS: HEPARIN SOD (PORCINE) 5,000 UNIT/ML 1 ML SYRINGE SUBCUT SCH ×2 (09:45→21:30)
[2017-09-14] MEDS: FUROSEMIDE 20 MG TABLET PO SCH ×2 (09:45→18:01)
[2017-09-14] MEDS: GUAIFENESIN SYRP 200 MG/10 ML UDC PO PRN ×2 (13:47→21:30)
--- NOTE | 2017-09-14 14:40 | PDOC PROGRESS REPORT ---
Subjective Progress Note for:: 09/14/17 Subjective:: Patient is doing well He has no complaints Scheduled to undergo dialysis tomorrow Reason For Visit: RUPTURED ACUTE APPENDICITIS WITH PERITONITIS Physical Exam Vital Signs: Temp Pulse Resp BP Pulse Ox 98.1 F 89 16 135/68 H 95 09/14/17 11:44 09/14/17 11:44 09/14/17 11:44 09/14/17 11:44 09/14/17 11:44 Pulse Oximeter Continuous Start: 09/07/17 11: 27 Freq: RTQ4 Status: Complete Document 09/13/17 08:53 HCR (Rec: 09/13/17 10:48 HCR [email or web address]) Pulse Oximetry Assessment Oxygen Saturation (92-100) 95 Oxygen Delivery Method Room Air Fraction of Inspired Oxygen (FIO2) 21 Equipment Usage Equipment in Use Continuous SpO2 Machine # 6 Intake & Output 09/13/17 09/14/17 09/15/17 00:59 00:59 00:59 Intake Total 3281 1427 1244 Output Total 1025 3450 375 Balance 2255 -2022 869 90.8 kg 91.3 kg 90.1 kg General appearance: PRESENT: no acute distress, cooperative Head exam: PRESENT: atraumatic, normocephalic Eye exam: PRESENT: conjunctiva pink, EOMI, PERRLA. ABSENT: scleral icterus Neck exam: ABSENT: carotid bruit, JVD, lymphadenopathy, thyromegaly Respiratory exam: PRESENT: clear to auscultation matthew. ABSENT: rales, rhonchi, wheezes Cardiovascular exam: PRESENT: RRR. ABSENT: diastolic murmur, rubs, systolic murmur Pulses: PRESENT: normal dorsalis pedis pul GI/Abdominal exam: PRESENT: normal bowel sounds, soft. ABSENT: distended, guarding, mass, organolmegaly, rebound, tenderness Extremities exam: PRESENT: full ROM. ABSENT: calf tenderness, clubbing, pedal edema Neurological exam: PRESENT: alert, awake, oriented to person, oriented to place , oriented to time, oriented to situation, CN II-XII grossly intact. ABSENT: motor sensory deficit Results Laboratory Results: 09/12/17 11:48 09/14/17 06:15 09/14/17 06:15 Sodium 139.8 Potassium 3.5 L Chloride 104 Carbon Dioxide 29 Anion Gap 7 BUN 43 H Creatinine 5.40 H Est GFR ( Amer) 13 L Est GFR (Non-Af Amer) 11 L Glucose 113 H Calcium 8.0 L 09/04/17 09/04/17 09/04/17 08:55 16:40 21:00 Troponin I 0.049 0.029 0.028 09/07/17 09/07/17 09/07/17 13:28 16:55 21:25 Troponin I 0.128 0.095 0.079 Impressions: Abdomen/Pelvis CTA 09/03/17 18:19 IMPRESSION: 1. FINDINGS IN THE APPENDIX SUSPICIOUS FOR EARLY ACUTE APPENDICITIS. NO EVIDENCE OF ABSCESS OR PERFORATION. THERE IS A SMALL AMOUNT OF FREE FLUID IN THE RIGHT UPPER QUADRANT WHICH MAY BE RELATED TO APPENDICITIS. 2. NO EVIDENCE OF AORTIC ANEURYSM OR DISSECTION. THE MAJOR MESENTERIC VESSELS ARE PATENT. THE LEFT COMMON ILIAC AND LEFT EXTERNAL ILIAC ARTERIES ARE OCCLUDED WITH FILLING DISTALLY VIA COLLATERALS, SUGGESTING THAT THIS IS PROBABLY A CHRONIC FINDING. 3. COLONIC DIVERTICULOSIS. NO CT FINDINGS OF ACUTE DIVERTICULITIS. 4. CORTICAL CYSTS IN THE RIGHT KIDNEY. 5. NO OTHER SIGNIFICANT FINDINGS. Chest/Abdomen CTA 09/03/17 18:19 IMPRESSION: NORMAL CTA OF THE CHEST. NO AORTIC ANEURYSM OR DISSECTION. NO PULMONARY EMBOLI. Renal Ultrasound 09/10/17 09:34 IMPRESSION: UNREMARKABLE RENAL AND BLADDER ULTRASOUND. Chest X-Ray 09/11/17 00:00 IMPRESSION: NO PNEUMOTHORAX FOLLOWING CATHETER PLACEMENT. NO CHANGE IN APPEARANCE OF THE CHEST. Assessment & Plan - Diagnosis (1) Hypertension Qualifiers: Qualified Code(s): I10 - Essential (primary) hypertension Is this a current diagnosis for this admission?: Yes Plan: Essential hypertension controlled (2) Respiratory failure Is this a current diagnosis for this admission?: Yes Plan: Improved resolved Respiratory failure was secondary to sepsis which has resolved this time (3) Ruptured acute appendicitis with periton Is this a current diagnosis for this admission?: Yes Plan: Resolved Patient is off antibiotics at this time (4) Acute renal failure Qualifiers: Qualified Code(s): N17.9 - Acute kidney failure, unspecified Is this a current diagnosis for this admission?: Yes Plan: Acute renal failure secondary to vancomycin toxicity and likely sepsis on admission Continue hemodialysis Management as per nephrology (5) Fluid overload Is this a current diagnosis for this admission?: Yes Plan: Improved Patient's dyspnea has resolved (6) Metabolic encephalopathy Is this a current diagnosis for this admission?: Yes
--- NOTE | 2017-09-14 14:44 | PDOC PROGRESS REPORT ---
Subjective Progress Note for:: 09/14/17 Subjective:: Patient was seen today sitting up in his chair. At the time he was doing well. He denied chest pain, sob, fevers, chills, nausea or vomiting. Has been having slightly looser stools since he has been in the hospital. Stool culture was negative. He has been producing between 800 to 1100mL of fluid a day. Reason For Visit: RUPTURED ACUTE APPENDICITIS WITH PERITONITIS Physical Exam Vital Signs: Temp Pulse Resp BP Pulse Ox 98.1 F 89 16 135/68 H 95 09/14/17 11:44 09/14/17 11:44 09/14/17 11:44 09/14/17 11:44 09/14/17 11:44 Pulse Oximeter Continuous Start: 09/07/17 11: 27 Freq: RTQ4 Status: Complete Document 09/13/17 08:53 HCR (Rec: 09/13/17 10:48 HCR [email or web address]) Pulse Oximetry Assessment Oxygen Saturation (92-100) 95 Oxygen Delivery Method Room Air Fraction of Inspired Oxygen (FIO2) 21 Equipment Usage Equipment in Use Continuous SpO2 Machine # 6 Intake & Output 09/13/17 09/14/17 09/15/17 06:59 06:59 06:59 Intake Total 2158 1417 1024 Output Total 1175 3250 275 Balance 983 -1833 749 Weight 91.3 kg 90.1 kg General appearance: PRESENT: no acute distress, well-developed, well-nourished Mouth exam: PRESENT: moist, neck supple Neck exam: PRESENT: full ROM. ABSENT: JVD Respiratory exam: PRESENT: clear to auscultation matthew. ABSENT: accessory muscle use, crackles, rales, rhonchi, wheezes Cardiovascular exam: PRESENT: +S1, +S2, systolic murmur GI/Abdominal exam: PRESENT: distended, soft, tenderness. ABSENT: firm, guarding Extremities exam: PRESENT: +1 edema. ABSENT: pedal edema, tenderness, +2 edema Musculoskeletal exam: ABSENT: normal inspection, tenderness Neurological exam: PRESENT: alert, awake, oriented to person, oriented to place , oriented to time, oriented to situation Psychiatric exam: PRESENT: appropriate affect, normal mood Skin exam: PRESENT: dry, intact, warm. ABSENT: cyanosis Results Laboratory Results: 09/12/17 11:48 09/14/17 06:15 09/14/17 06:15 Sodium 139.8 Potassium 3.5 L Chloride 104 Carbon Dioxide 29 Anion Gap 7 BUN 43 H Creatinine 5.40 H Est GFR ( Amer) 13 L Est GFR (Non-Af Amer) 11 L Glucose 113 H Calcium 8.0 L 09/04/17 09/04/17 09/04/17 08:55 16:40 21:00 Troponin I 0.049 0.029 0.028 09/07/17 09/07/17 09/07/17 13:28 16:55 21:25 Troponin I 0.128 0.095 0.079 Impressions: Abdomen/Pelvis CTA 09/03/17 18:19 IMPRESSION: 1. FINDINGS IN THE APPENDIX SUSPICIOUS FOR EARLY ACUTE APPENDICITIS. NO EVIDENCE OF ABSCESS OR PERFORATION. THERE IS A SMALL AMOUNT OF FREE FLUID IN THE RIGHT UPPER QUADRANT WHICH MAY BE RELATED TO APPENDICITIS. 2. NO EVIDENCE OF AORTIC ANEURYSM OR DISSECTION. THE MAJOR MESENTERIC VESSELS ARE PATENT. THE LEFT COMMON ILIAC AND LEFT EXTERNAL ILIAC ARTERIES ARE OCCLUDED WITH FILLING DISTALLY VIA COLLATERALS, SUGGESTING THAT THIS IS PROBABLY A CHRONIC FINDING. 3. COLONIC DIVERTICULOSIS. NO CT FINDINGS OF ACUTE DIVERTICULITIS. 4. CORTICAL CYSTS IN THE RIGHT KIDNEY. 5. NO OTHER SIGNIFICANT FINDINGS. Chest/Abdomen CTA 09/03/17 18:19 IMPRESSION: NORMAL CTA OF THE CHEST. NO AORTIC ANEURYSM OR DISSECTION. NO PULMONARY EMBOLI. Renal Ultrasound 09/10/17 09:34 IMPRESSION: UNREMARKABLE RENAL AND BLADDER ULTRASOUND. Chest X-Ray 09/11/17 00:00 IMPRESSION: NO PNEUMOTHORAX FOLLOWING CATHETER PLACEMENT. NO CHANGE IN APPEARANCE OF THE CHEST. Assessment & Plan - Diagnosis (1) Acute renal failure Qualifiers: Acute renal failure type: unspecified Qualified Code(s): N17.9 - Acute kidney failure, unspecified Is this a current diagnosis for this admission?: Yes Plan: will continue with dialysis tomorrow, Dr. Márquez will place a permcath on Monday and then he can discharged and do dialysis as outpatient. (2) Hypokalemia Plan: currently on PO potassium 20mEQ BID, looks to be improving. Will continue on current dose (3) Cardiomyopathy Qualifiers: Cardiomyopathy type: unspecified Qualified Code(s): I42.9 - Cardiomyopathy , unspecified Is this a current diagnosis for this admission?: Yes Plan: currently on HD, showing some improvements (4) Coronary artery disease Qualifiers: Coronary Disease-Associated Artery/Lesion type: [place] artery [place] vs. transplanted heart: [place] heart Associated angina: angina presence unspecified Qualified Code(s): I25.10 - Atherosclerotic heart disease of [place] coronary artery without angina pectoris Is this a current diagnosis for this admission?: Yes Plan: stable (5) Fluid overload Is this a current diagnosis for this admission?: Yes Plan: improving with the help of HD, will look to continue to remove fluid. Currently not needing oxygen. (6) Ruptured acute appendicitis with periton Is this a current diagnosis for this admission?: Yes Plan: currently off antibiotics, no fevers currently (7) Hypertension Qualifiers: Hypertension type: essential hypertension Qualified Code(s): I10 - Essential (primary) hypertension Is this a current diagnosis for this admission?: Yes Plan: varying
--- NOTE | 2017-09-14 16:08 | PDOC PROGRESS REPORT ---
Subjective Progress Note for:: 09/14/17 Subjective:: no pains Reason For Visit: RUPTURED ACUTE APPENDICITIS WITH PERITONITIS Abdominal incision with blood stain on upper dressing but the incision just slightly red. Anew dressing placed and abdominal binder replaced. Stil with edema both LE Physical Exam Vital Signs: Temp Pulse Resp BP Pulse Ox 98.1 F 89 16 135/68 H 95 09/14/17 11:44 09/14/17 11:44 09/14/17 11:44 09/14/17 11:44 09/14/17 11:44 Pulse Oximeter Continuous Start: 09/07/17 11: 27 Freq: RTQ4 Status: Complete Document 09/13/17 08:53 HCR (Rec: 09/13/17 10:48 HCR [email or web address]) Pulse Oximetry Assessment Oxygen Saturation (92-100) 95 Oxygen Delivery Method Room Air Fraction of Inspired Oxygen (FIO2) 21 Equipment Usage Equipment in Use Continuous SpO2 Machine # 6 Intake & Output 09/13/17 09/14/17 09/15/17 06:59 06:59 06:59 Intake Total 2158 1417 1024 Output Total 1175 3250 275 Balance 983 -1833 749 Weight 91.3 kg 90.1 kg Results Laboratory Results: 09/12/17 11:48 09/14/17 06:15 09/14/17 06:15 Sodium 139.8 Potassium 3.5 L Chloride 104 Carbon Dioxide 29 Anion Gap 7 BUN 43 H Creatinine 5.40 H Est GFR ( Amer) 13 L Est GFR (Non-Af Amer) 11 L Glucose 113 H Calcium 8.0 L 09/04/17 09/04/17 09/04/17 08:55 16:40 21:00 Troponin I 0.049 0.029 0.028 09/07/17 09/07/17 09/07/17 13:28 16:55 21:25 Troponin I 0.128 0.095 0.079 Impressions: Abdomen/Pelvis CTA 09/03/17 18:19 IMPRESSION: 1. FINDINGS IN THE APPENDIX SUSPICIOUS FOR EARLY ACUTE APPENDICITIS. NO EVIDENCE OF ABSCESS OR PERFORATION. THERE IS A SMALL AMOUNT OF FREE FLUID IN THE RIGHT UPPER QUADRANT WHICH MAY BE RELATED TO APPENDICITIS. 2. NO EVIDENCE OF AORTIC ANEURYSM OR DISSECTION. THE MAJOR MESENTERIC VESSELS ARE PATENT. THE LEFT COMMON ILIAC AND LEFT EXTERNAL ILIAC ARTERIES ARE OCCLUDED WITH FILLING DISTALLY VIA COLLATERALS, SUGGESTING THAT THIS IS PROBABLY A CHRONIC FINDING. 3. COLONIC DIVERTICULOSIS. NO CT FINDINGS OF ACUTE DIVERTICULITIS. 4. CORTICAL CYSTS IN THE RIGHT KIDNEY. 5. NO OTHER SIGNIFICANT FINDINGS. Chest/Abdomen CTA 09/03/17 18:19 IMPRESSION: NORMAL CTA OF THE CHEST. NO AORTIC ANEURYSM OR DISSECTION. NO PULMONARY EMBOLI. Renal Ultrasound 09/10/17 09:34 IMPRESSION: UNREMARKABLE RENAL AND BLADDER ULTRASOUND. Chest X-Ray 09/11/17 00:00 IMPRESSION: NO PNEUMOTHORAX FOLLOWING CATHETER PLACEMENT. NO CHANGE IN APPEARANCE OF THE CHEST. Assessment & Plan - Diagnosis (1) Ruptured acute appendicitis with periton Is this a current diagnosis for this admission?: Yes - Time Time Spent with patient: 15-24 minutes - Plan Summary Plan Summary: For HD tomorrow Cret and BUN still elevated Continue IV antibiotics. Toerating diet well
--- NOTE | 2017-09-14 21:45 | PDOC PROGRESS REPORT ---
Subjective Progress Note for:: 09/14/17 Subjective:: Nausea,w/o vomiting Reason For Visit: RUPTURED ACUTE APPENDICITIS WITH PERITONITIS Physical Exam Vital Signs: Temp Pulse Resp BP Pulse Ox 98.5 F 100 16 146/68 H 97 09/14/17 19:24 09/14/17 19:24 09/14/17 19:24 09/14/17 19:24 09/14/17 19:24 Pulse Oximeter Continuous Start: 09/07/17 11: 27 Freq: RTQ4 Status: Complete Document 09/13/17 08:53 HCR (Rec: 09/13/17 10:48 HCR [email or web address]) Pulse Oximetry Assessment Oxygen Saturation (92-100) 95 Oxygen Delivery Method Room Air Fraction of Inspired Oxygen (FIO2) 21 Equipment Usage Equipment in Use Continuous SpO2 Machine # 6 Intake & Output 09/13/17 09/14/17 09/15/17 06:59 06:59 06:59 Intake Total 2158 1417 1274 Output Total 1175 3250 575 Balance 983 -1833 699 Weight 91.3 kg 90.1 kg General appearance: PRESENT: no acute distress, cooperative, disheveled, obese Head exam: PRESENT: atraumatic, normocephalic Eye exam: PRESENT: conjunctiva pale, EOMI. ABSENT: nystagmus, periorbital swelling, scleral icterus Mouth exam: PRESENT: dry mucosa, neck supple, tongue midline Neck exam: ABSENT: carotid bruit, JVD, lymphadenopathy, thyromegaly, tracheal deviation, tracheostomy Respiratory exam: PRESENT: decreased breath sounds, prolonged expiratory phas, rhonchi, symmetrical, unlabored, wheezes. ABSENT: retraction, stridor, tachypnea Cardiovascular exam: PRESENT: RRR, +S1, +S2, systolic murmur. ABSENT: tachycardia Pulses: PRESENT: normal radial pulses GI/Abdominal exam: PRESENT: diminished bowel sounds, soft Extremities exam: ABSENT: calf tenderness, clubbing, joint swelling Musculoskeletal exam: ABSENT: deformity, dislocation Neurological exam: PRESENT: alert, awake Psychiatric exam: PRESENT: flat affect Skin exam: PRESENT: dry, warm Results Laboratory Results: 09/12/17 11:48 09/14/17 06:15 09/14/17 06:15 Sodium 139.8 Potassium 3.5 L Chloride 104 Carbon Dioxide 29 Anion Gap 7 BUN 43 H Creatinine 5.40 H Est GFR ( Amer) 13 L Est GFR (Non-Af Amer) 11 L Glucose 113 H Calcium 8.0 L 09/04/17 09/04/17 09/04/17 08:55 16:40 21:00 Troponin I 0.049 0.029 0.028 09/07/17 09/07/17 09/07/17 13:28 16:55 21:25 Troponin I 0.128 0.095 0.079 Impressions: Abdomen/Pelvis CTA 09/03/17 18:19 IMPRESSION: 1. FINDINGS IN THE APPENDIX SUSPICIOUS FOR EARLY ACUTE APPENDICITIS. NO EVIDENCE OF ABSCESS OR PERFORATION. THERE IS A SMALL AMOUNT OF FREE FLUID IN THE RIGHT UPPER QUADRANT WHICH MAY BE RELATED TO APPENDICITIS. 2. NO EVIDENCE OF AORTIC ANEURYSM OR DISSECTION. THE MAJOR MESENTERIC VESSELS ARE PATENT. THE LEFT COMMON ILIAC AND LEFT EXTERNAL ILIAC ARTERIES ARE OCCLUDED WITH FILLING DISTALLY VIA COLLATERALS, SUGGESTING THAT THIS IS PROBABLY A CHRONIC FINDING. 3. COLONIC DIVERTICULOSIS. NO CT FINDINGS OF ACUTE DIVERTICULITIS. 4. CORTICAL CYSTS IN THE RIGHT KIDNEY. 5. NO OTHER SIGNIFICANT FINDINGS. Chest/Abdomen CTA 09/03/17 18:19 IMPRESSION: NORMAL CTA OF THE CHEST. NO AORTIC ANEURYSM OR DISSECTION. NO PULMONARY EMBOLI. Renal Ultrasound 09/10/17 09:34 IMPRESSION: UNREMARKABLE RENAL AND BLADDER ULTRASOUND. Chest X-Ray 09/11/17 00:00 IMPRESSION: NO PNEUMOTHORAX FOLLOWING CATHETER PLACEMENT. NO CHANGE IN APPEARANCE OF THE CHEST. Assessment & Plan - Diagnosis (1) Respiratory failure Qualifiers: Respiratory failure complication: hypoxia Is this a current diagnosis for this admission?: Yes Plan: Nearing baseline (2) Hypertension Qualifiers: Hypertension type: essential hypertension Qualified Code(s): I10 - Essential (primary) hypertension Is this a current diagnosis for this admission?: Yes (3) Ruptured acute appendicitis with periton Is this a current diagnosis for this admission?: Yes Plan: As per surgery 09/03/17 21:40 Gram Stain - Final Abdominal Fluid Body Fluid Culture - Final Escherichia Coli Klebsiella Pneumoniae Enterococcus Gallinarum Bacteroides Fragilis Group Fusobacterium Species 09/03/17 18:18 Blood Culture - Final Blood Prevotella Species
--- NOTE | 2017-09-14 21:46 | PDOC PROGRESS REPORT ---
Subjective Progress Note for:: 09/13/17 Subjective:: Nausea,w/o vomiting Reason For Visit: RUPTURED ACUTE APPENDICITIS WITH PERITONITIS Physical Exam Vital Signs: Temp Pulse Resp BP Pulse Ox 98.5 F 86 16 147/78 H 95 09/13/17 03:25 09/13/17 08:53 09/13/17 08:53 09/13/17 03:25 09/13/17 08:53 Pulse Oximeter Continuous Start: 09/07/17 11: 27 Freq: RTQ4 Status: Active Document 09/13/17 08:53 HCR (Rec: 09/13/17 10:48 HCR [email or web address]) Pulse Oximetry Assessment Oxygen Saturation (92-100) 95 Oxygen Delivery Method Room Air Fraction of Inspired Oxygen (FIO2) 21 Equipment Usage Equipment in Use Continuous SpO2 Machine # 6 Intake & Output 09/12/17 09/13/17 09/14/17 06:59 06:59 06:59 Intake Total 2360 2158 Output Total 2750 1175 Balance -390 983 Weight 90.8 kg 91.3 kg General appearance: PRESENT: no acute distress, cooperative, disheveled, obese Head exam: PRESENT: atraumatic, normocephalic Eye exam: PRESENT: conjunctiva pale, EOMI. ABSENT: nystagmus, periorbital swelling, scleral icterus Mouth exam: PRESENT: dry mucosa, neck supple, tongue midline Neck exam: ABSENT: carotid bruit, JVD, lymphadenopathy, thyromegaly, tracheal deviation, tracheostomy Respiratory exam: PRESENT: decreased breath sounds, prolonged expiratory phas, rhonchi, symmetrical, unlabored. ABSENT: stridor, tachypnea Cardiovascular exam: PRESENT: RRR, +S1, +S2 Pulses: PRESENT: normal radial pulses GI/Abdominal exam: PRESENT: diminished bowel sounds, soft Extremities exam: ABSENT: calf tenderness, clubbing, joint swelling Musculoskeletal exam: ABSENT: deformity, dislocation Neurological exam: PRESENT: alert, awake Psychiatric exam: PRESENT: normal mood Skin exam: PRESENT: dry, warm Results Laboratory Results: 09/12/17 11:48 09/13/17 04:35 09/12/17 09/12/17 09/13/17 11:48 11:48 04:35 WBC 9.6 RBC 3.29 L Hgb 10.2 L Hct 30.2 L MCV 92 MCH 31.0 MCHC 33.8 RDW 13.7 Plt Count 219 Sodium 134.1 L 135.6 L Potassium 3.2 L 3.4 L Chloride 100 103 Carbon Dioxide 25 24 Anion Gap 9 9 BUN 43 H 47 H Creatinine 5.31 H 5.64 H Est GFR ( Amer) 13 L 12 L Est GFR (Non-Af Amer) 11 L 10 L Glucose 98 104 Calcium 7.7 L 8.0 L 09/10/17 17:40 Catheter Tip Site Gram Stain - Final 09/10/17 17:40 Catheter Tip Site Wound Culture - Final NO GROWTH 3 DAYS 09/07/17 13:34 Blood Blood Culture - Final NO GROWTH IN 5 DAYS 09/07/17 13:28 Blood Blood Culture - Final NO GROWTH IN 5 DAYS 09/04/17 09/04/17 09/04/17 08:55 16:40 21:00 Troponin I 0.049 0.029 0.028 09/07/17 09/07/17 09/07/17 13:28 16:55 21:25 Troponin I 0.128 0.095 0.079 Impressions: Abdomen/Pelvis CTA 09/03/17 18:19 IMPRESSION: 1. FINDINGS IN THE APPENDIX SUSPICIOUS FOR EARLY ACUTE APPENDICITIS. NO EVIDENCE OF ABSCESS OR PERFORATION. THERE IS A SMALL AMOUNT OF FREE FLUID IN THE RIGHT UPPER QUADRANT WHICH MAY BE RELATED TO APPENDICITIS. 2. NO EVIDENCE OF AORTIC ANEURYSM OR DISSECTION. THE MAJOR MESENTERIC VESSELS ARE PATENT. THE LEFT COMMON ILIAC AND LEFT EXTERNAL ILIAC ARTERIES ARE OCCLUDED WITH FILLING DISTALLY VIA COLLATERALS, SUGGESTING THAT THIS IS PROBABLY A CHRONIC FINDING. 3. COLONIC DIVERTICULOSIS. NO CT FINDINGS OF ACUTE DIVERTICULITIS. 4. CORTICAL CYSTS IN THE RIGHT KIDNEY. 5. NO OTHER SIGNIFICANT FINDINGS. Chest/Abdomen CTA 09/03/17 18:19 IMPRESSION: NORMAL CTA OF THE CHEST. NO AORTIC ANEURYSM OR DISSECTION. NO PULMONARY EMBOLI. Renal Ultrasound 09/10/17 09:34 IMPRESSION: UNREMARKABLE RENAL AND BLADDER ULTRASOUND. Chest X-Ray 09/11/17 00:00 IMPRESSION: NO PNEUMOTHORAX FOLLOWING CATHETER PLACEMENT. NO CHANGE IN APPEARANCE OF THE CHEST. Assessment & Plan - Diagnosis (1) Respiratory failure Qualifiers: Respiratory failure complication: hypoxia Is this a current diagnosis for this admission?: Yes Plan: Nearing baseline (2) Hypertension Qualifiers: Hypertension type: essential hypertension Qualified Code(s): I10 - Essential (primary) hypertension Is this a current diagnosis for this admission?: Yes (3) Ruptured acute appendicitis with periton Is this a current diagnosis for this admission?: Yes Plan: As per surgery 09/03/17 21:40 Gram Stain - Final Abdominal Fluid Body Fluid Culture - Final Escherichia Coli Klebsiella Pneumoniae Enterococcus Gallinarum Bacteroides Fragilis Group Fusobacterium Species 09/03/17 18:18 Blood Culture - Final Blood Prevotella Species
--- NOTE | 2017-09-14 21:47 | PDOC PROGRESS REPORT ---
Subjective Progress Note for:: 09/12/17 Subjective:: Nausea,w/o vomiting Reason For Visit: RUPTURED ACUTE APPENDICITIS WITH PERITONITIS Physical Exam Vital Signs: Temp Pulse Resp BP Pulse Ox 97.9 F 80 17 98/50 L 93 09/13/17 12:40 09/13/17 16:19 09/13/17 16:19 09/13/17 12:40 09/13/17 16:19 Pulse Oximeter Continuous Start: 09/07/17 11: 27 Freq: RTQ4 Status: Complete Document 09/13/17 08:53 HCR (Rec: 09/13/17 10:48 HCR [email or web address]) Pulse Oximetry Assessment Oxygen Saturation (92-100) 95 Oxygen Delivery Method Room Air Fraction of Inspired Oxygen (FIO2) 21 Equipment Usage Equipment in Use Continuous SpO2 Machine # 6 Intake & Output 09/12/17 09/13/17 09/14/17 06:59 06:59 06:59 Intake Total 2360 2158 547 Output Total 2750 1175 250 Balance -390 983 297 Weight 90.8 kg 91.3 kg General appearance: PRESENT: no acute distress, cooperative, disheveled, obese Head exam: PRESENT: atraumatic, normocephalic Eye exam: PRESENT: conjunctiva pale, EOMI. ABSENT: nystagmus, periorbital swelling, scleral icterus Mouth exam: PRESENT: dry mucosa, neck supple, tongue midline Neck exam: ABSENT: carotid bruit, JVD, lymphadenopathy, thyromegaly, tracheal deviation, tracheostomy Respiratory exam: PRESENT: decreased breath sounds, prolonged expiratory phas, rhonchi, symmetrical, unlabored, wheezes. ABSENT: stridor, tachypnea Cardiovascular exam: PRESENT: RRR, +S1, +S2, systolic murmur Pulses: PRESENT: normal radial pulses GI/Abdominal exam: PRESENT: diminished bowel sounds, soft Extremities exam: ABSENT: calf tenderness, clubbing, joint swelling Musculoskeletal exam: ABSENT: deformity, dislocation Neurological exam: PRESENT: alert, awake Psychiatric exam: PRESENT: normal mood Skin exam: PRESENT: dry, warm Results Laboratory Results: 09/12/17 11:48 09/13/17 04:35 09/13/17 04:35 Sodium 135.6 L Potassium 3.4 L Chloride 103 Carbon Dioxide 24 Anion Gap 9 BUN 47 H Creatinine 5.64 H Est GFR ( Amer) 12 L Est GFR (Non-Af Amer) 10 L Glucose 104 Calcium 8.0 L 09/10/17 17:40 Catheter Tip Site Gram Stain - Final 09/10/17 17:40 Catheter Tip Site Wound Culture - Final NO GROWTH 3 DAYS 09/07/17 13:34 Blood Blood Culture - Final NO GROWTH IN 5 DAYS 09/07/17 13:28 Blood Blood Culture - Final NO GROWTH IN 5 DAYS 09/04/17 09/04/17 09/04/17 08:55 16:40 21:00 Troponin I 0.049 0.029 0.028 09/07/17 09/07/17 09/07/17 13:28 16:55 21:25 Troponin I 0.128 0.095 0.079 Impressions: Abdomen/Pelvis CTA 09/03/17 18:19 IMPRESSION: 1. FINDINGS IN THE APPENDIX SUSPICIOUS FOR EARLY ACUTE APPENDICITIS. NO EVIDENCE OF ABSCESS OR PERFORATION. THERE IS A SMALL AMOUNT OF FREE FLUID IN THE RIGHT UPPER QUADRANT WHICH MAY BE RELATED TO APPENDICITIS. 2. NO EVIDENCE OF AORTIC ANEURYSM OR DISSECTION. THE MAJOR MESENTERIC VESSELS ARE PATENT. THE LEFT COMMON ILIAC AND LEFT EXTERNAL ILIAC ARTERIES ARE OCCLUDED WITH FILLING DISTALLY VIA COLLATERALS, SUGGESTING THAT THIS IS PROBABLY A CHRONIC FINDING. 3. COLONIC DIVERTICULOSIS. NO CT FINDINGS OF ACUTE DIVERTICULITIS. 4. CORTICAL CYSTS IN THE RIGHT KIDNEY. 5. NO OTHER SIGNIFICANT FINDINGS. Chest/Abdomen CTA 09/03/17 18:19 IMPRESSION: NORMAL CTA OF THE CHEST. NO AORTIC ANEURYSM OR DISSECTION. NO PULMONARY EMBOLI. Renal Ultrasound 09/10/17 09:34 IMPRESSION: UNREMARKABLE RENAL AND BLADDER ULTRASOUND. Chest X-Ray 09/11/17 00:00 IMPRESSION: NO PNEUMOTHORAX FOLLOWING CATHETER PLACEMENT. NO CHANGE IN APPEARANCE OF THE CHEST. Assessment & Plan - Diagnosis (1) Respiratory failure Qualifiers: Respiratory failure complication: hypoxia Is this a current diagnosis for this admission?: Yes Plan: Nearing baseline (2) Hypertension Qualifiers: Hypertension type: essential hypertension Qualified Code(s): I10 - Essential (primary) hypertension Is this a current diagnosis for this admission?: Yes (3) Ruptured acute appendicitis with periton Is this a current diagnosis for this admission?: Yes Plan: As per surgery 09/03/17 21:40 Gram Stain - Final Abdominal Fluid Body Fluid Culture - Final Escherichia Coli Klebsiella Pneumoniae Enterococcus Gallinarum Bacteroides Fragilis Group Fusobacterium Species 09/03/17 18:18 Blood Culture - Final Blood Prevotella Species
[2017-09-15 04:39] LABS: HEMATOCRIT 29.1 % (37.9-51.0); HEMOGLOBIN 9.7 g/dL (13.5-17.0); MEAN CORPUSCULAR HEMOGLOBIN 30.7 pg (27.0-33.4); MEAN CORPUSCULAR HGB CONC 33.5 g/dL (32.0-36.0); MEAN CORPUSCULAR VOLUME 92 fl (80-97); PLATELET COUNT 236 10^3/uL (150-450); RED BLOOD COUNT 3.18 10^6/uL (4.35-5.55); RED CELL DISTRIBUTION WIDTH 14.3 % (11.5-14.0); WHITE BLOOD COUNT 12.7 10^3/uL (4.0-10.5)
[2017-09-15 04:52] LABS: ANION GAP 8 (5-19); BLOOD UREA NITROGEN 57 mg/dL (7-20); CALCIUM 8.3 mg/dL (8.4-10.2); CARBON DIOXIDE 27 mmol/L (22-30); CHLORIDE 106 mmol/L (98-107); GLUCOSE 108 mg/dL (75-110); POTASSIUM 3.8 mmol/L (3.6-5.0); SODIUM 141.2 mmol/L (137-145)
[2017-09-15] MEDS ORDERED: HEPARIN SOD (PORCINE) 1,000 UNIT/ML 10 ML VIAL IV PRN (06:35)
[2017-09-15] MEDS ORDERED: EPOETIN ALFA INJ 20000 UNIT/1 ML VIAL (RENAL) IV PRN (06:35)
[2017-09-15] MEDS: FUROSEMIDE INJ/PF 20 MG/2 ML SDV IV SCH ×2 (11:44→21:59)
[2017-09-15] MEDS: POTASSIUM CHLORIDE 10 MEQ TABLET.SA PO SCH ×2 (11:45→21:59)
[2017-09-15] MEDS: ATORVASTATIN CALCIUM 40 MG TABLET PO SCH (11:46)
[2017-09-15] MEDS: CARVEDILOL 12.5 MG TABLET PO SCH ×2 (11:46→21:59)
[2017-09-15] MEDS: GUAIFENESIN SYRP 200 MG/10 ML UDC PO PRN (11:47)
[2017-09-15] MEDS: HEPARIN SOD (PORCINE) 5,000 UNIT/ML 1 ML SYRINGE SUBCUT SCH (11:47)
--- NOTE | 2017-09-15 12:45 | PDOC PROGRESS REPORT ---
Subjective Progress Note for:: 09/15/17 Subjective:: 09/14 Patient is doing well He has no complaints Scheduled to undergo dialysis tomorrow 09/15 Patient is complaining of cough productive of yellow mucus Is also complaining of intermittent wheezing The swelling in his lower extremity is persistent and the edema is severe Tense blister appeared this morning on the dorsum of his right foot Patient underwent dialysis without problems He has no chest pain no palpitations no abdominal pain nausea vomiting Reason For Visit: RUPTURED ACUTE APPENDICITIS WITH PERITONITIS Physical Exam Vital Signs: Temp Pulse Resp BP Pulse Ox 97.5 F 109 H 18 131/72 H 97 09/15/17 11:11 09/15/17 11:11 09/15/17 11:11 09/15/17 11:11 09/15/17 11:11 Pulse Oximeter Continuous Start: 09/07/17 11: 27 Freq: RTQ4 Status: Complete Document 09/13/17 08:53 HCR (Rec: 09/13/17 10:48 HCR [email or web address]) Pulse Oximetry Assessment Oxygen Saturation (92-100) 95 Oxygen Delivery Method Room Air Fraction of Inspired Oxygen (FIO2) 21 Equipment Usage Equipment in Use Continuous SpO2 Machine # 6 Intake & Output 09/14/17 09/15/17 09/16/17 00:59 00:59 00:59 Intake Total 1427 1694 536 Output Total 3450 975 3750 Balance -2022 179 -8822 Weight 91.3 kg 90.1 kg 88.8 kg Results Laboratory Results: 09/15/17 04:30 09/15/17 04:30 09/15/17 09/15/17 04:30 04:30 WBC 12.7 H RBC 3.18 L Hgb 9.7 L Hct 29.1 L MCV 92 MCH 30.7 MCHC 33.5 RDW 14.3 H Plt Count 236 Sodium 141.2 Potassium 3.8 Chloride 106 Carbon Dioxide 27 Anion Gap 8 BUN 57 H Creatinine 6.09 H Est GFR ( Amer) 11 L Est GFR (Non-Af Amer) 9 L Glucose 108 Calcium 8.3 L 09/04/17 09/04/17 09/04/17 08:55 16:40 21:00 Troponin I 0.049 0.029 0.028 09/07/17 09/07/17 09/07/17 13:28 16:55 21:25 Troponin I 0.128 0.095 0.079 Impressions: Abdomen/Pelvis CTA 09/03/17 18:19 IMPRESSION: 1. FINDINGS IN THE APPENDIX SUSPICIOUS FOR EARLY ACUTE APPENDICITIS. NO EVIDENCE OF ABSCESS OR PERFORATION. THERE IS A SMALL AMOUNT OF FREE FLUID IN THE RIGHT UPPER QUADRANT WHICH MAY BE RELATED TO APPENDICITIS. 2. NO EVIDENCE OF AORTIC ANEURYSM OR DISSECTION. THE MAJOR MESENTERIC VESSELS ARE PATENT. THE LEFT COMMON ILIAC AND LEFT EXTERNAL ILIAC ARTERIES ARE OCCLUDED WITH FILLING DISTALLY VIA COLLATERALS, SUGGESTING THAT THIS IS PROBABLY A CHRONIC FINDING. 3. COLONIC DIVERTICULOSIS. NO CT FINDINGS OF ACUTE DIVERTICULITIS. 4. CORTICAL CYSTS IN THE RIGHT KIDNEY. 5. NO OTHER SIGNIFICANT FINDINGS. Chest/Abdomen CTA 09/03/17 18:19 IMPRESSION: NORMAL CTA OF THE CHEST. NO AORTIC ANEURYSM OR DISSECTION. NO PULMONARY EMBOLI. Renal Ultrasound 09/10/17 09:34 IMPRESSION: UNREMARKABLE RENAL AND BLADDER ULTRASOUND. Chest X-Ray 09/11/17 00:00 IMPRESSION: NO PNEUMOTHORAX FOLLOWING CATHETER PLACEMENT. NO CHANGE IN APPEARANCE OF THE CHEST. Assessment & Plan - Diagnosis (1) Hypertension Qualifiers: Hypertension type: essential hypertension Qualified Code(s): I10 - Essential (primary) hypertension Is this a current diagnosis for this admission?: Yes Plan: Is controlled (2) Respiratory failure Qualifiers: Respiratory failure complication: hypoxia Is this a current diagnosis for this admission?: Yes (3) Ruptured acute appendicitis with periton Is this a current diagnosis for this admission?: Yes (4) Acute renal failure Qualifiers: Acute renal failure type: unspecified Qualified Code(s): N17.9 - Acute kidney failure, unspecified Is this a current diagnosis for this admission?: Yes Plan: Acute renal failure requiring dialysis patient will need dialysis catheter placed on Monday-Dr. Márquez- And patient likely will be discharged Monday evening to continue hemodialysis as an outpatient at [facility] we will place a PPD today Discussed case with systems requirements planner (5) Fluid overload Is this a current diagnosis for this admission?: Yes Plan: Persistent edema both lower extremities We will schedule the patient for DVT studies Also will obtain a urine protein creatinine ratio to exclude the nephritic syndrome Advised teds and leg elevation (6) Metabolic encephalopathy Is this a current diagnosis for this admission?: Yes Plan: Improved greatly patient's mentation is intact - Time Time Spent with patient: 25-34 minutes
--- NOTE | 2017-09-15 13:51 | PDOC PROGRESS REPORT ---
Subjective Progress Note for:: 09/15/17 Reason For Visit: Patient seen on dialysis today. He is undergoing dialysis without any issues. Vital signs are stable. Orders were discussed with the treating dialysis nurse.He denies any history of chest pain shortness of breath. Labs and medications were reviewed.Is taking more amounts of urine Physical Exam Vital Signs: Temp Pulse Resp BP Pulse Ox 97.5 F 109 H 18 131/72 H 97 09/15/17 11:11 09/15/17 11:11 09/15/17 11:11 09/15/17 11:11 09/15/17 11:11 Pulse Oximeter Continuous Start: 09/07/17 11: 27 Freq: RTQ4 Status: Complete Document 09/13/17 08:53 HCR (Rec: 09/13/17 10:48 HCR [email or web address]) Pulse Oximetry Assessment Oxygen Saturation (92-100) 95 Oxygen Delivery Method Room Air Fraction of Inspired Oxygen (FIO2) 21 Equipment Usage Equipment in Use Continuous SpO2 Machine # 6 Intake & Output 09/14/17 09/15/17 09/16/17 06:59 06:59 06:59 Intake Total 1417 1810 200 Output Total 3250 1175 3450 Balance -1833 635 -3250 Weight 90.1 kg 88.8 kg General appearance: PRESENT: no acute distress Respiratory exam: PRESENT: clear to auscultation matthew. ABSENT: crackles Cardiovascular exam: PRESENT: +S1, +S2, systolic murmur GI/Abdominal exam: PRESENT: distended, soft, tenderness. ABSENT: firm, guarding Extremities exam: PRESENT: +1 edema Neurological exam: PRESENT: alert, awake, oriented to person, oriented to place , oriented to time Results Laboratory Results: 09/15/17 04:30 09/15/17 04:30 09/15/17 09/15/17 04:30 04:30 WBC 12.7 H RBC 3.18 L Hgb 9.7 L Hct 29.1 L MCV 92 MCH 30.7 MCHC 33.5 RDW 14.3 H Plt Count 236 Sodium 141.2 Potassium 3.8 Chloride 106 Carbon Dioxide 27 Anion Gap 8 BUN 57 H Creatinine 6.09 H Est GFR ( Amer) 11 L Est GFR (Non-Af Amer) 9 L Glucose 108 Calcium 8.3 L 09/04/17 09/04/1709/04/18 08:55 16:40 21:00 Troponin I 0.049 0.029 0.028 09/07/17 09/07/17 09/07/17 13:28 16:55 21:25 Troponin I 0.128 0.095 0.079 Impressions: Abdomen/Pelvis CTA 09/03/17 18:19 IMPRESSION: 1. FINDINGS IN THE APPENDIX SUSPICIOUS FOR EARLY ACUTE APPENDICITIS. NO EVIDENCE OF ABSCESS OR PERFORATION. THERE IS A SMALL AMOUNT OF FREE FLUID IN THE RIGHT UPPER QUADRANT WHICH MAY BE RELATED TO APPENDICITIS. 2. NO EVIDENCE OF AORTIC ANEURYSM OR DISSECTION. THE MAJOR MESENTERIC VESSELS ARE PATENT. THE LEFT COMMON ILIAC AND LEFT EXTERNAL ILIAC ARTERIES ARE OCCLUDED WITH FILLING DISTALLY VIA COLLATERALS, SUGGESTING THAT THIS IS PROBABLY A CHRONIC FINDING. 3. COLONIC DIVERTICULOSIS. NO CT FINDINGS OF ACUTE DIVERTICULITIS. 4. CORTICAL CYSTS IN THE RIGHT KIDNEY. 5. NO OTHER SIGNIFICANT FINDINGS. Chest/Abdomen CTA 09/03/17 18:19 IMPRESSION: NORMAL CTA OF THE CHEST. NO AORTIC ANEURYSM OR DISSECTION. NO PULMONARY EMBOLI. Renal Ultrasound 09/10/17 09:34 IMPRESSION: UNREMARKABLE RENAL AND BLADDER ULTRASOUND. Assessment & Plan - Diagnosis (1) Acute renal failure Qualifiers: Acute renal failure type: unspecified Qualified Code(s): N17.9 - Acute kidney failure, unspecified Is this a current diagnosis for this admission?: Yes Plan: Stable. He is undergoing HD without any issues. Dialysis is being supervised to ensure safe and smooth procedure. VS are stable.Plan to remove 3 l of fluid as tolerated.Orders were discussed with treating HD RN Rhea.Convert Lasix to IV every 12. (2) Cardiomyopathy Qualifiers: Cardiomyopathy type: unspecified Qualified Code(s): I42.9 - Cardiomyopathy , unspecified Is this a current diagnosis for this admission?: Yes Plan: Underlying Ischemic CMP with recent ECHO which I reviewed which shows LVEF of 35 - 40 % with diastolic dysfunction, and segmental dyskinesia. Given the above situation with progressive CLARISSA and decreasing renal OP. Initiated on HD and feeling better. (3) Coronary artery disease Qualifiers: Coronary Disease-Associated Artery/Lesion type: [place] artery [place] vs. transplanted heart: [place] heart Associated angina: angina presence unspecified Qualified Code(s): I25.10 - Atherosclerotic heart disease of [place] coronary artery without angina pectoris Is this a current diagnosis for this admission?: Yes Plan: Stable. (4) Fluid overload Is this a current diagnosis for this admission?: Yes (5) Ruptured acute appendicitis with periton Is this a current diagnosis for this admission?: Yes Plan: S/P Laparotomy and appropriate surgery.Stable.
[2017-09-15] MEDS ORDERED: TUBERCULIN,PURIF.PROT.DERIV. 5 TU/0.1 ML TEST 1 ML VIAL ID ONE (14:00)
--- NOTE | 2017-09-15 14:13 | RADIOLOGY REPORT (SQ) ---
EXAM DESCRIPTION: CHEST SINGLE VIEW COMPLETED DATE/TIME: 09/15/2017 1:35 pm REASON FOR STUDY: SOB cough COMPARISON: None. EXAM PARAMETERS: NUMBER OF VIEWS: One view. TECHNIQUE: Single frontal radiographic view of the chest acquired. RADIATION DOSE: NA LIMITATIONS: None. FINDINGS: LUNGS AND PLEURA: No opacities, masses or pneumothorax. No pleural effusion. MEDIASTINUM AND HILAR STRUCTURES: No masses. Contour normal. HEART AND VASCULAR STRUCTURES: Heart normal in size. Normal vasculature. BONES: No acute findings. HARDWARE: Dual-lumen right internal jugular catheter. The tip of the catheter is near the right atri um. OTHER: No other significant finding. IMPRESSION: NO ACUTE RADIOGRAPHIC FINDING IN THE CHEST. TECHNICAL DOCUMENTATION: JOB ID: [id number] [employer]- All Rights Reserved Reading location - IP/workstation name: [email or web address]
[2017-09-15 14:46] LABS: URINE CREATININE 42.2 mg/dL (22-328); URINE PROTEIN 19.5 mg/dL (<12)
--- NOTE | 2017-09-15 16:07 | XCELERA REPORT ---
[address] [address] Lower Extremity Venous Evaluation Name: CLIFF TALBOT Age: 72 yrs Gender: Male : 1945 Patient Status: Inpatient Patient Location: [address] [place] [address] Study Date: 09/15/2017 03:01 PM Procedure: Color flow and duplex imaging bilaterally of the veins of the lower extremities as well as the Common Femoral veins. Reason For Study: edema lower extremities Ordering Physician: LYLE MICHELLE Performed By: Henrik Balbuena Right Sided Venous Evaluation Normal vessel filling wall to wall, compression and augmentation as well as Colour flow down to the infrageniculate veins. Left Sided Venous Evaluation Vein enlargement, lack of compression or flow in the Gastrocnemius vein. Otherwise normal vessel filling wall to wall, compression and augmentation as well as Colour flow down to the infrageniculate veins. Interpretation Summary Limited, below the knee DVT noted in the left lower extremity. : LYLE MICHELLE > Skyler Márquez
--- NOTE | 2017-09-15 16:18 | PDOC PROGRESS REPORT ---
Subjective Progress Note for:: 09/15/17 Subjective:: no pains. Seen while undergoing dialysis Reason For Visit: RUPTURED ACUTE APPENDICITIS WITH PERITONITIS Physical Exam Vital Signs: Temp Pulse Resp BP Pulse Ox 99.0 F 92 17 123/65 97 09/15/17 15:54 09/15/17 15:54 09/15/17 15:54 09/15/17 15:54 09/15/17 15:54 Pulse Oximeter Continuous Start: 09/07/17 11: 27 Freq: RTQ4 Status: Complete Document 09/13/17 08:53 HCR (Rec: 09/13/17 10:48 HCR [email or web address]) Pulse Oximetry Assessment Oxygen Saturation (92-100) 95 Oxygen Delivery Method Room Air Fraction of Inspired Oxygen (FIO2) 21 Equipment Usage Equipment in Use Continuous SpO2 Machine # 6 Intake & Output 09/14/17 09/15/17 09/16/17 06:59 06:59 06:59 Intake Total 1417 1810 200 Output Total 3250 1175 3450 Balance -1833 635 -3250 Weight 90.1 kg 88.8 kg Exam: abdomen with a binder. non-tender. Results Laboratory Results: 09/15/17 04:30 09/15/17 04:30 09/15/17 09/15/17 04:30 04:30 WBC 12.7 H RBC 3.18 L Hgb 9.7 L Hct 29.1 L MCV 92 MCH 30.7 MCHC 33.5 RDW 14.3 H Plt Count 236 Sodium 141.2 Potassium 3.8 Chloride 106 Carbon Dioxide 27 Anion Gap 8 BUN 57 H Creatinine 6.09 H Est GFR ( Amer) 11 L Est GFR (Non-Af Amer) 9 L Glucose 108 Calcium 8.3 L 09/04/17 09/04/17 09/04/17 08:55 16:40 21:00 Troponin I 0.049 0.029 0.028 09/07/17 09/07/17 09/07/17 13:28 16:55 21:25 Troponin I 0.128 0.095 0.079 Impressions: Abdomen/Pelvis CTA 09/03/17 18:19 IMPRESSION: 1. FINDINGS IN THE APPENDIX SUSPICIOUS FOR EARLY ACUTE APPENDICITIS. NO EVIDENCE OF ABSCESS OR PERFORATION. THERE IS A SMALL AMOUNT OF FREE FLUID IN THE RIGHT UPPER QUADRANT WHICH MAY BE RELATED TO APPENDICITIS. 2. NO EVIDENCE OF AORTIC ANEURYSM OR DISSECTION. THE MAJOR MESENTERIC VESSELS ARE PATENT. THE LEFT COMMON ILIAC AND LEFT EXTERNAL ILIAC ARTERIES ARE OCCLUDED WITH FILLING DISTALLY VIA COLLATERALS, SUGGESTING THAT THIS IS PROBABLY A CHRONIC FINDING. 3. COLONIC DIVERTICULOSIS. NO CT FINDINGS OF ACUTE DIVERTICULITIS. 4. CORTICAL CYSTS IN THE RIGHT KIDNEY. 5. NO OTHER SIGNIFICANT FINDINGS. Chest/Abdomen CTA 09/03/17 18:19 IMPRESSION: NORMAL CTA OF THE CHEST. NO AORTIC ANEURYSM OR DISSECTION. NO PULMONARY EMBOLI. Renal Ultrasound 09/10/17 09:34 IMPRESSION: UNREMARKABLE RENAL AND BLADDER ULTRASOUND. Chest X-Ray 09/15/17 12:45 IMPRESSION: NO ACUTE RADIOGRAPHIC FINDING IN THE CHEST. Assessment & Plan - Diagnosis (1) Ruptured acute appendicitis with periton Is this a current diagnosis for this admission?: Yes - Time Time Spent with patient: 15-24 minutes - Plan Summary Plan Summary: Continue IV antibiotics and Dialysis, ontinue to wear binder all the time. Has been coughing.
--- NOTE | 2017-09-15 16:20 | Progress Note ---
Provider Note Provider Note: positive DVT LLE will initiate Heparin drip
--- NOTE | 2017-09-15 16:24 | PDOC PROGRESS REPORT ---
Subjective Progress Note for:: 09/15/17 Subjective:: no pains Reason For Visit: RUPTURED ACUTE APPENDICITIS WITH PERITONITIS Physical Exam Vital Signs: Temp Pulse Resp BP Pulse Ox 99.0 F 92 17 123/65 97 09/15/17 15:54 09/15/17 15:54 09/15/17 15:54 09/15/17 15:54 09/15/17 15:54 Pulse Oximeter Continuous Start: 09/07/17 11: 27 Freq: RTQ4 Status: Complete Document 09/13/17 08:53 HCR (Rec: 09/13/17 10:48 HCR [email or web address]) Pulse Oximetry Assessment Oxygen Saturation (92-100) 95 Oxygen Delivery Method Room Air Fraction of Inspired Oxygen (FIO2) 21 Equipment Usage Equipment in Use Continuous SpO2 Machine # 6 Intake & Output 09/14/17 09/15/17 09/16/17 06:59 06:59 06:59 Intake Total 1417 1810 200 Output Total 3250 1175 3450 Balance -1833 635 -3250 Weight 90.1 kg 88.8 kg Exam: abd with a binder Results Laboratory Results: 09/15/17 04:30 09/15/17 04:30 09/15/17 09/15/17 04:30 04:30 WBC 12.7 H RBC 3.18 L Hgb 9.7 L Hct 29.1 L MCV 92 MCH 30.7 MCHC 33.5 RDW 14.3 H Plt Count 236 Sodium 141.2 Potassium 3.8 Chloride 106 Carbon Dioxide 27 Anion Gap 8 BUN 57 H Creatinine 6.09 H Est GFR ( Amer) 11 L Est GFR (Non-Af Amer) 9 L Glucose 108 Calcium 8.3 L 09/04/17 09/04/17 09/04/17 08:55 16:40 21:00 Troponin I 0.049 0.029 0.028 09/07/17 09/07/17 09/07/17 13:28 16:55 21:25 Troponin I 0.128 0.095 0.079 Impressions: Abdomen/Pelvis CTA 09/03/17 18:19 IMPRESSION: 1. FINDINGS IN THE APPENDIX SUSPICIOUS FOR EARLY ACUTE APPENDICITIS. NO EVIDENCE OF ABSCESS OR PERFORATION. THERE IS A SMALL AMOUNT OF FREE FLUID IN THE RIGHT UPPER QUADRANT WHICH MAY BE RELATED TO APPENDICITIS. 2. NO EVIDENCE OF AORTIC ANEURYSM OR DISSECTION. THE MAJOR MESENTERIC VESSELS ARE PATENT. THE LEFT COMMON ILIAC AND LEFT EXTERNAL ILIAC ARTERIES ARE OCCLUDED WITH FILLING DISTALLY VIA COLLATERALS, SUGGESTING THAT THIS IS PROBABLY A CHRONIC FINDING. 3. COLONIC DIVERTICULOSIS. NO CT FINDINGS OF ACUTE DIVERTICULITIS. 4. CORTICAL CYSTS IN THE RIGHT KIDNEY. 5. NO OTHER SIGNIFICANT FINDINGS. Chest/Abdomen CTA 09/03/17 18:19 IMPRESSION: NORMAL CTA OF THE CHEST. NO AORTIC ANEURYSM OR DISSECTION. NO PULMONARY EMBOLI. Renal Ultrasound 09/10/17 09:34 IMPRESSION: UNREMARKABLE RENAL AND BLADDER ULTRASOUND. Chest X-Ray 09/15/17 12:45 IMPRESSION: NO ACUTE RADIOGRAPHIC FINDING IN THE CHEST. Assessment & Plan - Diagnosis (1) Ruptured acute appendicitis with periton Is this a current diagnosis for this admission?: Yes - Plan Summary Plan Summary: Correction: pt has been off antibiotics. Had 3 liters of fluid removed during today's dialysis Had at least 170 ccs of urine while having dialysis Continue Hemodialysis. For placement of Perma-cath HD catheter Monday by Dr Márquez
[2017-09-15 17:10] LABS: ABSOLUTE BASOPHILS # (AUTO) 0.1 10^3/uL (0.0-0.2); ABSOLUTE EOSINOPHILS # (AUTO) 0.3 10^3/uL (0.0-0.6); ABSOLUTE MONOCYTES (AUTO) 1.1 10^3/uL (0.1-1.4); BASOPHILS % (AUTO) 1.2 % (0-2); EOSINOPHILS % (AUTO) 2.5 % (0-6); HEMATOCRIT 27.4 % (37.9-51.0); HEMOGLOBIN 9.2 g/dL (13.5-17.0); LYMPHOCYTES % (AUTO) 8.3 % (13-45); MEAN CORPUSCULAR HEMOGLOBIN 30.8 pg (27.0-33.4); MEAN CORPUSCULAR HGB CONC 33.8 g/dL (32.0-36.0); MEAN CORPUSCULAR VOLUME 91 fl (80-97); MONOCYTES % (AUTO) 9.9 % (3-13); PLATELET COUNT 187 10^3/uL (150-450); RED CELL DISTRIBUTION WIDTH 14.4 % (11.5-14.0); SEGMENTED NEUTROPHILS % (AUTO) 78.1 % (42-78); TOTAL CELLS COUNTED % (AUTO) 100 %; WHITE BLOOD COUNT 11.5 10^3/uL (4.0-10.5)
[2017-09-15 17:29] LABS: INTERNATIONAL RATION (INR) 1.15; PARTIAL THROMBOPLASTIN TIME 37.8 SEC (23.5-35.8); PROTHROMBIN TIME 15.3 SEC (11.4-15.4)
[2017-09-15] MEDS: HEPARIN SODIUM,PORCINE/D5W 25,000 UNIT/250 ML RTUINJ IV PRN (18:36)
[2017-09-16 00:36] LABS: INTERNATIONAL RATION (INR) 1.19; PROTHROMBIN TIME 15.7 SEC (11.4-15.4)
[2017-09-16 01:09] LABS: PARTIAL THROMBOPLASTIN TIME > 235.0 SEC (23.5-35.8)
[2017-09-16 04:02] LABS: APPEARANCE,URINE CLEAR; BILIRUBIN,URINE NEGATIVE (NEGATIVE); COLOR,URINE YELLOW; GLUCOSE, URINE NEGATIVE (NEGATIVE); KETONES,URINE NEGATIVE (NEGATIVE); LEUKOCYTE ESTERASE,URINE NEGATIVE (NEGATIVE); NITRITE,URINE NEGATIVE (NEGATIVE); PROTEIN,URINE NEGATIVE (NEGATIVE); URINE SPECIFIC GRAVITY 1.008; UROBILINOGEN,URINE NEGATIVE mg/dL (<2.0)
[2017-09-16 06:20] LABS: ANION GAP 8 (5-19); BLOOD UREA NITROGEN 46 mg/dL (7-20); CARBON DIOXIDE 29 mmol/L (22-30); CHLORIDE 104 mmol/L (98-107); GLUCOSE 112 mg/dL (75-110); POTASSIUM 4.1 mmol/L (3.6-5.0); SODIUM 141.2 mmol/L (137-145)
[2017-09-16] MEDS: FUROSEMIDE INJ/PF 20 MG/2 ML SDV IV SCH ×2 (10:31→21:53)
[2017-09-16] MEDS: POTASSIUM CHLORIDE 10 MEQ TABLET.SA PO SCH ×2 (10:31→21:53)
[2017-09-16] MEDS: ATORVASTATIN CALCIUM 40 MG TABLET PO SCH (10:31)
[2017-09-16] MEDS: CARVEDILOL 12.5 MG TABLET PO SCH ×2 (10:31→21:53)
[2017-09-16] MEDS: NORMAL SALINE INJ/PF 0.9% 10 ML SDV IV PRN ×2 (10:31→18:08)
[2017-09-16] MEDS: HEPARIN SODIUM,PORCINE/D5W 25,000 UNIT/250 ML RTUINJ IV PRN (13:20)
--- NOTE | 2017-09-16 13:24 | PDOC PROGRESS REPORT ---
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 Patient underwent laparotomy; multi microbial culture grew from peritoneal fluid Patient was treated with Zosyn ; vancomycin IV and tobramycin inhalation Patient's renal function progressively worsened after 09/0809/08/17 09/08/17 09/09/17 05:30 17:50 04:00 Creatinine 0.99 2.19 H 3.12 H 09/09/17 09/10/17 09/10/17 10:02 05:35 16:00 Creatinine 3.34 H 4.28 H 5.29 H 09/11/17 09/12/17 09/13/17 06:51 11:48 04:35 Creatinine 6.40 H 5.31 H 5.64 H 09/14/17 09/15/17 09/16/17 06:15 04:30 05:20 Creatinine 5.40 H 6.09 H 4.85 H Nephrology consult was obtained all antibiotics were discontinued Patient has undergone hemodialysis since last week Swelling of the lower extremities was noted yesterday and patient was diagnosed of DVT left lower extremity Heparin drip was initiated Patient is scheduled to have hemodialysis access placed on Monday 09/18 Today patient states she is feeling much better; has no chest pain no shortness of breath Spirits are improved Creatinine is coming down from 6 to 4.8 Reason For Visit: RUPTURED ACUTE APPENDICITIS WITH PERITONITIS Physical Exam Vital Signs: Temp Pulse Resp BP Pulse Ox 97.5 F 91 20 144/66 H 95 09/16/17 07:08 09/16/17 07:08 09/16/17 07:08 09/16/17 07:08 09/16/17 07:08 Pulse Oximeter Continuous Start: 09/07/17 11: 27 Freq: RTQ4 Status: Complete Document 09/13/17 08:53 HCR (Rec: 09/13/17 10:48 HCR [email or web address]) Pulse Oximetry Assessment Oxygen Saturation (92-100) 95 Oxygen Delivery Method Room Air Fraction of Inspired Oxygen (FIO2) 21 Equipment Usage Equipment in Use Continuous SpO2 Machine # 6 Intake & Output 09/15/17 09/16/17 09/17/17 00:59 00:59 00:59 Intake Total 1696 1323 891 Output Total 970 3900 970 Balance 719 -2577 -79 Weight 90.1 kg 88.8 kg 84.2 kg General appearance: PRESENT: no acute distress, cooperative Head exam: PRESENT: atraumatic, normocephalic Eye exam: PRESENT: conjunctiva pink, EOMI, PERRLA. ABSENT: scleral icterus Neck exam: ABSENT: carotid bruit, JVD, lymphadenopathy, thyromegaly Respiratory exam: PRESENT: clear to auscultation matthew. ABSENT: rales, rhonchi, wheezes Cardiovascular exam: PRESENT: RRR. ABSENT: diastolic murmur, rubs, systolic murmur Pulses: PRESENT: normal dorsalis pedis pul GI/Abdominal exam: PRESENT: normal bowel sounds, soft. ABSENT: distended, guarding, mass, organolmegaly, rebound, tenderness Extremities exam: PRESENT: full ROM. ABSENT: calf tenderness, clubbing, pedal edema Neurological exam: PRESENT: alert, awake, oriented to person, oriented to place , oriented to time, oriented to situation, CN II-XII grossly intact. ABSENT: motor sensory deficit Results Laboratory Results: 09/15/17 16:55 09/16/17 05:20 09/15/17 09/16/17 09/16/17 16:55 03:15 03:15 WBC 11.5 H RBC 3.00 L Hgb 9.2 L Hct 27.4 L MCV 91 MCH 30.8 MCHC 33.8 RDW 14.4 H Plt Count 187 Seg Neutrophils % 78.1 H Lymphocytes % 8.3 L Monocytes % 9.9 Eosinophils % 2.5 Basophils % 1.2 Absolute Neutrophils 9.0 H Absolute Lymphocytes 1.0 Absolute Monocytes 1.1 Absolute Eosinophils 0.3 Absolute Basophils 0.1 Sodium Potassium Chloride Carbon Dioxide Anion Gap BUN Creatinine Est GFR ( Amer) Est GFR (Non-Af Amer) Glucose Calcium Urine Color YELLOW Urine Appearance CLEAR Urine pH 5.0 Ur Specific [place] 1.008 Urine Protein NEGATIVE Urine Glucose (UA) NEGATIVE Urine Ketones NEGATIVE Urine Blood MODERATE H Urine Nitrite NEGATIVE Ur Leukocyte Esterase NEGATIVE Urine WBC (Auto) 1 Urine RBC (Auto) 5 Stool Occult Blood POSITIVE 09/16/17 05:20 WBC RBC Hgb Hct MCV MCH MCHC RDW Plt Count Seg Neutrophils % Lymphocytes % Monocytes % Eosinophils % Basophils % Absolute Neutrophils Absolute Lymphocytes Absolute Monocytes Absolute Eosinophils Absolute Basophils Sodium 141.2 Potassium 4.1 Chloride 104 Carbon Dioxide 29 Anion Gap 8 BUN 46 H Creatinine 4.85 H Est GFR ( Amer) 14 L Est GFR (Non-Af Amer) 12 L Glucose 112 H Calcium 8.0 L Urine Color Urine Appearance Urine pH Ur Specific [place] Urine Protein Urine Glucose (UA) Urine Ketones Urine Blood Urine Nitrite Ur Leukocyte Esterase Urine WBC (Auto) Urine RBC (Auto) Stool Occult Blood 09/04/17 09/04/17 09/04/17 08:55 16:40 21:00 Troponin I 0.049 0.029 0.028 09/07/17 09/07/17 09/07/17 13:28 16:55 21:25 Troponin I 0.128 0.095 0.079 Impressions: Abdomen/Pelvis CTA 09/03/17 18:19 IMPRESSION: 1. FINDINGS IN THE APPENDIX SUSPICIOUS FOR EARLY ACUTE APPENDICITIS. NO EVIDENCE OF ABSCESS OR PERFORATION. THERE IS A SMALL AMOUNT OF FREE FLUID IN THE RIGHT UPPER QUADRANT WHICH MAY BE RELATED TO APPENDICITIS. 2. NO EVIDENCE OF AORTIC ANEURYSM OR DISSECTION. THE MAJOR MESENTERIC VESSELS ARE PATENT. THE LEFT COMMON ILIAC AND LEFT EXTERNAL ILIAC ARTERIES ARE OCCLUDED WITH FILLING DISTALLY VIA COLLATERALS, SUGGESTING THAT THIS IS PROBABLY A CHRONIC FINDING. 3. COLONIC DIVERTICULOSIS. NO CT FINDINGS OF ACUTE DIVERTICULITIS. 4. CORTICAL CYSTS IN THE RIGHT KIDNEY. 5. NO OTHER SIGNIFICANT FINDINGS. Chest/Abdomen CTA 09/03/17 18:19 IMPRESSION: NORMAL CTA OF THE CHEST. NO AORTIC ANEURYSM OR DISSECTION. NO PULMONARY EMBOLI. Renal Ultrasound 09/10/17 09:34 IMPRESSION: UNREMARKABLE RENAL AND BLADDER ULTRASOUND. Chest X-Ray 09/15/17 12:45 IMPRESSION: NO ACUTE RADIOGRAPHIC FINDING IN THE CHEST. Assessment & Plan - Diagnosis (1) Hypertension Qualifiers: Hypertension type: essential hypertension Qualified Code(s): I10 - Essential (primary) hypertension Is this a current diagnosis for this admission?: Yes (2) Respiratory failure Qualifiers: Respiratory failure complication: hypoxia Is this a current diagnosis for this admission?: Yes (3) Ruptured acute appendicitis with periton Is this a current diagnosis for this admission?: Yes (4) Acute renal failure Qualifiers: Acute renal failure type: unspecified Qualified Code(s): N17.9 - Acute kidney failure, unspecified Is this a current diagnosis for this admission?: Yes (5) Fluid overload Is this a current diagnosis for this admission?: Yes (6) Metabolic encephalopathy Is this a current diagnosis for this admission?: Yes (7) Deep vein thrombosis (DVT) of distal vein of left lower extremity Qualifiers: Chronicity: acute Qualified Code(s): I82.4Z2 - Acute embolism and thrombosis of unspecified deep veins of left distal lower extremity Is this a current diagnosis for this admission?: Yes Plan: Continue heparin drip - Time Time Spent with patient: Continue present management Overall's patient's condition has improved And his renal function is improving slowly Time Spent with patient: 25-34 minutes
--- NOTE | 2017-09-16 15:39 | PDOC PROGRESS REPORT ---
Subjective Progress Note for:: 09/16/17 Subjective:: No pains. Feels more comfortable after HD yesterday. BUN cr improving. Voiding on lasix Reason For Visit: RUPTURED ACUTE APPENDICITIS WITH PERITONITIS Physical Exam Vital Signs: Temp Pulse Resp BP Pulse Ox 97.5 F 91 20 144/66 H 95 09/16/17 07:08 09/16/17 07:08 09/16/17 07:08 09/16/17 07:08 09/16/17 07:08 Pulse Oximeter Continuous Start: 09/07/17 11: 27 Freq: RTQ4 Status: Complete Document 09/13/17 08:53 HCR (Rec: 09/13/17 10:48 HCR [email or web address]) Pulse Oximetry Assessment Oxygen Saturation (92-100) 95 Oxygen Delivery Method Room Air Fraction of Inspired Oxygen (FIO2) 21 Equipment Usage Equipment in Use Continuous SpO2 Machine # 6 Intake & Output 09/15/17 09/16/17 09/17/17 06:59 06:59 06:59 Intake Total 1810 1419 459 Output Total 1175 4100 470 Balance 635 -2681 -11 Weight 88.8 kg 84.2 kg Exam: Abdominal dressings changed. Has some blood tinged drainage from incision site. Incision looks good without inflammation. Redressed and binder re-applied. Results Laboratory Results: 09/15/17 16:55 09/16/17 05:20 09/15/17 09/16/17 09/16/17 16:55 03:15 03:15 WBC 11.5 H RBC 3.00 L Hgb 9.2 L Hct 27.4 L MCV 91 MCH 30.8 MCHC 33.8 RDW 14.4 H Plt Count 187 Seg Neutrophils % 78.1 H Lymphocytes % 8.3 L Monocytes % 9.9 Eosinophils % 2.5 Basophils % 1.2 Absolute Neutrophils 9.0 H Absolute Lymphocytes 1.0 Absolute Monocytes 1.1 Absolute Eosinophils 0.3 Absolute Basophils 0.1 Sodium Potassium Chloride Carbon Dioxide Anion Gap BUN Creatinine Est GFR ( Amer) Est GFR (Non-Af Amer) Glucose Calcium Urine Color YELLOW Urine Appearance CLEAR Urine pH 5.0 Ur Specific [place] 1.008 Urine Protein NEGATIVE Urine Glucose (UA) NEGATIVE Urine Ketones NEGATIVE Urine Blood MODERATE H Urine Nitrite NEGATIVE Ur Leukocyte Esterase NEGATIVE Urine WBC (Auto) 1 Urine RBC (Auto) 5 Stool Occult Blood POSITIVE 09/16/17 05:20 WBC RBC Hgb Hct MCV MCH MCHC RDW Plt Count Seg Neutrophils % Lymphocytes % Monocytes % Eosinophils % Basophils % Absolute Neutrophils Absolute Lymphocytes Absolute Monocytes Absolute Eosinophils Absolute Basophils Sodium 141.2 Potassium 4.1 Chloride 104 Carbon Dioxide 29 Anion Gap 8 BUN 46 H Creatinine 4.85 H Est GFR ( Amer) 14 L Est GFR (Non-Af Amer) 12 L Glucose 112 H Calcium 8.0 L Urine Color Urine Appearance Urine pH Ur Specific [place] Urine Protein Urine Glucose (UA) Urine Ketones Urine Blood Urine Nitrite Ur Leukocyte Esterase Urine WBC (Auto) Urine RBC (Auto) Stool Occult Blood 09/04/17 09/04/17 09/04/17 08:55 16:40 21:00 Troponin I 0.049 0.029 0.028 09/07/17 09/07/17 09/07/17 13:28 16:55 21:25 Troponin I 0.128 0.095 0.079 Impressions: Abdomen/Pelvis CTA 09/03/17 18:19 IMPRESSION: 1. FINDINGS IN THE APPENDIX SUSPICIOUS FOR EARLY ACUTE APPENDICITIS. NO EVIDENCE OF ABSCESS OR PERFORATION. THERE IS A SMALL AMOUNT OF FREE FLUID IN THE RIGHT UPPER QUADRANT WHICH MAY BE RELATED TO APPENDICITIS. 2. NO EVIDENCE OF AORTIC ANEURYSM OR DISSECTION. THE MAJOR MESENTERIC VESSELS ARE PATENT. THE LEFT COMMON ILIAC AND LEFT EXTERNAL ILIAC ARTERIES ARE OCCLUDED WITH FILLING DISTALLY VIA COLLATERALS, SUGGESTING THAT THIS IS PROBABLY A CHRONIC FINDING. 3. COLONIC DIVERTICULOSIS. NO CT FINDINGS OF ACUTE DIVERTICULITIS. 4. CORTICAL CYSTS IN THE RIGHT KIDNEY. 5. NO OTHER SIGNIFICANT FINDINGS. Chest/Abdomen CTA 09/03/17 18:19 IMPRESSION: NORMAL CTA OF THE CHEST. NO AORTIC ANEURYSM OR DISSECTION. NO PULMONARY EMBOLI. Renal Ultrasound 09/10/17 09:34 IMPRESSION: UNREMARKABLE RENAL AND BLADDER ULTRASOUND. Chest X-Ray 09/15/17 12:45 IMPRESSION: NO ACUTE RADIOGRAPHIC FINDING IN THE CHEST. Assessment & Plan - Diagnosis (1) Ruptured acute appendicitis with periton Is this a current diagnosis for this admission?: Yes - Time Time Spent with patient: 15-24 minutes - Plan Summary Plan Summary: Improving.Continue HD
[2017-09-17 06:15] LABS: ANION GAP 9 (5-19); BLOOD UREA NITROGEN 51 mg/dL (7-20); CALCIUM 8.2 mg/dL (8.4-10.2); CARBON DIOXIDE 28 mmol/L (22-30); CHLORIDE 104 mmol/L (98-107); GLUCOSE 104 mg/dL (75-110); POTASSIUM 4.2 mmol/L (3.6-5.0); SODIUM 141.1 mmol/L (137-145)
[2017-09-17] MEDS: NORMAL SALINE INJ/PF 0.9% 10 ML SDV IV PRN ×2 (08:17→09:44)
[2017-09-17] MEDS: FUROSEMIDE INJ/PF 20 MG/2 ML SDV IV SCH ×2 (09:42→21:45)
[2017-09-17] MEDS: ATORVASTATIN CALCIUM 40 MG TABLET PO SCH (09:43)
[2017-09-17] MEDS: POTASSIUM CHLORIDE 10 MEQ TABLET.SA PO SCH ×2 (09:43→21:45)
[2017-09-17] MEDS: CARVEDILOL 12.5 MG TABLET PO SCH ×2 (09:43→21:45)
--- NOTE | 2017-09-17 10:19 | PDOC PROGRESS REPORT ---
Subjective Progress Note for:: 09/17/17 Subjective:: Recent sitting in the chair; feels better; tolerating a diet and having flatus. Now dialyzing 3 times a week via a right IJ permacatheter. Reason For Visit: RUPTURED ACUTE APPENDICITIS WITH PERITONITIS Physical Exam Vital Signs: Temp Pulse Resp BP Pulse Ox 98.4 F 92 20 128/70 H 97 09/17/17 07:09 09/17/17 07:09 09/17/17 07:09 09/17/17 07:09 09/17/17 07:09 Pulse Oximeter Continuous Start: 09/07/17 11: 27 Freq: RTQ4 Status: Complete Document 09/13/17 08:53 HCR (Rec: 09/13/17 10:48 HCR [email or web address]) Pulse Oximetry Assessment Oxygen Saturation (92-100) 95 Oxygen Delivery Method Room Air Fraction of Inspired Oxygen (FIO2) 21 Equipment Usage Equipment in Use Continuous SpO2 Machine # 6 Intake & Output 09/16/17 09/17/17 09/18/17 06:59 06:59 06:59 Intake Total 1419 1427 Output Total 4100 770 Balance -2681 657 Weight 84.2 kg 84.4 kg General appearance: PRESENT: mild distress GI/Abdominal exam: PRESENT: other - Abdomen less distended; mart still in; mild excoriation of in around midline but nothing to debride; minimal serous drainage from midline incision, decreased compared to last week. Results Laboratory Results: 09/15/17 16:55 09/17/17 05:10 09/17/17 05:10 Sodium 141.1 Potassium 4.2 Chloride 104 Carbon Dioxide 28 Anion Gap 9 BUN 51 H Creatinine 5.36 H Est GFR ( Amer) 13 L Est GFR (Non-Af Amer) 11 L Glucose 104 Calcium 8.2 L 09/04/17 09/04/17 09/04/17 08:55 16:40 21:00 Troponin I 0.049 0.029 0.028 09/07/17 09/07/17 09/07/17 13:28 16:55 21:25 Troponin I 0.128 0.095 0.079 Impressions: Abdomen/Pelvis CTA 09/03/17 18:19 IMPRESSION: 1. FINDINGS IN THE APPENDIX SUSPICIOUS FOR EARLY ACUTE APPENDICITIS. NO EVIDENCE OF ABSCESS OR PERFORATION. THERE IS A SMALL AMOUNT OF FREE FLUID IN THE RIGHT UPPER QUADRANT WHICH MAY BE RELATED TO APPENDICITIS. 2. NO EVIDENCE OF AORTIC ANEURYSM OR DISSECTION. THE MAJOR MESENTERIC VESSELS ARE PATENT. THE LEFT COMMON ILIAC AND LEFT EXTERNAL ILIAC ARTERIES ARE OCCLUDED WITH FILLING DISTALLY VIA COLLATERALS, SUGGESTING THAT THIS IS PROBABLY A CHRONIC FINDING. 3. COLONIC DIVERTICULOSIS. NO CT FINDINGS OF ACUTE DIVERTICULITIS. 4. CORTICAL CYSTS IN THE RIGHT KIDNEY. 5. NO OTHER SIGNIFICANT FINDINGS. Chest/Abdomen CTA 09/03/17 18:19 IMPRESSION: NORMAL CTA OF THE CHEST. NO AORTIC ANEURYSM OR DISSECTION. NO PULMONARY EMBOLI. Renal Ultrasound 09/10/17 09:34 IMPRESSION: UNREMARKABLE RENAL AND BLADDER ULTRASOUND. Chest X-Ray 09/15/17 12:45 IMPRESSION: NO ACUTE RADIOGRAPHIC FINDING IN THE CHEST. Assessment & Plan - Diagnosis (1) Acute appendicitis Qualifiers: Acute appendicitis type: with localized peritonitis Qualified Code(s): K35.3 - Acute appendicitis with localized peritonitis Is this a current diagnosis for this admission?: Yes Plan: She is now postoperative day 13 status post exploratory laparotomy, open appendectomy, complicated by acute renal injury, now on dialysis 3 times a week. Her graft Overall doing well, abdomen less distended less edematous, with less drainage Recommendations: 1. Continue current therapy; no indication for intravenous antibiotics 2. Leave mart in for at least another week 3. Utilize honeycomb dressings to absorb excessive drainage. 4. Patient can return to [facility], see ZAYRA Pennington, for staple removal.
[2017-09-17] MEDS: HEPARIN SODIUM,PORCINE/D5W 25,000 UNIT/250 ML RTUINJ IV PRN (13:46)
--- NOTE | 2017-09-17 15:55 | PROGRESS NOTE E ---
Progress Note NAME: CLIFF TALBOT : [id number] AGE: 72Y DATE: 09/17/2017 ROOM: 325 SUBJECTIVE: The patient is currently out of bed to the bedside chair. He states he feels better today. He feels he is getting stronger everyday. The patient denies any nausea, vomiting, diarrhea. No shortness of breath, or chest pain. No fevers, chills. The patient has been afebrile with blood pressures being in good range. The patient does complain of pain in his right foot associated with a massive blister, and the patient did not voice any other concerns at this time. REVIEW OF SYSTEMS: The rest of the review of systems negative. MEDICATIONS: Have been reviewed. OBJECTIVE: GENERAL: The patient is a 72-year-old male who is awake, alert. He is oriented to person, time, place, situation. He is verbal, conversational. He does not appear to be distressed. VITAL SIGNS: Temperature is 98.3, pulse 95, respirations 20, blood pressure is 116/60, oxygen saturation is 99% on room air. SKIN: Warm and dry. No rash. He is not diaphoretic. HEENT: Pupils equal, round and reactive to light and accommodation. Conjunctivae are pink. NECK: There is no evidence of JVD. CARDIOVASCULAR: Heart is regular. There is no murmur or rub. CHEST: Clear, symmetrical, unlabored. ABDOMEN: Postsurgical, distended, not guarded. EXTREMITIES: No clubbing, cyanosis. The patient's right lower extremity has a very large clear blister. PSYCHIATRIC: Appropriate affect, pleasant mood. DIAGNOSTICS: Lab values are as follows. Hematology obtained on 09/15/17; WBC is 11.5, hemoglobin is 9.2, hematocrit is 27.4, platelet count is 187,000. Chemistry obtained on 09/17/2017; sodium is 141, potassium 4.2, chloride is 104, carbon dioxide 28, BUN 51, creatinine is 5.36, glucose 104, calcium is 8.2. IMPRESSION AND PLAN: 1. RIGHT LOWER EXTREMITY BLISTER. Will discuss the case with surgery and follow. Hold heparin. 2. LEFT LOWER EXTREMITY DEEP VEIN THROMBOSIS. The patient remains on a heparin drip at this time. 3. HYPERTENSION. Blood pressure has been in an acceptable range. 4. RUPTURED APPENDICITIS WITH SUBSEQUENT PERITONITIS. The patient is off antibiotics. Do appreciate surgeries help with this. 5. ACUTE HYPOXEMIC RESPIRATORY FAILURE. This is resolved. 6. ACUTE RENAL FAILURE. Most likely this is acute on chronic. The patient now is requiring hemodialysis three days a week, most likely will end up dependent on such. 7. METABOLIC ENCEPHALOPATHY. This is resolved. 8. 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 The patient appears euvolemic at this point. CODE STATUS: The patient is a full code. DISPOSITION: Depending on the patient's symptomatology and diagnostic findings will reevaluate in the a.m. The patient can be downgraded to a telemetry bed. TIME SPENT: On this follow up, including assessment and plan, physical examination, patient education, review of records, and family meeting, speciality collaboration is 35 minutes. DICTATING PHYSICIAN: GENET ALEJANDRE NP [id number] PHY#: [id number] [id number] JOB#: [id number] ACCT: [id number] cc: > MTDD
[2017-09-17] MEDS ORDERED: GLUCAGON,HUMAN RECOMB 1 MG INJ SUBCUT PRN (17:04)
[2017-09-17] MEDS ORDERED: DEXTROSE 50%-WATER 25 GM/50 ML DISP.SYRIN IV PRN ×2 (17:04)
[2017-09-17] MEDS ORDERED: DEXTROSE 40% GEL 15 GM TUBE PO PRN ×2 (17:04)
[2017-09-18] MEDS ORDERED: EPOETIN ALFA INJ 20000 UNIT/1 ML VIAL (RENAL) IV PRN (05:00)
[2017-09-18] MEDS ORDERED: HEPARIN SOD (PORCINE) 1,000 UNIT/ML 10 ML VIAL IV PRN ×2 (05:00→17:00)
[2017-09-18 07:51] LABS: ABSOLUTE RETICS # 0.046 10^6/uL (0.028-0.122); HEMATOCRIT 25.7 % (37.9-51.0); HEMOGLOBIN 8.6 g/dL (13.5-17.0); MEAN CORPUSCULAR HEMOGLOBIN 30.7 pg (27.0-33.4); MEAN CORPUSCULAR HGB CONC 33.4 g/dL (32.0-36.0); MEAN CORPUSCULAR VOLUME 92 fl (80-97); PLATELET COUNT 246 10^3/uL (150-450); RED CELL DISTRIBUTION WIDTH 14.3 % (11.5-14.0); RETICULOCYTE COUNT (AUTO) 1.64 % (0.66-2.85); WHITE BLOOD COUNT 12.2 10^3/uL (4.0-10.5)
[2017-09-18 08:09] LABS: ANION GAP 11 (5-19); BLOOD UREA NITROGEN 57 mg/dL (7-20); CALCIUM 8.4 mg/dL (8.4-10.2); CARBON DIOXIDE 26 mmol/L (22-30); CHLORIDE 104 mmol/L (98-107); GLUCOSE 105 mg/dL (75-110); IRON(TIBC) 10.4 ug/dL (49-181); POTASSIUM 4.5 mmol/L (3.6-5.0); SODIUM 141.3 mmol/L (137-145)
[2017-09-18] MEDS ORDERED: LIDOCAINE 0.5% INJ-PF (5 MG/ML) 50 ML SDV ONE (11:18)
[2017-09-18] MEDS ORDERED: BACITRACIN INJ 50,000 UNIT VIAL ONE (11:19)
[2017-09-18] MEDS ORDERED: MIDAZOLAM 2 MG/2 ML INJ ONE (11:21)
[2017-09-18] MEDS ORDERED: FENTANYL CITRATE INJ/PF 100 MCG/2 ML AMPUL ONE (11:21)
[2017-09-18] MEDS: ATORVASTATIN CALCIUM 40 MG TABLET PO SCH (11:29)
[2017-09-18] MEDS: CARVEDILOL 12.5 MG TABLET PO SCH ×2 (11:29→21:09)
[2017-09-18] MEDS: POTASSIUM CHLORIDE 10 MEQ TABLET.SA PO SCH ×2 (11:29→21:08)
[2017-09-18] MEDS: FUROSEMIDE INJ/PF 20 MG/2 ML SDV IV SCH ×2 (11:30→21:10)
[2017-09-18] MEDS ORDERED: CEFAZOLIN INJ 1 GM VIAL ONE (12:46)
--- NOTE | 2017-09-18 13:25 | Operative Report ---
Operative Report DATE OF SURGERY: 09/11/17 PREOPERATIVE DIAGNOSIS: 1. Acute kidney failure. 2. Status post exploratory laparotomy, appendectomy POSTOPERATIVE DIAGNOSIS: Same OPERATION: 1. Focused ultrasound of the right neck. 2. Ultrasound directed insertion of PermCath catheter SURGEON: YOSSI ELLIOTT EMBROIDERY ASSISTANT: Erasmo ANESTHESIA: Moderate Sedation TISSUE REMOVED OR ALTERED: None COMPLICATIONS: None. ESTIMATED BLOOD LOSS: Scant INTRAOPERATIVE FINDINGS: Of a satisfactory left internal jugular vein estimated to be about 1.2 cm in diameter. Satisfactory access in position of the catheter with the tip down in the right atrial pool. Easy egress of blood and ingress of heparinized solution through both ports. Smooth flow of contrast through the catheter, right atrium, ventricle and pulmonary outflow tract. PROCEDURE: After obtaining informed consent, the patient was taken to the [[employer]] and positioned supine. The left neck and chest were prepared with chlorhexidine and draped out with sterile linen. After the " universal timeout", in which it was verified that the patient continued to receive antibiotic, the procedure commenced. A steriley sheathed ultrasound probe was used to evaluate the [ right internal jugular] vein. Local anesthesia was infiltrated adjacent to the probe. Access into the [right internal jugular] vein was obtained using a micropuncture needle, followed by micropuncture wire and then a micropuncture catheter. This was followed by introduction of a 0.035 guidewire the tip of which was placed down into the inferior vena cava . A 27 cm long permacatheter was now positioned over the chest and an exit site marked and locally anesthetized ,the catheter was placed between the 2 incisions. Proximally, the catheter was now positioned using a peel-away sheath, after dilation. Easy ingress of heparinized solution and egress of blood obtained through both ports. A completion angiogram was done by injecting contrast. The findings were as dictated. The neck incision was now closed using interrupted 3-0 PDS to the subcutaneous tissues, the catheter was anchored at the exit site using 3- 0 PDS. A Biopatch device was now placed adjacent to the catheter. Dressings were applied and the procedure concluded. Exposure time: [0.3]. Exposure: 9.03 Kaela dasilva. Contrast amount: [5 mL] of [id number] low osmolality. Copies of the dictated operative report for Dr. Yossi Márquez MD.concluded. Copies of the dictated operative report for Dr. Yossi Márquez MD.
--- NOTE | 2017-09-18 13:41 | RADIOLOGY REPORT (SQ) ---
EXAM DESCRIPTION: TUNNELED CENTRAL LINE COMPLETED DATE/TIME: 09/18/2017 1:00 pm REASON FOR STUDY: NEED FOR VASCULAR ACCESS COMPARISON: None. FLUOROSCOPY TIME: 0.3 minutes 18 images saved to PACS. TECHNIQUE: Intra-operative images acquired during surgical procedure to evaluate progress. NUMBER OF IMAGES: 18 LIMITATIONS: None. FINDINGS: Selected images from additional central line placement on the left. Line tip overlies SVC . IMPRESSION: IMAGE(S) OBTAINED DURING PROCEDURE. COMMENT: Quality ID [id number]: Final reports for procedures using fluoroscopy that document radiation exp osure indices, or exposure time and number of fluorographic images (if radiation exposure indices are not available) Please consult full operative report of the attending physician for description of the procedure. TECHNICAL DOCUMENTATION: JOB ID: [id number] [place]- All Rights Reserved Reading location - IP/workstation name: [email or web address]
--- NOTE | 2017-09-18 16:00 | PDOC DISCHARGE SUMMARY ---
General - Admit/Disc Date/PCP Admission Date/Primary Care Provider: 09/03/17 19:44 BALWINDER TABOR Discharge Date: 09/19/17 - Discharge Diagnosis (1) Hypertension Is this a current diagnosis for this admission?: Yes (2) Respiratory failure Is this a current diagnosis for this admission?: Yes (3) Ruptured acute appendicitis with periton Is this a current diagnosis for this admission?: Yes (4) Acute renal failure Is this a current diagnosis for this admission?: Yes (5) Fluid overload Is this a current diagnosis for this admission?: Yes (6) Metabolic encephalopathy Is this a current diagnosis for this admission?: Yes (7) Deep vein thrombosis (DVT) of distal vein of left lower extremity Is this a current diagnosis for this admission?: Yes (8) ESRD (end stage renal disease) on dialysis Is this a current diagnosis for this admission?: Yes (9) PPD negative Is this a current diagnosis for this admission?: Yes - Additional Information Resuscitation Status: Full Code Prescriptions: Carvedilol [Coreg 6.25 mg Tablet] 6.25 mg PO Q12 30 Days #60 tablet Furosemide 40 mg PO DAILY 30 Days #30 solution Home Medications: Atorvastatin Calcium [Lipitor 40 mg Tablet] 40 mg PO DAILY 09/04/17 Carvedilol [Coreg 6.25 mg Tablet] 6.25 mg PO Q12 30 Days #60 tablet 09/18/17 Furosemide 40 mg PO DAILY 30 Days #30 solution 09/18/17 History of Present Illness Patient complains of: Abdominal pain History of Present Illness: CLIFF TALBOT is a 72 year old male who was admitted on 09/04/2017 with acute appendicitis and peritonitis Hospital Course Hospital Course: Patient is a 72-year-old man who was admitted on 09/04/2017 with a ruptured appendicitis Patient has a known history of chronic systolic and diastolic CHF with an EF of 35-40%, coronary artery disease, status post [place] in 2006, hypertension and hyperlipidemia. Patient underwent laparotomy; multi microbial culture grew from peritoneal fluid Patient was treated with Zosyn ; vancomycin IV and tobramycin inhalation Patient's renal function progressively worsened after 09/0809/08/17 09/08/17 09/09/17 05:30 17:50 04:00 Creatinine 0.99 2.19 H 3.12 H 09/09/17 09/10/17 09/10/17 10:02 05:35 16:00 Creatinine 3.34 H 4.28 H 5.29 H 09/11/17 09/12/17 09/13/17 06:51 11:48 04:35 Creatinine 6.40 H 5.31 H 5.64 H 09/14/17 09/15/17 09/16/17 06:15 04:30 05:20 Creatinine 5.40 H 6.09 H 4.85 H Nephrology consult was obtained all antibiotics were discontinued Patient has undergone hemodialysis since last week Swelling of the lower extremities was noted yesterday and patient was diagnosed of DVT left lower extremity Heparin drip was initiated Patient will be switched to Eliquis 2.5 mg twice daily starting tonight Hemodialysis access was placed on Monday 09/18 Dialysis performed at the hospital has been uneventful Patient will follow up with dialysis at [facility] on Tuesdays and Sundays Next dialysis after discharge will be on 09/21 PPD was placed on 09/16 It is noted to be negative today 09/18 Physical Exam Vital Signs: Temp Pulse Resp BP Pulse Ox 98.1 F 87 17 139/67 H 98 09/18/17 12:04 09/18/17 12:04 09/18/17 12:04 09/18/17 12:04 09/18/17 12:04 Pulse Oximeter Continuous Start: 09/07/17 11: 27 Freq: RTQ4 Status: Complete Document 09/13/17 08:53 HCR (Rec: 09/13/17 10:48 HCR [email or web address]) Pulse Oximetry Assessment Oxygen Saturation (92-100) 95 Oxygen Delivery Method Room Air Fraction of Inspired Oxygen (FIO2) 21 Equipment Usage Equipment in Use Continuous SpO2 Machine # 6 Intake & Output 09/17/17 09/18/17 09/19/17 00:59 00:59 00:59 Intake Total 1570 1690 232 Output Total 1270 Balance 300 1690 232 Weight 84.2 kg 84.4 kg 83.9 kg General appearance: PRESENT: no acute distress, cooperative Head exam: PRESENT: atraumatic, normocephalic Eye exam: PRESENT: conjunctiva pink, EOMI, PERRLA. ABSENT: scleral icterus Neck exam: ABSENT: carotid bruit, JVD, lymphadenopathy, thyromegaly Respiratory exam: PRESENT: clear to auscultation matthew. ABSENT: rales, rhonchi, wheezes Cardiovascular exam: PRESENT: RRR. ABSENT: diastolic murmur, rubs, systolic murmur Pulses: PRESENT: normal dorsalis pedis pul GI/Abdominal exam: PRESENT: normal bowel sounds, soft. ABSENT: distended, guarding, mass, organolmegaly, rebound, tenderness Extremities exam: PRESENT: full ROM. ABSENT: calf tenderness, clubbing, pedal edema Neurological exam: PRESENT: alert, awake, oriented to person, oriented to place , oriented to time, oriented to situation, CN II-XII grossly intact. ABSENT: motor sensory deficit Results Laboratory Results: 09/18/17 07:20 09/18/17 07:20 09/18/17 09/18/17 07:20 07:20 WBC 12.2 H RBC 2.80 L Hgb 8.6 L Hct 25.7 L MCV 92 MCH 30.7 MCHC 33.4 RDW 14.3 H Plt Count 246 Retic Count (auto) 1.64 Absolute Retic 0.046 Sodium 141.3 Potassium 4.5 Chloride 104 Carbon Dioxide 26 Anion Gap 11 BUN 57 H Creatinine 5.84 H Est GFR ( Amer) 12 L Est GFR (Non-Af Amer) 10 L Glucose 105 Calcium 8.4 Iron 10.4 L TIBC 180 L % Saturation 6 Ferritin 410.00 Vitamin B12 940.0 H Folate 16.50 09/04/17 09/04/17 09/04/17 08:55 16:40 21:00 Troponin I 0.049 0.029 0.028 09/07/17 09/07/17 09/07/17 13:28 16:55 21:25 Troponin I 0.128 0.095 0.079 Impressions: Abdomen/Pelvis CTA 09/03/17 18:19 IMPRESSION: 1. FINDINGS IN THE APPENDIX SUSPICIOUS FOR EARLY ACUTE APPENDICITIS. NO EVIDENCE OF ABSCESS OR PERFORATION. THERE IS A SMALL AMOUNT OF FREE FLUID IN THE RIGHT UPPER QUADRANT WHICH MAY BE RELATED TO APPENDICITIS. 2. NO EVIDENCE OF AORTIC ANEURYSM OR DISSECTION. THE MAJOR MESENTERIC VESSELS ARE PATENT. THE LEFT COMMON ILIAC AND LEFT EXTERNAL ILIAC ARTERIES ARE OCCLUDED WITH FILLING DISTALLY VIA COLLATERALS, SUGGESTING THAT THIS IS PROBABLY A CHRONIC FINDING. 3. COLONIC DIVERTICULOSIS. NO CT FINDINGS OF ACUTE DIVERTICULITIS. 4. CORTICAL CYSTS IN THE RIGHT KIDNEY. 5. NO OTHER SIGNIFICANT FINDINGS. Chest/Abdomen CTA 09/03/17 18:19 IMPRESSION: NORMAL CTA OF THE CHEST. NO AORTIC ANEURYSM OR DISSECTION. NO PULMONARY EMBOLI. Renal Ultrasound 09/10/17 09:34 IMPRESSION: UNREMARKABLE RENAL AND BLADDER ULTRASOUND. Chest X-Ray 09/15/17 12:45 IMPRESSION: NO ACUTE RADIOGRAPHIC FINDING IN THE CHEST. Central Venous Line 09/18/17 00:00 IMPRESSION: IMAGE(S) OBTAINED DURING PROCEDURE. Qualifiers - * PATEINT BEING DISCHARGED WITH ANY OF THE FOLLOWING DIAGNOSIS?: VTE (PE or DVT) VTE patient discharged on overlapping Therapy?: No Reason(s) for not prescribing Overlap Therapy:: Medical Contraindication - patient is ESKD will be discharged on Eliquis 2.5 mg po bid Plan Discharge Plan: discharge home on 09/19 Dialysis on 09/21 as planned at [facility] Time Spent: Greater than 30 Minutes
--- NOTE | 2017-09-18 17:25 | PDOC PROGRESS REPORT ---
Subjective Progress Note for:: 09/18/17 Reason For Visit: Patient seen in the hospital on dialysis today. He is undergoing dialysis without any issues.Vital signs are stable. He denies any history of chest pain or shortness of breath. In the interim, he has been diagnosed with DVT of his legs and is on heparin as he is being crossed over to oral anticoagulants.Labs and medications were reviewed. Physical Exam Vital Signs: Temp Pulse Resp BP Pulse Ox 98.1 F 86 17 139/67 H 98 09/18/17 12:04 09/18/17 14:00 09/18/17 12:04 09/18/17 12:04 09/18/17 12:04 Pulse Oximeter Continuous Start: 09/07/17 11: 27 Freq: RTQ4 Status: Complete Document 09/13/17 08:53 HCR (Rec: 09/13/17 10:48 HCR [email or web address]) Pulse Oximetry Assessment Oxygen Saturation (92-100) 95 Oxygen Delivery Method Room Air Fraction of Inspired Oxygen (FIO2) 21 Equipment Usage Equipment in Use Continuous SpO2 Machine # 6 Intake & Output 09/17/17 09/18/17 09/19/17 06:59 06:59 06:59 Intake Total 1427 1633 0 Output Total 770 Balance 657 1633 0 Weight 84.4 kg 83.9 kg General appearance: PRESENT: no acute distress Respiratory exam: PRESENT: clear to auscultation matthew. ABSENT: crackles, rhonchi Cardiovascular exam: PRESENT: +S1, +S2, systolic murmur GI/Abdominal exam: PRESENT: distended, soft, tenderness. ABSENT: firm, guarding Extremities exam: PRESENT: +1 edema Neurological exam: PRESENT: alert, awake, oriented to person, oriented to place , oriented to time Results Laboratory Results: 09/18/17 07:20 09/18/17 07:20 09/18/17 09/18/17 07:20 07:20 WBC 12.2 H RBC 2.80 L Hgb 8.6 L Hct 25.7 L MCV 92 MCH 30.7 MCHC 33.4 RDW 14.3 H Plt Count 246 Retic Count (auto) 1.64 Absolute Retic 0.046 Sodium 141.3 Potassium 4.5 Chloride 104 Carbon Dioxide 26 Anion Gap 11 BUN 57 H Creatinine 5.84 H Est GFR ( Amer) 12 L Est GFR (Non-Af Amer) 10 L Glucose 105 Calcium 8.4 Iron 10.4 L TIBC 180 L % Saturation 6 Ferritin 410.00 Vitamin B12 940.0 H Folate 16.50 09/04/17 09/04/17 09/04/17 08:55 16:40 21:00 Troponin I 0.049 0.029 0.028 09/07/17 09/07/17 09/07/17 13:28 16:55 21:25 Troponin I 0.128 0.095 0.079 Impressions: Abdomen/Pelvis CTA 09/03/17 18:19 IMPRESSION: 1. FINDINGS IN THE APPENDIX SUSPICIOUS FOR EARLY ACUTE APPENDICITIS. NO EVIDENCE OF ABSCESS OR PERFORATION. THERE IS A SMALL AMOUNT OF FREE FLUID IN THE RIGHT UPPER QUADRANT WHICH MAY BE RELATED TO APPENDICITIS. 2. NO EVIDENCE OF AORTIC ANEURYSM OR DISSECTION. THE MAJOR MESENTERIC VESSELS ARE PATENT. THE LEFT COMMON ILIAC AND LEFT EXTERNAL ILIAC ARTERIES ARE OCCLUDED WITH FILLING DISTALLY VIA COLLATERALS, SUGGESTING THAT THIS IS PROBABLY A CHRONIC FINDING. 3. COLONIC DIVERTICULOSIS. NO CT FINDINGS OF ACUTE DIVERTICULITIS. 4. CORTICAL CYSTS IN THE RIGHT KIDNEY. 5. NO OTHER SIGNIFICANT FINDINGS. Chest/Abdomen CTA 09/03/17 18:19 IMPRESSION: NORMAL CTA OF THE CHEST. NO AORTIC ANEURYSM OR DISSECTION. NO PULMONARY EMBOLI. Renal Ultrasound 09/10/17 09:34 IMPRESSION: UNREMARKABLE RENAL AND BLADDER ULTRASOUND. Chest X-Ray 09/15/17 12:45 IMPRESSION: NO ACUTE RADIOGRAPHIC FINDING IN THE CHEST. Central Venous Line 09/18/17 00:00 IMPRESSION: IMAGE(S) OBTAINED DURING PROCEDURE. Assessment & Plan - Diagnosis (1) Acute renal failure Qualifiers: Acute renal failure type: unspecified Qualified Code(s): N17.9 - Acute kidney failure, unspecified Is this a current diagnosis for this admission?: Yes Plan: Stable. He is undergoing HD without any issues. Dialysis is being supervised to ensure safe and smooth procedure. VS are stable.Plan to remove 3 l of fluid as tolerated.Orders were discussed with treating HD RN Rhea.Discussed with Dr. Alcantara/hospitalist. Is continuing to make decent amount of urine which means that he has reasonable chance of renal recovery.From a renal point of view he had a PermCath inserted this morning and is working. He can be discharged to outpatient dialysis at [facility]. senior media planner to coordinate transfer. (2) Cardiomyopathy Qualifiers: Cardiomyopathy type: unspecified Qualified Code(s): I42.9 - Cardiomyopathy , unspecified Is this a current diagnosis for this admission?: Yes Plan: Underlying Ischemic CMP with recent ECHO shows LVEF of 35 - 40 % with diastolic dysfunction, and segmental dyskinesia. Given the above situation with progressive CLARISSA and decreasing renal OP. Initiated on HD and feeling better. (3) Coronary artery disease Qualifiers: Coronary Disease-Associated Artery/Lesion type: [place] artery [place] vs. transplanted heart: [place] heart Associated angina: angina presence unspecified Qualified Code(s): I25.10 - Atherosclerotic heart disease of [place] coronary artery without angina pectoris Is this a current diagnosis for this admission?: Yes Plan: Stable. (4) Fluid overload Is this a current diagnosis for this admission?: Yes Plan: CHF is responding to the dialysis. (5) Ruptured acute appendicitis with periton Is this a current diagnosis for this admission?: Yes Plan: S/P Laparotomy and appropriate surgery.Stable. (6) Deep vein thrombosis (DVT) of distal vein of left lower extremity Qualifiers: Chronicity: acute Qualified Code(s): I82.4Z2 - Acute embolism and thrombosis of unspecified deep veins of left distal lower extremity Is this a current diagnosis for this admission?: Yes Plan: On heparin with crossover to oral anticoagulants. As per hospitalist.
[2017-09-19] MEDS ORDERED: APIXABAN 2.5 MG TABLET PO ONE (06:15)
[2017-09-19] MEDS: CARVEDILOL 12.5 MG TABLET PO SCH (09:58)
[2017-09-19] MEDS: ATORVASTATIN CALCIUM 40 MG TABLET PO SCH (09:58)
[2017-09-19] MEDS: POTASSIUM CHLORIDE 10 MEQ TABLET.SA PO SCH (09:58)
[2017-09-19] MEDS: FUROSEMIDE INJ/PF 20 MG/2 ML SDV IV SCH (09:58)
[2017-09-19 11:32] VITALS: BP 122/62
[2017-09-19] MEDS ORDERED: APIXABAN 2.5 MG TABLET PO SCH (18:00)
--- NOTE | 2017-09-19 19:56 | PDOC PROGRESS REPORT ---
Subjective Progress Note for:: 09/15/17 Subjective:: Improved Reason For Visit: RUPTURED ACUTE APPENDICITIS WITH PERITONITIS Physical Exam Vital Signs: Temp Pulse Resp BP Pulse Ox 98.1 F 96 16 138/71 H 96 09/18/17 07:20 09/18/17 07:20 09/18/17 07:20 09/18/17 07:20 09/18/17 07:20 Pulse Oximeter Continuous Start: 09/07/17 11: 27 Freq: RTQ4 Status: Complete Document 09/13/17 08:53 HCR (Rec: 09/13/17 10:48 HCR [email or web address]) Pulse Oximetry Assessment Oxygen Saturation (92-100) 95 Oxygen Delivery Method Room Air Fraction of Inspired Oxygen (FIO2) 21 Equipment Usage Equipment in Use Continuous SpO2 Machine # 6 Intake & Output 09/17/17 09/18/17 09/19/17 06:59 06:59 06:59 Intake Total 1427 1633 Output Total 770 Balance 657 1633 Weight 84.4 kg 83.9 kg General appearance: PRESENT: no acute distress, cooperative, disheveled Head exam: PRESENT: atraumatic, normocephalic Eye exam: PRESENT: conjunctiva pale, EOMI. ABSENT: nystagmus, periorbital swelling, scleral icterus Mouth exam: PRESENT: moist, neck supple, tongue midline Neck exam: ABSENT: carotid bruit, JVD, lymphadenopathy, thyromegaly, tracheal deviation, tracheostomy Respiratory exam: PRESENT: decreased breath sounds, prolonged expiratory phas, rhonchi, stridor, unlabored. ABSENT: retraction, tachypnea Cardiovascular exam: PRESENT: RRR, +S1, +S2 Pulses: PRESENT: normal radial pulses GI/Abdominal exam: PRESENT: diminished bowel sounds, soft Extremities exam: ABSENT: calf tenderness, clubbing Musculoskeletal exam: ABSENT: deformity, dislocation Neurological exam: PRESENT: awake Skin exam: PRESENT: dry, warm Results Laboratory Results: 09/18/17 07:20 09/18/17 07:20 09/18/17 09/18/17 07:20 07:20 WBC 12.2 H RBC 2.80 L Hgb 8.6 L Hct 25.7 L MCV 92 MCH 30.7 MCHC 33.4 RDW 14.3 H Plt Count 246 Retic Count (auto) 1.64 Absolute Retic 0.046 Sodium 141.3 Potassium 4.5 Chloride 104 Carbon Dioxide 26 Anion Gap 11 BUN 57 H Creatinine 5.84 H Est GFR ( Amer) 12 L Est GFR (Non-Af Amer) 10 L Glucose 105 Calcium 8.4 Iron 10.4 L TIBC 180 L % Saturation 6 Ferritin 410.00 Vitamin B12 940.0 H Folate 16.50 09/04/17 09/04/17 09/04/17 08:55 16:40 21:00 Troponin I 0.049 0.029 0.028 09/07/17 09/07/17 09/07/17 13:28 16:55 21:25 Troponin I 0.128 0.095 0.079 Impressions: Abdomen/Pelvis CTA 09/03/17 18:19 IMPRESSION: 1. FINDINGS IN THE APPENDIX SUSPICIOUS FOR EARLY ACUTE APPENDICITIS. NO EVIDENCE OF ABSCESS OR PERFORATION. THERE IS A SMALL AMOUNT OF FREE FLUID IN THE RIGHT UPPER QUADRANT WHICH MAY BE RELATED TO APPENDICITIS. 2. NO EVIDENCE OF AORTIC ANEURYSM OR DISSECTION. THE MAJOR MESENTERIC VESSELS ARE PATENT. THE LEFT COMMON ILIAC AND LEFT EXTERNAL ILIAC ARTERIES ARE OCCLUDED WITH FILLING DISTALLY VIA COLLATERALS, SUGGESTING THAT THIS IS PROBABLY A CHRONIC FINDING. 3. COLONIC DIVERTICULOSIS. NO CT FINDINGS OF ACUTE DIVERTICULITIS. 4. CORTICAL CYSTS IN THE RIGHT KIDNEY. 5. NO OTHER SIGNIFICANT FINDINGS. Chest/Abdomen CTA 09/03/17 18:19 IMPRESSION: NORMAL CTA OF THE CHEST. NO AORTIC ANEURYSM OR DISSECTION. NO PULMONARY EMBOLI. Renal Ultrasound 09/10/17 09:34 IMPRESSION: UNREMARKABLE RENAL AND BLADDER ULTRASOUND. Chest X-Ray 09/15/17 12:45 IMPRESSION: NO ACUTE RADIOGRAPHIC FINDING IN THE CHEST. Assessment & Plan - Diagnosis (1) Respiratory failure Qualifiers: Respiratory failure complication: hypoxia Is this a current diagnosis for this admission?: Yes Plan: improving nearing baseline (2) Hypertension Qualifiers: Hypertension type: essential hypertension Qualified Code(s): I10 - Essential (primary) hypertension Is this a current diagnosis for this admission?: Yes (3) Ruptured acute appendicitis with periton Is this a current diagnosis for this admission?: Yes Plan: As per surgery 09/03/17 21:40 Gram Stain - Final Abdominal Fluid Body Fluid Culture - Final Escherichia Coli Klebsiella Pneumoniae Enterococcus Gallinarum Bacteroides Fragilis Group Fusobacterium Species 09/03/17 18:18 Blood Culture - Final Blood Prevotella Species
--- NOTE | 2017-09-19 19:58 | PDOC PROGRESS REPORT ---
Subjective Progress Note for:: 09/18/17 Subjective:: Currently without complaint Reason For Visit: RUPTURED ACUTE APPENDICITIS WITH PERITONITIS Physical Exam Vital Signs: Temp Pulse Resp BP Pulse Ox 98.1 F 96 16 138/71 H 96 09/18/17 07:20 09/18/17 07:20 09/18/17 07:20 09/18/17 07:20 09/18/17 07:20 Pulse Oximeter Continuous Start: 09/07/17 11: 27 Freq: RTQ4 Status: Complete Document 09/13/17 08:53 HCR (Rec: 09/13/17 10:48 HCR [email or web address]) Pulse Oximetry Assessment Oxygen Saturation (92-100) 95 Oxygen Delivery Method Room Air Fraction of Inspired Oxygen (FIO2) 21 Equipment Usage Equipment in Use Continuous SpO2 Machine # 6 Intake & Output 09/17/17 09/18/17 09/19/17 06:59 06:59 06:59 Intake Total 1427 1633 Output Total 770 Balance 657 1633 Weight 84.4 kg 83.9 kg General appearance: PRESENT: no acute distress, cooperative Head exam: PRESENT: atraumatic, normocephalic Eye exam: PRESENT: conjunctiva pale, EOMI Mouth exam: PRESENT: moist, neck supple, tongue midline Neck exam: PRESENT: tracheostomy. ABSENT: carotid bruit, JVD, lymphadenopathy, thyromegaly, tracheal deviation Respiratory exam: PRESENT: decreased breath sounds, prolonged expiratory phas, rhonchi, unlabored. ABSENT: retraction, stridor, tachypnea Cardiovascular exam: PRESENT: RRR, +S1, +S2 Pulses: PRESENT: normal radial pulses GI/Abdominal exam: PRESENT: diminished bowel sounds, soft, other - Status post surgery Extremities exam: ABSENT: calf tenderness, clubbing, joint swelling Musculoskeletal exam: ABSENT: deformity, dislocation Neurological exam: PRESENT: awake Psychiatric exam: PRESENT: normal mood Skin exam: PRESENT: dry, warm Results Laboratory Results: 09/18/17 07:20 09/18/17 07:20 09/18/17 09/18/17 07:20 07:20 WBC 12.2 H RBC 2.80 L Hgb 8.6 L Hct 25.7 L MCV 92 MCH 30.7 MCHC 33.4 RDW 14.3 H Plt Count 246 Retic Count (auto) 1.64 Absolute Retic 0.046 Sodium 141.3 Potassium 4.5 Chloride 104 Carbon Dioxide 26 Anion Gap 11 BUN 57 H Creatinine 5.84 H Est GFR ( Amer) 12 L Est GFR (Non-Af Amer) 10 L Glucose 105 Calcium 8.4 Iron 10.4 L TIBC 180 L % Saturation 6 Ferritin 410.00 Vitamin B12 940.0 H Folate 16.50 09/04/17 09/04/17 09/04/17 08:55 16:40 21:00 Troponin I 0.049 0.029 0.028 09/07/17 09/07/17 09/07/17 13:28 16:55 21:25 Troponin I 0.128 0.095 0.079 Impressions: Abdomen/Pelvis CTA 09/03/17 18:19 IMPRESSION: 1. FINDINGS IN THE APPENDIX SUSPICIOUS FOR EARLY ACUTE APPENDICITIS. NO EVIDENCE OF ABSCESS OR PERFORATION. THERE IS A SMALL AMOUNT OF FREE FLUID IN THE RIGHT UPPER QUADRANT WHICH MAY BE RELATED TO APPENDICITIS. 2. NO EVIDENCE OF AORTIC ANEURYSM OR DISSECTION. THE MAJOR MESENTERIC VESSELS ARE PATENT. THE LEFT COMMON ILIAC AND LEFT EXTERNAL ILIAC ARTERIES ARE OCCLUDED WITH FILLING DISTALLY VIA COLLATERALS, SUGGESTING THAT THIS IS PROBABLY A CHRONIC FINDING. 3. COLONIC DIVERTICULOSIS. NO CT FINDINGS OF ACUTE DIVERTICULITIS. 4. CORTICAL CYSTS IN THE RIGHT KIDNEY. 5. NO OTHER SIGNIFICANT FINDINGS. Chest/Abdomen CTA 09/03/17 18:19 IMPRESSION: NORMAL CTA OF THE CHEST. NO AORTIC ANEURYSM OR DISSECTION. NO PULMONARY EMBOLI. Renal Ultrasound 09/10/17 09:34 IMPRESSION: UNREMARKABLE RENAL AND BLADDER ULTRASOUND. Chest X-Ray 09/15/17 12:45 IMPRESSION: NO ACUTE RADIOGRAPHIC FINDING IN THE CHEST. Assessment & Plan - Diagnosis (1) Respiratory failure Qualifiers: Respiratory failure complication: hypoxia Is this a current diagnosis for this admission?: Yes Plan: improving nearing baseline (2) Hypertension Qualifiers: Hypertension type: essential hypertension Qualified Code(s): I10 - Essential (primary) hypertension Is this a current diagnosis for this admission?: Yes (3) Ruptured acute appendicitis with periton Is this a current diagnosis for this admission?: Yes Plan: As per surgery 09/03/17 21:40 Gram Stain - Final Abdominal Fluid Body Fluid Culture - Final Escherichia Coli Klebsiella Pneumoniae Enterococcus Gallinarum Bacteroides Fragilis Group Fusobacterium Species 09/03/17 18:18 Blood Culture - Final Blood Prevotella Species
== END 2017-09-19 12:23 | disposition home or self-care (01) | DRG 853 ==
LOC: ER 16:33 → EH 19:44 → ICU 23:39 → 3W 09-06 20:50
PROVIDERS: ATTEND Emergency Medicine
PROC: 0DJD4ZZ Inspection of Lower Intestinal Tract, Percutaneous Endoscopic Approach (ICD-10-PCS; 2017-09-03)
PROC: 0W9F00Z Drainage of Abdominal Wall with Drainage Device, Open Approach (ICD-10-PCS; 2017-09-03)
PROC: 02HV33Z Insertion of Infusion Device into Superior Vena Cava, Percutaneous Approach (ICD-10-PCS; 2017-09-03)
PROC: B548ZZA Ultrasonography of Superior Vena Cava, Guidance (ICD-10-PCS; 2017-09-03)
PROC: 5A1935Z Respiratory Ventilation, Less than 24 Consecutive Hours (ICD-10-PCS; 2017-09-03)
PROC: 0DTJ0ZZ Resection of Appendix, Open Approach (ICD-10-PCS; principal; 2017-09-03 21:30)
PROC: 06H033Z Insertion of Infusion Device into Inferior Vena Cava, Percutaneous Approach (ICD-10-PCS; 2017-09-11)
PROC: 0JH63WZ Insertion of Totally Implantable Vascular Access Device into Chest Subcutaneous Tissue and Fascia, Percutaneous Approach (ICD-10-PCS; 2017-09-11)
PROC: B5191ZA Fluoroscopy of Inferior Vena Cava using Low Osmolar Contrast, Guidance (ICD-10-PCS; 2017-09-11)
PROC: 5A1D70Z Performance of Urinary Filtration, Intermittent, Less than 6 Hours Per Day (ICD-10-PCS; 2017-09-11)
PROC: 5A1D70Z Performance of Urinary Filtration, Intermittent, Less than 6 Hours Per Day (ICD-10-PCS; 2017-09-13)
PROC: 5A1D70Z Performance of Urinary Filtration, Intermittent, Less than 6 Hours Per Day (ICD-10-PCS; 2017-09-15)
PROC: 5A1D70Z Performance of Urinary Filtration, Intermittent, Less than 6 Hours Per Day (ICD-10-PCS; 2017-09-18)
DX: A41.9 Sepsis, unspecified organism (principal); K35.3 Acute appendicitis with localized peritonitis; G93.41 Metabolic encephalopathy; J18.9 Pneumonia, unspecified organism; N18.6 End stage renal disease; J96.01 Acute respiratory failure with hypoxia; N17.9 Acute kidney failure, unspecified; I50.42 Chronic combined systolic (congestive) and diastolic (congestive) heart failure; I82.4Z2 Acute embolism and thrombosis of unspecified deep veins of left distal lower extremity; I13.2 Hypertensive heart and chronic kidney disease with heart failure and with stage 5 chronic kidney disease, or end stage renal disease; I25.10 Atherosclerotic heart disease of native coronary artery without angina pectoris; E78.5 Hyperlipidemia, unspecified; Z95.5 Presence of coronary angioplasty implant and graft; E87.6 Hypokalemia; Z79.899 Other long term (current) drug therapy; B96.6 Bacteroides fragilis [B. fragilis] as the cause of diseases classified elsewhere; B96.20 Unspecified Escherichia coli [E. coli] as the cause of diseases classified elsewhere; B96.1 Klebsiella pneumoniae [K. pneumoniae] as the cause of diseases classified elsewhere; B95.2 Enterococcus as the cause of diseases classified elsewhere; B96.89 Other specified bacterial agents as the cause of diseases classified elsewhere; E87.70 Fluid overload, unspecified; R23.8 Other skin changes; I25.5 Ischemic cardiomyopathy; I11.0 Hypertensive heart disease with heart failure; I25.2 Old myocardial infarction; Z79.02 Long term (current) use of antithrombotics/antiplatelets; T36.8X5A Adverse effect of other systemic antibiotics, initial encounter; Y92.239 Unspecified place in hospital as the place of occurrence of the external cause; Z87.891 Personal history of nicotine dependence; Z78.1 Physical restraint status; Z99.2 Dependence on renal dialysis
CPT/HCPCS: 00790; 36415; 36558; 36600; 71045; 71046; 71275; 74174; 76770; 76937; 77001; 80048; 80053; 80074; 80076; 80202; 81001; 82272; 82565; 82570; 82607; 82728; 82746; 82803; 83540; 83550; 83605; 83690; 83735; 84156; 84466; 84484; 85025; 85027; 85045; 85610; 85730; 86850; 86900; 86901; 87040; 87070; 87075; 87077; 87186; 87205; 87340; 93005; 93010; 93306; 93970; 94002; 94640; 94660; 94762; 94799; 96374; 96375; 99291; C1751; C1752; G8978-GP; G8979-GP; J0295; J0690; J1170; J1642; J1644; J1650; J1940; J1956; J2060; J2250; J2270; J2405; J2543; J2704; J3010; J3370; J3480; J3490; J7030; J7050; J7060; J7614; J7685; P9047; Q4081; Q9967; S0164

== ENCOUNTER → 2017-09-28 | Outpatient (CLI) | payer MEDICARE ==
[2017-09-28 08:40] LABS: ANION GAP 11 (5-19); BLOOD UREA NITROGEN 14 mg/dL (7-20); CALCIUM 8.5 mg/dL (8.4-10.2); CARBON DIOXIDE 31 mmol/L (22-30); CHLORIDE 101 mmol/L (98-107); CHOLESTEROL 115.82 mg/dL (0-200); GLUCOSE 103 mg/dL (75-110); POTASSIUM 3.1 mmol/L (3.6-5.0); SODIUM 142.8 mmol/L (137-145); TRIGLYCERIDES 93 mg/dL (<150)
[2017-09-28 08:52] LABS: DIRECT LDL 62 mg/dL (<100)
== END ==
LOC: OD 07:51
PROVIDERS: ATTEND Internal Medicine Cardiovascular Disease
DX: E78.5 Hyperlipidemia, unspecified (principal); I50.22 Chronic systolic (congestive) heart failure; I10 Essential (primary) hypertension; R06.02 Shortness of breath; I25.2 Old myocardial infarction
CPT/HCPCS: 36415; 80048; 80061; 83880

== ENCOUNTER → 2017-09-29 | Outpatient (CLI) | payer MEDICARE ==
--- NOTE | 2017-09-29 15:46 | XCELERA REPORT ---
[address] [address] Lower Extremity Arterial Evaluation Name: CLIFF TALBOT Age: 72 yrs Gender: Male : 1945 Patient Status: Outpatient Patient Location: Study Date: 09/29/2017 10:55 AM Procedure: A color flow and duplex scan of the lower extremity arteries was performed bilaterally with velocity and waveform anaylsis. Reason For Study: ULCER Ordering Physician: YOSSI LANDA Performed By: Sami Peterson Measurements and Calculations Right Left STOCK COUNTER PSV 124.0 59.4 cm/sec Prox PFA PSV -189.7 36.4 cm/sec Prox SFA PSV 105.5 58.1 cm/sec Mid SFA PSV -52.0 -98.2 cm/sec Dist SFA PSV -45.8 -30.3 cm/sec Prox Pop A PSV 43.7 31.4 cm/sec Dist NEEL PSV 31.9 34.0 cm/sec Dist ASSISTANT AUDITOR PSV 42.4 41.2 cm/sec Christiano Pedis PSV 37.5 29.1 cm/sec Right Side Arterial Evaluation Normal velocity and triphasic waveforms noted in the Common Femoral artery. Otherwise biphasic to the infrageniculate vessels. 0-19% stenosis at the Femoral artery. Ankle Brachial index was declined. Left Side Arterial Evaluation Normal velocity and triphasic waveforms noted in the Common Femoral artery. Otherwise biphasic to the infrageniculate vessels. 0-19% stenosis at the Femoral artery. Ankle Brachial index was declined. Interpretation Summary Mild hemodynamically significant lesions in the bilateral lower extremities, on duplex imaging, at rest. : YOSSI LANDA > Yossi Landa
== END ==
LOC: SP 10:33
PROVIDERS: ATTEND Surgery
DX: L97.519 Non-pressure chronic ulcer of other part of right foot with unspecified severity (principal)
CPT/HCPCS: 93925

== ENCOUNTER → 2017-10-05 | Outpatient (CLI) | payer MEDICARE | LOC: OD 09:42 | PROVIDERS: ATTEND Physician Assistant Medical | DX: E87.6 Hypokalemia (principal); N18.6 End stage renal disease | CPT/HCPCS: 36415; 84132 ==

== ENCOUNTER → 2017-11-06 | Outpatient (CLI) | payer MEDICARE ==
[2017-11-06 09:06] LABS: ANION GAP 11 (5-19); BLOOD UREA NITROGEN 19 mg/dL (7-20); CALCIUM 9.2 mg/dL (8.4-10.2); CARBON DIOXIDE 25 mmol/L (22-30); CHLORIDE 108 mmol/L (98-107); CHOLESTEROL 87.12 mg/dL (0-200); GLUCOSE 109 mg/dL (75-110); POTASSIUM 4.2 mmol/L (3.6-5.0); SODIUM 144.2 mmol/L (137-145); TRIGLYCERIDES 108 mg/dL (<150)
[2017-11-06 09:17] LABS: DIRECT LDL 32 mg/dL (<100)
== END ==
LOC: LAB 08:12
PROVIDERS: ATTEND Internal Medicine Cardiovascular Disease
DX: I50.22 Chronic systolic (congestive) heart failure (principal); R06.02 Shortness of breath; I10 Essential (primary) hypertension; E78.5 Hyperlipidemia, unspecified; E87.5 Hyperkalemia
CPT/HCPCS: 36415; 80048; 80061; 83735; 83880

== ENCOUNTER → 2017-11-17 | Outpatient (CLI) | payer MEDICARE ==
[2017-11-17 16:50] LABS: HEMATOCRIT 24.6 % (37.9-51.0); HEMOGLOBIN 8.2 g/dL (13.5-17.0); MEAN CORPUSCULAR HEMOGLOBIN 28.8 pg (27.0-33.4); MEAN CORPUSCULAR HGB CONC 33.3 g/dL (32.0-36.0); MEAN CORPUSCULAR VOLUME 87 fl (80-97); PLATELET COUNT 297 10^3/uL (150-450); RED BLOOD COUNT 2.84 10^6/uL (4.35-5.55); RED CELL DISTRIBUTION WIDTH 17.9 % (11.5-14.0); WHITE BLOOD COUNT 6.4 10^3/uL (4.0-10.5)
[2017-11-17 16:50] LABS: APPEARANCE,URINE CLEAR; BILIRUBIN,URINE NEGATIVE (NEGATIVE); COLOR,URINE STRAW; GLUCOSE, URINE NEGATIVE (NEGATIVE); KETONES,URINE NEGATIVE (NEGATIVE); LEUKOCYTE ESTERASE,URINE NEGATIVE (NEGATIVE); NITRITE,URINE NEGATIVE (NEGATIVE); PROTEIN,URINE NEGATIVE (NEGATIVE); URINE SPECIFIC GRAVITY 1.005; UROBILINOGEN,URINE NEGATIVE mg/dL (<2.0)
[2017-11-17 17:12] LABS: ANION GAP 12 (5-19); BLOOD UREA NITROGEN 16 mg/dL (7-20); CALCIUM 8.4 mg/dL (8.4-10.2); CARBON DIOXIDE 22 mmol/L (22-30); CHLORIDE 108 mmol/L (98-107); GLUCOSE 88 mg/dL (75-110); POTASSIUM 3.9 mmol/L (3.6-5.0); SODIUM 142.4 mmol/L (137-145)
== END ==
LOC: OD 15:32
PROVIDERS: ATTEND Physician Assistant Medical
DX: N18.6 End stage renal disease (principal); D64.9 Anemia, unspecified; I50.9 Heart failure, unspecified; R60.9 Edema, unspecified
CPT/HCPCS: 36415; 80048; 81001; 85027

== ENCOUNTER → 2017-12-20 | Outpatient (CLI) | payer MEDICARE ==
[2017-12-20 10:04] LABS: HEMATOCRIT 30.9 % (37.9-51.0); HEMOGLOBIN 10.1 g/dL (13.5-17.0); MEAN CORPUSCULAR HEMOGLOBIN 28.8 pg (27.0-33.4); MEAN CORPUSCULAR HGB CONC 32.6 g/dL (32.0-36.0); MEAN CORPUSCULAR VOLUME 88 fl (80-97); PLATELET COUNT 213 10^3/uL (150-450); RED CELL DISTRIBUTION WIDTH 18.4 % (11.5-14.0); WHITE BLOOD COUNT 5.9 10^3/uL (4.0-10.5)
[2017-12-20 10:28] LABS: ANION GAP 13 (5-19); BLOOD UREA NITROGEN 33 mg/dL (7-20); CALCIUM 9.2 mg/dL (8.4-10.2); CARBON DIOXIDE 22 mmol/L (22-30); CHLORIDE 108 mmol/L (98-107); GLUCOSE 128 mg/dL (75-110); IRON(TIBC) 28.4 ug/dL (49-181); POTASSIUM 4.4 mmol/L (3.6-5.0); SODIUM 142.7 mmol/L (137-145)
[2017-12-20 11:08] LABS: ANION GAP 13 (5-19); BLOOD UREA NITROGEN 33 mg/dL (7-20); CALCIUM 9.2 mg/dL (8.4-10.2); CARBON DIOXIDE 22 mmol/L (22-30); CHLORIDE 108 mmol/L (98-107); GLUCOSE 128 mg/dL (75-110); POTASSIUM 4.4 mmol/L (3.6-5.0); SODIUM 142.7 mmol/L (137-145)
== END ==
LOC: LAB 09:36
PROVIDERS: ATTEND Internal Medicine Cardiovascular Disease
DX: I12.9 Hypertensive chronic kidney disease with stage 1 through stage 4 chronic kidney disease, or unspecified chronic kidney disease (principal); N18.3 Chronic kidney disease, stage 3 (moderate); I50.9 Heart failure, unspecified
CPT/HCPCS: 36415; 80048; 82728; 83540; 83550; 83735; 83880; 85027; 85379

== ENCOUNTER 2017-12-26 14:55 | Day surgery (SDC) | payer MEDICARE ==
[2017-12-26] MEDS ORDERED: DIPHENHYDRAMINE HCL 50 MG/ML VIAL ONE (15:08)
[2017-12-26] MEDS ORDERED: NALOXONE HCL INJ/PF 0.4 MG/1 ML SDV ONE (15:08)
[2017-12-26] MEDS ORDERED: MIDAZOLAM 2 MG/2 ML INJ ONE (15:08)
[2017-12-26] MEDS ORDERED: ONDANSETRON HCL INJ/PF 4 MG/2 ML SDV ONE (15:08)
[2017-12-26] MEDS ORDERED: FLUMAZENIL INJ 0.5 MG/5 ML VIAL ONE (15:09)
[2017-12-26] MEDS ORDERED: EPINEPHRINE INJ 1 MG/10 ML DISP.SYRIN ONE (15:09)
[2017-12-26] MEDS ORDERED: FENTANYL CITRATE INJ/PF 100 MCG/2 ML AMPUL ONE (15:09)
[2017-12-26] MEDS ORDERED: GLUCAGON,HUMAN RECOMB 1 MG INJ ONE (15:09)
[2017-12-26] MEDS: MIDAZOLAM 2 MG/2 ML INJ ONE ×2 (15:51→15:55)
--- NOTE | 2017-12-26 16:22 | Operative Report ---
Operative Report DATE OF SURGERY: 12/26/17 Operative Report: Pre-op diagnosis: Anemia and colon cancer screening Post-op diagnosis: 1. Antral gastritis 2. Sigmoid diverticulosis 3. Sigmoid colon polyp Surgery: Upper endoscopy with biopsy and Colonoscopy with polypectomy Medications: Versed 3mg, Fentanyl 100mcg IV push Tissue removed: Antral and body biopsy, colon polyp Procedure: After informed consent obtained from patient, patient's pharynx was sprayed with Hurricane and conscious sedation was achieved. The upper endoscope was then inserted into the esophagus under direct vision and advanced into the stomach and further into the duodenum. Detailed examination of the duodenum, stomach and the esophagus was then performed. A digital rectal examination was performed and this was unremarkable. The colonoscope was inserted into the rectum and advanced to the cecum. The appendiceal orifice and the terminal ileum were both identified. The mucosa was examined into details as the colonoscope was slowly pulled out of the patient. The endoscope was retroflexed in the rectum. Patient tolerated the procedure well. Findings Esophagus: Normal Stomach: Mild erythema in the gastric antrum. Duodenum: Normal Cecum: Normal Ascending colon: Normal Transverse colon: Normal Descending colon: Normal Sigmoid colon: Multiple diverticuli noted. A 5 mm polyp removed with a hot snare Rectum: Normal except for internal hemorrhoids Plan: Await pathology follow-up colonoscopy in 5 years. Omeprazole daily for 1 month. Resume Eliquis OPERATION: .
[2017-12-26 17:14] VITALS: BP 105/55
== END 2017-12-26 17:14 | disposition home or self-care (01) ==
LOC: END 14:55
PROVIDERS: ATTEND Internal Medicine Gastroenterology
DX: D50.9 Iron deficiency anemia, unspecified (principal); K92.1 Melena; K29.50 Unspecified chronic gastritis without bleeding; K63.5 Polyp of colon; K57.30 Diverticulosis of large intestine without perforation or abscess without bleeding; K43.2 Incisional hernia without obstruction or gangrene; I13.0 Hypertensive heart and chronic kidney disease with heart failure and stage 1 through stage 4 chronic kidney disease, or unspecified chronic kidney disease; I50.9 Heart failure, unspecified; N18.9 Chronic kidney disease, unspecified; E78.00 Pure hypercholesterolemia, unspecified; Z79.01 Long term (current) use of anticoagulants; Z86.718 Personal history of other venous thrombosis and embolism; Z79.899 Other long term (current) drug therapy; Z79.82 Long term (current) use of aspirin; Z79.51 Long term (current) use of inhaled steroids; I25.2 Old myocardial infarction
CPT/HCPCS: 43239; 45385; 88305 ×2; J2250; J3010; J0171; J1200; J1610; J2310; J2405; J3490

== ENCOUNTER 2018-01-03 13:33 | Outpatient (CLI) | payer MEDICARE, OTHER ==
[2018-01-03] MEDS ORDERED: FERRIC CARBOXYMALTOSE 750 MG in NORMAL SALINE 250 ML IV PRN (14:04)
[2018-01-03 14:08] VITALS: BP 117/63
== END 2018-01-03 15:38 | disposition home or self-care (01) ==
LOC: II 13:33 → 5TH 13:42 → II 15:38
PROVIDERS: ATTEND Internal Medicine Nephrology
PROC: 3E033GC Introduction of Other Therapeutic Substance into Peripheral Vein, Percutaneous Approach (ICD-10-PCS; principal; 2018-01-03)
DX: N18.3 Chronic kidney disease, stage 3 (moderate) (principal); D50.9 Iron deficiency anemia, unspecified
CPT/HCPCS: 96365; J7050; J1439; 96367

== ENCOUNTER → 2018-01-17 | Outpatient (CLI) | payer MEDICARE, OTHER ==
[2018-01-17 10:28] LABS: HEMATOCRIT 34.6 % (37.9-51.0); HEMOGLOBIN 11.5 g/dL (13.5-17.0); MEAN CORPUSCULAR HEMOGLOBIN 29.3 pg (27.0-33.4); MEAN CORPUSCULAR HGB CONC 33.3 g/dL (32.0-36.0); MEAN CORPUSCULAR VOLUME 88 fl (80-97); PLATELET COUNT 201 10^3/uL (150-450); RED BLOOD COUNT 3.94 10^6/uL (4.35-5.55); RED CELL DISTRIBUTION WIDTH 18.3 % (11.5-14.0); WHITE BLOOD COUNT 6.3 10^3/uL (4.0-10.5)
[2018-01-17 10:42] LABS: ANION GAP 12 (5-19); BLOOD UREA NITROGEN 18 mg/dL (7-20); CALCIUM 9.4 mg/dL (8.4-10.2); CARBON DIOXIDE 20 mmol/L (22-30); CHLORIDE 110 mmol/L (98-107); GLUCOSE 95 mg/dL (75-110); IRON(TIBC) 107.9 ug/dL (49-181); POTASSIUM 4.4 mmol/L (3.6-5.0); SODIUM 142.1 mmol/L (137-145)
[2018-01-17 11:44] LABS: ANION GAP 12 (5-19); BLOOD UREA NITROGEN 18 mg/dL (7-20); CALCIUM 9.4 mg/dL (8.4-10.2); CARBON DIOXIDE 20 mmol/L (22-30); CHLORIDE 110 mmol/L (98-107); GLUCOSE 95 mg/dL (75-110); POTASSIUM 4.4 mmol/L (3.6-5.0); SODIUM 142.1 mmol/L (137-145)
== END ==
LOC: LAB 09:58
PROVIDERS: ATTEND Internal Medicine Cardiovascular Disease
DX: I50.22 Chronic systolic (congestive) heart failure (principal); N18.4 Chronic kidney disease, stage 4 (severe); D64.9 Anemia, unspecified
CPT/HCPCS: 36415; 80048; 82728; 83540; 83550; 85027